=== PATIENT | female | born 1970 | race Caucasian/White ===

== ENCOUNTER 2016-06-03 20:00 | Emergency (ER) | payer MEDICAID, SELFPAY ==
[~2016-06-03 20:00] MED LIST: /NITR4TASL SL; /PANT40TA PO; ACET25TA5 PO; ADV250INH INH; ADVI200C PO; ALBU17IN INH; ALBU17IN2 INH; ALEV220C2 PO; AMBI12.52 PO; AMLO5TAB2 PO; ATOR40TA PO; ATORVASTATIN PO; BACITAB3 PO; BACL10TA2 PO; CARV3.12 PO; CARV6.25 PO; CEFD1CAP8 PO; CHLO125TA PO; CIPR500T89 PO; CITA20TA2 PO; CLOP75TA2 PO; CORE20CA PO; DIFL200T PO; DOCU10ELUD PO; DOXY10CA PO; DULC10SU2 PR; DURA100D2 TD; FENT10PA TD; FLAG375C PO; FLAG500T PO; FURO20TA2 PO; HUMA100I3 SC; IMDU30TA PO; INSU70DS SC; INSUDET SC; INSUH10VL SC; INSUHUMDS SC; INSULADS SC; LEVO750T PO; LEXA1TAB PO; LIDO5DIS36 TD; LISI-538 PO; LISI10TA4 PO; LYRI100C10 PO; LYRI300C PO; LYRI75CA PO; Linezolid PO; MECL-68 PO; MICA40TA PO; MORP100T40 PO; MORP30TASA PO; NITR4TASL SL; NORV5TAB PO; OXYC-208 PO; OXYC10TA12 PO; OXYC20TA21 PO; PEG1POW PO; PLAV75TA38 PO; PRED10TA PO; SENN-15 PO; SENN1TAB2 PO; STOO100C PO; SULF1TAB72 PO; SYMB80INH INH; TELM1TAB2 PO; TRAM50TA2 PO; TRAZ100T4 PO; TRAZ50TA4 PO; ZEST10TA4 PO; [UNRECOGNIZED DRUG - CODE] SC
[2016-06-03] MEDS ORDERED: DOXYCYCLINE HYCLATE 100 MG TAB As Ordered ONE (21:46)
[2016-06-03] MEDS ORDERED: NORCO 5/325MG TABLET (BULK) As Ordered ONE (21:47)
--- NOTE | 2016-06-03 21:58 | EDDOCDS ---
Physician Documentation [facility] Name: Kathryn Morin Age: 45 yrs Sex: Female : 1970 Arrival Date: 06/03/2016 Time: 20:00 Bed TR7 Private MD: Missael Barkley Disposition: 06/03/16 21:42 Discharged to Home/Self Care. Impression: Open wound of unspecified buttock - bilateral. - Condition is Stable. - Discharge Instructions: Wound Care, [id number]. - Prescriptions for Doxycycline Hyclate 100 mg Oral Tablet - take 1 tablet by ORAL route every 12 hours; 20 tablet. - Medication Reconciliation, Local Pharmacy Hours form. - Follow up: Emergency Department; When: As needed. Follow up: Ran Munoz MD; When: Call to arrange an appointment; Reason: Wound/Symptom Recheck, Recheck today's complaints, Worsening of conditions, Continuance of care. - Problem is chronic. - Symptoms are unchanged. Historical: - Allergies: Aspirin (Hives); - Home Meds: 1. atorvastatin 40 mg oral tab 1 tab nightly 2. Advair Diskus 250-50 mcg/dose Inhl dsdv 1 puff 2 times per day 3. pregabalin 300 mg Oral cap 1 cap 2 times per day 4. morphine 30 mg Oral cap 30 mg twice a day 5. baclofen 10 mg Oral tab 1 tab Q6h PRN 6. Excedrin Migraine 250-250-65 mg Oral tab 1 tablet as needed 7. lisinopril 20 mg oral tab 1 tab once daily 8. duloxetine 30 mg Oral cpDR 1 cap 2 times per day 9. oxycodone 10 mg Oral tab 1 tab every 6 hours 10. carvedilol 6.25 mg oral tab 1 tab 2 times per day 11. Plavix 75 mg Oral tab 1 tab once daily 12. furosemide 10 mg oral soln once daily 13. Levemir 100 unit/mL subcutaneous soln 65 units in the AM and 95 units in the PM 14. trazodone 100 mg Oral tab 1 tab nightly 15. Proventil Inhl as needed - PMHx: COPD; Diabetes - IDDM: uncontrolled; Hypertension; Multiple Sclerosis; - PSHx: CABG; back surgery; ; Appendectomy; - Social history: Smoking status: Patient states was never smoker of tobacco. No barriers to communication noted, The patient speaks fluent Gambian. - Family history: Not pertinent. - : The pt / caregiver states he / she is on anticoagulants: Plavix. Home medication list is obtained from the patient. - Exposure Risk Screening:: None identified. 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 5 in. (165.10 cm) (R); 20:25 BP 190 / 98 (man/); ms18 20:02 Body Mass Index 34.95 (95.25 kg, 165.10 cm) dd6 MDM: 21:41 Doxycycline 100 mg PO once ordered. cc10 21:41 HYDROcodone-acetaminophen 4 pack- 5 mg-325 mg 1 packets PO Per package directions; cc10 Dispense with patient. 1 po q4h prn for pain ordered. Administered Medications: 21:48 Drug: HYDROcodone-acetaminophen 4 pack- 1 packets [hydrocodone 5 mg-acetaminophen 325 pml mg tablet (1 tabs)] {Co-Signature: ibrahima (Sami Brown RN).} Route: PO; 21:54 Follow up: Response: Med's dispensed home pml 21:53 Drug: Doxycycline 100 mg [doxycycline hyclate 100 mg tablet (1 tabs)] Route: PO; pml Signatures: Amirah Moon RN RN pml Coniski, Colin, PA-C PA-C cc10 Inez Briones RN RN ms18 Sami alexandra MTDD
--- NOTE | 2016-06-03 21:58 | EDDOCDS ---
Nurse's Notes [facility] Name: Kathryn Morin Age: 45 yrs Sex: Female : 1970 Arrival Date: 06/03/2016 Time: 20:00 Bed TR7 Private MD: Missael Barkley Diagnosis: Open wound of unspecified buttock-bilateral Presentation: 06/03 20:17 Presenting complaint: Patient states: that she had "little pimples" on her buttocks ms18 that she now states have turned into blisters and are painful. Adult Sepsis Screening: The patient does not have new or worsening altered mentation. Patient's respiratory rate is less than 22. Systolic blood pressure is greater than 100. Patient has a qSOFA score of 0- Negative Sepsis Screen. Suicide/Homicide risk assessment- the patient denies having any suicidal and/or homicidal ideations and does not present with any other emotional, behavioral or mental health complaints. Status: Patient is not a health services information specialist or dependent. Transition of care: patient was not received from another setting of care. 20:17 Acuity: NALINI Level 3 ms18 20:17 Method Of Arrival: Walkin/Carried/Asstd ms18 Triage Assessment: 20:25 General: Appears in no apparent distress, comfortable, Behavior is appropriate for age, ms18 cooperative. Pain: Location: buttocks Pain currently is 8 out of 10 on a pain scale. HIV screening NA for this visit Offered previously. Neurological: Level of Consciousness is awake, alert, obeys commands. Respiratory: No deficits noted. Derm: Skin is pink, warm & dry. 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 atorvastatin 40 mg oral tab 1 tab nightly 2. Advair Diskus 250-50 mcg/dose Inhl dsdv 1 puff 2 times per day 3. pregabalin 300 mg Oral cap 1 cap 2 times per day 4. morphine 30 mg Oral cap 30 mg twice a day 5. baclofen 10 mg Oral tab 1 tab Q6h PRN 6. Excedrin Migraine 250-250-65 mg Oral tab 1 tablet as needed 7. lisinopril 20 mg oral tab 1 tab once daily 8. duloxetine 30 mg Oral cpDR 1 cap 2 times per day 9. oxycodone 10 mg Oral tab 1 tab every 6 hours 10. carvedilol 6.25 mg oral tab 1 tab 2 times per day 11. Plavix 75 mg Oral tab 1 tab once daily 12. furosemide 10 mg oral soln once daily 13. Levemir 100 unit/mL subcutaneous soln 65 units in the AM and 95 units in the PM 14. trazodone 100 mg Oral tab 1 tab nightly 15. Proventil Inhl as needed - PMHx: COPD; Diabetes - IDDM: uncontrolled; Hypertension; Multiple Sclerosis; - PSHx: CABG; back surgery; ; Appendectomy; - Social history: Smoking status: Patient states was never smoker of tobacco. No barriers to communication noted, The patient speaks fluent Guamanian. - Family history: Not pertinent. - : The pt / caregiver states he / she is on anticoagulants: Plavix. Home medication list is obtained from the patient. - Exposure Risk Screening:: None identified. Screenin:53 Screening information is obtained from the patient. Fall risk: No risks identified. pml Assistance ADL's: requires no assistance with activities of daily living. Abuse/DV Screen: The patient / caregiver reports he/she is: not in a situation that causes fear, pain or injury. Nutritional screening: No deficits noted. Advance Directives: Currently, there is no health care proxy. home support is adequate. Assessment: 21:53 General: Appears in no apparent distress, comfortable, Behavior is appropriate for age, pml cooperative. Pain: Location: buttocks. Neurological: Level of Consciousness is awake, alert, Oriented to person, place, time. Cardiovascular: Capillary refill < 3 seconds. Respiratory: Airway is patent Respiratory effort is even, unlabored. GI: Abdomen is non- distended. Derm: Skin is pink, warm & dry. open wounds to buttocks. Vital Signs: 20:02 BP 212 / 113; Pulse 74; Resp 18 S; Temp 98.0(O); Pulse Ox 99% on R/A; Weight 95.25 kg dd6 (R); Height 5 ft. 5 in. (165.10 cm) (R); 20:25 BP 190 / 98 (man/); ms18 20:02 Body Mass Index 34.95 (95.25 kg, 165.10 cm) dd6 Vitals: 20:02 Log In Time: June 03, 2016 at 20:00. dd6 ED Course: 20:02 Patient visited by Raul Vincent PCA. dd6 20:02 Missael Bakrley is Private Physician. dd6 20:02 Patient moved to Waiting dd6 20:03 Patient moved to Pre RCE dd6 20:18 Triage Initiated ms18 21:30 Patient moved to Triage 3 pml 21:32 Adal Ng PA-C is PHCP. cc10 21:32 Dewayne Magaña DO is Attending Physician. cc10 21:32 Patient visited by Adal Ng PA-C. cc10 21:32 Patient visited by Adal Ng PA-C. cc10 21:42 Ran Munoz MD is Referral Physician. cc10 21:53 Patient moved to TR7 ar3 21:53 The patient / caregiver is instructed regarding the plan of care and ED course. Patient pml has correct armband on for positive identification. Placed in gown. 21:57 No IV's were initiated during this patient's visit. No procedures done that require pml assistance. Administered Medications: 21:48 Drug: HYDROcodone-acetaminophen 4 pack- 1 packets [hydrocodone 5 mg-acetaminophen 325 pml mg tablet (1 tabs)] {Co-Signature: ibrahima (Sami Brown RN).} Route: PO; 21:54 Follow up: Response: Med's dispensed home pml 21:53 Drug: Doxycycline 100 mg [doxycycline hyclate 100 mg tablet (1 tabs)] Route: PO; pml Order Results: There are currently no results for this order. Outcome: 21:42 Discharge ordered by Provider. cc10 21:57 Discharge Assessment: Patient awake, alert and oriented x 3. No cognitive and/or pml functional deficits noted. Patient verbalized understanding of disposition instructions. patient administered narcotics - no. The following High Risk Discharge criteria are identified: None. Discharged to home ambulatory. The following High Risk Discharge criteria are identified:. Condition: good Condition: stable. Discharge instructions given to patient, Instructed on discharge instructions, follow up and referral plans. medication usage, wound care, Demonstrated understanding of instructions, medications, Pt was receptive of discharge instructions/ teaching. Prescriptions given X 1. No special radiology studies were completed. Property sent home with patient. 21:57 Patient left the ED. pml Signatures: Raul Vincent PCA UNIT TECHNICIAN dd6 Ananya Machado, UNIT TECHNICIAN UNIT TECHNICIAN ar3 Amirah Moon,RN RN pml Adal Ng, NAYLAC PAEliciaC cc10 Inez Briones,RN RN ms18 Sami Brown RN jmb MTDD
--- NOTE | 2016-06-05 22:59 | EDDOCDS ---
Nurse's Notes [facility] Name: Kathryn Morin Age: 45 yrs Sex: Female : 1970 Arrival Date: 06/03/2016 Time: 20:00 Bed TR7 Private MD: Missael Barkley Diagnosis: Open wound of unspecified buttock-bilateral Presentation: 06/03 20:17 Presenting complaint: Patient states: that she had "little pimples" on her buttocks ms18 that she now states have turned into blisters and are painful. Adult Sepsis Screening: The patient does not have new or worsening altered mentation. Patient's respiratory rate is less than 22. Systolic blood pressure is greater than 100. Patient has a qSOFA score of 0- Negative Sepsis Screen. Suicide/Homicide risk assessment- the patient denies having any suicidal and/or homicidal ideations and does not present with any other emotional, behavioral or mental health complaints. Status: Patient is not a emergency service worker or dependent. Transition of care: patient was not received from another setting of care. 20:17 Acuity: NALINI Level 3 ms18 20:17 Method Of Arrival: Walkin/Carried/Asstd ms18 Triage Assessment: 20:25 General: Appears in no apparent distress, comfortable, Behavior is appropriate for age, ms18 cooperative. Pain: Location: buttocks Pain currently is 8 out of 10 on a pain scale. HIV screening NA for this visit Offered previously. Neurological: Level of Consciousness is awake, alert, obeys commands. Respiratory: No deficits noted. Derm: Skin is pink, warm & dry. 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 atorvastatin 40 mg oral tab 1 tab nightly 2. Advair Diskus 250-50 mcg/dose Inhl dsdv 1 puff 2 times per day 3. pregabalin 300 mg Oral cap 1 cap 2 times per day 4. morphine 30 mg Oral cap 30 mg twice a day 5. baclofen 10 mg Oral tab 1 tab Q6h PRN 6. Excedrin Migraine 250-250-65 mg Oral tab 1 tablet as needed 7. lisinopril 20 mg oral tab 1 tab once daily 8. duloxetine 30 mg Oral cpDR 1 cap 2 times per day 9. oxycodone 10 mg Oral tab 1 tab every 6 hours 10. carvedilol 6.25 mg oral tab 1 tab 2 times per day 11. Plavix 75 mg Oral tab 1 tab once daily 12. furosemide 10 mg oral soln once daily 13. Levemir 100 unit/mL subcutaneous soln 65 units in the AM and 95 units in the PM 14. trazodone 100 mg Oral tab 1 tab nightly 15. Proventil Inhl as needed - PMHx: COPD; Diabetes - IDDM: uncontrolled; Hypertension; Multiple Sclerosis; - PSHx: CABG; back surgery; ; Appendectomy; - Social history: Smoking status: Patient states was never smoker of tobacco. No barriers to communication noted, The patient speaks fluent [place] Islander. - Family history: Not pertinent. - : The pt / caregiver states he / she is on anticoagulants: Plavix. Home medication list is obtained from the patient. - Exposure Risk Screening:: None identified. Screenin:53 Screening information is obtained from the patient. Fall risk: No risks identified. pml Assistance ADL's: requires no assistance with activities of daily living. Abuse/DV Screen: The patient / caregiver reports he/she is: not in a situation that causes fear, pain or injury. Nutritional screening: No deficits noted. Advance Directives: Currently, there is no health care proxy. home support is adequate. Assessment: 21:53 General: Appears in no apparent distress, comfortable, Behavior is appropriate for age, pml cooperative. Pain: Location: buttocks. Neurological: Level of Consciousness is awake, alert, Oriented to person, place, time. Cardiovascular: Capillary refill < 3 seconds. Respiratory: Airway is patent Respiratory effort is even, unlabored. GI: Abdomen is non- distended. Derm: Skin is pink, warm & dry. open wounds to buttocks. Vital Signs: 20:02 BP 212 / 113; Pulse 74; Resp 18 S; Temp 98.0(O); Pulse Ox 99% on R/A; Weight 95.25 kg dd6 (R); Height 5 ft. 5 in. (165.10 cm) (R); 20:25 BP 190 / 98 (man/); ms18 20:02 Body Mass Index 34.95 (95.25 kg, 165.10 cm) dd6 Vitals: 20:02 Log In Time: June 03, 2016 at 20:00. dd6 ED Course: 20:02 Patient visited by Raul Vincent PCA. dd6 20:02 Missael Barkley is Private Physician. dd6 20:02 Patient moved to Waiting dd6 20:03 Patient moved to Pre RCE dd6 20:18 Triage Initiated ms18 21:30 Patient moved to Triage 3 pml 21:32 Adal Ng PA-C is PHCP. cc10 21:32 Dewayne Magaña DO is Attending Physician. cc10 21:32 Patient visited by Adal Ng PA-C. cc10 21:32 Patient visited by Adal Ng PA-C. cc10 21:42 Ran Munoz MD is Referral Physician. cc10 21:53 Patient moved to TR7 ar3 21:53 The patient / caregiver is instructed regarding the plan of care and ED course. Patient pml has correct armband on for positive identification. Placed in gown. 21:57 No IV's were initiated during this patient's visit. No procedures done that require pml assistance. 06/04 11:03 T-Sheet-- Draft Copy was scanned into [employer] and attached to record. gb Administered Medications: 06/03 21:48 Drug: HYDROcodone-acetaminophen 4 pack- 1 packets [hydrocodone 5 mg-acetaminophen 325 pml mg tablet (1 tabs)] {Co-Signature: ibrahima (Sami Brown RN).} Route: PO; 21:54 Follow up: Response: Med's dispensed home pml 21:53 Drug: Doxycycline 100 mg [doxycycline hyclate 100 mg tablet (1 tabs)] Route: PO; pml Order Results: There are currently no results for this order. Outcome: 21:42 Discharge ordered by Provider. cc10 21:57 Discharge Assessment: Patient awake, alert and oriented x 3. No cognitive and/or pml functional deficits noted. Patient verbalized understanding of disposition instructions. patient administered narcotics - no. The following High Risk Discharge criteria are identified: None. Discharged to home ambulatory. The following High Risk Discharge criteria are identified:. Condition: good Condition: stable. Discharge instructions given to patient, Instructed on discharge instructions, follow up and referral plans. medication usage, wound care, Demonstrated understanding of instructions, medications, Pt was receptive of discharge instructions/ teaching. Prescriptions given X 1. No special radiology studies were completed. Property sent home with patient. 21:57 Patient left the ED. pml Signatures: Rosy Moyer, Reg Reg gb Carlton Raul, PROSTHETICS ASSISTANT PROSTHETICS ASSISTANT dd6 Ananya Machado, PROSTHETICS ASSISTANT PROSTHETICS ASSISTANT ar3 Amirah Moon,RN RN pml Adal Ng, PA-C PA-C cc10 Inez Briones RN RN ms18 Sami Brown RN jmb Chart Complete MTDD
--- NOTE | 2016-06-05 22:59 | EDDOCDS ---
Physician Documentation [facility] Name: Kathryn Morin Age: 45 yrs Sex: Female : 1970 Arrival Date: 06/03/2016 Time: 20:00 Bed TR7 Private MD: Missael Barkley Disposition: 06/03/16 21:42 Discharged to Home/Self Care. Impression: Open wound of unspecified buttock - bilateral. - Condition is Stable. - Discharge Instructions: Wound Care, [id number]. - Prescriptions for Doxycycline Hyclate 100 mg Oral Tablet - take 1 tablet by ORAL route every 12 hours; 20 tablet. - Medication Reconciliation, Local Pharmacy Hours form. - Follow up: Emergency Department; When: As needed. Follow up: Ran Munoz MD; When: Call to arrange an appointment; Reason: Wound/Symptom Recheck, Recheck today's complaints, Worsening of conditions, Continuance of care. - Problem is chronic. - Symptoms are unchanged. Historical: - Allergies: Aspirin (Hives); - Home Meds: 1. atorvastatin 40 mg oral tab 1 tab nightly 2. Advair Diskus 250-50 mcg/dose Inhl dsdv 1 puff 2 times per day 3. pregabalin 300 mg Oral cap 1 cap 2 times per day 4. morphine 30 mg Oral cap 30 mg twice a day 5. baclofen 10 mg Oral tab 1 tab Q6h PRN 6. Excedrin Migraine 250-250-65 mg Oral tab 1 tablet as needed 7. lisinopril 20 mg oral tab 1 tab once daily 8. duloxetine 30 mg Oral cpDR 1 cap 2 times per day 9. oxycodone 10 mg Oral tab 1 tab every 6 hours 10. carvedilol 6.25 mg oral tab 1 tab 2 times per day 11. Plavix 75 mg Oral tab 1 tab once daily 12. furosemide 10 mg oral soln once daily 13. Levemir 100 unit/mL subcutaneous soln 65 units in the AM and 95 units in the PM 14. trazodone 100 mg Oral tab 1 tab nightly 15. Proventil Inhl as needed - PMHx: COPD; Diabetes - IDDM: uncontrolled; Hypertension; Multiple Sclerosis; - PSHx: CABG; back surgery; ; Appendectomy; - Social history: Smoking status: Patient states was never smoker of tobacco. No barriers to communication noted, The patient speaks fluent Romanian. - Family history: Not pertinent. - : The pt / caregiver states he / she is on anticoagulants: Plavix. Home medication list is obtained from the patient. - Exposure Risk Screening:: None identified. 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 5 in. (165.10 cm) (R); 20:25 BP 190 / 98 (man/); ms18 20:02 Body Mass Index 34.95 (95.25 kg, 165.10 cm) dd6 MDM: 21:41 Doxycycline 100 mg PO once ordered. cc10 21:41 HYDROcodone-acetaminophen 4 pack- 5 mg-325 mg 1 packets PO Per package directions; cc10 Dispense with patient. 1 po q4h prn for pain ordered. 06/04 11:03 T-Sheet-- Draft Copy was scanned into [employer] and attached to record. gb Administered Medications: 06/03 21:48 Drug: HYDROcodone-acetaminophen 4 pack- 1 packets [hydrocodone 5 mg-acetaminophen 325 pml mg tablet (1 tabs)] {Co-Signature: ibrahima (Sami Brown RN).} Route: PO; 21:54 Follow up: Response: Med's dispensed home pml 21:53 Drug: Doxycycline 100 mg [doxycycline hyclate 100 mg tablet (1 tabs)] Route: PO; pml Signatures: Rosy Moyer, Reg Reg gb Amirah Moon RN RN pml Adal Ng, PAEliciaC PAEliciaC cc10 Inez Briones RN RN ms18 Sami alexandra The chart was reviewed and I authenticate all verbal orders and agree with the evaluation and treatment provided.Attachments: 06/04 11:03 T-Sheet-- Draft Copy gb Chart Complete MTDD
--- NOTE | 2016-06-05 22:59 | EDDOCDS ---
Physician Documentation [facility] Name: Kathryn Morin Age: 45 yrs Sex: Female : 1970 Arrival Date: 06/03/2016 Time: 20:00 Bed TR7 Private MD: Missael Barkley Disposition: 06/03/16 21:42 Discharged to Home/Self Care. Impression: Open wound of unspecified buttock - bilateral. - Condition is Stable. - Discharge Instructions: Wound Care, [id number]. - Prescriptions for Doxycycline Hyclate 100 mg Oral Tablet - take 1 tablet by ORAL route every 12 hours; 20 tablet. - Medication Reconciliation, Local Pharmacy Hours form. - Follow up: Emergency Department; When: As needed. Follow up: Ran Munoz MD; When: Call to arrange an appointment; Reason: Wound/Symptom Recheck, Recheck today's complaints, Worsening of conditions, Continuance of care. - Problem is chronic. - Symptoms are unchanged. Historical: - Allergies: Aspirin (Hives); - Home Meds: 1. atorvastatin 40 mg oral tab 1 tab nightly 2. Advair Diskus 250-50 mcg/dose Inhl dsdv 1 puff 2 times per day 3. pregabalin 300 mg Oral cap 1 cap 2 times per day 4. morphine 30 mg Oral cap 30 mg twice a day 5. baclofen 10 mg Oral tab 1 tab Q6h PRN 6. Excedrin Migraine 250-250-65 mg Oral tab 1 tablet as needed 7. lisinopril 20 mg oral tab 1 tab once daily 8. duloxetine 30 mg Oral cpDR 1 cap 2 times per day 9. oxycodone 10 mg Oral tab 1 tab every 6 hours 10. carvedilol 6.25 mg oral tab 1 tab 2 times per day 11. Plavix 75 mg Oral tab 1 tab once daily 12. furosemide 10 mg oral soln once daily 13. Levemir 100 unit/mL subcutaneous soln 65 units in the AM and 95 units in the PM 14. trazodone 100 mg Oral tab 1 tab nightly 15. Proventil Inhl as needed - PMHx: COPD; Diabetes - IDDM: uncontrolled; Hypertension; Multiple Sclerosis; - PSHx: CABG; back surgery; ; Appendectomy; - Social history: Smoking status: Patient states was never smoker of tobacco. No barriers to communication noted, The patient speaks fluent Cambodian. - Family history: Not pertinent. - : The pt / caregiver states he / she is on anticoagulants: Plavix. Home medication list is obtained from the patient. - Exposure Risk Screening:: None identified. 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 5 in. (165.10 cm) (R); 20:25 BP 190 / 98 (man/); ms18 20:02 Body Mass Index 34.95 (95.25 kg, 165.10 cm) dd6 MDM: 21:41 Doxycycline 100 mg PO once ordered. cc10 21:41 HYDROcodone-acetaminophen 4 pack- 5 mg-325 mg 1 packets PO Per package directions; cc10 Dispense with patient. 1 po q4h prn for pain ordered. 06/04 11:03 T-Sheet-- Draft Copy was scanned into [employer] and attached to record. gb Administered Medications: 06/03 21:48 Drug: HYDROcodone-acetaminophen 4 pack- 1 packets [hydrocodone 5 mg-acetaminophen 325 pml mg tablet (1 tabs)] {Co-Signature: ibrahima (Sami Brown RN).} Route: PO; 21:54 Follow up: Response: Med's dispensed home pml 21:53 Drug: Doxycycline 100 mg [doxycycline hyclate 100 mg tablet (1 tabs)] Route: PO; pml Signatures: Rosy Moyer, Reg Reg gb Amirah Moon RN RN pml Adal Ng, PAEliciaC PAEliciaC cc10 Inez Briones RN RN ms18 Sami alexandra The chart was reviewed and I authenticate all verbal orders and agree with the evaluation and treatment provided.Attachments: 06/04 11:03 T-Sheet-- Draft Copy gb Chart Complete MTDD
== END 2016-06-03 21:57 | disposition home or self-care (01) ==
LOC: M ED 20:00
DX: S31.809A Unspecified open wound of unspecified buttock, initial encounter (principal); X58.XXXA Exposure to other specified factors, initial encounter; Y92.89 Other specified places as the place of occurrence of the external cause; Y93.89 Activity, other specified; Y99.8 Other external cause status; E11.9 Type 2 diabetes mellitus without complications; I10 Essential (primary) hypertension; J44.9 Chronic obstructive pulmonary disease, unspecified; G35 Multiple sclerosis; Z95.1 Presence of aortocoronary bypass graft; Z90.89 Acquired absence of other organs; Z79.02 Long term (current) use of antithrombotics/antiplatelets; Z79.4 Long term (current) use of insulin; Z79.891 Long term (current) use of opiate analgesic; Z79.51 Long term (current) use of inhaled steroids; Z79.899 Other long term (current) drug therapy; Z88.6 Allergy status to analgesic agent

== ENCOUNTER → 2016-06-20 | Outpatient (CLI) | payer SELFPAY ==
--- NOTE | 2016-07-01 00:30 | ECWPNPC ---
PATIENT NAME: ANDI HORVATH : 1970 GENDER: FEMALE VISIT DATE: 06/20/2016 DISCHARGE DATE: 06/20/16 1516 VISIT LOCKED DATE TIME: PHYSICIAN: COLE CHEN RESOURCE: COLE CHEN REASON FOR APPOINTMENT 1. FOLLOW UP HISTORY OF PRESENT ILLNESS HISTORY OF PRESENT ILLNESS: PAIN THE PATIENT DESCRIBES THE PAIN... FALL RISK SCREENING: SCREENING :NO FALLS IN THE PAST YEAR NEW PATIENT CONSULT: 45 Y/O FEMALE REFERRED ONE YEAR AGO BY [facility], FOR OPIOD MEDICINE MANAGEMENT FOR CHRONIC LBP AND LOWER EXTREMITY RADICULOPATHY/NEUROPATHY.HISTORY OF MULTIPLE COMORBIDITIES TO INCLUDE CAD S/P CABG AND STENTING,IDDM AND NEWLY DIAGNOSED NEUROGENIC BLADDER.ONSET OF LOW BACK PAIN WAS AFTER 100# BOXES FELL ON HER WHILE UNLOADING TRUCK AT [facility] IN 2003.THIS WAS WORKMANS COMP UNTIL SHE SETTLED IN 2013.HAD LUMBAR FUSION IN 2005.HAD DCS PLACED IN 2007.REPORTS NO IMPROVEMENT WITH DCS AND THIS HAS NOT BEEN USED IN GREATER THAN 2 YEARS. TRIALED MULTIPLE MEDICATIONS OVER THE YEARS BOTH OPIOD AND NON OPIOD.OVER THE PAST YEAR SHE HAS BEEN WEANING DOWN THE OPIODS.PATIENT WOULD LIKE TO BE OFF OPIODS. UNFORTUNATLEYREPORTS SHE HAS BEEN WITH INCREASED PAIN AND DISABILITY SINCE REDUCTION.ALSO HER BLOOD PRESSURE HAS BEEN ELEVATED POSSIBLY DUE TO INCREASED PAIN AND THIS IS DETRIMENTAL TO HER FRAIL MEDICAL STATE.HAS TRIED MULTIPLE LOW BACK INJECTIONS OVER THE YEARS WITH LAST ONE 2008. CURRENTLY USING MS CONTIN 30MG BID,LYRICA 300MG BID,AND OXYCODONE 10MG Q6H PRN MDD4.COMPLAINING OF CONSTIPATION.CURRENTLY USING COLACE 100MG BID. WHEN DID YOUR PAIN FIRST START? . BRIEFLY DESCRIBE HOW YOUR PAIN STARTED? . HOW DOES YOUR PAIN CHANGE WITH TIME? . DOES YOUR PAIN AWAKEN YOU FROM SLEEP? . HOW MANY HOURS OF SLEEP DO YOU NORMALLY GET? . ANY DIAGNOSTIC TESTING? . FACILITY WHERE TESTS WERE DONE? ____. PAIN TREATMENT TREATMENT YES TREATMENT YES CANCER HAVE YOU EVER HAD ANY TYPE OF CANCER?NO HAVE YOU EVER HAD ANY TYPE OF CANCER?NO NO. CURRENT MEDICATIONS TAKING PROVENTIL HFA 6.7 AEROSOL SOLUTION 2 PUFFS NEEDED INHALATION EVERY 2HR PRN TAKING PLAVIX 75 MG TABLET 1 TABLET ORALLY ONCE A DAY TAKING NITROSTAT 0.4 MG TABLET SUBLINGUAL 1-3 TABLETS SUBLINGUAL PRN TAKING TRAZODONE HCL 100 MG TABLET 1 TABLET AT BEDTIME ORALLY ONCE A DAY TAKING LEVEMIR 100 UNIT/ML SOLUTION 95 UNITS SUBCUTANEOUS HS TAKING GLUCOMETER 1 ELECTRONIC DIRECTED _ TID (E11.65) TAKING BLOOD GLUCOSE TEST STRIP 200 STRIP DIRECTED IN VITRO TID (E11.65) TAKING BD INSULIN SYRINGE 31G X 5/16 MISCELLANEOUS DIRECTED SUBCUTANEOUSLY FOUR TIMES DAILY TAKING OVERLAY MATTRESS WITH PUMP DIRECTED. ICD10 L89.153, L 89.154 DAILY TAKING COMPRESSION STOCKINGS 15-20 MMHG _ DIRECTED FOR BLE EDEMA AND VARICOSE VEINS (DX. R60.0, I83.893) DIRECTED ON DURING THE DAY OFF AT NIGHT TAKING DEBROX 6.5 % SOLUTION DIRECTED OTIC BID TAKING ATORVASTATIN CALCIUM 40 MG TABLET 1 TABLET ORALLY ONCE A DAY TAKING SENNA 8.6 MG TABLET 2 TABLETS AT BEDTIME NEEDED ORALLY ONCE A DAY TAKING NOVOLOG 100 UNIT/ML SOLUTION PER SCLIDING SCALE SUBCUTANEOUS THREE TIMES DAILY BEFORE MEALS TAKING LEVEMIR 100 UNIT/ML SOLUTION 65 UNITS SUBCUTANEOUS AM TAKING LISINOPRIL 20 MG TABLET 1 TABLET ORALLY ONCE A DAY TAKING CARVEDILOL 6.25MG TABLET 1/2 ORAL BID TAKING AMLODIPINE BESYLATE 5 MG TABLET 1 TABLET ORALLY ONCE A DAY TAKING DULCOLAX 10 MG SUPPOSITORY 1 SUPPOSITORY NEEDED RECTAL ONCE DAILY NEEDED TAKING BACLOFEN 10 MG TABLET 1 TABLET WITH FOOD OR MILK ORALLY EVERY 6 HR QID TAKING OXYCODONE HCL 10 MG TABLET 1 ORALLY Q6H PRN MDD4 TAKING LYRICA 300 MG CAPSULE 1 CAPSULE ORALLY TWICE A DAY MDD2 TAKING CYMBALTA 30 MG CAPSULE DELAYED RELEASE PARTICLES 1 CAPSULE ORALLY TWICE A DAY TAKING MS CONTIN 30 MG TABLET EXTENDED RELEASE 1 TABLET ORALLY BID MDD2 NOT-TAKING MECLIZINE HCL 25 MG TABLET CHEWABLE 1 TABLET NEEDED ORALLY ONCE A DAY NOT-TAKING MORPHINE SULFATE ER 30 MG TABLET EXTENDED RELEASE 1 ORALLY ONE TAB AT HS MDD1 NOT-TAKING TELMISARTAN 80 MG TABLET 1 TABLET ORALLY ONCE A DAY NOT-TAKING HUMALOG 100 UNIT/ML SOLUTION SLIDING SCALE SUBCUTANEOUS AC NOT-TAKING TRIAMCINOLONE ACETONIDE 0.1 % LOTION 1 APPLICATION TO AFFECTED AREA EXTERNALLY (LIPS) TWICE A DAY NOT-TAKING TRIAMCINOLONE ACETONIDE 0.1 % LOTION 1 APPLICATION TO AFFECTED AREA EXTERNALLY (VAGINAL) TWICE A DAY NOT-TAKING LEVEMIR 100 UNIT/ML SOLUTION 45 UNITS SUBCUTANEOUS DAILY NOT-TAKING PREDNISONE 10 MG TABLET 1 TABLET ORALLY ONCE A DAY NOT-TAKING ZYVOX 600 MG TABLET 1 TABLET ORALLY EVERY 12 HRS MEDICATION LIST REVIEWED AND RECONCILED WITH THE PATIENT PAST MEDICAL HISTORY FX BACK CAD PNEUMONIA HTN DM TYPE 2 ASTHMA SLEEP APNEA ANGINA CHF [address] BOWEL PROBLEMS THYROID D/O (LOW TSH ON PRIOR LABS) ANXIETY STAGE III PRESSURE ULCER OF SACRAL REGION URINARY RETENTION NEUROGENIC BLADDER ALLERGIES ASPIRIN: HIVES: ALLERGY NUCLEAR MED: LOWER EXTREMITY SWELLING: CONTRAINDICATION SOCIAL HISTORY GENERAL: TOBACCO USE ARE YOU A:NONSMOKER LEARNING BARRIERS / SPECIAL NEEDS ORIENTED TO PLAN OF CARE: PATIENT, PAIN MANAGEMENT PATIENT, ORIENTED TO PLAN OF CARE: PATIENT, PAIN MANAGEMENT PATIENT. NEW PATIENT PAIN DIARY TODAY'S VISITNOTES FROM 0-10, WHAT LEVEL IS YOUR PAIN TODAY?0 PAIN CLINIC PFS, CLERGY, PUBLIC HEALTH REFERRALS PFS REFERRAL NEEDED?NO CLERGY REFERRAL NEEDED?NO PUBLIC HEALTH REFERRAL NEEDED?NO WAS THE PROVIDER NOTIFIED OF ANY PERTINENT INFO?NO PFS REFERRAL NEEDED?NO CLERGY REFERRAL NEEDED?NO PUBLIC HEALTH REFERRAL NEEDED?NO WAS THE PROVIDER NOTIFIED OF ANY PERTINENT INFO?NO REVIEW OF SYSTEMS CONSTITUTIONAL: ANY CHANGE IN YOUR MEDICAL CONDITION? NO . CHILLS NO . FEVER NO . INFECTION: DO YOU HAVE NEW INFECTIONS? NO . DO YOU HAVE HISTORY OF MRSA? NO . MUSCULOSKELETAL: ANY NEW PATTERNS OF PAIN OR NUMBNESS? NO . GASTROENTEROLOGY: ANY NEW CHANGE IN BOWEL CONTROL? NO . GENITOURINARY: ANY NEW CHANGE IN BLADDER CONTROL? NO . IS THERE A CHANCE YOU COULD BE ? NO . HEMATOLOGY/LYMPH: DO YOU TAKE ANY BLOOD THINNERS? (FOR EXAMPLE- COUMADIN, PLAVIX, AGGRENOX, PLATEL, PRADAXA, OR XARELTO) YES, PLAVIX . WHEN WAS YOUR LAST DOSE? DATE: TIME: . NEUROLOGY: HAVE YOU FALLEN IN THE PAST 6 MONTHS? NO . ANY NEW EXTREMITY NUMBNESS OR WEAKNESS? NO . CARDIOLOGY: DO YOU HAVE A PACEMAKER OR DEFIBRILLATOR? NO . RESPIRATORY: HAVE YOU BEEN SICK IN THE PAST WEEK? NO . FEVER NO . FLU LIKE SYMPTOMS? NO . COUGH NO . INTEGUMENTARY: DO YOU HAVE ANY RASHES OR OPEN SORES? NO . ALLERGIC/IMMUNO: ARE YOU ALLERGIC TO SHELLFISH OR IV DYE? NO . ANY NEW ALLERGIES? NO . PSYCHIATRIC: DO YOU HAVE THOUGHTS OF HURTING YOURSELF OR SOMEONE ELSE? NO . ARE YOU ABUSED, NEGLECTED, OR IN AN UNSAFE ENVIRONMENT? NO . ENDOCRINOLOGY: ARE YOU DIABETIC? YES . OTHER: DO YOU NEED ANY PRESCRIPTIONS? YES . IF YES, PLEASE LIST: LYRICA, OXYCODONE, MORPHINE ER, BACLOFEN, AND CYMBALTA . ANY NEW PROBLEMS WITH YOUR MEDICATIONS? NO . WHEN DID YOU LAST EAT? ____ . WHEN DID YOU LAST DRINK? ____ . WHAT DID YOU LAST DRINK? ____ . NAME OF PERSON DRIVING YOU HOME? ____ . DO YOU HAVE ANY OTHER QUESTIONS OR CONCERNS NO . REVIEWED BY: PROVIDER: COLE MOFFETT . VITAL SIGNS WT 211 LBS, HT 65 IN, BMI 35.11 INDEX, BP 192/95 MM HG, REPEAT BP 200/96 MANUAL, HR 79 /MIN, RR 16 /MIN, TEMP 98.8 F, OXYGEN SAT % 98, NA INITIALS TL 1416, REVIEWED BY: [id number] BLOOD PRESSURE RECHECKED MANUALLY IN LEFT ARM 166/94. I INSTRUCTED PATIENT TO MONITOR HER BLOOD PRESSURE AND REPORT IT TO HER PRIMARY MD PER DINH,PILAR. PATIENT STATES BLOOD PRESSURE HAS BEEN UP SOME THE LAST FEW TIMES IT HAS BEEN TAKEN. EXAMINATION GENERAL EXAMINATION: HEENT:HEAD:, NORMOCEPHALIC, EYES:, EYES NORMAL, NOSE:, NOSE CLEAR, THROAT: NORMAL. LUNGS:LUNG SOUNDS ARE CLEAR. HEART:HEART RATE REGULAR. ABDOMEN:SOFT AND NOT TENDER, NON-DISTENDED. MUSCULOSKELETAL:*. LUMBAR SACRAL SPINEMUSCLE STRENGTH TESTING 1/5 RIGHT 2/5 LEFT. PALPATION: + FOR PAIN OVER L/S SPINE. + FOR PAIN OVER L/S PARSPINALS. THORACIC SPINENEGATIVE FOR PAIN WITH PALPATION OF THORACIC SPINE. NEGATIVE FOR PAIN WITH PALPATION OF THORACIC PARASPINAL. CERVICALNEGATIVE FOR PAIN WITH PALPATION OF CERVICAL SPINE. NEGATIVE FOR PAIN WITH PALPATION OF CERVICAL PARASPINALS. NEGATIVE FOR PAIN WITH PALPATION OF TRAPEZIUS BILAT. SKIN:NORMAL, NO RASH. NEUROLOGIC EXAM:ALERT AND ORIENTED X 3, DTRS 1-2+ IN ALL 4 EXTREMITIES, DENIES UPPER EXTREMETIES SENSORY LOSS, DENIES LOWER EXTREMETIES SENSORY LOSS. ASSESSMENTS POST LAMINECTOMY SYNDROME - M96.1 (PRIMARY) LUMBAR RADICULOPATHY - M54.16 NEUROPATHY - G62.9 CHRONIC PRESCRIPTION OPIATE USE - Z79.891 TREATMENT POST LAMINECTOMY SYNDROME REFILL LYRICA CAPSULE, 300 MG, 1 CAPSULE, ORALLY, TWICE A DAY MDD2, 30 DAY(S), 60, REFILLS 5 REFILL OXYCODONE HCL TABLET, 10 MG, 1, ORALLY, Q6H PRN MDD4, 30 DAY(S), 120, REFILLS 0 REFILL CYMBALTA CAPSULE DELAYED RELEASE PARTICLES, 30 MG, 1 CAPSULE, ORALLY, TWICE A DAY, 30 DAY(S), 60, REFILLS 1 REFILL MS CONTIN TABLET EXTENDED RELEASE, 30 MG, 1 TABLET, ORALLY, BID MDD2, 30 DAY(S), 60, REFILLS 0 PROCEDURE CODES FA211 ESTABILISHED PATIENT [facility] FACILITY CHARGE FOLLOW UP 2 MONTHS ELECTRONICALLY SIGNED BY BETINA ALEXIS ON 06/25/2016 AT 01:05 PM EST DISCLAIMER : THIS IS A VISIT SUMMARY EXTRACTED FROM THE [employer] CHART. IT IS NOT A COPY OF THE [employer] PROGRESS NOTE. MAGDALENA
== END ==
LOC: M PAIN 14:00
PROVIDERS: ATTEND Nurse Practitioner Family
DX: Z09 Encounter for follow-up examination after completed treatment for conditions other than malignant neoplasm (principal); G89.29 Other chronic pain; M96.1 Postlaminectomy syndrome, not elsewhere classified; M54.16 Radiculopathy, lumbar region; G62.9 Polyneuropathy, unspecified; I25.10 Atherosclerotic heart disease of native coronary artery without angina pectoris; I10 Essential (primary) hypertension; E11.9 Type 2 diabetes mellitus without complications; I50.9 Heart failure, unspecified; I25.2 Old myocardial infarction; E03.9 Hypothyroidism, unspecified; J45.909 Unspecified asthma, uncomplicated; G47.30 Sleep apnea, unspecified; F41.9 Anxiety disorder, unspecified; N31.9 Neuromuscular dysfunction of bladder, unspecified; Z88.6 Allergy status to analgesic agent; Z88.8 Allergy status to other drugs, medicaments and biological substances; Z79.01 Long term (current) use of anticoagulants; Z79.4 Long term (current) use of insulin; Z79.891 Long term (current) use of opiate analgesic; Z79.899 Other long term (current) drug therapy; Z86.79 Personal history of other diseases of the circulatory system; Z87.81 Personal history of (healed) traumatic fracture

== ENCOUNTER → 2016-08-21 | Outpatient (CLI) | payer SELFPAY ==
--- NOTE | 2016-08-29 23:58 | ECWPNPC ---
PATIENT NAME: ANDI HORVATH : 1970 GENDER: FEMALE VISIT DATE: 08/21/2016 DISCHARGE DATE: 08/21/16 1627 VISIT LOCKED DATE TIME: PHYSICIAN: COLE CHEN RESOURCE: COLE CHEN REASON FOR APPOINTMENT 1. BACK HISTORY OF PRESENT ILLNESS HISTORY OF PRESENT ILLNESS: HERE FOR F/U AND MANAGEMENT OF CHRONIC LOW BACK PAIN AND BILATERAL LEG PAIN.RATING PAIN VAS 8/10.FINDS IT DIFFICULT TO TOLERATE ADL'S DURING DAY DUE TO PAIN.DISCUSSED MEDICINE AND TREATMENT OPTIONS.STATES PAIN IS AGGREVATED BY COLD WEATHER.PAIN RELIEVED SOMEWHAT WITH REST.CURRENTLY TAKING MS CONTIN 30MG AT HS AND LYRICA 300MG BID AND PERCOCET 10/325 UP TO FOUR TABLETS PER DAY NEEDED. PAIN THE PATIENT DESCRIBES THE PAIN... FALL RISK SCREENING: SCREENING :NO FALLS IN THE PAST YEAR CURRENT MEDICATIONS TAKING LISINOPRIL 20 MG TABLET 1 TABLET ORALLY ONCE A DAY TAKING AMLODIPINE BESYLATE 5 MG TABLET 1 TABLET ORALLY ONCE A DAY TAKING CARVEDILOL 6.25MG TABLET 1/2 ORAL BID TAKING GLIPIZIDE ER 10 MG TABLET EXTENDED RELEASE 24 HOUR 1 TABLET ORALLY BID PRIOR TO BREAKFAST AND DINNER TAKING LYRICA 300 MG CAPSULE 1 CAPSULE ORALLY TWICE A DAY MDD2 TAKING OXYCODONE HCL 10 MG TABLET 1 ORALLY FOUR TIMES A DAY MDD4 TAKING MORPHINE SULFATE ER 30 MG TABLET EXTENDED RELEASE 1 ORALLY ONE TAB AT HS MDD1 TAKING BACLOFEN 10 MG TABLET 1 TABLET WITH FOOD OR MILK ORALLY EVERY 6 HR QID UNKNOWN CYMBALTA 30 MG CAPSULE DELAYED RELEASE PARTICLES 1 CAPSULE ORALLY TWICE A DAY UNKNOWN PROVENTIL HFA 6.7 AEROSOL SOLUTION 2 PUFFS NEEDED INHALATION EVERY 2HR PRN UNKNOWN PLAVIX 75 MG TABLET 1 TABLET ORALLY ONCE A DAY UNKNOWN NITROSTAT 0.4 MG TABLET SUBLINGUAL 1-3 TABLETS SUBLINGUAL PRN UNKNOWN TRAZODONE HCL 100 MG TABLET 1 TABLET AT BEDTIME ORALLY ONCE A DAY UNKNOWN LEVEMIR 100 UNIT/ML SOLUTION 95 UNITS SUBCUTANEOUS HS UNKNOWN GLUCOMETER 1 ELECTRONIC DIRECTED _ TID (E11.65) UNKNOWN BLOOD GLUCOSE TEST STRIP 200 STRIP DIRECTED IN VITRO TID (E11.65) UNKNOWN BD INSULIN SYRINGE 31G X 5/16 MISCELLANEOUS DIRECTED SUBCUTANEOUSLY FOUR TIMES DAILY UNKNOWN OVERLAY MATTRESS WITH PUMP DIRECTED. ICD10 L89.153, L 89.154 DAILY UNKNOWN COMPRESSION STOCKINGS 15-20 MMHG _ DIRECTED FOR BLE EDEMA AND VARICOSE VEINS (DX. R60.0, I83.893) DIRECTED ON DURING THE DAY OFF AT NIGHT UNKNOWN DEBROX 6.5 % SOLUTION DIRECTED OTIC BID UNKNOWN ATORVASTATIN CALCIUM 40 MG TABLET 1 TABLET ORALLY ONCE A DAY UNKNOWN SENNA 8.6 MG TABLET 2 TABLETS AT BEDTIME NEEDED ORALLY ONCE A DAY UNKNOWN NOVOLOG 100 UNIT/ML SOLUTION PER SCLIDING SCALE SUBCUTANEOUS THREE TIMES DAILY BEFORE MEALS UNKNOWN LEVEMIR 100 UNIT/ML SOLUTION 65 UNITS SUBCUTANEOUS AM UNKNOWN DULCOLAX 10 MG SUPPOSITORY 1 SUPPOSITORY NEEDED RECTAL ONCE DAILY NEEDED UNKNOWN MS CONTIN 30 MG TABLET EXTENDED RELEASE 1 TABLET ORALLY BID MDD2 UNKNOWN MECLIZINE HCL 25 MG TABLET CHEWABLE 1 TABLET NEEDED ORALLY ONCE A DAY UNKNOWN TELMISARTAN 80 MG TABLET 1 TABLET ORALLY ONCE A DAY UNKNOWN HUMALOG 100 UNIT/ML SOLUTION SLIDING SCALE SUBCUTANEOUS AC UNKNOWN TRIAMCINOLONE ACETONIDE 0.1 % LOTION 1 APPLICATION TO AFFECTED AREA EXTERNALLY (LIPS) TWICE A DAY UNKNOWN TRIAMCINOLONE ACETONIDE 0.1 % LOTION 1 APPLICATION TO AFFECTED AREA EXTERNALLY (VAGINAL) TWICE A DAY UNKNOWN LEVEMIR 100 UNIT/ML SOLUTION 45 UNITS SUBCUTANEOUS DAILY UNKNOWN PREDNISONE 10 MG TABLET 1 TABLET ORALLY ONCE A DAY UNKNOWN ZYVOX 600 MG TABLET 1 TABLET ORALLY EVERY 12 HRS MEDICATION LIST REVIEWED AND RECONCILED WITH THE PATIENT PAST MEDICAL HISTORY FX BACK CAD PNEUMONIA HTN DM TYPE 2 ASTHMA SLEEP APNEA ANGINA CHF VA BOWEL PROBLEMS THYROID D/O (LOW TSH ON PRIOR LABS) ANXIETY STAGE III PRESSURE ULCER OF SACRAL REGION URINARY RETENTION NEUROGENIC BLADDER ALLERGIES ASPIRIN: HIVES: ALLERGY NUCLEAR MED DYE: LOWER EXTREMITY SWELLING: CONTRAINDICATION SURGICAL HISTORY C SECTION X3 CABG X 4 VESSELS 2009 CARDIAC CATH WITH STENTS 2014 APPENDECTOMY BACK SURGERY DORSAL COLUMN STIMULATOR- NOT WORKING NOW 2010 TONSILLECTOMY FAMILY HISTORY FATHER: ALIVE, DIAGNOSED WITH OTHER MOTHER: ALIVE, DIAGNOSED WITH DIABETES, HEART DISEASE NOT SURE OF FATHERS HEALTH. SOCIAL HISTORY GENERAL: TOBACCO USE ARE YOU A: NEVER SMOKER ALCOHOL SCREENING POINTS0 INTERPRETATIONNEGATIVE CAFFEINE CAFFEINE USE? NO LEARNING BARRIERS / SPECIAL NEEDS BARRIERS TO LEARNING?NO HEARING IMPAIRED?NO VISION IMPAIRED?NO COGNITIVELY IMPAIRED?NO READINESS TO LEARN?YES PAIN CLINIC PFS, CLERGY, PUBLIC HEALTH REFERRALS CLERGY REFERRAL NEEDED?NO WAS THE PROVIDER NOTIFIED OF ANY PERTINENT INFO?NO PFS REFERRAL NEEDED?NO PUBLIC HEALTH REFERRAL NEEDED?NO PATIENT: ____. HOSPITALIZATION/MAJOR DIAGNOSTIC PROCEDURE BRONCHITIS/PHAN/URINARY RETENTION 12/15/2015 PNEUMONIA 07/2015 UNINTENTIONAL FENTANYL OVERDOSE FROM MULTIPLE PATCH USAGE 2014 REACTION TO NUCLEAR MED DYE 05/2015 REVIEW OF SYSTEMS CONSTITUTIONAL: ANY CHANGE IN YOUR MEDICAL CONDITION? NO . CHILLS NO . FEVER NO . INFECTION: DO YOU HAVE NEW INFECTIONS? NO . DO YOU HAVE HISTORY OF MRSA? NO . MUSCULOSKELETAL: ANY NEW PATTERNS OF PAIN OR NUMBNESS? NO . GASTROENTEROLOGY: ANY NEW CHANGE IN BOWEL CONTROL? NO . GENITOURINARY: ANY NEW CHANGE IN BLADDER CONTROL? NO . IS THERE A CHANCE YOU COULD BE ? NO . HEMATOLOGY/LYMPH: DO YOU TAKE ANY BLOOD THINNERS? (FOR EXAMPLE- COUMADIN, PLAVIX, AGGRENOX, PLATEL, PRADAXA, OR XARELTO) NO . WHEN WAS YOUR LAST DOSE? DATE: TIME: . NEUROLOGY: HAVE YOU FALLEN IN THE PAST 6 MONTHS? NO . ANY NEW EXTREMITY NUMBNESS OR WEAKNESS? NO . CARDIOLOGY: DO YOU HAVE A PACEMAKER OR DEFIBRILLATOR? NO . RESPIRATORY: HAVE YOU BEEN SICK IN THE PAST WEEK? NO . FEVER NO . FLU LIKE SYMPTOMS? NO . COUGH NO . INTEGUMENTARY: DO YOU HAVE ANY RASHES OR OPEN SORES? NO . ALLERGIC/IMMUNO: ARE YOU ALLERGIC TO SHELLFISH OR IV DYE? NO . ANY NEW ALLERGIES? NO . PSYCHIATRIC: DO YOU HAVE THOUGHTS OF HURTING YOURSELF OR SOMEONE ELSE? NO . ARE YOU ABUSED, NEGLECTED, OR IN AN UNSAFE ENVIRONMENT? NO . ENDOCRINOLOGY: ARE YOU DIABETIC? YES, ON PO MEDS NOW AND BLOOD SUGARS IN 400S . OTHER: DO YOU NEED ANY PRESCRIPTIONS? YES . IF YES, PLEASE LIST: MORPHINE, CYMBALTA, LYRICA, OXYCODONE . ANY NEW PROBLEMS WITH YOUR MEDICATIONS? NO . WHEN DID YOU LAST EAT? ____ . WHEN DID YOU LAST DRINK? ____ . WHAT DID YOU LAST DRINK? ____ . NAME OF PERSON DRIVING YOU HOME? ____ . DO YOU HAVE ANY OTHER QUESTIONS OR CONCERNS NO . REVIEWED BY: PROVIDER: COLE MOFFETT . VITAL SIGNS WT 215 LBS, HT 65 IN, BMI 35.77 INDEX, BP 180/71 MM HG, HR 67 /MIN, RR 16 /MIN, TEMP 98.6 F, OXYGEN SAT % 93, NA INITIALS AW 1528. EXAMINATION GENERAL EXAMINATION: HEENT:HEAD:, NORMOCEPHALIC, EYES:, EYES NORMAL, NOSE:, NOSE CLEAR, THROAT: NORMAL. LUNGS:LUNG SOUNDS ARE CLEAR. HEART:HEART RATE REGULAR. ABDOMEN:SOFT AND NOT TENDER, NON-DISTENDED. MUSCULOSKELETAL:*. LUMBAR SACRAL SPINEMUSCLE STRENGTH TESTING 1/5 RIGHT 2/5 LEFT. PALPATION: + FOR PAIN OVER L/S SPINE. + FOR PAIN OVER L/S PARSPINALS. THORACIC SPINENEGATIVE FOR PAIN WITH PALPATION OF THORACIC SPINE. NEGATIVE FOR PAIN WITH PALPATION OF THORACIC PARASPINAL. CERVICALNEGATIVE FOR PAIN WITH PALPATION OF CERVICAL SPINE. NEGATIVE FOR PAIN WITH PALPATION OF CERVICAL PARASPINALS. NEGATIVE FOR PAIN WITH PALPATION OF TRAPEZIUS BILAT. SKIN:NORMAL, NO RASH. NEUROLOGIC EXAM:ALERT AND ORIENTED X 3, DTRS 1-2+ IN ALL 4 EXTREMITIES, DENIES UPPER EXTREMETIES SENSORY LOSS, DENIES LOWER EXTREMETIES SENSORY LOSS. ASSESSMENTS POST LAMINECTOMY SYNDROME - M96.1 (PRIMARY) LUMBAR RADICULOPATHY - M54.16 NEUROPATHY - G62.9 CHRONIC PRESCRIPTION OPIATE USE - Z79.891 TREATMENT POST LAMINECTOMY SYNDROME CONTINUE LYRICA CAPSULE, 300 MG, 1 CAPSULE, ORALLY, TWICE A DAY MDD2, 30 DAY(S), 60, REFILLS 2 REFILL OXYCODONE HCL TABLET, 10 MG, 1, ORALLY, FOUR TIMES A DAY MDD4, 30 DAY(S), 120, REFILLS 0 REFILL BACLOFEN TABLET, 10 MG, 1 TABLET WITH FOOD OR MILK, ORALLY, EVERY 6 HR QID, 30 DAY(S), 120, REFILLS 2 REFILL MS CONTIN TABLET EXTENDED RELEASE, 30 MG, 1 TABLET, ORALLY, BID MDD2, 30 DAY(S), 60, REFILLS 0 NOTES: ISTOP REGISTRY REVIEWED AND DEMNOSTRATES COMPLLIANCE. BRINGS IN MEDICATIONS WHICH IS APPROPRIATE FOR WHAT WAS DISPENSED. RECENT URINE TOXICOLOGY REVIEWED. NO UNAUTHORIZED MEDICATIONS. NO ILLICIT SUBSTANCES AND PRESCRIBED MEDICATIONS WERE PRESENT. , RISKS AND BENEFITS OF NARCOTIC/OPIOD MEDICATIONS WERE REVIEWED WITH PATIENT - THIS INCLUDES BUT IS NOT LIMITED TO RISK OF DEPENDANCE/DEVELOPMENT OF ADDICTION, MOOD DISTURBANCE AND DEPRESSION, OSTEOPOROSIS, HORMONAL AND LABIDAL CHANGES, RESPIRATORY DEPRESSION AND . PATIENT IS ADVISED NOT TO DRIVE WHILE ON THESE MEDICATIONS.URINE TOX. PROCEDURE CODES FA211 ESTABILISHED PATIENT [facility] CHARGE DISPOSITION & COMMUNICATION FOLLOW UP 4 WEEKS ELECTRONICALLY SIGNED BY BETINA ALEXIS ON 08/29/2016 AT 06:33 PM EDT DISCLAIMER : THIS IS A VISIT SUMMARY EXTRACTED FROM THE [employer] CHART. IT IS NOT A COPY OF THE [employer] PROGRESS NOTE. MAGDALENA
== END ==
LOC: M PAIN 14:40
PROVIDERS: ATTEND Nurse Practitioner Family
DX: M96.1 Postlaminectomy syndrome, not elsewhere classified (principal); M54.16 Radiculopathy, lumbar region; G62.9 Polyneuropathy, unspecified; G89.29 Other chronic pain; Z79.891 Long term (current) use of opiate analgesic; Z79.899 Other long term (current) drug therapy; Z79.84 Long term (current) use of oral hypoglycemic drugs; Z88.6 Allergy status to analgesic agent; Z91.041 Radiographic dye allergy status; E11.65 Type 2 diabetes mellitus with hyperglycemia; E11.43 Type 2 diabetes mellitus with diabetic autonomic (poly)neuropathy; I10 Essential (primary) hypertension; G82.21 Paraplegia, complete

== ENCOUNTER 2016-09-16 18:49 | Inpatient (IN) | payer SELFPAY ==
[~2016-09-16] VITALS: Ht 165.1 cm; Wt 92.6 kg
[2016-09-16] MEDS ORDERED: NS 500 ML IV ONE (19:00)
[2016-09-16 19:37] LABS: BASO # 0.1 K/mm3 (0.0-0.2); BASO % 0.3 % (0.0-1.0); EOS # 0.3 K/mm3 (0.0-0.50); EOS % 1.6 % (0.0-3.0); LARGE UNSTAINED CELL # 0.1 K/mm3 (0.0-0.4); LARGE UNSTAINED CELL % 0.7 % (0.0-4.0); LYMPH # 1.4 K/mm3 (1.5-4.5); LYMPH % 7.4 % (24.0-44.0); MEAN CORPUSCULAR HEMOGLOBIN 28.3 pg (27.0-33.0); MEAN CORPUSCULAR HGB CONC 33.7 g/dl (32.0-36.5); MEAN CORPUSCULAR VOLUME 84.1 fl (80.0-96.0); MONO # 0.5 K/mm3 (0.0-0.8); MONO % 2.7 % (0.0-5.0); NEUTROPHILS # 15.2 K/mm3 (1.8-7.7); NEUTROPHILS % 87.4 % (36.0-66.0); PLATELET COUNT, AUTOMATED 450 k/mm3 (150-450); RED CELL DISTRIBUTION WIDTH 14.5 % (11.5-14.5); WHITE BLOOD COUNT 17.4 K/mm3 (4.0-10.0)
--- NOTE | 2016-09-16 19:42 | ECGEPIP ---
Stationary ECG Study [facility] - ED Test Date: 2016-09-16 Pat Name: ANDI HORVATH Department: Room: - Gender: F District Fire Chief: GoodenB: 1970 Requested By: WALI Felix Order Number: [id number] Reading MD: Chente Dozier Measurements Intervals [place] Rate: 73 P: 42 VA: 144 QRS: 74 QRSD: 92 T: 49 QT: 414 QTc: 457 Interpretive Statements SINUS RHYTHM POSSIBLE LEFT ATRIAL ENLARGEMENT Electronically Signed On 09-16-2016 19:42:40 EDT by Chente Dozier
[2016-09-16 20:01] LABS: ABG BASE EXCESS -4.4 (-2.0-2.0); ABG HCO3 19.8 MEQ/L (22.0-26.0); ABG PARTIAL PRESSURE CO2 34.4 mmHg (35.0-45.0); ABG PARTIAL PRESSURE O2 77.7 mmHg (75.0-100.0); ABG STANDARD HCO3 20.8 MEQ/L (22.0-26.0); ABG TOTAL CO2 20.9 MEQ/L (22.0-29.0); ABG pH (ARTERIAL) 7.379 UNITS (7.350-7.450)
[2016-09-16 20:01] LABS: ANION GAP 11 MEQ/L (8-16); BLOOD UREA NITROGEN 33 MG/DL (7-18); CALCIUM LEVEL 9.5 MG/DL (8.5-10.1); CARBON DIOXIDE LEVEL 24 MEQ/L (21-32); CHLORIDE LEVEL 99 MEQ/L (98-107); CREATININE FOR GFR 2.03 MG/DL (0.55-1.02); GLOMERULAR FILTRATION RATE 27.8 (>58); POTASSIUM SERUM 4.5 MEQ/L (3.5-5.1); SODIUM LEVEL 134 MEQ/L (136-145)
[2016-09-16 20:05] LABS: YEAST LIKE CELL URINE AUTO LARGE
--- NOTE | 2016-09-16 20:10 | REPUSA ---
CT of the head Clinical history: Headache. Comparison: 05/31/2015. Technique: Multiple axial CT images were obtained through the head without administration of contrast . Findings: The ventricles and sulci are symmetric bilaterally. There is no evidence of acute hemorrhag e or infarct. There is no midline shift, mass effect, or extra-axial fluid collection. The osseous st ructures are unremarkable. The visualized paranasal sinuses and mastoid air cells are clear. Impression: Negative study.
[2016-09-16 20:11] LABS: METHADONE URINE NEGATIVE (NEGATIVE)
[2016-09-16 20:13] LABS: GLUCOSE, FASTING 425 MG/DL (70-105)
[2016-09-16] MEDS ORDERED: GLIP10TA58 PO (22:04)
[2016-09-16] MEDS ORDERED: motrin (22:04)
[2016-09-16] MEDS ORDERED: DULO30CA PO (22:04)
[2016-09-16] MEDS ORDERED: DIUR3TAB PO (22:04)
--- NOTE | 2016-09-16 23:10 | REPUSA ---
CT of the chest without contrast Clinical statement: Shortness of breath. Technique: Multiple axial CT images were obtained with 5 mm cuts through the chest without administra tion of contrast. Coronal and sagittal reconstructions were also obtained. Comparison: 07/15/2015. Findings: There is no thoracic lymphadenopathy. The visualized portions of the thyroid gland is unrem arkable. There are no pericardial or pleural effusions. There is patchy left upper lobe infiltrate. L imited imaging of the upper abdomen does not demonstrate any acute abnormalities. There are no suspic ious osseous lesions. Sternotomy wires are intact. A spinal stimulator wire is noted, with the tip at T6/T7. Impression: 1.. Left upper lobe infiltrate.
[2016-09-16] MEDS ORDERED: PIPERACILLIN/TAZOBACTAM SOD 3.375 GM in D5W MINI-BAG PLUS 50 ML IV ONE (23:45)
[2016-09-17] MEDS ORDERED: BACLOFEN 10 MG TAB PO PRN (00:45)
[2016-09-17] MEDS ORDERED: MECLIZINE 25 MG TABLET PO PRN (00:45)
[2016-09-17] MEDS ORDERED: ONDANSETRON 4MG/2ML VIAL (J2405) IV PRN (00:45)
[2016-09-17] MEDS ORDERED: oxyCODONE 5MG TAB PO PRN (00:45)
[2016-09-17] MEDS ORDERED: GLUCOSE 4 GM CHEW TABLET PO PRN (00:45)
[2016-09-17] MEDS ORDERED: DEXTROSE 50% 50 ML SYRINGE IV PRN (00:45)
[2016-09-17] MEDS ORDERED: GLUCAGON FOR INJ 1 MG VIAL (J1610) SC PRN (00:45)
[2016-09-17] MEDS ORDERED: PERCOCET 5MG/325MG TAB PO PRN (00:45)
[2016-09-17] MEDS ORDERED: BISACODYL 5 MG TAB PO PRN (00:45)
[2016-09-17] MEDS ORDERED: AMLO5TAB2 PO (00:56)
[2016-09-17] MEDS ORDERED: LISI-538 PO (00:56)
[2016-09-17] MEDS ORDERED: CARV3.12 PO (01:00)
--- NOTE | 2016-09-17 02:50 | REPUSA ---
CLINICAL HISTORY: Abdominal pain. TECHNIQUE: Multiple axial, sagittal and coronal CT images were obtained through the abdomen and pelvi s without administration of oral or IV contrast material. COMMENTS: The liver is of uniform attenuation without mass or defect. There is no intra or extrahepatic biliary ductal dilatation. The spleen is normal. The gallbladder is within normal limits. The pancreas is of normal contour and attenuation characteristics. There is no evidence of adrenal mass. Moderate large bowel fecal stasis. Fluid-filled mildly distended stomach. The kidneys are normal in size, shape and configuration. No renal or ureteral calculi are identified. There is no hydroureter or hydronephrosis. There is no evidence for appendicitis. There is no bowel wall thickening. No evidence for small or la rge bowel obstruction. There is no evidence of abdominal ascites or lymphadenopathy. There is no evidence of intrinsic or extrinsic bladder mass. There is no pelvic ascites or lymphadeno viral. Urinary catheter balloon is seen in the bladder. Images of the lung bases show no evidence of pleural or parenchymal mass. There are no pleural effusi ons. The bony structures are free of lytic or blastic lesions. Multilevel degenerative changes are seen in volving the thoracolumbar spine. Scattered calcifications are seen involving the aorta and major branches compatible with atherosclero sis. Lower lumbar decompression and fusion metallic hardware is unremarkable. Unremarkable spinal stimulator. IMPRESSION: Mild gastroparesis. Moderate constipation. Thank you for your kind referral of this patient.
[2016-09-17] MEDS: cefTRIAXone SOD 2 GM in D5W MINI-BAG PLUS 50 ML IV SCH (03:10)
[2016-09-17] MEDS: NS 1,000 ML IV SCH ×2 (03:42→14:50)
[2016-09-17] MEDS: AZITHROMYCIN INJ 500 MG, VIAL MATE ADAPTER 1 EACH in D5W 250 ML IV SCH (03:43)
[2016-09-17] MEDS: ACETAMINOPHEN TAB 650MG DOSE (2X325MG) PO PRN ×2 (05:56→17:21)
[2016-09-17] MEDS: HEPARIN SOD (PORCINE) 5000 UNITS/ML VIAL SC SCH ×3 (05:57→22:20)
[2016-09-17] MEDS: HumaLOG INSULIN (NovoLOG) PER UNIT SC SCH ×4 (07:30→22:21)
--- NOTE | 2016-09-17 08:21 | REP ---
Portable chest x-ray: Single view. History: Altered mental status. Findings: EKG monitoring electrodes overlie the chest. Dorsal column stimulator leads are seen over the mid thoracic spine. Median sternotomy wires are noted. The heart is mildly enlarged unchanged. There is some linear opacity in the right perihilar region which may be discoid atelectasis. No acute infiltrate is seen. Impression: Linear density right mid lung zone may reflect discoid atelectasis. Otherwise no active disease. Prior sternotomy. Dorsal column stimulator. Signed by Glen Barksdale MD 09/17/2016 08:28 A
[2016-09-17] MEDS: CARVedilol 3.125 MG TAB PO SCH ×2 (09:00→22:19)
[2016-09-17] MEDS ORDERED: DULoxetine 30 MG CAP (CYMBALTA) PO SCH (09:00)
[2016-09-17] MEDS ORDERED: PREGABALIN 100 MG CAP (LYRICA) PO SCH (09:00)
[2016-09-17] MEDS: MORPHINE 15 MG SA TAB PO SCH ×2 (09:00→22:22)
[2016-09-17] MEDS ORDERED: LISINOPRIL 20 MG TAB PO SCH (09:00)
[2016-09-17] MEDS ORDERED: MORPHINE 30 MG SA TAB PO SCH ×2 (09:00)
[2016-09-17] MEDS ORDERED: MORPHINE 30 MG SA TAB PO ONE (10:00)
--- NOTE | 2016-09-17 12:21 | HPE ---
DATE OF ADMISSION: 09/17/2016 PRIMARY CARE PHYSICIAN: Dr. Missael Barkley CHIEF COMPLAINT: Metabolic encephalopathy. CODE STATUS: Cannot be evaluated due to altered mental status. HISTORY OF PRESENT ILLNESS: Ms. Morin is a 46-year-old female with multiple past medical history who was sent to the emergency room (ER) by a family member due to drowsiness and unable to arouse. Unfortunately, during the interview, none of the family members were presented however based on the nursing reports the patient has been having drowsiness for the past two days which has increased to the point that the patient did not respond to vocal stimuli and was sent to the ER. No fever, chills or night sweats was reported. Also, there was no report of sick contact. In the ER the patient was found to have elevated blood pressure as well as altered mental status. ALLERGIES: ASPIRIN STATINS PAST MEDICAL HISTORY: 1. Acute bronchitis. 2. Acute urinary retention, possibility of neurogenic bladder. 3. Acute kidney injury due to the obstructive uropathy result. 4. Chronic indwelling Olivas. 5. Asthma with acute exacerbation. 6. Chronic constipation. 7. Coronary artery disease, status post coronary artery bypass graft and stents. 8. Obesity. 9. Narcotic dependent. 10. Chronic low back pain. 11. Depression. 12. Hypertension. 13. Diabetes. 14. History of lumbar vertebral surgery. 15. Peripheral neuropathy and loss of sensation in both lower extremities. 16. Gait in ability and difficulty walking. 17. Obstructive sleep apnea. 18. Spinal column stimulator in place. 19. Spinal canal stenosis. PAST SURGICAL HISTORY: 1. section three times. 2. Coronary artery bypass grafting times four vessels. 3. Cardiac catheterization with stents. 4. Appendectomy. 5. Back surgery. 6. Dorsal column stimulator. 7. Tonsillectomy. HOME MEDICATIONS: Amlodipine 5 mg by mouth daily at bedtime Atorvastatin 40 mg by mouth daily at bedtime Baclofen 10 mg by mouth every 6 hours Carvedilol 3.125 mg by mouth twice a day Cymbalta 30 mg by mouth twice a day Glipizide Xl 10 mg by mouth twice a day Lisinopril 20 mg by mouth daily Meclizine 25 mg by mouth every 6 hours when necessary dizziness Morphine sulfate 30 mg by mouth twice a day Oxycodone 10 mg by mouth 4 times a day Lyrica 300 mg by mouth twice a day SOCIAL HISTORY: Based on previous documentation, patient lives with her mother and has mild learning disability and cognitive impairment. The patient has gone to school until ninth grade. The patient did not complete General Education Development (GED). The patient has one son and one daughter who are healthy. The patient does not have a history of smoking or alcohol abuse or recreational drug use. FAMILY HISTORY: The patient's father is alive and healthy. The patient's mother is alive and has been diagnosed with diabetes, hypertension and heart disease. REVIEW OF SYSTEMS: Review of systems cannot be obtained due to the patient's altered mental status. PHYSICAL EXAMINATION: VITAL SIGNS: Temperature 98.8, pulse 76, respiratory rate 20, blood pressure 167/77, pulse oximetry 98 on room air. Total intake from yesterday 500, total output 999. GENERAL APPEARANCE: The patient was lying in bed and hard to arouse however she responds to painful stimulus and sometimes to vocal stimulus; HEENT: Normocephalic atraumatic, pupils are equal and reactive to light. Oral mucosa is moist. HEART: Regular rate and rhythm, normal S1, S2. ABDOMEN: Soft, obese, positive bowel sounds in all quadrants. LUNGS: The patient has mild crackles in the left upper chest. The patient also has scattered rhonchi at the base of the lung. No wheezing was appreciated. NEUROLOGIC: Cranial nerves cannot be obtained due to the patient's altered mental status. EXTREMITIES: The patient has pitting edema bilaterally; however, strength of the lower extremities cannot be assess due to the patient's altered mental status. LABORATORY DATA: White blood cells 17.4, red blood cells 5.34, hemoglobin 15.2, hematocrit 45.2, MCV 84.1, MCH 28.3, MCHC 33.7, RDW 14.5, platelet count 450, neutrophil percentage 87.4, lymphocyte percentage 7.4, monocyte percentage 2.7, eosinophil percentage 1.6, basophil percentage 0.3, leukocyte percentage 0.7. Sodium 134, potassium 4.5, chloride 99, carbon dioxide 24, anion gap 11, BUN 33, creatinine 2.03, glomerular fixation rate 27.8. Fasting glucose 425, lactic acid 1.9, calcium 9.5, total creatine kinase 2603, CK MB 49.1, CK MB (RDI) index 1.88 , troponin I less than 0.02, TSH 0.055. Arterial blood gas (ABG): Bicarbonate standard 20.8, ABG pH 7.379, ABG PCO2 34.4, ABG PO2 77.7, ABG PCO2 19.8, ABG total CO2 20.9, ABG Oxygen saturation 95.2, ABG base excess minus 4.4. Urine toxicology was positive for urine opiate screen. Urinalysis (UA): Yellow urine appearance hazy. Urine pH 5, urine specific gravity 1.006, urine protein negative, urine glucose 3 +, urine ketones trace, urine blood 2+, urine nitrite negative, urine bilirubin negative. Urine urobilinogen 0.2, urine leukocyte esterase 1+, urine white blood cells 8, urine red blood cells 6, urine hyaline casts 0, urine bacteria 1+, urine squamous epithelial 1, amorphous sediment small, urine yeast like cells large. Urine culture is pending. Sputum culture is pending. Blood culture is pending. IMAGING TECHNIQUES: Head CT without contrast was negative. Chest x-ray shows linear density on right mid lung zone which possibly reflects discoid atelectasis, otherwise negative. Chest CT without contrast shows left upper lobe infiltration. ASSESSMENT AND PLAN: 1. Metabolic encephalopathy. This is possibly secondary to infection versus opiate abuse. qSOFA score indicated NOT high risk for sepsis. Imaging technique indicated left upper infiltration, this is possibly secondary to pneumonia. I have started the patient on azithromycin and ceftriaxone. I made the patient nothing by mouth (NPO) due to altered mental status to prevent aspiration. Patient is on chronic opiate pain medications and her urine toxicology is positive for opiates. At this point I have his stop all her opiate medications except MS Contin which I have decreased the dosage from 60 to 20mg by mouth to prevent withdrawal symptoms. Blood culture and sputum culture are pending at this time. Urinalysis (UA) was indicating possibility of a urinary tract infection (UTI) which could contribute to her alter mental status. urine culture is pending. We will continue with the current antibiotics and oxygen. 2. Diabetes. At this point the patient is nothing by mouth at home and the patient is on glipizide 10 mg; however, I have stopped this medication and started the patient on a sliding scale with finger check every six hours. The patient is also on intravenous (IV) fluids. 3. History of asthma with acute exacerbation. At home the patient is not on any breathing treatments; however, we will continue the patient with oxygen for saturations more than 92%. 4. Obstructive sleep apnea. We do not have the patient's status regarding if the patient is compliant with CPAP. We will followup with this with the family members; however, at this time we will continue the patient on oxygen. 5. Hypertension. At home the patient is on amlodipine 5 mg by mouth nightly; as well as carvedilol 3.125 mg by mouth twice a day and lisinopril 20 mg by mouth daily. However, we will Lasix due to abnormal renal function. also we will hold Norvasc to decrease PO intake to prevent aspiration secondary to altered mental status 6. Dizziness. At home the patient is on meclizine 25 mg by mouth daily as needed for dizziness. However, at this time we will hold this medication to decreased PO intake secondary to altered mental status. 7. Chronic constipation. This is possibly secondary to opiate medications. Patient has not have endoscopy study. We will continue monitoring the patient. 8. Chronic back pain/spinal stenosis. The patient has a spinal column stimulator in place. The patient is following with pain management. The patient is on opiate medications; however, I will hold all opiate medications except MS Contin and decreased it from 60 mg twice a day to 20 mg twice to preventing from withdrawal. 9. Depression. At home the patient is on Cymbalta however we will hold this medication to decrease PO intake to prevent aspiration secondary to altered mental status. 10. Peripheral neuropathy with loss of sensation in lower extremities. The patient is on Lyrica 300 mg by mouth twice a day. The patient is also on Cymbalta; however we will hold these medications to decrease PO intake to prevent aspiration secondary to altered mental status. 11. Narcotic dependence. The patient has multiple narcotic medications; however, we have held most of the narcotic medications except the MS Contin which is decreased to 20 mg twice a day by mouth to prevent withdrawal. 12. Weight gain. This is a chronic issue. 13. Abnormal urinalysis (UA). The patient has a chronic indwelling Olivas. UA indicated the possibility of the urinary tract infection (UTI) which could contribute to her alter mental status; culture is pending. Patient is on IV antibiotic. 14. Acute urinary retention. This is possibly secondary to neurogenic bladder. The patient has a chronic Olivas. 15. Chronic artery disease. The patient is status post artery bypass graft and a stent. The patient was on Lipitor however we will hold this medication to decrease PO intake to prevent aspiration secondary to altered mental status. however, we will continue the patient on Coreg 3.125 mg by mouth twice a day to control heart rate. 16. Deep venous thrombosis (DVT) prophylaxis. The patient is on heparin 5,000 units every eight hours. My preceptor for this patient encounter was Dr. Lisset Del Castillo. The preceptor was physically present in the building during the encounter and was fully available as needed. All aspects of the patient interview, examination, medical decision making process, and medical care plan development were reviewed and approved by the preceptor. The preceptor is aware and concurs with the plan as stated in the body of this note and will attest to such by his co-signature. MAGDALENA
[2016-09-17 13:50] VITALS: BP 172/90
[2016-09-17 14:28] LABS: CREATININE FOR GFR 1.36 MG/DL (0.55-1.02); FREE T4 1.25 NG/DL (0.76-1.46); GLOMERULAR FILTRATION RATE 44.2 (>58)
[2016-09-17] MEDS: oxyCODONE 5MG TAB PO PRN (14:50)
[2016-09-17 15:57] VITALS: BP 169/88
[2016-09-17 16:01] LABS: BASO % 0.3 % (0.0-1.0); EOS % 0.2 % (0.0-3.0); LARGE UNSTAINED CELL # 0.2 K/mm3 (0.0-0.4); LARGE UNSTAINED CELL % 1.3 % (0.0-4.0); LYMPH # 1.9 K/mm3 (1.5-4.5); LYMPH % 13.6 % (24.0-44.0); MEAN CORPUSCULAR HEMOGLOBIN 28.9 pg (27.0-33.0); MEAN CORPUSCULAR VOLUME 84.8 fl (80.0-96.0); MONO # 0.6 K/mm3 (0.0-0.8); MONO % 4.5 % (0.0-5.0); NEUTROPHILS # 11.2 K/mm3 (1.8-7.7); PLATELET COUNT, AUTOMATED 428 k/mm3 (150-450); RED CELL DISTRIBUTION WIDTH 14.5 % (11.5-14.5)
[2016-09-17] MEDS: BACLOFEN 10 MG TAB PO SCH (17:21)
[2016-09-17 19:42] VITALS: BP 171/87
[2016-09-17] MEDS ORDERED: ATORVASTATIN 20 MG TAB PO SCH (21:00)
[2016-09-17] MEDS ORDERED: amLODIPine 5 MG TAB PO SCH (21:00)
[2016-09-17] MEDS: PREGABALIN 100 MG CAP (LYRICA) PO SCH (22:20)
[2016-09-18] VITALS (13 sets, daily range): BP systolic 172–200; BP diastolic 62–102
[2016-09-18] MEDS: ACETAMINOPHEN TAB 650MG DOSE (2X325MG) PO PRN (00:37)
[2016-09-18] MEDS: BACLOFEN 10 MG TAB PO SCH ×5 (00:37→23:43)
[2016-09-18] MEDS: oxyCODONE 5MG TAB PO PRN ×2 (00:38→13:19)
[2016-09-18] MEDS: cefTRIAXone SOD 2 GM in D5W MINI-BAG PLUS 50 ML IV SCH (02:52)
[2016-09-18] MEDS: AZITHROMYCIN INJ 500 MG, VIAL MATE ADAPTER 1 EACH in D5W 250 ML IV SCH (03:49)
[2016-09-18] MEDS: HEPARIN SOD (PORCINE) 5000 UNITS/ML VIAL SC SCH ×3 (05:12→22:11)
[2016-09-18 07:54] LABS: MEAN CORPUSCULAR HEMOGLOBIN 28.1 pg (27.0-33.0); MEAN CORPUSCULAR HGB CONC 34.2 g/dl (32.0-36.5); MEAN CORPUSCULAR VOLUME 82.2 fl (80.0-96.0); PLATELET COUNT, AUTOMATED 370 k/mm3 (150-450); RED CELL DISTRIBUTION WIDTH 14.4 % (11.5-14.5); WHITE BLOOD COUNT 12.6 K/mm3 (4.0-10.0)
[2016-09-18 07:57] LABS: ALT/SGPT 29 U/L (12-78); ANION GAP 6 MEQ/L (8-16); AST/SGOT 42 U/L (15-37); BLOOD UREA NITROGEN 16 MG/DL (7-18); CALCIUM LEVEL 8.6 MG/DL (8.5-10.1); CARBON DIOXIDE LEVEL 26 MEQ/L (21-32); CHLORIDE LEVEL 105 MEQ/L (98-107); CREATININE FOR GFR 0.91 MG/DL (0.55-1.02); GLOMERULAR FILTRATION RATE > 60.0 (>58); GLUCOSE, FASTING 228 MG/DL (70-105); POTASSIUM SERUM 3.4 MEQ/L (3.5-5.1); SODIUM LEVEL 137 MEQ/L (136-145)
[2016-09-18 07:58] LABS: ALBUMIN 3.1 GM/DL (3.2-5.2); ALBUMIN/GLOBULIN RATIO 0.67 (1.00-1.93); ALKALINE PHOSPHATASE 130 U/L (45-117); BILIRUBIN,TOTAL 0.3 MG/DL (0.2-1.0); MAGNESIUM LEVEL 1.8 MG/DL (1.8-2.4); TOTAL PROTEIN 7.7 GM/DL (6.4-8.2)
[2016-09-18 08:28] LABS: EOSINOPHILS 2 % (0-5)
[2016-09-18] MEDS: PREGABALIN 100 MG CAP (LYRICA) PO SCH ×2 (08:52→20:30)
[2016-09-18] MEDS: HumaLOG INSULIN (NovoLOG) PER UNIT SC SCH ×4 (08:53→20:41)
[2016-09-18] MEDS: MORPHINE 15 MG SA TAB PO SCH ×2 (08:53→20:30)
[2016-09-18] MEDS: CARVedilol 3.125 MG TAB PO SCH ×2 (08:53→20:31)
[2016-09-18] MEDS: NS 1,000 ML IV SCH (08:54)
[2016-09-18] MEDS: LISINOPRIL 20 MG TAB PO SCH (13:18)
--- NOTE | 2016-09-18 13:26 | IPNPDOC ---
Subjective Date Seen The patient was seen on 09/18/16. Subjective Chief Complaint/HPI The patient is a 46-year-old female admitted with a reason for visit of Pneumonia, Sepsis. Events since last encounter Feeling much better, energy level improving, tolerating diet, not coughing this morning, pain controlled Constitutional: Denies: Chills, Fever Pulmonary: Denies: Dyspnea Cardiovascular: Denies: Chest Pain Gastrointestinal: Denies: Nausea, Vomiting, Abdominal Pain Objective Physical Examination General Exam: Positive: Alert, Cooperative, No Acute Distress Eye Exam: Negative: Sclera icteric Neck Exam: Positive: Supple Chest Exam: Positive: Diminished, Negative: Rales, Rhonchi, Wheezing Heart Exam: Positive: Rate Normal, Regular Rhythm, Normal S1, Normal S2 Telemetry: Positive: No significant arrhythmia Abdomen Exam: Positive: Normal bowel sounds, Soft, Negative: Tenderness Psych Exam: Positive: Mood NL, Oriented x 3, Negative: Anxiety Assessment /Plan Problems (1) Pneumonia Problem Text: RITA pneumonia- with improvement Continue antibiotics- transfer to [facility]-surg- encourage OOB with assistance (2) Urinary retention Status: Acute Problem Text: Patient says that she does not have a darby catheter at home (3) Coronary artery disease Status: Chronic Problem Text: s/p cabg no angina or equivalent, no significant arrhythmia on telemetry (4) Narcotic dependence Status: Chronic (5) Obesity Status: Chronic (6) Altered mental status Status: Resolved Problem Text: Patient appears to have returned to baseline, opioid use in the setting of acute illness the most likely etiology- will continue to monitor (7) SIDDHARTHA (obstructive sleep apnea) Status: Chronic Plan/VTE VTE Prophylaxis Ordered?: Yes Plan/Urinary Catheter Reason for insertion/continuin: Critical Pt monitoring VS, I&O, 24H, [facility] Vital Signs/I&O Vital Signs Date Time Temp Pulse Resp B/P (MAP) Pulse Ox O2 Delivery O2 Flow Rate FiO2 09/18/16 08:53 18 09/18/16 08:53 71 176/71 09/18/16 08:00 98.2 95 Room Air I&O- Last 24 Hours up to 6 AM 09/18/16 06:00 Intake Total 2315 ml Output Total 2000 ml Balance 315 ml Laboratory Data 24H LABS Laboratory Tests 2 09/17/16 13:22: White Blood Count 14.0H, Red Blood Count 4.45, Hemoglobin 12.9#, Hematocrit 37.8 , Mean Corpuscular Volume 84.8, Mean Corpuscular Hemoglobin 28.9, Mean Corpuscular Hemoglobin Concent 34.0, Red Cell Distribution Width 14.5, Platelet Count 428, Neutrophils (%) (Auto) 80.0H, Lymphocytes (%) (Auto) 13.6L, Monocytes (%) (Auto) 4.5, Eosinophils (%) (Auto) 0.2, Basophils (%) (Auto) 0.3, Neutrophils # (Auto) 11.2H, Lymphocytes # (Auto) 1.9, Monocytes # (Auto) 0.6, Eosinophils # (Auto) 0.0, Basophils # (Auto) 0.0, Large Unclassified Cells % 1.3 , Large Unclassified Cells # 0.2 09/17/16 13:23: Anion Gap 9, Glomerular Filtration Rate 44.2L, Blood Urea Nitrogen 26H, Creatinine 1.36H, Sodium Level 141#, Potassium Level 4.0, Chloride Level 107, Carbon Dioxide Level 25, Calcium Level 9.0, Total Creatine Kinase 1403H, Free Thyroxine 1.25 09/17/16 17:03: Bedside Glucose (Misc Panel) 275H 09/18/16 07:17: Anion Gap 6L, Glomerular Filtration Rate > 60.0, Blood Urea Nitrogen 16, Creatinine 0.91, Sodium Level 137, Potassium Level 3.4L, Chloride Level 105, Carbon Dioxide Level 26, Calcium Level 8.6, Neutrophils 65, Lymphocytes (Manual ) 30, Monocytes (Manual) 3, Eosinophils (Manual) 2, Platelet Estimate NORMAL, Red Blood Cell Morphology NORMAL, Aspartate Amino Transf (AST/SGOT) 42H, Alanine Aminotransferase (ALT/SGPT) 29, Alkaline Phosphatase 130H, Total Bilirubin 0.3, Total Protein 7.7, Albumin 3.1L, Magnesium Level 1.8, Albumin/ Globulin Ratio 0.67L 09/18/16 12:35: Bedside Glucose (Misc Panel) 347H CBC/BMP Laboratory Tests 09/17/16 13:22 Red Blood Count 4.45, Mean Corpuscular Volume 84.8, Mean Corpuscular Hemoglobin 28.9, Mean Corpuscular Hemoglobin Concent 34.0, Red Cell Distribution Width 14.5 , Neutrophils (%) (Auto) 80.0 H, Lymphocytes (%) (Auto) 13.6 L, Monocytes (%) ( Auto) 4.5, Eosinophils (%) (Auto) 0.2, Basophils (%) (Auto) 0.3, Neutrophils # ( Auto) 11.2 H, Lymphocytes # (Auto) 1.9, Monocytes # (Auto) 0.6, Eosinophils # ( Auto) 0.0, Basophils # (Auto) 0.0 09/17/16 13:23 Calcium Level 9.0 09/18/16 07:17 Red Blood Count 4.35, Mean Corpuscular Volume 82.2, Mean Corpuscular Hemoglobin 28.1, Mean Corpuscular Hemoglobin Concent 34.2, Red Cell Distribution Width 14.4 , Calcium Level 8.6, Aspartate Amino Transf (AST/SGOT) 42 H, Alanine Aminotransferase (ALT/SGPT) 29, Alkaline Phosphatase 130 H, Total Bilirubin 0.3 , Total Protein 7.7, Albumin 3.1 L Microbiology Microbiology 09/17/16 Blood Culture - Preliminary, Resulted No growth after 24 hours . All specim... 09/17/16 Blood Culture - Preliminary, Resulted No growth after 24 hours . All specim... 09/17/16 Influenza Virus Type A Antigen - Final, Complete 09/17/16 Influenza Virus Type B Antigen - Final, Complete 09/16/16 Urine Culture - Final, Complete CRISTI WYATT MD September 18, 2016 13:26
[2016-09-18] MEDS ORDERED: POTASSIUM CHLORIDE 10 MEQ SR TABLET PO ONE (13:30)
[2016-09-18] MEDS ORDERED: **hydrALAZINE** 10 MG TAB PO ONE ×2 (18:45→20:30)
[2016-09-18] MEDS: amLODIPine 5 MG TAB PO SCH (20:31)
[2016-09-18] MEDS ORDERED: LEVEMIR (INSULIN DETEMIR) 1 UNITS/0.01ML SC SCH (21:00)
[2016-09-18] MEDS ORDERED: **hydrALAZINE HCL** 25 MG TAB PO ONE (22:30)
[2016-09-19] VITALS (11 sets, daily range): BP systolic 132–236; BP diastolic 66–122
[2016-09-19] MEDS: cefTRIAXone SOD 2 GM in D5W MINI-BAG PLUS 50 ML IV SCH (02:55)
[2016-09-19] MEDS ORDERED: NITROGLYCERIN 2% OINT 1 GM *U/D* PKT TOP ONE (03:00)
[2016-09-19] MEDS: AZITHROMYCIN INJ 500 MG, VIAL MATE ADAPTER 1 EACH in D5W 250 ML IV SCH (03:34)
[2016-09-19] MEDS: LISINOPRIL 20 MG TAB PO SCH (04:58)
[2016-09-19] MEDS: **hydrALAZINE** 10 MG TAB PO SCH ×3 (04:59→21:41)
[2016-09-19 06:08] LABS: BASO # 0.1 K/mm3 (0.0-0.2); BASO % 1.1 % (0.0-1.0); EOS # 0.4 K/mm3 (0.0-0.50); EOS % 3.4 % (0.0-3.0); LARGE UNSTAINED CELL # 0.2 K/mm3 (0.0-0.4); LARGE UNSTAINED CELL % 1.4 % (0.0-4.0); LYMPH # 3.8 K/mm3 (1.5-4.5); LYMPH % 29.6 % (24.0-44.0); MEAN CORPUSCULAR HEMOGLOBIN 28.1 pg (27.0-33.0); MEAN CORPUSCULAR HGB CONC 34.1 g/dl (32.0-36.5); MEAN CORPUSCULAR VOLUME 82.5 fl (80.0-96.0); MONO # 0.9 K/mm3 (0.0-0.8); MONO % 7.5 % (0.0-5.0); NEUTROPHILS # 7.1 K/mm3 (1.8-7.7); PLATELET COUNT, AUTOMATED 398 k/mm3 (150-450); RED CELL DISTRIBUTION WIDTH 14.1 % (11.5-14.5); WHITE BLOOD COUNT 12.4 K/mm3 (4.0-10.0)
[2016-09-19] MEDS: BACLOFEN 10 MG TAB PO SCH ×4 (06:11→23:54)
[2016-09-19] MEDS: HEPARIN SOD (PORCINE) 5000 UNITS/ML VIAL SC SCH ×3 (06:11→21:38)
[2016-09-19 06:31] LABS: ALBUMIN 3.1 GM/DL (3.2-5.2); ALBUMIN/GLOBULIN RATIO 0.61 (1.00-1.93); ALKALINE PHOSPHATASE 140 U/L (45-117); ALT/SGPT 28 U/L (12-78); ANION GAP 11 MEQ/L (8-16); AST/SGOT 29 U/L (15-37); BILIRUBIN,TOTAL 0.4 MG/DL (0.2-1.0); BLOOD UREA NITROGEN 16 MG/DL (7-18); CALCIUM LEVEL 9.5 MG/DL (8.5-10.1); CARBON DIOXIDE LEVEL 27 MEQ/L (21-32); CHLORIDE LEVEL 99 MEQ/L (98-107); GLOMERULAR FILTRATION RATE > 60.0 (>58); GLUCOSE, FASTING 313 MG/DL (70-105); MAGNESIUM LEVEL 1.6 MG/DL (1.8-2.4); POTASSIUM SERUM 3.5 MEQ/L (3.5-5.1); SODIUM LEVEL 137 MEQ/L (136-145); TOTAL PROTEIN 8.2 GM/DL (6.4-8.2)
[2016-09-19] MEDS ORDERED: cloNIDine 0.2 MG TAB PO ONE (07:45)
[2016-09-19] MEDS: PREGABALIN 100 MG CAP (LYRICA) PO SCH ×2 (07:48→21:40)
[2016-09-19] MEDS: CARVedilol 3.125 MG TAB PO SCH ×2 (07:49→21:39)
[2016-09-19] MEDS: MORPHINE 15 MG SA TAB PO SCH ×2 (07:50→21:42)
[2016-09-19] MEDS: HumaLOG INSULIN (NovoLOG) PER UNIT SC SCH ×4 (07:50→21:00)
[2016-09-19] MEDS ORDERED: oxyCODONE 5MG TAB PO PRN (08:45)
[2016-09-19] MEDS: LEVEMIR (INSULIN DETEMIR) 1 UNITS/0.01ML SC SCH ×2 (09:07→21:00)
[2016-09-19] MEDS ORDERED: MAG SULF 1GM/100ML (MAG RUN) 1 GM in APPROPRIATE DILUENT 1 EA IV ONE (19:45)
--- NOTE | 2016-09-19 19:46 | IPNPDOC ---
Subjective Date Seen The patient was seen on 09/19/16. Subjective Chief Complaint/HPI The patient is a 46-year-old female admitted with a reason for visit of Pneumonia, Sepsis. Events since last encounter no cp, not sob, nausea, sweating, did not sleep well, pain controlled Pulmonary: Denies: Dyspnea, Cough Cardiovascular: Denies: Chest Pain, Palpitations Gastrointestinal: Denies: Nausea, Vomiting, Abdominal Pain Objective Physical Examination General Exam: Positive: Alert, Cooperative, No Acute Distress Eye Exam: Negative: Sclera icteric Neck Exam: Positive: Supple Chest Exam: Positive: Diminished, Negative: Rales, Rhonchi, Wheezing Heart Exam: Positive: Rate Normal, Regular Rhythm, Normal S1, Normal S2, Negative: Tachycardic Telemetry: Positive: No significant arrhythmia Abdomen Exam: Positive: Normal bowel sounds, Soft, Negative: Tenderness Psych Exam: Positive: Mental status NL, Mood NL, Oriented x 3, Negative: Anxiety Assessment /Plan Problems (1) Pneumonia Problem Text: RITA pneumonia Continue [facility] with assistance Improving (2) Urinary retention Status: Acute Problem Text: Patient says that she does not have a darby catheter at home (3) Coronary artery disease Status: Chronic Problem Text: s/p cabg no angina or equivalent, no significant arrhythmia when on telemetry (4) Narcotic dependence Status: Chronic Problem Text: likely narcotic withdrawal causing elevated bp, nausea, diaphoresis without fever increased prn opioid and giving clonidine (5) Obesity Status: Chronic (6) Altered mental status Onset Date: 04/16/2014 Status: Resolved Problem Text: Patient appears to have returned to baseline, opioid use in the setting of acute illness the most likely etiology (7) SIDDHARTHA (obstructive sleep apnea) Status: Chronic Plan/VTE VTE Prophylaxis Ordered?: Yes Plan/Urinary Catheter Reason for insertion/continuin: Critical Pt monitoring VS, I&O, 24H, [facility] Vital Signs/I&O Vital Signs Date Time Temp Pulse Resp B/P (MAP) Pulse Ox O2 Delivery O2 Flow Rate FiO2 09/19/16 17:51 132/72 (92) 09/19/16 14:00 98.3 82 18 94 Room Air I&O- Last 24 Hours up to 6 AM 09/19/16 06:00 Intake Total 1810 ml Output Total 4000 ml Balance -2190 ml Laboratory Data 24H LABS Laboratory Tests 2 09/18/16 20:05: Bedside Glucose (Misc Panel) 321H 09/18/16 20:35: Bedside Glucose (Misc Panel) 284H 09/19/16 05:23: White Blood Count 12.4H, Red Blood Count 4.76, Hemoglobin 13.4, Hematocrit 39.2 , Mean Corpuscular Volume 82.5, Mean Corpuscular Hemoglobin 28.1, Mean Corpuscular Hemoglobin Concent 34.1, Red Cell Distribution Width 14.1, Platelet Count 398, Neutrophils (%) (Auto) 57.0, Lymphocytes (%) (Auto) 29.6, Monocytes ( %) (Auto) 7.5H, Eosinophils (%) (Auto) 3.4H, Basophils (%) (Auto) 1.1H, Neutrophils # (Auto) 7.1, Lymphocytes # (Auto) 3.8, Monocytes # (Auto) 0.9H, Eosinophils # (Auto) 0.4, Basophils # (Auto) 0.1, Large Unclassified Cells % 1.4 , Large Unclassified Cells # 0.2, Anion Gap 11, Glomerular Filtration Rate > 60.0, Blood Urea Nitrogen 16, Creatinine 1.00, Sodium Level 137, Potassium Level 3.5, Chloride Level 99, Carbon Dioxide Level 27, Calcium Level 9.5, Aspartate Amino Transf (AST/SGOT) 29, Alanine Aminotransferase (ALT/SGPT) 28, Alkaline Phosphatase 140H, Total Bilirubin 0.4, Total Protein 8.2, Albumin 3.1L , Magnesium Level 1.6L, Albumin/Globulin Ratio 0.61L 09/19/16 11:24: Bedside Glucose (Misc Panel) 306H 09/19/16 16:49: Bedside Glucose (Misc Panel) 315H CBC/BMP Laboratory Tests 09/19/16 05:23 Red Blood Count 4.76, Mean Corpuscular Volume 82.5, Mean Corpuscular Hemoglobin 28.1, Mean Corpuscular Hemoglobin Concent 34.1, Red Cell Distribution Width 14.1 , Neutrophils (%) (Auto) 57.0, Lymphocytes (%) (Auto) 29.6, Monocytes (%) (Auto ) 7.5 H, Eosinophils (%) (Auto) 3.4 H, Basophils (%) (Auto) 1.1 H, Neutrophils # (Auto) 7.1, Lymphocytes # (Auto) 3.8, Monocytes # (Auto) 0.9 H, Eosinophils # (Auto) 0.4, Basophils # (Auto) 0.1, Calcium Level 9.5, Aspartate Amino Transf ( AST/SGOT) 29, Alanine Aminotransferase (ALT/SGPT) 28, Alkaline Phosphatase 140 H , Total Bilirubin 0.4, Total Protein 8.2, Albumin 3.1 L Microbiology Microbiology 09/17/16 Blood Culture - Preliminary, Resulted No Growth after 48 hours. All Specime... 09/17/16 Blood Culture - Preliminary, Resulted No Growth after 48 hours. All Specime... 09/17/16 Influenza Virus Type A Antigen - Final, Complete 09/17/16 Influenza Virus Type B Antigen - Final, Complete 09/16/16 Urine Culture - Final, Complete CRISTI WYATT MD September 19, 2016 19:46
[2016-09-19] MEDS: amLODIPine 5 MG TAB PO SCH (21:40)
[2016-09-19] MEDS: cloNIDine 0.1 MG TAB PO SCH (21:40)
[2016-09-20] MEDS: cefTRIAXone SOD 2 GM in D5W MINI-BAG PLUS 50 ML IV SCH (03:05)
[2016-09-20 04:54] VITALS: BP 162/84
[2016-09-20] MEDS: BACLOFEN 10 MG TAB PO SCH ×2 (05:00→12:13)
[2016-09-20] MEDS: **hydrALAZINE** 10 MG TAB PO SCH (05:00)
[2016-09-20] MEDS: HEPARIN SOD (PORCINE) 5000 UNITS/ML VIAL SC SCH (05:00)
[2016-09-20] MEDS: cloNIDine 0.1 MG TAB PO SCH (05:01)
[2016-09-20 05:07] LABS: BASO # 0.1 K/mm3 (0.0-0.2); BASO % 0.9 % (0.0-1.0); EOS # 0.5 K/mm3 (0.0-0.50); EOS % 3.7 % (0.0-3.0); LARGE UNSTAINED CELL # 0.3 K/mm3 (0.0-0.4); LARGE UNSTAINED CELL % 2.4 % (0.0-4.0); LYMPH # 4.8 K/mm3 (1.5-4.5); MEAN CORPUSCULAR HEMOGLOBIN 28.3 pg (27.0-33.0); MEAN CORPUSCULAR HGB CONC 33.9 g/dl (32.0-36.5); MEAN CORPUSCULAR VOLUME 83.3 fl (80.0-96.0); MONO # 0.9 K/mm3 (0.0-0.8); MONO % 6.6 % (0.0-5.0); NEUTROPHILS # 7.9 K/mm3 (1.8-7.7); NEUTROPHILS % 55.5 % (36.0-66.0); PLATELET COUNT, AUTOMATED 338 k/mm3 (150-450); RED CELL DISTRIBUTION WIDTH 14.2 % (11.5-14.5); WHITE BLOOD COUNT 14.2 K/mm3 (4.0-10.0)
[2016-09-20 05:30] LABS: ALBUMIN/GLOBULIN RATIO 0.67 (1.00-1.93); BILIRUBIN,TOTAL 0.2 MG/DL (0.2-1.0); CALCIUM LEVEL 9.4 MG/DL (8.5-10.1); CREATININE FOR GFR 1.2 MG/DL (0.55-1.02); MAGNESIUM LEVEL 1.7 MG/DL (1.8-2.4); POTASSIUM SERUM 3.6 MEQ/L (3.5-5.1); TOTAL PROTEIN 7.5 GM/DL (6.4-8.2)
[2016-09-20 06:00] VITALS: BP 136/62
[2016-09-20] MEDS: LISINOPRIL 20 MG TAB PO SCH (08:03)
[2016-09-20 08:04] VITALS: BP 136/62
[2016-09-20] MEDS: CARVedilol 3.125 MG TAB PO SCH (08:04)
[2016-09-20] MEDS: PREGABALIN 100 MG CAP (LYRICA) PO SCH (08:04)
[2016-09-20] MEDS: MORPHINE 15 MG SA TAB PO SCH (08:05)
[2016-09-20] MEDS: HumaLOG INSULIN (NovoLOG) PER UNIT SC SCH ×2 (08:06→12:13)
[2016-09-20] MEDS: LEVEMIR (INSULIN DETEMIR) 1 UNITS/0.01ML SC SCH (08:06)
[2016-09-20] MEDS ORDERED: AZITHROMYCIN 250 MG TAB PO SCH (09:00)
[2016-09-20] MEDS ORDERED: AUGM875T27 PO (10:17)
[2016-09-20] MEDS ORDERED: FLUC100T PO (12:20)
--- NOTE | 2016-09-21 16:51 | DSES ---
DATE OF ADMISSION: 09/17/2016 DATE OF DISCHARGE: 09/20/2016 SPECIALISTS INVOLVED IN CARE: None. COMPLICATIONS DURING STAY: None. PROCEDURES PERFORMED DURING STAY: None. DISCHARGE DIAGNOSES: 1. Left upper lobe pneumonia. 2. Urinary retention. 3. Coronary artery disease. 4. Narcotic dependence. 5. Early opiate withdrawal. 6. Obesity. 7. Altered mental status. 8. Metabolic encephalopathy. 9. Obstructive sleep apnea. SUMMARY OF PRESENTATION: This is a 46-year-old female who presented with delirium. She was drowsy and difficult to arouse. She was found to have a left upper lobe pneumonia in the setting of chronic opioid use and acute renal failure. Opioids were withheld. She was given IV fluids, treated for pneumonia. She improved relatively markedly. Unfortunately, she went on to develop some mild symptoms of opiate withdrawal, including hypertension, nausea and diaphoresis. Blood pressure and withdrawal symptoms were controlled. Patient improved on the day of discharge. She is ambulating without difficulty, breathing easily on room air. Temperature 98.9, pulse 66, respiratory rate 16, blood pressure 136/62, 99% on room air. Awake, alert, pleasantly conversant. There are some coarse bronchial sounds on the left. No wheezing, rales or rhonchi. Heart is in regular rate and rhythm. Abdomen is soft, doughy and nontender. White cell count is 14.2. BUN 26, creatinine 1.2. DISCHARGE MEDICATIONS: - Amoxicillin 875 mg by mouth twice a day for a total of seven tablets - fluconazole 100 mg by mouth daily - Norvasc 5 mg by mouth at bedtime - atorvastatin 40 mg by mouth at bedtime - baclofen 10 mg every 6 hours - Coreg 3.125 mg twice a day - Cymbalta 30 mg by mouth twice a day - glipizide XL 10 mg by mouth twice a day - lisinopril 20 mg by mouth daily - meclizine 25 mg every 6 hours as needed - morphine sulfate ER 30 mg by mouth twice a day - oxycodone 10 mg by mouth four times a day - Lyrica 300 mg by mouth twice a day DISCHARGE INSTRUCTIONS: She is to follow up with Dr. Barkley 09/25/2016 at 08:00 a.m. Activity and diet as tolerated.
== END 2016-09-20 13:29 | disposition home or self-care (01) | DRG 139 ==
LOC: EDBD 18:49 → M ED 22:40 → M ED INP 09-17 01:41 → M PCU 09-17 13:35 → M MSPAV 09-18 11:53
PROVIDERS: ADMIT Internal Medicine Nephrology; ATTEND Internal Medicine
DX: J18.9 Pneumonia, unspecified organism (principal); G62.9 Polyneuropathy, unspecified; I10 Essential (primary) hypertension; E66.9 Obesity, unspecified; G47.33 Obstructive sleep apnea (adult) (pediatric); F11.23 Opioid dependence with withdrawal; R33.9 Retention of urine, unspecified; R41.82 Altered mental status, unspecified; F70 Mild intellectual disabilities; M54.5 Low back pain; F32.9 Major depressive disorder, single episode, unspecified; R26.2 Difficulty in walking, not elsewhere classified; E11.9 Type 2 diabetes mellitus without complications; R42 Dizziness and giddiness; I25.10 Atherosclerotic heart disease of native coronary artery without angina pectoris; Z79.899 Other long term (current) drug therapy; Z88.6 Allergy status to analgesic agent; Z88.8 Allergy status to other drugs, medicaments and biological substances; Z96.0 Presence of urogenital implants; Z95.5 Presence of coronary angioplasty implant and graft; Z83.3 Family history of diabetes mellitus; Z82.49 Family history of ischemic heart disease and other diseases of the circulatory system; Z99.89 Dependence on other enabling machines and devices; Z79.84 Long term (current) use of oral hypoglycemic drugs

== ENCOUNTER → 2016-10-01 | Outpatient (CLI) | payer MEDICAID, SELFPAY ==
[~2016-10-01] MED LIST changes: +ACET25TA12 PO; -ACET25TA5 PO; +ADVI200T26 PO; +AMLO10TA2 PO; -ATOR40TA PO; +ATOR40TA75 PO; +AUGM875T28 PO; +BACITAB PO; -BACITAB3 PO; +BACL10TA5 PO; +CIPR-249 PO; -CIPR500T89 PO; +CLEO300C2 PO; +DIUR3TAB PO; +DOXY100T2 PO; -DOXY10CA PO; +DULO30CA PO; +FLUC100T PO; +FURO40TA2 PO; +GLIP1TAB11 PO; +GLIP1TAB51 PO; -LIDO5DIS36 TD; +LIDO5DIS41 TD; -LYRI100C10 PO; +MIRA33504 PO; +MORP15TASA PO; +NOVOINJ3 SC; +NYST10PW TOP; -OXYC20TA21 PO; +OXYC20TA40 PO; +OXYCO5TA PO; +PLAV1TAB2 PO; -PLAV75TA38 PO; +PREG100CA PO; +ROBA750T4 PO; +SANT250O8 TOP; -SENN-15 PO; +SENN-3 PO; +TRAZ-136 PO; -TRAZ100T4 PO; +TRAZ50TA11 PO; -TRAZ50TA4 PO; +motrin
--- NOTE | 2016-10-23 00:25 | ECWPNPC ---
PATIENT NAME: ANDI HORVATH : 1970 GENDER: FEMALE VISIT DATE: 10/01/2016 DISCHARGE DATE: 10/01/16 1124 VISIT LOCKED DATE TIME: PHYSICIAN: COLE CHEN RESOURCE: COLE CHEN REASON FOR APPOINTMENT 1. BACK HISTORY OF PRESENT ILLNESS HISTORY OF PRESENT ILLNESS: HERE FOR F/U AND MANAGEMENT OF CHRONIC LOW BACK PAIN AND BILATERAL LEG PAIN.RATING PAIN VAS 7/10.FINDS IT DIFFICULT TO TOLERATE ADL'S DURING DAY DUE TO PAIN.DISCUSSED MEDICINE AND TREATMENT OPTIONS.STATES PAIN IS AGGREVATED BY COLD WEATHER.PAIN RELIEVED SOMEWHAT WITH REST.CURRENTLY TAKING MS CONTIN 30MG AT HS AND LYRICA 300MG BID AND PERCOCET 10/325 UP TO FOUR TABLETS PER DAY NEEDED.COMPLAINING OF SEVERE LEG CRAMPING DESPITE BACLOFEN 10MG QID. PAIN THE PATIENT DESCRIBES THE PAIN... THE PATIENT DESCRIBES THE PAIN... FALL RISK SCREENING: SCREENING :NO FALLS IN THE PAST YEAR CURRENT MEDICATIONS TAKING LISINOPRIL 20 MG TABLET 1 TABLET ORALLY ONCE A DAY TAKING AMLODIPINE BESYLATE 5 MG TABLET 1 TABLET ORALLY ONCE A DAY TAKING CARVEDILOL 6.25MG TABLET 1/2 ORAL BID TAKING GLIPIZIDE ER 10 MG TABLET EXTENDED RELEASE 24 HOUR 1 TABLET ORALLY BID PRIOR TO BREAKFAST AND DINNER TAKING LYRICA 300 MG CAPSULE 1 CAPSULE ORALLY TWICE A DAY MDD2 TAKING BACLOFEN 10 MG TABLET 1 TABLET WITH FOOD OR MILK ORALLY EVERY 6 HR QID TAKING MS CONTIN 30 MG TABLET EXTENDED RELEASE 1 TABLET ORALLY BID MDD2 TAKING OXYCODONE HCL 10 MG TABLET 1 ORALLY FOUR TIMES A DAY MDD4 TAKING MORPHINE SULFATE ER 30 MG TABLET EXTENDED RELEASE 1 ORALLY ONE TAB AT HS MDD1 UNKNOWN CYMBALTA 30 MG CAPSULE DELAYED RELEASE PARTICLES 1 CAPSULE ORALLY TWICE A DAY UNKNOWN PROVENTIL HFA 6.7 AEROSOL SOLUTION 2 PUFFS NEEDED INHALATION EVERY 2HR PRN UNKNOWN PLAVIX 75 MG TABLET 1 TABLET ORALLY ONCE A DAY UNKNOWN NITROSTAT 0.4 MG TABLET SUBLINGUAL 1-3 TABLETS SUBLINGUAL PRN UNKNOWN TRAZODONE HCL 100 MG TABLET 1 TABLET AT BEDTIME ORALLY ONCE A DAY UNKNOWN LEVEMIR 100 UNIT/ML SOLUTION 95 UNITS SUBCUTANEOUS HS UNKNOWN GLUCOMETER 1 ELECTRONIC DIRECTED _ TID (E11.65) UNKNOWN BLOOD GLUCOSE TEST STRIP 200 STRIP DIRECTED IN VITRO TID (E11.65) UNKNOWN BD INSULIN SYRINGE 31G X 5/16 MISCELLANEOUS DIRECTED SUBCUTANEOUSLY FOUR TIMES DAILY UNKNOWN OVERLAY MATTRESS WITH PUMP DIRECTED. ICD10 L89.153, L 89.154 DAILY UNKNOWN COMPRESSION STOCKINGS 15-20 MMHG _ DIRECTED FOR BLE EDEMA AND VARICOSE VEINS (DX. R60.0, I83.893) DIRECTED ON DURING THE DAY OFF AT NIGHT UNKNOWN DEBROX 6.5 % SOLUTION DIRECTED OTIC BID UNKNOWN ATORVASTATIN CALCIUM 40 MG TABLET 1 TABLET ORALLY ONCE A DAY UNKNOWN SENNA 8.6 MG TABLET 2 TABLETS AT BEDTIME NEEDED ORALLY ONCE A DAY UNKNOWN NOVOLOG 100 UNIT/ML SOLUTION PER SCLIDING SCALE SUBCUTANEOUS THREE TIMES DAILY BEFORE MEALS UNKNOWN LEVEMIR 100 UNIT/ML SOLUTION 65 UNITS SUBCUTANEOUS AM UNKNOWN DULCOLAX 10 MG SUPPOSITORY 1 SUPPOSITORY NEEDED RECTAL ONCE DAILY NEEDED UNKNOWN MECLIZINE HCL 25 MG TABLET CHEWABLE 1 TABLET NEEDED ORALLY ONCE A DAY UNKNOWN TELMISARTAN 80 MG TABLET 1 TABLET ORALLY ONCE A DAY UNKNOWN HUMALOG 100 UNIT/ML SOLUTION SLIDING SCALE SUBCUTANEOUS AC UNKNOWN TRIAMCINOLONE ACETONIDE 0.1 % LOTION 1 APPLICATION TO AFFECTED AREA EXTERNALLY (LIPS) TWICE A DAY UNKNOWN TRIAMCINOLONE ACETONIDE 0.1 % LOTION 1 APPLICATION TO AFFECTED AREA EXTERNALLY (VAGINAL) TWICE A DAY UNKNOWN LEVEMIR 100 UNIT/ML SOLUTION 45 UNITS SUBCUTANEOUS DAILY UNKNOWN PREDNISONE 10 MG TABLET 1 TABLET ORALLY ONCE A DAY UNKNOWN ZYVOX 600 MG TABLET 1 TABLET ORALLY EVERY 12 HRS MEDICATION LIST REVIEWED AND RECONCILED WITH THE PATIENT PAST MEDICAL HISTORY FX BACK CAD PNEUMONIA HTN DM TYPE 2 ASTHMA SLEEP APNEA ANGINA CHF NC BOWEL PROBLEMS THYROID D/O (LOW TSH ON PRIOR LABS) ANXIETY STAGE III PRESSURE ULCER OF SACRAL REGION URINARY RETENTION NEUROGENIC BLADDER ALLERGIES ASPIRIN: HIVES: ALLERGY NUCLEAR MED DYE: LOWER EXTREMITY SWELLING: CONTRAINDICATION SURGICAL HISTORY C SECTION X3 CABG X 4 VESSELS 2009 CARDIAC CATH WITH STENTS 2014 APPENDECTOMY BACK SURGERY DORSAL COLUMN STIMULATOR- NOT WORKING NOW 2010 TONSILLECTOMY HOSPITALIZATION/MAJOR DIAGNOSTIC PROCEDURE BRONCHITIS/PHAN/URINARY RETENTION 12/15/2015 PNEUMONIA 07/2015 UNINTENTIONAL FENTANYL OVERDOSE FROM MULTIPLE PATCH USAGE 2014 REACTION TO NUCLEAR MED DYE 05/2015 REVIEW OF SYSTEMS CONSTITUTIONAL: ANY CHANGE IN YOUR MEDICAL CONDITION? NO. DISCUSSED PAIN CONTROL, PT STATES SHE WOULD LIKE SOMETHING MORE DURING DAYTIME HOURS TO COMPLETE ADL'S. PT STATES SHE DOESN'T TAKE OXYCODONE QID PRESCRIBED, TAKES IT LESS OFTEN, MAYBE TAKE PRESCRIBED TO BETTER CONTROL PAIN.&NBSP;. CHILLS &NBSP;&NBSP; NO&NBSP;. FEVER &NBSP;&NBSP; NO&NBSP;. INFECTION: DO YOU HAVE NEW INFECTIONS? YES, PNEUMONIA EARLY MAY, HOSPITALIZED FOR THIS. PT STATES SHE IS ALL BETTER. . DO YOU HAVE HISTORY OF MRSA? NO . MUSCULOSKELETAL: ANY NEW PATTERNS OF PAIN OR NUMBNESS? YES, BACK AND LEG PAIN IS WORSE, DISCUSSED TAKING OXYCODONE PRESCRIBED. . GASTROENTEROLOGY: ANY NEW CHANGE IN BOWEL CONTROL? YES, PT REPORTS CONSTIPATION . GENITOURINARY: ANY NEW CHANGE IN BLADDER CONTROL? NO . IS THERE A CHANCE YOU COULD BE ? NO . HEMATOLOGY/LYMPH: DO YOU TAKE ANY BLOOD THINNERS? (FOR EXAMPLE- COUMADIN, PLAVIX, AGGRENOX, PLATEL, PRADAXA, OR XARELTO) NO . WHEN WAS YOUR LAST DOSE? DATE: TIME: . NEUROLOGY: HAVE YOU FALLEN IN THE PAST 6 MONTHS? NO . ANY NEW EXTREMITY NUMBNESS OR WEAKNESS? NO . CARDIOLOGY: DO YOU HAVE A PACEMAKER OR DEFIBRILLATOR? NO . RESPIRATORY: HAVE YOU BEEN SICK IN THE PAST WEEK? NO . FEVER NO . FLU LIKE SYMPTOMS? NO . COUGH NO . INTEGUMENTARY: DO YOU HAVE ANY RASHES OR OPEN SORES? NO . ALLERGIC/IMMUNO: ARE YOU ALLERGIC TO SHELLFISH OR IV DYE? YES, NUC MED DYE . ANY NEW ALLERGIES? NO . PSYCHIATRIC: DO YOU HAVE THOUGHTS OF HURTING YOURSELF OR SOMEONE ELSE? NO . ARE YOU ABUSED, NEGLECTED, OR IN AN UNSAFE ENVIRONMENT? NO . ENDOCRINOLOGY: ARE YOU DIABETIC? YES . OTHER: DO YOU NEED ANY PRESCRIPTIONS? NO . IF YES, PLEASE LIST: ____ . ANY NEW PROBLEMS WITH YOUR MEDICATIONS? NO . WHEN DID YOU LAST EAT? ____ . WHEN DID YOU LAST DRINK? ____ . WHAT DID YOU LAST DRINK? ____ . NAME OF PERSON DRIVING YOU HOME? ____ . DO YOU HAVE ANY OTHER QUESTIONS OR CONCERNS NO . REVIEWED BY: PROVIDER: COLE MOFFETT . VITAL SIGNS WT 208.0 LBS, HT 65 IN, BMI 34.61 INDEX, BP 136/62 MM HG, HR 74 /MIN, RR 18 /MIN, TEMP 9.2 F, OXYGEN SAT % 96%, SAFE IN ENV? (Y/N) Y, NA INITIALS TL 1023, REVIEWED BY: POLO. EXAMINATION GENERAL EXAMINATION: HEENT:HEAD:, NORMOCEPHALIC, EYES:, EYES NORMAL, NOSE:, NOSE CLEAR, THROAT: NORMAL. LUNGS:LUNG SOUNDS ARE CLEAR. HEART:HEART RATE REGULAR. ABDOMEN:SOFT AND NOT TENDER, NON-DISTENDED. MUSCULOSKELETAL:*. LUMBAR SACRAL SPINEMUSCLE STRENGTH TESTING 1/5 RIGHT 2/5 LEFT. PALPATION: + FOR PAIN OVER L/S SPINE. + FOR PAIN OVER L/S PARSPINALS. THORACIC SPINENEGATIVE FOR PAIN WITH PALPATION OF THORACIC SPINE. NEGATIVE FOR PAIN WITH PALPATION OF THORACIC PARASPINAL. CERVICALNEGATIVE FOR PAIN WITH PALPATION OF CERVICAL SPINE. NEGATIVE FOR PAIN WITH PALPATION OF CERVICAL PARASPINALS. NEGATIVE FOR PAIN WITH PALPATION OF TRAPEZIUS BILAT. SKIN:NORMAL, NO RASH. NEUROLOGIC EXAM:ALERT AND ORIENTED X 3, DTRS 1-2+ IN ALL 4 EXTREMITIES, DENIES UPPER EXTREMETIES SENSORY LOSS, DENIES LOWER EXTREMETIES SENSORY LOSS. ASSESSMENTS POST LAMINECTOMY SYNDROME - M96.1 (PRIMARY) LUMBAR RADICULOPATHY - M54.16 NEUROPATHY - G62.9 CHRONIC PRESCRIPTION OPIATE USE - Z79.891 TREATMENT POST LAMINECTOMY SYNDROME REFILL OXYCODONE HCL TABLET, 10 MG, 1, ORALLY, FOUR TIMES A DAY MDD4, 30 DAY(S), 120, REFILLS 0 STOP MORPHINE SULFATE ER TABLET EXTENDED RELEASE, 30 MG, 1, ORALLY, ONE TAB AT HS MDD1 STOP BACLOFEN TABLET, 10 MG, 1 TABLET WITH FOOD OR MILK, ORALLY, EVERY 6 HR QID CONTINUE LYRICA CAPSULE, 300 MG, 1 CAPSULE, ORALLY, TWICE A DAY MDD2 START MS CONTIN TABLET EXTENDED RELEASE, 15 MG, 1 TABLET, ORALLY, EVERY 12 HRS MDD2, 30 DAY(S), 60, REFILLS 0 START ROBAXIN-750 TABLET, 750 MG, 1 TABLET, ORALLY, Q8H TID, 30 DAY(S), 90, REFILLS 2 NOTES: ISTOP REGISTRY REVIEWED AND DEMNOSTRATES COMPLLIANCE. BRINGS IN MEDICATIONS WHICH IS APPROPRIATE FOR WHAT WAS DISPENSED. RECENT URINE TOXICOLOGY REVIEWED. NO UNAUTHORIZED MEDICATIONS. NO ILLICIT SUBSTANCES AND PRESCRIBED MEDICATIONS WERE PRESENT. , RISKS AND BENEFITS OF NARCOTIC/OPIOD MEDICATIONS WERE REVIEWED WITH PATIENT - THIS INCLUDES BUT IS NOT LIMITED TO RISK OF DEPENDANCE/DEVELOPMENT OF ADDICTION, MOOD DISTURBANCE AND DEPRESSION, OSTEOPOROSIS, HORMONAL AND LABIDAL CHANGES, RESPIRATORY DEPRESSION AND . PATIENT IS ADVISED NOT TO DRIVE WHILE ON THESE MEDICATIONS.URINE TOX TODAY. PROCEDURE CODES FA211 ESTABILISHED PATIENT [facility] CHARGE DISPOSITION & COMMUNICATION FOLLOW UP 2 MONTHS ELECTRONICALLY SIGNED BY BETINA ALEXIS ON 10/22/2016 AT 08:09 AM EDT DISCLAIMER : THIS IS A VISIT SUMMARY EXTRACTED FROM THE [employer] CHART. IT IS NOT A COPY OF THE [employer] PROGRESS NOTE. MTDD
== END ==
LOC: M PAIN 10:00
PROVIDERS: ATTEND Nurse Practitioner Family
DX: M96.1 Postlaminectomy syndrome, not elsewhere classified (principal); M54.16 Radiculopathy, lumbar region; G62.9 Polyneuropathy, unspecified; I10 Essential (primary) hypertension; E11.65 Type 2 diabetes mellitus with hyperglycemia; J45.909 Unspecified asthma, uncomplicated; G47.30 Sleep apnea, unspecified; I25.2 Old myocardial infarction; F41.9 Anxiety disorder, unspecified; Z88.6 Allergy status to analgesic agent; Z91.041 Radiographic dye allergy status; Z79.891 Long term (current) use of opiate analgesic; Z79.899 Other long term (current) drug therapy

== ENCOUNTER 2016-10-15 19:12 | Emergency (ER) | payer SELFPAY ==
[~2016-10-15] VITALS: Ht 165.1 cm; Wt 90.7 kg
[~2016-10-15 19:12] MED LIST changes: -ACET25TA12 PO; +ACET25TA5 PO; -ADVI200T26 PO; -AMLO10TA2 PO; +ATOR40TA PO; -ATOR40TA75 PO; +AUGM875T27 PO; -AUGM875T28 PO; -BACITAB PO; +BACITAB3 PO; -BACL10TA5 PO; -CIPR-249 PO; +CIPR500T89 PO; -CLEO300C2 PO; -DOXY100T2 PO; +DOXY10CA PO; -FURO40TA2 PO; +GLIP10TA58 PO; -GLIP1TAB11 PO; -GLIP1TAB51 PO; +LIDO5DIS36 TD; -LIDO5DIS41 TD; +LYRI100C10 PO; -MIRA33504 PO; -MORP15TASA PO; -NOVOINJ3 SC; -NYST10PW TOP; +OXYC20TA21 PO; -OXYC20TA40 PO; -OXYCO5TA PO; -PLAV1TAB2 PO; +PLAV75TA38 PO; -PREG100CA PO; -ROBA750T4 PO; -SANT250O8 TOP; +SENN-15 PO; -SENN-3 PO; -TRAZ-136 PO; +TRAZ100T4 PO; -TRAZ50TA11 PO; +TRAZ50TA4 PO
[2016-10-15 19:59] VITALS: BP 160/77
[2016-10-15] MEDS ORDERED: CLEO300C2 PO (20:14)
[2016-10-15] MEDS ORDERED: CLINDAMYCIN 150 MG CAP PO ONE (20:15)
== END 2016-10-15 20:33 | disposition home or self-care (01) ==
LOC: M ED 20:16
DX: E11.621 Type 2 diabetes mellitus with foot ulcer (principal); L97.519 Non-pressure chronic ulcer of other part of right foot with unspecified severity; I11.0 Hypertensive heart disease with heart failure; I50.9 Heart failure, unspecified; J45.909 Unspecified asthma, uncomplicated; G57.93 Unspecified mononeuropathy of bilateral lower limbs; E78.00 Pure hypercholesterolemia, unspecified; G47.30 Sleep apnea, unspecified; F41.9 Anxiety disorder, unspecified; F33.9 Major depressive disorder, recurrent, unspecified; G89.29 Other chronic pain; M54.9 Dorsalgia, unspecified; Z86.73 Personal history of transient ischemic attack (TIA), and cerebral infarction without residual deficits; Z86.14 Personal history of Methicillin resistant Staphylococcus aureus infection; Z95.1 Presence of aortocoronary bypass graft; Z95.5 Presence of coronary angioplasty implant and graft; Z79.899 Other long term (current) drug therapy; Z79.84 Long term (current) use of oral hypoglycemic drugs; Z88.8 Allergy status to other drugs, medicaments and biological substances

== ENCOUNTER 2016-11-09 20:29 | Inpatient (IN) | payer MEDICARE, MEDICAID ==
[~2016-11-09] VITALS: Ht 167.6 cm; Wt 107.7 kg
[~2016-11-09 20:29] MED LIST changes: +ACET25TA12 PO; -ACET25TA5 PO; -ATOR40TA PO; +ATOR40TA75 PO; -AUGM875T27 PO; +AUGM875T28 PO; +BACITAB PO; -BACITAB3 PO; +CIPR-249 PO; -CIPR500T89 PO; +CLEO300C2 PO; +DOXY100T2 PO; -DOXY10CA PO; -GLIP10TA58 PO; +GLIP1TAB11 PO; -LIDO5DIS36 TD; +LIDO5DIS41 TD; -LYRI100C10 PO; -OXYC20TA21 PO; +OXYC20TA40 PO; +PLAV1TAB2 PO; -PLAV75TA38 PO; +PREG100CA PO; -SENN-15 PO; +SENN-3 PO; +TRAZ-136 PO; -TRAZ100T4 PO; +TRAZ50TA11 PO; -TRAZ50TA4 PO
[2016-11-09] MEDS ORDERED: ROBA750T4 PO (20:58)
--- NOTE | 2016-11-09 23:50 | REPUSA ---
Clinical history: Pain, swelling. Findings: The right common femoral, superficial femoral, popliteal, and other deep venous structures compress normally and demonstrate normal color Doppler flow. Normal venous waveforms with augmentatio n are seen. Impression: No evidence of deep vein thrombosis in the right femoral popliteal venous system.
[2016-11-10] MEDS ORDERED: DEXTROSE 50% 50 ML SYRINGE IV STA (00:14)
[2016-11-10 00:38] LABS: BASO % 0.1 % (0.0-1.0); EOS # 0.1 K/mm3 (0.0-0.50); EOS % 0.5 % (0.0-3.0); LARGE UNSTAINED CELL # 0.2 K/mm3 (0.0-0.4); LYMPH # 1.5 K/mm3 (1.5-4.5); LYMPH % 6.8 % (24.0-44.0); MEAN CORPUSCULAR HEMOGLOBIN 27.3 pg (27.0-33.0); MEAN CORPUSCULAR HGB CONC 32.8 g/dl (32.0-36.5); MEAN CORPUSCULAR VOLUME 83.3 fl (80.0-96.0); MONO # 1.2 K/mm3 (0.0-0.8); MONO % 6.2 % (0.0-5.0); NEUTROPHILS # 16.8 K/mm3 (1.8-7.7); NEUTROPHILS % 85.3 % (36.0-66.0); PLATELET COUNT, AUTOMATED 429 k/mm3 (150-450); RED CELL DISTRIBUTION WIDTH 14.6 % (11.5-14.5); WHITE BLOOD COUNT 19.7 K/mm3 (4.0-10.0)
[2016-11-10 00:59] LABS: CALCIUM LEVEL 9.4 MG/DL (8.5-10.1); CREATININE FOR GFR 1.6 MG/DL (0.55-1.02); GLOMERULAR FILTRATION RATE 36.6 (>58); POTASSIUM SERUM 4.3 MEQ/L (3.5-5.1)
[2016-11-10] MEDS ORDERED: NS 500 ML IV ONE (01:15)
[2016-11-10] MEDS ORDERED: NS 1,000 ML IV ONE (01:30)
[2016-11-10 01:42] LABS: METHADONE URINE NEGATIVE (NEGATIVE)
--- NOTE | 2016-11-10 02:21 | HPEPDOC ---
General Date of Admission Primary Care Physician: SHIRA STEELE DO Chief Complaint The patient is a 46-year-old female admitted with a reason for visit of Leg Pain. Source: Family Exam Limitations: Mild cognitive slowing, Other (extreme fatigue) Severity: Severe Associated Symptoms: Fever History of Present Illness Ms Morin is a 46 y/o female with past medical history of CAD s/p bypass and stent placement 2-3 years ago, narcotic dependence for chronic LBP, DM2 on insulin, asthma, chronic kidney disease, depression, HTN, chronic constipation, perphrial neuropathy, SIDDHARTHA who presents today for weakness and pain in both legs along with a diabetic foot ulcer of the right foot. The pt is very fatigued and has baseline intellectual disability, and thus most of the history is provided by her sister and mother at bedside. Apparently for the past few weeks to one month, the pt has been experiencing increasing pain in her legs, burning and tingling, she has also developed a yellow and at times bloody draining ulcer along the inside of her right foot and another stage 2 on her left foot along the medial border of her heel. The family states she had a fever a day ago of 100.1 F and has been very nauseous, no episodes of vomiting however, no diarrhea or chills but apparently she has had some muscle aches, again mostly in her legs. Medical records from outpt. show that the pt does have a hx. of non -compliance, although the family states she is very good about taking her medications, including her insulin. She is on controlled pain medication morphine and oxy. for her chronic low back pain and does follow with pain clinic for this. She also has a generalized body rash that the family states began a month ago that's been bothering her, itchy and burning at times. No CP or SOB as per the patients family. Home Medications Scheduled Amlodipine Besylate (Amlodipine Besylate) 5 Mg Tab, 5 MG PO QHS, (Reported) Atorvastatin Calcium (Atorvastatin Calcium) 40 Mg Tab, 40 MG PO QHS, (Reported) Baclofen (Baclofen) 10 Mg Tab, 10 MG PO Q6H, (Reported) Carvedilol (Carvedilol) 3.125 Mg Tab, 3.125 MG PO BID, (Reported) Duloxetine Hcl (Cymbalta) 30 Mg Cap, 30 MG PO BID, (Reported) Fluconazole (Fluconazole) 100 Mg Tab, 100 MG PO DAILY Glipizide (Glipizide Xl) 10 Mg Tab, 10 MG PO BID, (Reported) Lisinopril (Lisinopril) 20 Mg Tab, 20 MG PO DAILY, (Reported) Morphine Sulfate (Morphine Sulfate ER) 30 Mg Tabcr, 30 MG PO BID, (Reported) Oxycodone HCl (Oxycodone HCl) 10 Mg Tab, 10 MG PO QID, (Reported) Pregabalin (Lyrica) 300 Mg Cap, 300 MG PO BID, (Reported) Scheduled PRN Meclizine HCl (Meclizine HCl) 25 Mg Tab, 25 MG PO Q6H PRN for DIZZINESS, ( Reported) Methocarbamol (Robaxin-750) 750 Mg Tab, 750 MG PO for PAIN OR FEVER, (Reported) Allergies Coded Allergies: Aspirin (Verified Allergy, Intermediate, HIVES, 08/18/12) Statins (Verified Adverse Reaction, Severe, RHABDO, 12/15/15) Rhabdomyolysis: HOWEVER, TAKES ATORVASTATIN AT HOME Past Medical History Medical History DM2 on insulin constipation CAD s/p CABG and stent placement 3 years ago Obesity narcotic dependence asthma Chronic kidney disease HTN DLP depression SIDDHARTHA Family History Significant Family History: No pertinent family hx Social History * Smoker: Denies Alcohol: Denies Drugs: denies lives at home w/ mother Review of Symptoms Constitutional: Reports: Chills, Fever, Malaise, Weakness, Fatigue, Denies: Night Sweats Eyes: Denies: Vision change, Conjunctivae inflammation ENT: Denies: Head Aches Skin: Reports: Rash (generalized, itchy and burning at times), Lesions (right and left LE ulcer, oozing pus and blood), Denies: Jaundice Pulmonary: Denies: Dyspnea, Cough Cardiovascular: Denies: Chest Pain, Palpitations, Orthopnea Gastrointestinal: Reports: Nausea, Denies: Vomiting, Abdominal Pain Genitourinary: Denies: Dysuria Musculoskeletal: Reports: Other Symptoms (b/l leg pain burning) Neurological: Reports: Weakness Psych: Reports: Other Psych (intellectual disability) Physical Examination General Exam: Positive: Mild Distress, Negative: Alert, Cooperative Eye Exam: Negative: Sclera icteric Neck Exam: Positive: Supple Chest Exam: Positive: Clear to auscultation, Negative: Rales, Rhonchi, Wheezing Heart Exam: Positive: Normal S1, Normal S2, Negative: Gallops, Murmurs Abdomen Exam: Positive: Normal bowel sounds, Soft, Negative: Tenderness, Hepatospenomegaly Extremity Exam: Positive: Edema (b/l +1 LE), Other (grade 1 ulcer left LE medial portion heel, grade 1 ulcer right medial LE along heel, yellow/green pus and blood with surrounding erythema) Skin Exam: Positive: Rash (generalized, flat, circumferential, excoriated), Breakdown Psych Exam: Positive: Other (pt is very fatigued and will open eyes to verbal stimuli but falls asleep again on questioning) Vital Signs Vital Signs Date Time Temp Pulse Resp B/P (MAP) Pulse Ox O2 Delivery O2 Flow Rate FiO2 11/10/16 00:44 58 94 11/09/16 23:50 16 Nasal Cannula 11/09/16 20:29 100.2 Laboratory Data Labs 24H Laboratory Tests 2 11/10/16 00:06: Bedside Glucose (Misc Panel) 46L 11/10/16 00:22: White Blood Count 19.7H, Red Blood Count 3.95L, Hemoglobin 10.8L, Hematocrit 32.9L, Mean Corpuscular Volume 83.3, Mean Corpuscular Hemoglobin 27.3, Mean Corpuscular Hemoglobin Concent 32.8, Red Cell Distribution Width 14.6H, Platelet Count 429, Neutrophils (%) (Auto) 85.3H, Lymphocytes (%) (Auto) 6.8L, Monocytes (%) (Auto) 6.2H, Eosinophils (%) (Auto) 0.5, Basophils (%) (Auto) 0.1 , Neutrophils # (Auto) 16.8H, Lymphocytes # (Auto) 1.5, Monocytes # (Auto) 1.2H , Eosinophils # (Auto) 0.1, Basophils # (Auto) 0.0, Large Unclassified Cells % 1.0, Large Unclassified Cells # 0.2, Anion Gap 7L, Glomerular Filtration Rate 36.6L, Blood Urea Nitrogen 29H, Creatinine 1.60H, Sodium Level 135L, Potassium Level 4.3, Chloride Level 105, Carbon Dioxide Level 23, Calcium Level 9.4, C- Reactive Protein, Quantitative 17.40H 11/10/16 01:11: Urine Appearance CLOUDYH, Urine Color KINDRA, Urine pH 5.0, Urine Specific [place] 1.014, Urine Protein NEGATIVE, Urine Glucose (UA) NEGATIVE, Urine Ketones NEGATIVE, Urine Urobilinogen 0.2, Urine Bilirubin NEGATIVE, Urine Leukocyte Esterase 2+H, Urine Blood NEGATIVE, Urine Nitrite NEGATIVE, Urine WBC (Auto) 45H, Urine RBC (Auto) 2, Urine Hyaline Casts (Auto) 9, Urine Bacteria ( Auto) 2+H, Urine Squamous Epithelial Cells 1, Urine Sperm (Auto) , Urine Amphetamines Screen NEGATIVE, Urine Benzodiazepines Screen NEGATIVE, Urine Opiates Screen POSITIVEH, Urine Methadone Screen NEGATIVE, Urine Barbiturates Screen NEGATIVE, Urine Phencyclidine Screen NEGATIVE, Urine Cocaine Metabolite Screen NEGATIVE, Urine Cannabinoids Screen NEGATIVE CBC/BMP Laboratory Tests 11/10/16 00:22 Red Blood Count 3.95 L, Mean Corpuscular Volume 83.3, Mean Corpuscular Hemoglobin 27.3, Mean Corpuscular Hemoglobin Concent 32.8, Red Cell Distribution Width 14.6 H, Neutrophils (%) (Auto) 85.3 H, Lymphocytes (%) (Auto ) 6.8 L, Monocytes (%) (Auto) 6.2 H, Eosinophils (%) (Auto) 0.5, Basophils (%) ( Auto) 0.1, Neutrophils # (Auto) 16.8 H, Lymphocytes # (Auto) 1.5, Monocytes # ( Auto) 1.2 H, Eosinophils # (Auto) 0.1, Basophils # (Auto) 0.0, Calcium Level 9.4 Microbiology Microbiology 11/10/16 Blood Culture, Received Pending 11/10/16 Urine Culture, Received Pending 11/10/16 Wound Culture, Received Pending Problems (1) Diabetic ulcer of right foot associated with type 2 diabetes mellitus Status: Acute Response to Treatment: Stable Problem Text: WBC 19.7 Temp in ED 100.2 F CRP elevated Will begin antibiotic Zosyn Consider podiatry cx, this will be left to discretion of dayteam HCP Wound culture pending X-ray of right foot does not show bone involvement, official read from radiologist pending Right LE U/S neg. DVT (2) Leukocytosis Status: Acute Response to Treatment: Stable Problem Text: suspect 2/2 diabetic ulcer temp 100.2 in ED blood cx pending urine cx pending Begin Zosyn antibiotic repeat CBC in AM (3) Edema, lower extremity Status: Chronic Response to Treatment: Stable Problem Text: +1 pitting LE Begin Lasix PO continue to monitor (4) DM2 (diabetes mellitus, type 2) Status: Chronic Response to Treatment: Stable Problem Text: sugars usually 2-300, on presentation to ED glucose was 40 begin SS coverage Creatine 1.6 in ED, up from 1.2 in September 2016- begin IV fluid hydration (5) HTN (hypertension) Status: Chronic Response to Treatment: Stable Problem Text: continue home medications (6) Chronic back pain Status: Chronic Response to Treatment: Stable Problem Text: continue home medications-morphine and oxy pt sees pain clinic for treatment of chronic low back issues (7) Depression Status: Chronic Response to Treatment: Stable Problem Text: continue home medications (8) DVT prophylaxis Status: Acute Response to Treatment: Stable Problem Text: SCD TEDS Plan / VTE VTE Prophylaxis Ordered?: Yes Plan / Urinary Catheter Reason for insertion/continuin: Acute obstruct/retention GME ATTESTATION GME ATTESTATION My preceptor for this patient encounter was physically present in the building during the encounter and was fully available. As needed, all aspects of the patient interview, examination, medical decision making process, and medical care plan development were reviewed and approved by the preceptor. Preceptor is aware and concurs with the plan as stated in the body of this note and will attest to such by his/her cosignature. BEREKET TORRES DO Nov 10, 2016 02:20
[2016-11-10] MEDS: NS 1,000 ML IV SCH ×3 (02:45→18:45)
[2016-11-10] MEDS ORDERED: DEXTROSE 50% 50 ML SYRINGE IV PRN (02:45)
[2016-11-10] MEDS ORDERED: GLUCOSE 4 GM CHEW TABLET PO PRN (02:45)
[2016-11-10] MEDS ORDERED: GLUCAGON FOR INJ 1 MG VIAL (J1610) SC PRN (02:45)
[2016-11-10] MEDS ORDERED: CARV6.25 PO (03:00)
[2016-11-10] MEDS: PIPERACILLIN/TAZOBACTAM SOD 3.375 GM in D5W MINI-BAG PLUS 50 ML IV SCH ×4 (03:00→21:05)
[2016-11-10] MEDS ORDERED: MORP15TASA PO (03:00)
[2016-11-10] MEDS ORDERED: INSUDET SC (03:03)
[2016-11-10 04:35] VITALS: BP 128/60
[2016-11-10 06:14] LABS: BASO % 0.2 % (0.0-1.0); EOS # 0.1 K/mm3 (0.0-0.50); EOS % 0.6 % (0.0-3.0); LARGE UNSTAINED CELL # 0.3 K/mm3 (0.0-0.4); LARGE UNSTAINED CELL % 1.7 % (0.0-4.0); LYMPH # 2.4 K/mm3 (1.5-4.5); LYMPH % 13.5 % (24.0-44.0); MEAN CORPUSCULAR HEMOGLOBIN 28.1 pg (27.0-33.0); MEAN CORPUSCULAR HGB CONC 33.5 g/dl (32.0-36.5); MEAN CORPUSCULAR VOLUME 83.8 fl (80.0-96.0); MONO # 1.2 K/mm3 (0.0-0.8); MONO % 7.7 % (0.0-5.0); NEUTROPHILS # 12.1 K/mm3 (1.8-7.7); NEUTROPHILS % 76.3 % (36.0-66.0); PLATELET COUNT, AUTOMATED 388 k/mm3 (150-450); RED CELL DISTRIBUTION WIDTH 14.7 % (11.5-14.5); WHITE BLOOD COUNT 15.8 K/mm3 (4.0-10.0)
[2016-11-10 06:25] LABS: CREATININE FOR GFR 1.35 MG/DL (0.55-1.02); GLOMERULAR FILTRATION RATE 44.6 (>58); POTASSIUM SERUM 3.8 MEQ/L (3.5-5.1)
[2016-11-10] MEDS: HumaLOG INSULIN (NovoLOG) PER UNIT SC SCH ×4 (07:30→21:00)
[2016-11-10] MEDS: FUROSEMIDE 40 MG TAB PO SCH (08:29)
[2016-11-10] MEDS ORDERED: CARVedilol 6.25 MG TAB PO SCH (09:00)
--- NOTE | 2016-11-10 09:02 | REP ---
Clinical: Ulcer. Technique: AP and lateral views of the right foot. Findings: Osseous structures demonstrate moderate calcaneal heal spur and mild degenerative changes at the tarsometatarsal joints , first metatarsophalangeal and diffuse interphalangeal joints. No acute fracture dislocation. No periosteal reaction. Overlying soft tissue swelling noted without subcutaneous emphysema. Impression: Soft tissue swelling and degenerative changes. Signed by Manfred Piper MD 11/10/2016 08:54 A
[2016-11-10] MEDS: DULoxetine 30 MG CAP (CYMBALTA) PO SCH ×2 (11:43→21:06)
[2016-11-10] MEDS: BACLOFEN 10 MG TAB PO SCH ×2 (11:43→17:48)
[2016-11-10] MEDS: PREGABALIN 100 MG CAP (LYRICA) PO SCH ×2 (11:45→21:06)
--- NOTE | 2016-11-10 12:43 | REP ---
Clinical: Right hip pain. Technique: Axial noncontrast images through the right hip with coronal and sagittal re-formations. Findings: The osseous structures demonstrate mild joint space narrowing along with subtle increase sclerosis to the acetabular roof with marginal spurring. There is no acute fracture or dislocation. There is no evidence for healed fracture. The visualized right sacroiliac joint appears normal. Surrounding musculoskeletal structures are unremarkable. Inflammatory stranding in the subcutaneous tissues overlying the right hip are identified and should be correlated with physical examination to exclude a cellulitis or sequelae of trauma. No discrete fluid collection identified. Impression: 1. Mild degenerative changes at the right hip as described above. No acute fracture dislocation. 2. Inflammatory stranding in the subcutaneous tissues lateral to the hip. Differential diagnosis includes but is not limited to cellulitis, infectious/inflammatory process, and sequelae of prior trauma. Signed by Manfred Piper MD 11/10/2016 12:35 P
[2016-11-10] MEDS: oxyCODONE 5MG TAB PO SCH ×3 (12:50→21:08)
[2016-11-10 14:00] VITALS: BP 158/89
[2016-11-10] MEDS: METHOCARBAMOL 750 MG TAB PO SCH ×2 (15:15→21:05)
[2016-11-10] MEDS ORDERED: MORPHINE 15 MG SA TAB PO SCH (21:00)
[2016-11-10] MEDS: CARVedilol 3.125 MG TAB PO SCH (21:06)
[2016-11-10 22:00] VITALS: BP 162/80
[2016-11-11] MEDS ORDERED: MORPHINE 15 MG SA TAB PO SCH ×2
[2016-11-11] MEDS: BACLOFEN 10 MG TAB PO SCH ×4 (00:12→17:00)
[2016-11-11] MEDS: MORPHINE 15 MG SA TAB PO SCH ×2 (00:13→11:01)
[2016-11-11] MEDS: NS 1,000 ML IV SCH ×2 (02:45→06:12)
[2016-11-11] MEDS: PIPERACILLIN/TAZOBACTAM SOD 3.375 GM in D5W MINI-BAG PLUS 50 ML IV SCH ×4 (03:22→20:50)
[2016-11-11 06:00] VITALS: BP 151/85
[2016-11-11] MEDS: METHOCARBAMOL 750 MG TAB PO SCH ×3 (06:10→20:47)
[2016-11-11 07:04] LABS: BASO # 0.1 K/mm3 (0.0-0.2); BASO % 0.4 % (0.0-1.0); EOS # 0.1 K/mm3 (0.0-0.50); EOS % 0.5 % (0.0-3.0); LARGE UNSTAINED CELL # 0.4 K/mm3 (0.0-0.4); LARGE UNSTAINED CELL % 2.1 % (0.0-4.0); LYMPH # 2.2 K/mm3 (1.5-4.5); LYMPH % 13.2 % (24.0-44.0); MEAN CORPUSCULAR HEMOGLOBIN 27.8 pg (27.0-33.0); MEAN CORPUSCULAR VOLUME 84.1 fl (80.0-96.0); MONO % 6.1 % (0.0-5.0); NEUTROPHILS # 12.8 K/mm3 (1.8-7.7); NEUTROPHILS % 77.7 % (36.0-66.0); PLATELET COUNT, AUTOMATED 396 k/mm3 (150-450); RED CELL DISTRIBUTION WIDTH 14.1 % (11.5-14.5); WHITE BLOOD COUNT 16.5 K/mm3 (4.0-10.0)
[2016-11-11 07:30] LABS: ANION GAP 7 MEQ/L (8-16); BLOOD UREA NITROGEN 14 MG/DL (7-18); CALCIUM LEVEL 8.8 MG/DL (8.5-10.1); CARBON DIOXIDE LEVEL 26 MEQ/L (21-32); CHLORIDE LEVEL 102 MEQ/L (98-107); CREATININE FOR GFR 0.92 MG/DL (0.55-1.02); GLOMERULAR FILTRATION RATE > 60.0 (>58); GLUCOSE, FASTING 356 MG/DL (70-105); POTASSIUM SERUM 4.6 MEQ/L (3.5-5.1); SODIUM LEVEL 135 MEQ/L (136-145)
--- NOTE | 2016-11-11 08:25 | IPNPDOC ---
Text Note Date of Service The patient was seen on 11/11/16. NOTE Subjective: States she has right lower back pain radiating to the groin. Difficulty with ambulation Objective: Vitals: (see below) General: No acute distress, laying comfortably in bed. HEENT: Moist mucous membranes. Neck: No JVD or lymphadenopathy Cardiac: RRR, No murmurs Pulm: Clear to auscultation b/l. No wheezing, rhonchi Abd: NT/ND + BS. Obese. Ext: 1+ pitting edema bilateral lower extremities. Distal pulses intact. Right foot ulcer with swelling however no erythema. Pain on palpation in the right groin, lower back. no erythema. Pain with movement and internal/external rotation of right hip. Labs (see below) Images: CT abdomen and pelvis 11/10/16 Impression: 1. Mild degenerative changes at the right hip as described above. No acute fracture dislocation. 2. Inflammatory stranding in the subcutaneous tissues lateral to the hip. Differential diagnosis includes but is not limited to cellulitis, infectious/inflammatory process, and sequelae of prior trauma. Bilateral lower extremity ultrasound 11/10/16 Impression: No evidence of deep vein thrombosis in the right femoral popliteal venous system. Right foot x-ray 11/10/16 Impression: Soft tissue swelling and degenerative changes. Assessment/Plan 1. Right lower extremity cellulitis- with associated leukocytosis and elevated CRP. Patient does have a right diabetic ulcer on the right foot. No significant erythema however there is some swelling. Distal pulses intact. On vancomycin and Zosyn. Blood cultures pending. Images (see above). 2. Hypoglycemia- likely secondary to insulin and sulfonylurea. Sulfonylurea has been discontinued. We'll restart Levemir at a lower dose of 20 units, and continue to monitor prior to escalating. Sliding scale Insulin. 3. Acute kidney injury - resolved with IVF. 3. Diabetic foot ulcer- has been seen by Dr. Munoz in the past. 4. Bilateral lower some edema- chronic. On Lasix. Lower extremity ultrasound negative for DVT. 5. Chronic lower back pain- continue home meds 6. Depression- continue home meds 7. Right hip pain - CT Hip (see above). H/o multiple back surgeries and metal plates. Unable to get MRI. Will consult ortho. DVT prophy: Enoxaparin We'll obtain physical therapy consult. Drew SANDHU I+O VS, Kennethbone, I+O Laboratory Tests 11/11/16 06:37 Red Blood Count 3.91 L, Mean Corpuscular Volume 84.1, Mean Corpuscular Hemoglobin 27.8, Mean Corpuscular Hemoglobin Concent 33.0, Red Cell Distribution Width 14.1, Neutrophils (%) (Auto) 77.7 H, Lymphocytes (%) (Auto) 13.2 L, Monocytes (%) (Auto) 6.1 H, Eosinophils (%) (Auto) 0.5, Basophils (%) ( Auto) 0.4, Neutrophils # (Auto) 12.8 H, Lymphocytes # (Auto) 2.2, Monocytes # ( Auto) 1.0 H, Eosinophils # (Auto) 0.1, Basophils # (Auto) 0.1, Calcium Level 8.8 Vital Signs Date Time Temp Pulse Resp B/P (MAP) Pulse Ox O2 Delivery O2 Flow Rate FiO2 11/11/16 06:00 98.0 63 18 151/85 (107) 98 Room Air I&O- Last 24 Hours up to 6 AM 11/11/16 06:00 Intake Total 2745 ml Output Total 6900 ml Balance -4155 ml DEREK FAY MD Nov 11, 2016 08:25
[2016-11-11] MEDS: PREGABALIN 100 MG CAP (LYRICA) PO SCH ×2 (08:57→20:47)
[2016-11-11] MEDS: DULoxetine 30 MG CAP (CYMBALTA) PO SCH ×2 (08:58→20:47)
[2016-11-11] MEDS: CARVedilol 3.125 MG TAB PO SCH ×2 (08:58→20:48)
[2016-11-11] MEDS: FUROSEMIDE 40 MG TAB PO SCH (08:58)
[2016-11-11] MEDS: oxyCODONE 5MG TAB PO SCH ×4 (08:59→20:50)
[2016-11-11] MEDS: HumaLOG INSULIN (NovoLOG) PER UNIT SC SCH ×4 (09:00→21:59)
[2016-11-11] MEDS: ENOXAPARIN 40 MG/0.4 ML SYRINGE (J1650) SC SCH (09:00)
[2016-11-11] MEDS: LEVEMIR (INSULIN DETEMIR) 1 UNITS/0.01ML SC SCH (09:00)
--- NOTE | 2016-11-11 10:09 | PHACANCOPD ---
PHARMACY VANCOMYCIN DOSING Pt Demographics Demographics Patient Age:46 , Weight:100.700 , Gender: female Adjusted Body Weight Date: 11/11/16, Adjusted Body Weight: Kg Events Past 24 Hours Events Past 24 Hours: YES: Fever, Elevation in WBC, NO: Dialysis, Diuretic Therapy, Change in CrCl, Pending Diagnostics, Pending Procedures, Other Vancomycin Vancomycin indication: CELLULITIS Vancomycin Target Ranges: 15-20 mcg/ml Vancomycin Load Y/N: Yes Load Dose Date Time Vancomycin Load Dose: 1500MG Date: 11/11/16 Time: 1000 Vancomycin Dose Date: 11/11/16. Current Vancomycin Dose: [1G IV Q12H] Intermittent Dosing?: No Labs Labs Vital Signs Label Value Date Time Patient Temperature 98.0 degrees F 11/11/16 0600 Temperature Source Core 11/11/16 0600 Patient Temperature 100.9 degrees F 11/10/16 2200 Temperature Source Tympanic 11/10/16 2200 Item Value Date Time White Blood Count 19.7 K/mm3 H 11/10/16 0022 White Blood Count 15.8 K/mm3 H 11/10/16 0524 White Blood Count 16.5 K/mm3 H 11/11/16 0637 Creatinine 1.60 MG/DL H 11/10/16 0022 Creatinine 1.35 MG/DL H 11/10/16 0524 Creatinine 0.92 MG/DL 11/11/16 0637 Micro Microbiology 11/10/16 Blood Culture - Preliminary, Resulted No growth after 24 hours . All specim... 11/10/16 Urine Culture, Received Pending 11/10/16 Wound Culture, Received Pending Creatinine Clearance Date:11/11/16. Creatinine Clearance: [74.73]. Assessment and Plan Maintaining Current Dose?: Yes Reason for dose change: No Dose Change Pharmacist Note Pharmacist Note Date: 11/11/16. Pharmacist note: Pt. is a 46 year old female who presented with increased leg pain (burning and tingling) and a diabetic foot ulcer draining yellow and sometimes blood discharge on the right foot. Pt. has a history of DM2 on insulin, CAD, CKD. Pt. was PHAN upon admission but this has been corrected with IV fluids. Pt has a past history of MRSA and has received Vanco at our facility in the past. Current labs have been drawn and are pending. I will start pt on Vanco 1500mg LD @1000 followed by 1G Q12H. Vanco trough scheduled before 4th dose given. We will continue to monitor patient and make dose adjustments as needed. [facility] Nov 11, 2016 10:08
[2016-11-11] MEDS: VANCOMYCIN HCL 1,000 MG, VIAL MATE ADAPTER 1 EACH in D5W 250 ML IV SCH ×2 (10:50→22:06)
[2016-11-11] MEDS ORDERED: VANCOMYCIN HCL 500 MG in D5W MINI-BAG PLUS 100 ML IV ONE (11:00)
[2016-11-11 14:00] VITALS: BP 190/84
[2016-11-11] MEDS ORDERED: MORPHINE 2 MG/ML 1ML SYRINGE IV ONE (14:30)
[2016-11-11 15:00] VITALS: BP 162/74
[2016-11-11 22:00] VITALS: BP 180/77
[2016-11-12] MEDS: BACLOFEN 10 MG TAB PO SCH ×4 (00:03→17:32)
[2016-11-12] MEDS: MORPHINE 15 MG SA TAB PO SCH ×2 (00:04→11:00)
[2016-11-12] MEDS: PIPERACILLIN/TAZOBACTAM SOD 3.375 GM in D5W MINI-BAG PLUS 50 ML IV SCH ×4 (03:24→21:17)
[2016-11-12] MEDS: METHOCARBAMOL 750 MG TAB PO SCH ×3 (05:28→21:14)
[2016-11-12 06:23] VITALS: BP 197/89
[2016-11-12 07:02] LABS: BASO # 0.1 K/mm3 (0.0-0.2); EOS # 0.2 K/mm3 (0.0-0.50); EOS % 1.3 % (0.0-3.0); LARGE UNSTAINED CELL # 0.2 K/mm3 (0.0-0.4); LARGE UNSTAINED CELL % 1.6 % (0.0-4.0); LYMPH # 1.6 K/mm3 (1.5-4.5); MEAN CORPUSCULAR HEMOGLOBIN 27.5 pg (27.0-33.0); MEAN CORPUSCULAR HGB CONC 32.9 g/dl (32.0-36.5); MEAN CORPUSCULAR VOLUME 83.5 fl (80.0-96.0); MONO # 0.9 K/mm3 (0.0-0.8); MONO % 6.8 % (0.0-5.0); NEUTROPHILS # 10.5 K/mm3 (1.8-7.7); NEUTROPHILS % 77.3 % (36.0-66.0); PLATELET COUNT, AUTOMATED 447 k/mm3 (150-450); RED CELL DISTRIBUTION WIDTH 13.8 % (11.5-14.5); WHITE BLOOD COUNT 13.6 K/mm3 (4.0-10.0)
--- NOTE | 2016-11-12 07:11 | REP ---
Clinical: Hip and groin pain. Technique: Frontal view of the pelvis with neutral and frog lateral views of the right and left hip. Findings: Moderate degenerative changes (right greater than left) including medial joint space narrowing, increased sclerosis to the acetabular roof and associated marginal spurring. Subtle subchondral cystic changes to the right femoral head are also suggested. There is no evidence for acute fracture or dislocation. Impression: Moderate arthritic degenerative changes (right greater than left). Signed by Manfred Piper MD 11/11/2016 03:47 P
[2016-11-12 07:12] LABS: ANION GAP 8 MEQ/L (8-16); BLOOD UREA NITROGEN 12 MG/DL (7-18); CALCIUM LEVEL 9.8 MG/DL (8.5-10.1); CARBON DIOXIDE LEVEL 28 MEQ/L (21-32); CHLORIDE LEVEL 99 MEQ/L (98-107); CREATININE FOR GFR 0.83 MG/DL (0.55-1.02); GLOMERULAR FILTRATION RATE > 60.0 (>58); GLUCOSE, FASTING 327 MG/DL (70-105); POTASSIUM SERUM 4.4 MEQ/L (3.5-5.1); SODIUM LEVEL 135 MEQ/L (136-145)
[2016-11-12] MEDS: CARVedilol 3.125 MG TAB PO SCH ×2 (08:08→21:16)
[2016-11-12] MEDS: DULoxetine 30 MG CAP (CYMBALTA) PO SCH ×2 (08:08→21:14)
[2016-11-12] MEDS: FUROSEMIDE 40 MG TAB PO SCH (08:08)
[2016-11-12] MEDS: PREGABALIN 100 MG CAP (LYRICA) PO SCH ×2 (08:08→21:14)
[2016-11-12] MEDS: HumaLOG INSULIN (NovoLOG) PER UNIT SC SCH ×4 (08:09→21:00)
[2016-11-12] MEDS: LEVEMIR (INSULIN DETEMIR) 1 UNITS/0.01ML SC SCH (08:09)
[2016-11-12] MEDS: oxyCODONE 5MG TAB PO SCH ×4 (08:09→21:16)
[2016-11-12] MEDS: ENOXAPARIN 40 MG/0.4 ML SYRINGE (J1650) SC SCH (08:10)
[2016-11-12] MEDS ORDERED: MORPHINE 2 MG/ML 1ML SYRINGE IV ONE (08:45)
[2016-11-12] MEDS: DOCUSATE SODIUM 100 MG CAP PO SCH ×2 (08:59→21:14)
[2016-11-12] MEDS ORDERED: amLODIPine 5 MG TAB PO SCH (09:00)
[2016-11-12] MEDS: VANCOMYCIN HCL 1,000 MG, VIAL MATE ADAPTER 1 EACH in D5W 250 ML IV SCH ×2 (10:58→22:37)
[2016-11-12 11:26] VITALS: BP 160/92
[2016-11-12 14:00] VITALS: BP 169/77
--- NOTE | 2016-11-12 14:55 | IPNPDOC ---
Text Note Date of Service The patient was seen on 11/12/16. NOTE Subjective: Patient is a 46 year old female with a PMHx of CAD s/p CABG and Stent , Narcotic dependence for chronic LBP, IDDM2, Asthma, CKD3, Depression, HTN, Chronic constipation, Peripheral neuropathy, intellectual disability and SIDDHARTHA who presented to the ER [facility] complaints of weakness and pain in both legs along with a right foot ulcer. Patient was noted to have a fever of 100.1F at home. Patient was seen and examined at the bedside. Currently she notes improvement in her legs. She is still complaining of R hip pain that is causing her some distress. Objective: Vitals (See below) General: Lying in bed, no acute distress, comfortable, AAOx3 HEENT: NC, AT CVS: RRR, +S1S2 Lungs: Fair air entry b/l, -w/r/r Abdomen: Soft, ND, NT, +BSx4 Extremities: +PPx4, Trace edema bilaterally, - Calf tenderness, Pain at right hip with internal / external rotation Skin: Right foot cellulitis / ulcer - shows signs of improvement Assessment and plan: 1. Right lower extremity cellulitis - - Presented with pain and ulcer on right leg, noted to have a fever at home - Physical reveals ulcer on right leg with swelling, no erythema noted - Leukocytosis shows some signs of improvement; CRP trending down - R foot XR 7/: soft tissue swelling and degenerative changes - Duplex US /2: negative for DVT - c/w Vancomycin and Zosyn for now (Day #2) 2. Right hip pain / groin pain - possibly 2/2 joint related infection, possibly 2/2 constipation - Notes that she did not have this pain intially upon presentation - Physical reveals pain upon internal and external rotation of leg - CRP and Leukocytosis continues to improve - CT hip: mild degenerative chages at R hip, no acute fracture, inflammatory stranding in subcutaneous tissues lateral to hip - cellulitis vs. trauma - Case discussed by my college, Dr. Platt and Dr. Evelyn Bains; will continue with current course; if symptoms don't resolve consider IR guided aspiration - c/w current antibiotics for #1 - c/w pain control as required 3. s/p Hypoglycemia - likely 2/2 medications and sulfonylurea - s/p Sulfonylurea - c/w Levemir at adjusted dose of 20 QAM - Currently glucose is elevated; if remains elevated will add Levemir QHS 4. s/p Acute kidney injury - likely 2/2 pre-renal etiolgoy 2/2 dehydration - s/p IV fluids 5. Diabetic foot ulcers - Follows with Dr. Munoz as an outpatient 6. Bilateral lower extremity edema - Duplex US 11/10: negative for DVT - c/w Lasix 7. Chronic lower back pain - c/w Baclofen, Oxycodone, Morphine Sulfate PO, 8. Depression - c/w Duloxetine 9. HTN - c/w Amlodipine, Carvedilol, 10. Peripheral neuropathy - c/w Pregabalin 11. DVT prophylaxis - c/w Lovenox Disposition: - Evaluate by physical therapy VS,Drew, I+O VS, Drew, I+O Laboratory Tests 11/12/16 06:42 Red Blood Count 4.02, Mean Corpuscular Volume 83.5, Mean Corpuscular Hemoglobin 27.5, Mean Corpuscular Hemoglobin Concent 32.9, Red Cell Distribution Width 13.8 , Neutrophils (%) (Auto) 77.3 H, Lymphocytes (%) (Auto) 12.0 L, Monocytes (%) ( Auto) 6.8 H, Eosinophils (%) (Auto) 1.3, Basophils (%) (Auto) 1.0, Neutrophils # (Auto) 10.5 H, Lymphocytes # (Auto) 1.6, Monocytes # (Auto) 0.9 H, Eosinophils # (Auto) 0.2, Basophils # (Auto) 0.1, Calcium Level 9.8 Vital Signs Date Time Temp Pulse Resp B/P (MAP) Pulse Ox O2 Delivery O2 Flow Rate FiO2 11/12/16 12:40 18 Room Air 11/12/16 12:10 66 160/92 11/12/16 06:23 98.2 99 I&O- Last 24 Hours up to 6 AM 11/12/16 05:59 Intake Total 2600 ml Output Total 6250 ml Balance -3650 ml LAVERNE MIRANDA MD Nov 12, 2016 14:55
[2016-11-12 22:00] VITALS: BP 153/71
--- NOTE | 2016-11-12 22:11 | CR ---
DATE OF CONSULTATION: 11/11/2016 REASON FOR CONSULTATION: Right groin pain. HISTORY OF PRESENT ILLNESS: She is a 46-year-old female who has had a longstanding history of chronic low back pain radiating into both of her legs for many years. She has had a three level fusion. She says it was about 14 years ago when she was down in [place] by Dr. Olson and she has been a patient of the pain service for many years since that time from opioid addiction from her chronic pain medications. She denies ever using IV drugs. She has had worsening trouble recently and was admitted on 11/10/2016, a couple of days ago, complaining of bilateral pains in her legs that are worse than before, in addition to her back pain, and over the last day or two says it is more in the right groin that she has been having a lot of discomfort and pain. Does not remember a fall or an injury. Other relevant history is chronic neuropathy in her feet from her diabetes, as well as some type of a chronic bladder neurogenic problem where she straight catheterizes herself several times a day. She tells me that when she woke up on Friday she could hardly walk, but since she has been here in the hospital she is getting more comfortable getting in and out of bed and getting onto the commode and I examined her today on the commode and on her stretcher and three separate times this afternoon during my evaluation, but she says overall her pain seems to be getting better. There is a note from her family that there was a fever at home and maximum temperature (Tmax) here in the hospital has been 100.9, that was yesterday, but she has been afebrile. Over the past month or so she has noticed an ulcer on the bottom of her right heel, a small one on the left side, and there has been some serous drainage and some swelling about her foot over the last month. Otherwise, her past medical history is significant for insulin dependent diabetes, coronary artery disease, hypertension, hypercholesterolemia, opioid addiction, chronic constipation, asthma, depression, sleep apnea, obesity. SOCIAL HISTORY: She does not smoke or drink alcohol. Denies every using IV drugs. 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 Initially lived down in the [place] area and has moved here recently to be with her family. She is recently . REVIEW OF SYSTEMS: Health survey admitted to the chart and it is in the medical record otherwise. ALLERGIES TO MEDICATIONS: ASPIRIN and STATINS, although she is on atorvastatin. HOME MEDICATIONS: Include: - amlodipine - atorvastatin - baclofen - carvedilol - Cymbalta - fluconazole - glipizide - lisinopril - morphine - oxycodone - Lyrica Surgical history is the lumbar spine fusion surgery. She also describes having a spinal cord stimulator for her back pain. When I examined her, she is a moderately obese female, sitting on the commode, and I helped her get off into the bed. As to pain, she points to her right groin predominantly and her right foot, also her low back. Her temperature this afternoon was 98.2 with a pulse of 69, blood pressure 190/84, respirations were at 20, oxygen saturations are in room air at 94%. HEENT exam was benign. Lumbar spine showed a large scar angled off to the left side over the sacroiliac joint. There is no erythema or abscess noted in that region. There was diffuse, mild, chronic soreness that she describes as always there. She has difficulty doing a straight leg raise on that right side and has soreness and a crampy sensation she describes and points right into her right groin area down her thigh toward the knee. When I try to flex and extend and internally and externally rotate there is pain, but it is not markedly synovitic or irritable, but there is pain in that right hip and groin area. There is no palpable tenderness over the greater trochanter. There is no swelling or masses or erythema or cellulitis about the right hip joint or over the trochanteric bursa area. Her right foot has a large eschar of the heel with some mild serous yellowish drainage and some swelling around the localized area without a significant amount of induration or cellulitis. She has a palpable dorsalis pedis pulse and moves her toes well but does have subjectively decreased sensation that she describes in both of her feet. Her laboratory studies showed that her white count is 16.5, down from 19.7 on admission, with a platelet of 396, hematocrit of 32.9. Her CRP on admission was 17.4 and it was down to 14.4 today. Electrolytes were unremarkable but she did have an elevated glucose at 356 on today's blood work from this morning. Urine toxicologies were positive for opiates. IMAGING STUDIES: She had an ultrasound of her leg that was unremarkable for deep venous thrombosis (DVT). Foot x-ray on the right side showed some soft tissue swelling, some mild degenerative changes. The x-rays of her hip showed some degenerative arthritis of the right hip, you can see the evidence of the lumbar spine fusion on the plain film x-ray. There are some surgical clips in the midline as well as off to the right side. Phlebolith or ossific densities seen just to the medial aspect of the right acetabulum and the pelvis. CT scan of the right hip did not show any effusion, it showed degenerative arthritis of her hip and there was a question of some subcutaneous stranding lateral to the hip, but it is nontender in that area, but there is no fracture seen. IMPRESSION: Trying to put this all together, it is difficult to sort this out, she is acting as if pain is coming from the hip joint. There is some arthritis on the hip joint, but no effusion on the CT scan and she is not markedly irritable. CT scan showed some soft tissue subcutaneous striations but there is no tenderness in that area where it is describing that on the CT scan. It is difficult to say whether or not this is referred pain from her chronic back pain or if this is primary hip arthritic pain or if there is a septic hip joint. She says she is feeling better since she has been admitted to the hospital and now she says she can get on and off the commode much easier than she could as of the day before yesterday and yesterday. So, I would recommend at this point we follow her presently and watch her symptoms. If she continues to show good improvement, I would just treat this expectantly. If, however, her laboratory studies do not improve and clinical pain does not improve significantly over the next 24-48 hours, we should aspirate that right hip with interventional radiology and see if there is any fluid or signs of a septic hip that may need to have surgical drainage. I discussed this with Dr. Platt and we are going to use that as our plan and possibly aspirate her right hip if her symptoms do not show good improvement.
[2016-11-12] MEDS: MIRALAX *UNIT DOSE* 17GM PACKET PO PRN (22:41)
[2016-11-13] MEDS: BACLOFEN 10 MG TAB PO SCH ×4 (00:04→17:06)
[2016-11-13] MEDS: MORPHINE 15 MG SA TAB PO SCH ×2 (00:05→13:48)
[2016-11-13] MEDS: PIPERACILLIN/TAZOBACTAM SOD 3.375 GM in D5W MINI-BAG PLUS 50 ML IV SCH ×4 (02:43→20:43)
[2016-11-13] MEDS: METHOCARBAMOL 750 MG TAB PO SCH ×3 (05:25→22:31)
[2016-11-13] MEDS: VANCOMYCIN HCL 1,000 MG, VIAL MATE ADAPTER 1 EACH in D5W 250 ML IV SCH ×3 (05:25→22:32)
[2016-11-13 06:00] VITALS: BP 185/89
[2016-11-13 07:08] LABS: BASO # 0.1 K/mm3 (0.0-0.2); BASO % 0.7 % (0.0-1.0); EOS # 0.4 K/mm3 (0.0-0.50); EOS % 2.7 % (0.0-3.0); LARGE UNSTAINED CELL # 0.3 K/mm3 (0.0-0.4); LARGE UNSTAINED CELL % 2.4 % (0.0-4.0); LYMPH # 1.7 K/mm3 (1.5-4.5); LYMPH % 13.7 % (24.0-44.0); MEAN CORPUSCULAR HEMOGLOBIN 27.4 pg (27.0-33.0); MEAN CORPUSCULAR HGB CONC 32.7 g/dl (32.0-36.5); MONO % 8.1 % (0.0-5.0); NEUTROPHILS # 9.2 K/mm3 (1.8-7.7); NEUTROPHILS % 72.3 % (36.0-66.0); PLATELET COUNT, AUTOMATED 464 k/mm3 (150-450); RED CELL DISTRIBUTION WIDTH 13.8 % (11.5-14.5); WHITE BLOOD COUNT 12.7 K/mm3 (4.0-10.0)
[2016-11-13 07:30] LABS: ANION GAP 7 MEQ/L (8-16); BLOOD UREA NITROGEN 13 MG/DL (7-18); CALCIUM LEVEL 9.6 MG/DL (8.5-10.1); CARBON DIOXIDE LEVEL 30 MEQ/L (21-32); CHLORIDE LEVEL 97 MEQ/L (98-107); CREATININE FOR GFR 0.87 MG/DL (0.55-1.02); GLOMERULAR FILTRATION RATE > 60.0 (>58); GLUCOSE, FASTING 388 MG/DL (70-105); POTASSIUM SERUM 3.8 MEQ/L (3.5-5.1); SODIUM LEVEL 134 MEQ/L (136-145)
[2016-11-13] MEDS: LEVEMIR (INSULIN DETEMIR) 1 UNITS/0.01ML SC SCH ×2 (08:46→20:45)
[2016-11-13] MEDS: HumaLOG INSULIN (NovoLOG) PER UNIT SC SCH ×4 (08:46→20:44)
[2016-11-13] MEDS: CARVedilol 3.125 MG TAB PO SCH ×2 (08:47→20:46)
[2016-11-13] MEDS: ENOXAPARIN 40 MG/0.4 ML SYRINGE (J1650) SC SCH (08:47)
[2016-11-13] MEDS: DOCUSATE SODIUM 100 MG CAP PO SCH ×2 (08:47→20:45)
[2016-11-13] MEDS: PREGABALIN 100 MG CAP (LYRICA) PO SCH ×2 (08:47→20:49)
[2016-11-13] MEDS: DULoxetine 30 MG CAP (CYMBALTA) PO SCH ×2 (08:47→20:45)
[2016-11-13] MEDS: FUROSEMIDE 40 MG TAB PO SCH (08:48)
[2016-11-13] MEDS: amLODIPine 10 MG TAB PO SCH (08:48)
[2016-11-13] MEDS: oxyCODONE 5MG TAB PO SCH ×4 (08:49→20:49)
--- NOTE | 2016-11-13 14:38 | IPNPDOC ---
Text Note Date of Service The patient was seen on 11/13/16. NOTE Subjective: Patient is a 46 year old female with a PMHx of CAD s/p CABG and Stent , Narcotic dependence for chronic LBP, IDDM2, Asthma, CKD3, Depression, HTN, Chronic constipation, Peripheral neuropathy, intellectual disability and SIDDHARTHA who [facility] complaints of weakness and pain in both legs along with a right foot ulcer. Patient was noted to have a fever of 100.1F at home. Patient was seen and examined at the bedside. Still complaining of right hip pain, but has shown some improvement. Objective: Vitals (See below) General: Lying in bed, no acute distress, comfortable, AAOx3 HEENT: NC, AT CVS: RRR, +S1S2 Lungs: Fair air entry b/l, -w/r/r Abdomen: Soft, ND, NT, +BSx4 Extremities: +PPx4, Trace edema bilaterally, - Calf tenderness, Pain at right hip with internal / external rotation Skin: Right foot cellulitis / ulcer - shows signs of improvement Assessment and plan: 1. Right lower extremity cellulitis - - Presented with pain and ulcer on right leg, noted to have a fever at home - Physical reveals ulcer on right leg with swelling, no erythema noted - Leukocytosis shows some signs of improvement; CRP trending down - R foot XR /: soft tissue swelling and degenerative changes - Duplex US /: negative for DVT - c/w Vancomycin and Zosyn for now (Day #3) 2. Right hip pain / groin pain - possibly 2/2 joint related infection, possibly 2/2 constipation - Notes that she did not have this pain initially upon presentation - Physical reveals pain upon internal and external rotation of leg - CRP and Leukocytosis continues to improve - CT hip: mild degenerative chages at R hip, no acute fracture, inflammatory stranding in subcutaneous tissues lateral to hip - cellulitis vs. trauma - Case discussed by my college, Dr. Platt and Dr. Evelyn Bains; will continue with current course; if symptoms don't resolve consider IR guided aspiration - Discussed with Dr. Bains again today; will continue with observation and antibiotics for now; reconsider aspiration tomorrow - c/w current antibiotics for #1 - c/w pain control as required 3. s/p Hypoglycemia - likely 2/2 medications and sulfonylurea - s/p Sulfonylurea - c/w Levemir at adjusted dose of 20 QAM and will add 10 QHS 4. s/p Acute kidney injury - likely 2/2 pre-renal etiology 2/2 dehydration - s/p IV fluids 5. Diabetic foot ulcers - Follows with Dr. Munoz as an outpatient 6. Bilateral lower extremity edema - Duplex US 11/10: negative for DVT - c/w Lasix 7. Chronic lower back pain - c/w Baclofen, Oxycodone, Morphine Sulfate PO, 8. Depression - c/w Duloxetine 9. HTN - c/w Amlodipine 10, Carvedilol 3.125, Furosemide 40 - Will add Hydralazine 10. Peripheral neuropathy - c/w Pregabalin 11. DVT prophylaxis - c/w Lovenox Disposition: - c/w PT; recommend home with therapy - not cleared yet VS,Fishbone, I+O VS, Fishbone, I+O Laboratory Tests 11/13/16 06:36 Red Blood Count 3.95 L, Mean Corpuscular Volume 84.0, Mean Corpuscular Hemoglobin 27.4, Mean Corpuscular Hemoglobin Concent 32.7, Red Cell Distribution Width 13.8, Neutrophils (%) (Auto) 72.3 H, Lymphocytes (%) (Auto) 13.7 L, Monocytes (%) (Auto) 8.1 H, Eosinophils (%) (Auto) 2.7, Basophils (%) ( Auto) 0.7, Neutrophils # (Auto) 9.2 H, Lymphocytes # (Auto) 1.7, Monocytes # ( Auto) 1.0 H, Eosinophils # (Auto) 0.4, Basophils # (Auto) 0.1, Calcium Level 9.6 Vital Signs Date Time Temp Pulse Resp B/P (MAP) Pulse Ox O2 Delivery O2 Flow Rate FiO2 11/13/16 13:49 18 11/13/16 08:47 62 185/89 11/13/16 06:00 97.5 99 Room Air I&O- Last 24 Hours up to 6 AM 11/13/16 06:00 Intake Total 2830 ml Output Total 6000 ml Balance -3170 ml LAVERNE MIRANDA MD Nov 13, 2016 14:37
[2016-11-13] MEDS ORDERED: **hydrALAZINE** 10 MG TAB PO SCH (16:00)
[2016-11-13] MEDS: **hydrALAZINE** 10 MG TAB PO SCH ×2 (17:06→20:46)
[2016-11-13 22:00] VITALS: BP 138/64
[2016-11-14] MEDS: MORPHINE 15 MG SA TAB PO SCH ×3 (00:04→22:59)
[2016-11-14] MEDS: BACLOFEN 10 MG TAB PO SCH ×5 (00:04→22:58)
[2016-11-14] MEDS: PIPERACILLIN/TAZOBACTAM SOD 3.375 GM in D5W MINI-BAG PLUS 50 ML IV SCH ×2 (02:52→10:23)
[2016-11-14] MEDS: MIRALAX *UNIT DOSE* 17GM PACKET PO PRN (03:45)
[2016-11-14] MEDS: VANCOMYCIN HCL 1,000 MG, VIAL MATE ADAPTER 1 EACH in D5W 250 ML IV SCH ×2 (05:36→18:17)
[2016-11-14] MEDS: METHOCARBAMOL 750 MG TAB PO SCH ×3 (05:36→20:56)
[2016-11-14 06:00] VITALS: BP 171/81
[2016-11-14 07:10] LABS: BASO # 0.1 K/mm3 (0.0-0.2); BASO % 0.7 % (0.0-1.0); EOS # 0.6 K/mm3 (0.0-0.50); EOS % 4.5 % (0.0-3.0); LARGE UNSTAINED CELL # 0.2 K/mm3 (0.0-0.4); LARGE UNSTAINED CELL % 1.7 % (0.0-4.0); LYMPH # 2.3 K/mm3 (1.5-4.5); LYMPH % 16.6 % (24.0-44.0); MEAN CORPUSCULAR HEMOGLOBIN 27.5 pg (27.0-33.0); MEAN CORPUSCULAR HGB CONC 33.5 g/dl (32.0-36.5); MONO % 7.5 % (0.0-5.0); NEUTROPHILS # 8.8 K/mm3 (1.8-7.7); NEUTROPHILS % 68.9 % (36.0-66.0); PLATELET COUNT, AUTOMATED 510 k/mm3 (150-450); RED CELL DISTRIBUTION WIDTH 13.8 % (11.5-14.5); WHITE BLOOD COUNT 12.7 K/mm3 (4.0-10.0)
[2016-11-14 07:29] LABS: ANION GAP 8 MEQ/L (8-16); BLOOD UREA NITROGEN 13 MG/DL (7-18); CALCIUM LEVEL 9.8 MG/DL (8.5-10.1); CARBON DIOXIDE LEVEL 30 MEQ/L (21-32); CHLORIDE LEVEL 98 MEQ/L (98-107); CREATININE FOR GFR 0.88 MG/DL (0.55-1.02); GLOMERULAR FILTRATION RATE > 60.0 (>58); GLUCOSE, FASTING 291 MG/DL (70-105); POTASSIUM SERUM 4.3 MEQ/L (3.5-5.1); SODIUM LEVEL 136 MEQ/L (136-145)
[2016-11-14] MEDS: HumaLOG INSULIN (NovoLOG) PER UNIT SC SCH ×4 (10:21→22:57)
[2016-11-14] MEDS: ENOXAPARIN 40 MG/0.4 ML SYRINGE (J1650) SC SCH (10:21)
[2016-11-14] MEDS: LEVEMIR (INSULIN DETEMIR) 1 UNITS/0.01ML SC SCH ×2 (10:21→22:58)
[2016-11-14] MEDS: PREGABALIN 100 MG CAP (LYRICA) PO SCH ×2 (10:22→20:52)
[2016-11-14] MEDS: amLODIPine 10 MG TAB PO SCH (10:22)
[2016-11-14] MEDS: DULoxetine 30 MG CAP (CYMBALTA) PO SCH ×2 (10:22→20:55)
[2016-11-14] MEDS: CARVedilol 3.125 MG TAB PO SCH ×2 (10:22→20:55)
[2016-11-14] MEDS: DOCUSATE SODIUM 100 MG CAP PO SCH ×2 (10:22→20:50)
[2016-11-14] MEDS: oxyCODONE 5MG TAB PO SCH ×4 (10:23→20:51)
[2016-11-14] MEDS: FUROSEMIDE 40 MG TAB PO SCH (10:23)
[2016-11-14] MEDS: **hydrALAZINE** 10 MG TAB PO SCH ×3 (10:23→20:50)
[2016-11-14 14:00] VITALS: BP 151/64
--- NOTE | 2016-11-14 14:41 | IPNPDOC ---
Text Note Date of Service The patient was seen on 11/14/16. NOTE Subjective: Patient is a 46 year old female with a PMHx of CAD s/p CABG and Stent , Narcotic dependence for chronic LBP, IDDM2, Asthma, CKD3, Depression, HTN, Chronic constipation, Peripheral neuropathy, intellectual disability and SIDDHARTHA who presented to the ER [facility] complaints of weakness and pain in both legs along with a right foot ulcer. Patient was noted to have a fever of 100.1F at home. Patient was seen and examined at the bedside. Has been noted to be walking with physical therapy, still notes some pain. Objective: Vitals (See below) General: Lying in bed, no acute distress, comfortable, AAOx3 HEENT: NC, AT CVS: RRR, +S1S2 Lungs: Fair air entry b/l, -w/r/r Abdomen: Soft, ND, NT, +BSx4 Extremities: +PPx4, Trace edema bilaterally, - Calf tenderness, Pain at hip with walking Skin: Right foot cellulitis / ulcer - shows signs of improvement Assessment and plan: 1. Right lower extremity cellulitis - - Presented with pain and ulcer on right leg, noted to have a fever at home - Physical reveals ulcer on right leg with swelling, no erythema noted - Leukocytosis stable; CRP continues to trend down - R foot XR 7/2: soft tissue swelling and degenerative changes - Duplex US 7/2: negative for DVT - c/w Vancomycin and Zosyn for now (Day #4) 2. Right hip pain / groin pain - possibly 2/2 joint related infection, possibly 2/2 constipation - Notes that she did not have this pain initially upon presentation - Physical reveals pain upon internal and external rotation of leg - CRP and Leukocytosis improved - CT hip: mild degenerative changes at R hip, no acute fracture, inflammatory stranding in subcutaneous tissues lateral to hip - cellulitis vs. trauma - Will go for CT guided aspiration of joint to evaluate fluid - c/w current antibiotics for #1 - c/w pain control as required 3. s/p Hypoglycemia - likely 2/2 medications and sulfonylurea - s/p Sulfonylurea - c/w Levemir at adjusted dose of 20 QAM and will add 10 QHS 4. s/p Acute kidney injury - likely 2/2 pre-renal etiology 2/2 dehydration - s/p IV fluids 5. Diabetic foot ulcers - Follows with Dr. Munoz as an outpatient 6. Bilateral lower extremity edema - Duplex US 11/10: negative for DVT - c/w Lasix 7. Chronic lower back pain - c/w Baclofen, Oxycodone, Morphine Sulfate PO, 8. Depression - c/w Duloxetine 9. HTN - c/w Amlodipine 10, Carvedilol 3.125, Furosemide 40, Hydralazine - Will increase dose of Hydralazine 10. Peripheral neuropathy - c/w Pregabalin 11. DVT prophylaxis - c/w Lovenox Disposition: - Will get ID consultation VS,Drew, I+O VS, Drew, I+O Laboratory Tests 11/14/16 06:56 Red Blood Count 3.85 L, Mean Corpuscular Volume 82.0, Mean Corpuscular Hemoglobin 27.5, Mean Corpuscular Hemoglobin Concent 33.5, Red Cell Distribution Width 13.8, Neutrophils (%) (Auto) 68.9 H, Lymphocytes (%) (Auto) 16.6 L, Monocytes (%) (Auto) 7.5 H, Eosinophils (%) (Auto) 4.5 H, Basophils (%) (Auto) 0.7, Neutrophils # (Auto) 8.8 H, Lymphocytes # (Auto) 2.3, Monocytes # ( Auto) 1.0 H, Eosinophils # (Auto) 0.6 H, Basophils # (Auto) 0.1, Calcium Level 9.8 Vital Signs Date Time Temp Pulse Resp B/P (MAP) Pulse Ox O2 Delivery O2 Flow Rate FiO2 11/14/16 14:05 18 11/14/16 10:22 65 171/81 11/14/16 06:00 98.2 97 Room Air I&O- Last 24 Hours up to 6 AM 11/14/16 06:00 Intake Total 1370 ml Output Total 4775 ml Balance -3405 ml LAVERNE MIRANDA MD Nov 14, 2016 14:41
--- NOTE | 2016-11-14 16:26 | REP ---
RIGHT HIP ASPIRATION: The procedure was performed by AKANKSHA Hutton under the direct supervision of Dr. Barksdale. The procedure along with its risks, benefits, and complications were discussed with the patient. Informed consent was given both verbally and written. A procedural time out was performed to ensure that correct patient, site and exam were being performed. The right hip was prepped and draped in the usual sterile fashion. 9 mL of 1% Lidocaine were used for local anesthesia. A 22- gauge 3.5 inch spinal needle was used to assess the joint space. 9 mL of cloudy yellow fluid was aspirated from the joint space. This was into two vials and sent to the lab for further analysis. The needle was removed and a bandage was applied to the site. The patient tolerated the procedure well and will return to the floor for further observation. Reviewed by AKANKSHA Willis 11/15/2016 09:29 AEdited and Signed by Glen Barksdale MD 11/15/2016 04:41 P
[2016-11-14 16:41] LABS: CRYSTALS, BODY FLUID NONE SEEN (NONE SEEN); SYNOVIAL FLUID COLOR YELLOW (YELLOW)
[2016-11-14 16:46] LABS: RBC ADVIA BF 0.01; RBC CALC. BF 10000 (< 10mm3 cells/uL); WBC ADVIA BF 35.3; WBC CALC. BF 35300 cells/uL (0-20)
[2016-11-14 17:01] LABS: BF DIFF IF INDICATED? YES (NO)
[2016-11-14 17:33] LABS: URIC ACID, BODY FLUID 3.1 MG/DL (NOT ESTABLISHED)
[2016-11-14 21:43] LABS: CC BF DIFF EXAM CYTOCENTRIFUGE
[2016-11-14 21:53] LABS: HCT SOURCE RIGHT HIP
[2016-11-14 22:00] VITALS: BP 148/62
[2016-11-15] VITALS (7 sets, daily range): BP systolic 158–191; BP diastolic 66–92
[2016-11-15] MEDS ORDERED: D5W/0.45% SODIUM CHLORIDE 1,000 ML IV SCH (00:05)
--- NOTE | 2016-11-15 00:30 | CR ---
DATE OF CONSULTATION: 11/14/2016 I was asked to consult by Dr. Kwame Veronica for evaluation of right groin pain and difficulty walking in a diabetic with diabetic foot ulcer and methicillin-resistant Staphylococcus aureus (MRSA). HISTORY OF PRESENT ILLNESS: Kathryn is a 46-year-old pleasant female with a history of chronic low back pain who had required six different surgeries on her back. The patient had three level fusion. She has been on chronic pain medications since then and for the past 2 years has been using a walker for what she describes as episodes of paralysis after she had a stress nuclear testing and some reaction to the tests were she could not move afterwards. She is usually independent at home, lives with her mother who mutually take care of each other. She had developed a diabetic foot ulcer on the right foot about a month ago that she did not take care of. She had no showed to her followup appointment at the primary care clinic. She sees the residency clinic. She was admitted on 11/10 after she woke up with difficulty walking, dragging her right foot. The patient states that she was fine the night before and the next day she could not walk on her right leg with severe pain in the groin area. She had a fever of 100.1. She was nauseous, but no vomiting, diarrhea or chills. The patient was admitted to the hospital. She was noted to have an ulcer on the right foot which was purulent measuring about 5 x 5 cm which was cultured. It was positive for Staphylococcus coagulase-negative and MRSA. She had a urine culture. That culture was positive for Klebsiella. Although the patient has episodes of urinary retention, straight catheterizes herself intermittently, she did not have significant urinary symptoms. She was treated with intravenous (IV) vancomycin 1 gram every 8 hours and Zosyn. She received a total of 5 days. The patient still complains of significant hip pain with difficulty walking, dragging her right leg. Imaging study, a CT of the extremity showed inflammatory stranding in the subcutaneous tissues lateral to the hip. Differential diagnosis includes cellulitis, infectious or prior trauma. MRI could not be obtained due to the fact that she has a spinal cord stimulator and x-ray of her hip showed moderate arthritic degenerative changes, right more than left. PAST MEDICAL HISTORY: Her past medical history is quite complicated. She has a history of coronary artery disease status post coronary artery bypass graft (CABG) 6 years ago, diabetes insulin depending, chronic constipation from opioids, obesity, narcotic dependence, asthma, chronic kidney disease, hypertension, dyslipidemia, depression, obstructive sleep apnea. FAMILY HISTORY: Nonrevealing. SOCIAL HISTORY: She does not smoke, drink or use drugs. She lives with her mother and they take care of each other. REVIEW OF SYSTEMS: She had some fevers, weakness, malaise and fatigue. She had severe right hip pain. She denies any chest pain, shortness of breath. She has generalized weakness upper and lower extremities, uses a walker for the past 2 years. LABORATORY DATA: Blood culture done on 11/10, one set was no growth after 72 hours. Urine culture had Klebsiella, more than 100,000. Ankle culture had heavy MRSA and Staphylococcus coagulase negative. Synovial fluid of the right hip done today after aspiration of 9 mL of cloudy fluid, many white cells were seen. No organisms seen. Culture is pending, but the patient has received 5 days of IV vancomycin and Zosyn. Analysis of fluid had 35,300 white cells, 10,000 red cells, 91% neutrophils, 9% monocytes. Glucose 311, uric acid 3.1. Crystals were not seen. PHYSICAL EXAMINATION: She is a pleasant female in moderate discomfort. I saw her trying to get out of the bathroom. She was in tears as she could not get out without significant pain in her hip. She is using a walker, dragging her right hip behind as she was having significant pain with flexion. Maximum temperature (T-max) on 11/10 was 100.9, has not been febrile since the . Heart: Normal S1, S2 with no murmurs, rubs or gallops appreciated. Lungs are clear. No wheezes, rales or rhonchi. Abdomen: Soft. Mildly tender in the right lower quadrant. No visceromegaly. Extremities: Right ankle has a 5 x 5 cm ulcer with serosanguineous exudate with purulent discharge. Mild surrounding erythema. Back has a very large scar of surgical fusion, has multiple other scars. There is a right hip scar at the buttock area which she describes as a sacral decubitus, as well as another one in the sacral area. Left buttock has a spinal cord stimulator box that has no tenderness overlying it. Neurological exam: The patient is not able to hip flex. She has significant pain with flexion. Left leg moves normally. She has decreased sensation and absent proprioception both feet in a stocking distribution. She is alert and oriented times three. Neck is supple. No jugular venous distention (JVD). No bruits. No neck stiffness. LABORATORY DATA: White count is 12.7, hemoglobin 10.6, hematocrit 31.6, platelets 510, 68% neutrophils, 16% lymphocytes, 7% monocytes. Sodium 136, potassium 4.3, chloride 98, bicarbonate 30, BUN 13, creatinine 0.8, glucose 291, CRP 9.9 down from 17.4. IMPRESSION: This is a 46-year-old female who was admitted with a diabetic foot ulcer with culture positive for methicillin-resistant Staphylococcus aureus (MRSA). The ulcer has been present for at least 1 month, but now the patient has developed acute severe pain in her right hip with difficulty walking. She is chronically dependent on her walker, but this pain is new and severe that brings her to tears. On aspiration of the fluid, the joint fluid was cloudy had 1000 white cells with predominant neutrophils, suggestive of infectious process. The patient has received 5 days of IV antibiotic and it will be no surprise if cultures remain negative. PLAN: Case has been discussed with Dr. Veronica and based on results of doing fluid analysis, the patient probably needs to be taken to the operating room (OR) for incision and drainage (I and D) of the right hip as most likely she has a septic arthritis, probably bacteremia from the diabetic foot ulcer from MRSA. Discontinue intravenous (IV) Zosyn. Probably the patient had asymptomatic bacteruria, but even if she had a urinary tract infection (UTI) with cystitis, she has received a 5-day course of Zosyn which is ample coverage. Continue IV vancomycin. Send intraoperative joint fluid analysis for culture. The patient will be going to the operating room probably tomorrow. Also, there is a concern that the diabetic foot ulcer on the right foot may be causing an osteomyelitis as it has been there for more than a month. A bone scan could be obtained, although it if the hip is infected and we will treat with 4 weeks of IV antibiotic, that should cover the heel as well. I would hold off on the bone scan at this moment and will decide on further management after hip issue is attended to.
[2016-11-15] MEDS: VANCOMYCIN HCL 1,000 MG, VIAL MATE ADAPTER 1 EACH in D5W 250 ML IV SCH ×3 (01:14→18:43)
[2016-11-15] MEDS: METHOCARBAMOL 750 MG TAB PO SCH ×3 (06:02→22:28)
[2016-11-15] MEDS: BACLOFEN 10 MG TAB PO SCH ×3 (06:03→18:41)
[2016-11-15 07:15] LABS: BASO # 0.1 K/mm3 (0.0-0.2); BASO % 0.4 % (0.0-1.0); EOS # 0.4 K/mm3 (0.0-0.50); EOS % 2.3 % (0.0-3.0); LARGE UNSTAINED CELL # 0.2 K/mm3 (0.0-0.4); LARGE UNSTAINED CELL % 1.5 % (0.0-4.0); LYMPH # 2.1 K/mm3 (1.5-4.5); MEAN CORPUSCULAR HEMOGLOBIN 27.1 pg (27.0-33.0); MEAN CORPUSCULAR HGB CONC 32.9 g/dl (32.0-36.5); MEAN CORPUSCULAR VOLUME 82.2 fl (80.0-96.0); MONO # 1.3 K/mm3 (0.0-0.8); MONO % 8.8 % (0.0-5.0); NEUTROPHILS # 11.5 K/mm3 (1.8-7.7); PLATELET COUNT, AUTOMATED 564 k/mm3 (150-450); RED CELL DISTRIBUTION WIDTH 13.8 % (11.5-14.5); WHITE BLOOD COUNT 15.3 K/mm3 (4.0-10.0)
[2016-11-15] MEDS: HumaLOG INSULIN (NovoLOG) PER UNIT SC SCH ×4 (07:30→22:28)
[2016-11-15] MEDS: LEVEMIR (INSULIN DETEMIR) 1 UNITS/0.01ML SC SCH ×2 (07:38→22:27)
[2016-11-15 07:41] LABS: ERYTHROCYTE SEDIMENTATION RATE 118 mm/hr (0-20)
[2016-11-15 07:51] LABS: CALCIUM LEVEL 9.7 MG/DL (8.5-10.1); CREATININE FOR GFR 1.1 MG/DL (0.55-1.02); GLOMERULAR FILTRATION RATE 56.4 (>58); POTASSIUM SERUM 5.1 MEQ/L (3.5-5.1)
[2016-11-15] MEDS ORDERED: LEVEMIR (INSULIN DETEMIR) 1 UNITS/0.01ML SC ONE (08:00)
[2016-11-15] MEDS: **hydrALAZINE** 10 MG TAB PO SCH ×2 (08:49→18:42)
[2016-11-15] MEDS: amLODIPine 10 MG TAB PO SCH (08:49)
[2016-11-15] MEDS: FUROSEMIDE 40 MG TAB PO SCH (08:50)
[2016-11-15] MEDS: DULoxetine 30 MG CAP (CYMBALTA) PO SCH ×2 (08:50→22:28)
[2016-11-15] MEDS: DOCUSATE SODIUM 100 MG CAP PO SCH ×2 (08:50→22:28)
[2016-11-15] MEDS: PREGABALIN 100 MG CAP (LYRICA) PO SCH ×2 (08:50→22:28)
[2016-11-15] MEDS: oxyCODONE 5MG TAB PO SCH ×2 (08:52→13:00)
[2016-11-15] MEDS: CARVedilol 3.125 MG TAB PO SCH ×2 (08:53→22:29)
[2016-11-15] MEDS ORDERED: LISINOPRIL 10 MG TAB PO SCH (09:00)
--- NOTE | 2016-11-15 10:28 | IPNPDOC ---
Text Note Date of Service The patient was seen on 11/15/16. NOTE Subjective: Patient is a 46 year old female with a PMHx of CAD s/p CABG and Stent , Narcotic dependence for chronic LBP, IDDM2, Asthma, CKD3, Depression, HTN, Chronic constipation, Peripheral neuropathy, intellectual disability and SIDDHARTHA who presented to the ER [facility] complaints of weakness and pain in both legs along with a right foot ulcer. Patient was noted to have a fever of 100.1F at home. Patient was seen and examined at the bedside. Reports that her pain has some improvement, but still persists. Anxious for procedure today. Objective: Vitals (See below) General: Lying in bed, no acute distress, comfortable, AAOx3 HEENT: NC, AT CVS: RRR, +S1S2 Lungs: Fair air entry b/l, -w/r/r Abdomen: Soft, ND, NT, +BSx4 Extremities: +PPx4, Trace edema bilaterally, - Calf tenderness, Pain at hip with walking Skin: Right foot cellulitis / ulcer - shows signs of improvement Assessment and plan: 1. Right lower extremity cellulitis - - Presented with pain and ulcer on right leg, noted to have a fever at home - Physical reveals ulcer on right leg with swelling, no erythema noted - Leukocytosis stable; CRP continues to trend down - R foot XR 11/10: soft tissue swelling and degenerative changes - Duplex US 11/10: negative for DVT - c/w Vancomycin and Zosyn for now (Day #5) 2. Right hip pain / groin pain - possibly 2/2 joint related infection - 2/2 septic hip - Notes that she did not have this pain initially upon presentation - Physical reveals pain upon internal and external rotation of leg - CRP and Leukocytosis improved - CT hip: mild degenerative changes at R hip, no acute fracture, inflammatory stranding in subcutaneous tissues lateral to hip - cellulitis vs. trauma - Right hip drainage: Elevated WBC while on antibiotics; - Will go for drainage and placement of drain today with Dr. Evelyn Bains; medically optimized at this point; low risk - c/w current antibiotics for #1 - c/w pain control as required 3. s/p Hypoglycemia - likely 2/2 medications and sulfonylurea - s/p Sulfonylurea - c/w Levemir at adjusted dose of 20 BID 4. s/p Acute kidney injury - likely 2/2 pre-renal etiology 2/2 dehydration - Will re-start IV fluid hydration 5. Diabetic foot ulcers - Follows with Dr. Munoz as an outpatient 6. s/p Bilateral lower extremity edema - Duplex US 11/10: negative for DVT - Will hold Lasix 7. Chronic lower back pain - c/w Baclofen, Oxycodone, Morphine Sulfate PO, 8. Depression - c/w Duloxetine 9. HTN - c/w Amlodipine 10, Carvedilol 3.125, Hydralazine 20 - s/p Furosemide - Will increase dose of Hydralazine to 30 10. Peripheral neuropathy - c/w Pregabalin 11. DVT prophylaxis - c/w Lovenox Disposition: - Will go to OR today VS,Drwe, I+O VS, Drew, I+O Laboratory Tests 11/15/16 06:42 Red Blood Count 4.09, Mean Corpuscular Volume 82.2, Mean Corpuscular Hemoglobin 27.1, Mean Corpuscular Hemoglobin Concent 32.9, Red Cell Distribution Width 13.8 , Neutrophils (%) (Auto) 75.0 H, Lymphocytes (%) (Auto) 12.0 L, Monocytes (%) ( Auto) 8.8 H, Eosinophils (%) (Auto) 2.3, Basophils (%) (Auto) 0.4, Neutrophils # (Auto) 11.5 H, Lymphocytes # (Auto) 2.1, Monocytes # (Auto) 1.3 H, Eosinophils # (Auto) 0.4, Basophils # (Auto) 0.1, Calcium Level 9.7 Vital Signs Date Time Temp Pulse Resp B/P (MAP) Pulse Ox O2 Delivery O2 Flow Rate FiO2 11/15/16 09:22 16 Room Air 11/15/16 08:53 64 175/77 11/15/16 06:00 98.0 92 I&O- Last 24 Hours up to 6 AM 11/15/16 06:00 Intake Total 1740 ml Output Total 2550 ml Balance -810 ml LAVERNE MIRANDA MD Nov 15, 2016 10:28
[2016-11-15] MEDS ORDERED: NS 1,000 ML IV SCH ×2 (10:30→17:45)
[2016-11-15] MEDS ORDERED: **hydrALAZINE** 10 MG TAB PO ONE (10:30)
[2016-11-15] MEDS: MORPHINE 15 MG SA TAB PO SCH (12:27)
[2016-11-15] MEDS ORDERED: TOBRAMYCIN SULF 1.2 GM VIAL As Ordered ONE (13:41)
[2016-11-15] MEDS ORDERED: VANCOMYCIN 1000 MG/20 ML VIAL (J3370) As Ordered ONE (13:41)
[2016-11-15] MEDS ORDERED: ceFAZolin 1GM INJ (J0690) As Ordered ONE (13:45)
[2016-11-15] MEDS ORDERED: BACITRACIN PWD 50,000 UNITS VIAL As Ordered ONE (14:12)
[2016-11-15] MEDS ORDERED: NEOSTIGMINE 1MG/ML 5 ML SYRINGE (J2710) As Ordered ONE (14:51)
[2016-11-15] MEDS ORDERED: MIDAZOLAM INJ 2 MG/2 ML VIAL (J2250) As Ordered ONE (14:51)
[2016-11-15] MEDS ORDERED: ONDANSETRON 4MG/2ML VIAL (J2405) As Ordered ONE (14:51)
[2016-11-15] MEDS ORDERED: fentaNYL 100 MCG/2 ML INJECTION (J3010) As Ordered ONE (14:51)
[2016-11-15] MEDS ORDERED: ROCURONIUM BROMIDE 50 MG/5 ML VIAL/SYRINGE As Ordered ONE (14:51)
[2016-11-15] MEDS ORDERED: GLYCOPYRROLATE INJ 0.2 MG/ML 2 ML VIAL As Ordered ONE (14:51)
[2016-11-15] MEDS ORDERED: PROPOFOL 200 MG/20 ML VIAL As Ordered ONE ×2 (14:51→15:33)
[2016-11-15] MEDS ORDERED: fentaNYL 250 MCG/5 ML INJECTION (J3010) As Ordered ONE (14:51)
[2016-11-15] MEDS ORDERED: LIDOCAINE 2% INJ 100 MG/5 ML SDV (FOR ANES.) As Ordered ONE (14:51)
[2016-11-15] MEDS ORDERED: dexameTHASONE 4 MG/ML 1ML VIAL (J1100) As Ordered ONE (14:51)
[2016-11-15] MEDS ORDERED: **hydrALAZINE** 10 MG TAB PO SCH (16:00)
[2016-11-15] MEDS ORDERED: MORPHINE 1MG/ML IN 0.9% NACL 100ML IV BAG As Ordered ONE (16:17)
[2016-11-15] MEDS ORDERED: EPIDURAL/PCA KEYS XX PRN (16:30)
[2016-11-15] MEDS ORDERED: MORPHINE 1MG/ML IN 0.9% NACL 100ML IV BAG IV PRN (16:30)
[2016-11-15] MEDS ORDERED: NALOXONE INJ 0.4 MG/1 ML VIAL (J2310) IV PRN (16:30)
[2016-11-15] MEDS ORDERED: PERCOCET 5MG/325MG TAB PO PRN (16:30)
[2016-11-15] MEDS ORDERED: fentaNYL 100 MCG/2 ML INJECTION (J3010) IV PRN (16:30)
[2016-11-15] MEDS ORDERED: LR 1,000 ML IV SCH (16:30)
[2016-11-15] MEDS ORDERED: diphenhydrAMINE INJ 50MG/ML VIAL (J1200) IV PRN (16:30)
[2016-11-15] MEDS ORDERED: HYDROmorphone HCL 1 MG/ML SYRINGE (J1170) IV PRN (16:30)
[2016-11-15] MEDS ORDERED: NALBUPHINE HCL 10 MG/ML AMP (J2300) IV PRN (16:30)
[2016-11-15] MEDS ORDERED: ONDANSETRON 4MG/2ML VIAL (J2405) IV PRN ×2 (16:30)
[2016-11-15] MEDS ORDERED: LISINOPRIL 20 MG TAB PO ONE (18:45)
[2016-11-15] MEDS: HEPARIN SOD (PORCINE) 5000 UNITS/ML VIAL SQ SCH (22:25)
[2016-11-16] MEDS: VANCOMYCIN HCL 1,000 MG, VIAL MATE ADAPTER 1 EACH in D5W 250 ML IV SCH (01:37)
[2016-11-16] MEDS: BACLOFEN 10 MG TAB PO SCH ×4 (01:37→17:27)
[2016-11-16 02:00] VITALS: BP 141/67
[2016-11-16 06:00] VITALS: BP 140/74
[2016-11-16] MEDS: METHOCARBAMOL 750 MG TAB PO SCH ×3 (06:18→22:41)
[2016-11-16] MEDS: HEPARIN SOD (PORCINE) 5000 UNITS/ML VIAL SQ SCH ×3 (06:19→22:28)
[2016-11-16] MEDS: HumaLOG INSULIN (NovoLOG) PER UNIT SC SCH ×4 (07:30→22:33)
[2016-11-16 08:34] LABS: BASO % 0.2 % (0.0-1.0); EOS # 0.1 K/mm3 (0.0-0.50); EOS % 0.6 % (0.0-3.0); LARGE UNSTAINED CELL # 0.2 K/mm3 (0.0-0.4); LARGE UNSTAINED CELL % 1.1 % (0.0-4.0); LYMPH # 2.5 K/mm3 (1.5-4.5); LYMPH % 12.2 % (24.0-44.0); MEAN CORPUSCULAR HEMOGLOBIN 27.7 pg (27.0-33.0); MEAN CORPUSCULAR HGB CONC 33.7 g/dl (32.0-36.5); MEAN CORPUSCULAR VOLUME 82.3 fl (80.0-96.0); MONO # 1.3 K/mm3 (0.0-0.8); MONO % 6.6 % (0.0-5.0); NEUTROPHILS % 79.2 % (36.0-66.0); PLATELET COUNT, AUTOMATED 622 k/mm3 (150-450); RED CELL DISTRIBUTION WIDTH 13.9 % (11.5-14.5)
[2016-11-16 08:54] LABS: ERYTHROCYTE SEDIMENTATION RATE 117 mm/hr (0-20)
[2016-11-16 08:58] LABS: CALCIUM LEVEL 9.4 MG/DL (8.5-10.1); CREATININE FOR GFR 1.45 MG/DL (0.55-1.02)
[2016-11-16] MEDS: LEVEMIR (INSULIN DETEMIR) 1 UNITS/0.01ML SC SCH ×2 (09:00→22:32)
--- NOTE | 2016-11-16 09:14 | REP ---
Clinical: Postoperative assessment. Technique: AP and cross-table lateral views of the right hip. Findings: The patient appears to be status post placement of antibiotic pellets in the right hip joint along with drain placement. The osseous structures appear intact and demonstrate moderate degenerative change without obvious acute fracture. Postsurgical changes to the overlying soft tissues noted. Impression: Status post antibiotic pellet and drain placement to the right hip. Signed by Manfred Piper MD 11/16/2016 09:06 A
[2016-11-16] MEDS: DOCUSATE SODIUM 100 MG CAP PO SCH ×2 (10:46→22:31)
[2016-11-16] MEDS: LISINOPRIL 20 MG TAB PO SCH ×2 (10:47→22:31)
[2016-11-16] MEDS: **hydrALAZINE** 10 MG TAB PO SCH ×3 (10:47→22:31)
[2016-11-16] MEDS: amLODIPine 10 MG TAB PO SCH (10:48)
[2016-11-16] MEDS: CARVedilol 3.125 MG TAB PO SCH ×2 (10:48→22:32)
[2016-11-16] MEDS: DULoxetine 30 MG CAP (CYMBALTA) PO SCH ×2 (10:48→22:29)
[2016-11-16] MEDS: PREGABALIN 100 MG CAP (LYRICA) PO SCH ×2 (10:49→22:42)
[2016-11-16] MEDS: oxyCODONE 5MG TAB PO SCH ×3 (10:50→17:00)
[2016-11-16] MEDS: MORPHINE 15 MG SA TAB PO SCH ×2 (10:51→21:00)
[2016-11-16] MEDS: NS 1,000 ML IV SCH ×2 (11:15→22:45)
--- NOTE | 2016-11-16 12:07 | IPNPDOC ---
Text Note Date of Service The patient was seen on 11/16/16. NOTE Subjective: Patient is a 46 year old female with a PMHx of CAD s/p CABG and Stent , Narcotic dependence for chronic LBP, IDDM2, Asthma, CKD3, Depression, HTN, Chronic constipation, Peripheral neuropathy, intellectual disability and SIDDHARTHA who presented to the ER [facility] complaints of weakness and pain in both legs along with a right foot ulcer. Patient was noted to have a fever of 100.1F at home. Patient was seen and examined at the bedside. She notes that after the procedure the sharp pain in her hip has resolved. She still has some pain, but it is better tolerated now. Objective: Vitals (See below) General: Lying in bed, no acute distress, comfortable, AAOx3 HEENT: NC, AT CVS: RRR, +S1S2 Lungs: Fair air entry b/l, -w/r/r Abdomen: Soft, ND, NT, +BSx4 Extremities: +PPx4, Trace edema bilaterally, - Calf tenderness, Right hip drain + Skin: Right foot ulcer Assessment and plan: 1. Right lower extremity cellulitis - - Presented with pain and ulcer on right leg, noted to have a fever at home - Physical reveals ulcer on right leg with swelling, no erythema noted - Leukocytosis stable; CRP continues to trend down - R foot XR 7/2: soft tissue swelling and degenerative changes - Duplex US 7/2: negative for DVT - c/w Vancomycin and Zosyn for now (Day #6) 2. Right hip pain / groin pain - likely 2/2 joint infection - 2/2 septic hip - Physical reveals pain upon internal and external rotation of leg - CRP and Leukocytosis improved - CT hip: mild degenerative changes at R hip, no acute fracture, inflammatory stranding in subcutaneous tissues lateral to hip - cellulitis vs. trauma - Right hip drainage: Elevated WBC while on antibiotics; - s/p OR for drainage and TRANG drain in place - c/w current antibiotics for #1 - c/w pain control as required; Will discontinue WELLNESS INSTRUCTOR pump and transition to oral pain meds 3. s/p Hypoglycemia - likely 2/2 medications and sulfonylurea - s/p Sulfonylurea - c/w Levemir at adjusted dose of 20 BID 4. Acute kidney injury - likely 2/2 pre-renal etiology 2/2 dehydration, and possibly renal etiology 2/2 elevated vancomycin level - c/w IV fluid hydration 5. Diabetic foot ulcers - Follows with Dr. Munoz as an outpatient 6. s/p Bilateral lower extremity edema - Duplex US 11/10: negative for DVT - Will hold Lasix 7. Chronic lower back pain - c/w Baclofen, Oxycodone, Morphine Sulfate PO, 8. Depression - c/w Duloxetine 9. HTN - c/w Amlodipine 10, Carvedilol 3.125, Hydralazine 40, Lisinopril 20 - s/p Furosemide 10. Peripheral neuropathy - c/w Pregabalin 11. DVT prophylaxis - c/w Lovenox Disposition: - Will c/w physical therapy VS,Fishbone, I+O VS, Fishbone, I+O Laboratory Tests 11/16/16 08:12 Red Blood Count 3.82 L, Mean Corpuscular Volume 82.3, Mean Corpuscular Hemoglobin 27.7, Mean Corpuscular Hemoglobin Concent 33.7, Red Cell Distribution Width 13.9, Neutrophils (%) (Auto) 79.2 H, Lymphocytes (%) (Auto) 12.2 L, Monocytes (%) (Auto) 6.6 H, Eosinophils (%) (Auto) 0.6, Basophils (%) ( Auto) 0.2, Neutrophils # (Auto) 15.0 H, Lymphocytes # (Auto) 2.5, Monocytes # ( Auto) 1.3 H, Eosinophils # (Auto) 0.1, Basophils # (Auto) 0.0, Calcium Level 9.4 Vital Signs Date Time Temp Pulse Resp B/P (MAP) Pulse Ox O2 Delivery O2 Flow Rate FiO2 11/16/16 10:51 20 Room Air 11/16/16 10:48 61 140/74 11/16/16 06:00 98.2 93 11/15/16 16:45 2 I&O- Last 24 Hours up to 6 AM 11/16/16 06:00 Intake Total 2275 ml Output Total 2455 ml Balance -180 ml LAVERNE MIRANDA MD Nov 16, 2016 12:07
--- NOTE | 2016-11-16 12:54 | RO ---
DATE OF PROCEDURE: 11/15/2016 PREPROCEDURE DIAGNOSIS: Presumed right hip septic arthritis. POSTPROCEDURE DIAGNOSIS: Presumed right hip septic arthritis. PROCEDURE: Right hip arthrotomy with irrigation, debridement, and placement of a 19 J-Vac drain and then placement of calcium phosphate antibiotic dissolvable beads, right hip. SURGEON: Dr. Zaria Veronica IT SOFTWARE DEVELOPER: ANESTHESIA: General endotracheal tube anesthesia. ESTIMATED BLOOD LOSS: 75 mL. COMPLICATIONS: None. FINDINGS: Upon doing the arthrotomy, there was a small amount of somewhat brown-colored, reddish joint fluid. No gross pus was noted. SPECIMENS: Were aerobic and anaerobic cultures, two of each, of right hip fluid. DESCRIPTION OF PROCEDURE: She is on antibiotics. She was taken to the operating room, identified in the preoperative holding area, and her right hip was marked. Then, she was taken to the operating room where general endotracheal tube anesthetic was established. She was placed on a beanbag in a lateral decubitus position, right hip uppermost, down leg well padded, especially the peroneal nerve, and an axillary roll was utilized. Her right hip area was then carefully prepped and draped in the usual sterile fashion, after appropriate time-out. I made a longitudinal incision starting at about the midportion of the trochanter extending proximally for a direct lateral approach to the hip joint to just the superior aspect of the that normal approach. Bovie cautery was used to coagulating the crossing vessels down to the tensor fascia which was then divided and aligned with the skin incision, exposing the underling gluteus medius muscle. That muscle was then split just above the greater trochanter identifying underlying this, the gluteus minimus, which was then also divided and lined down to the capsule and the capsule was incised longitudinally. Upon entering the capsule, is where the somewhat cloudy brownish-red fluid was noted, and medially upon entering the capsule, I placed two aerobic culture swabs and two anaerobic culture swabs and sent them to microbiology. I then placed dull Hohmann on either side of the femoral neck, such that I could get adequate exposure of the femoral neck. Great care was taken not to damage the superior labrum. Then, I flexed and extended and rotated the hip, and then by digital palpation made sure that I could get around the neck digitally to be sure that I had access to the entire hip capsule. Then, used pulsatile lavage irrigating solution and bulb irrigant solution with bacitracin antibiotic in it to instill into the joint and copiously irrigate the intracapsular joint space of the hip. Once that had been thoroughly irrigated, I placed a drain by using a 19 J-Vac to penetrate through the posterior aspect of the gluteus medius muscle and the gluteus minimus coming out into the hip capsule, and then made a small stab incision brought out the other end through the iliotibial band out through the lateral portion of the skin, and then made sure there was about 3-4 cm of the drain intra-articularly, and then secured it on the skin with a #2-0 silk. The antibiotic beads that were premixed on the back table during the surgery by my talent acquisition assistant, basically the small calcium phosphate beads, were mixed with 2 grams of vancomycin and 1.3 grams of tobramycin, and I placed several of those intracapsularly into the hip joint, in the inferior aspect. These are dissolvable and they will help deliver high-dose antibiotics into the hip joint directly. I then irrigated a bit again and closed the gluteus minimus and medius layer with two #1 PDS sutures loosely to, otherwise, keep the capsule opened to some degree. Then, irrigated between layers and closed the iliotibial band back anatomically with interrupted #1 PDS sutures, irrigating the subdermal tissues, closed that layer with interrupted #2-0 PDS sutures followed by skin closure of lorena. Adaptic, dry sterile bulky dressing was applied, then she was turned back supine and awakened from general endotracheal tube anesthesia after having tolerated the procedure well, and transferred to the recovery room in stable condition. There were no intraoperative complications.
[2016-11-16 14:00] VITALS: BP 144/75
[2016-11-16] MEDS ORDERED: NALOXONE INJ 0.4 MG/1 ML VIAL (J2310) As Ordered ONE (17:16)
[2016-11-16] MEDS ORDERED: NALOXONE INJ 0.4 MG/1 ML VIAL (J2310) IV STA (17:40)
[2016-11-16 17:44] VITALS: BP 119/57
[2016-11-16] MEDS ORDERED: NALOXONE INJ 0.4 MG/1 ML VIAL (J2310) IV PRN (17:45)
--- NOTE | 2016-11-16 18:49 | PHACANCOPD ---
PHARMACY VANCOMYCIN DOSING Pt Demographics Demographics Patient Age:46 , Weight:97.000 , Gender: female Adjusted Body Weight Date: 11/11/16, Adjusted Body Weight: Kg Vancomycin Vancomycin indication: CELLULITIS Vancomycin Target Ranges: 15-20 mcg/ml Vancomycin Load Y/N: Yes Load Dose Date Time Vancomycin Load Dose: 1500MG Date: 11/11/16 Time: 1000 Vancomycin Dose Date: 11/11/16. Current Vancomycin Dose: [1G IV Q12H] Intermittent Dosing?: No Labs Micro Microbiology 11/10/16 Blood Culture - Final, Complete NO GROWTH AFTER 5 DAYS 11/14/16 Gram Stain - Final, Complete 11/14/16 Body Fluid Culture - Final, Complete Staph.aureus Methicillin Resis 11/10/16 Urine Culture - Final, Complete Klebsiella Pneumoniae 11/15/16 Anaerobic Culture, Received Pending 11/15/16 Anaerobic Culture, Received Pending 11/15/16 Wound Culture, Received Pending 11/15/16 Wound Culture, Received Pending 11/10/16 Wound Culture - Final, Complete Staph.aureus Methicillin Resis Staphylococcus Sp Coag Neg Creatinine Clearance Date:11/11/16. Creatinine Clearance: [74.73]. Assessment and Plan Maintaining Current Dose?: No Reason for dose change: Trough too high Pharmacist Note Pharmacist Note 11/16/16: Trough level today resulted at 31.7mcg/ml. Vancomycin has been placed on hold at this time. We will allow a washout period before resuming therapy. Scr has increased from 1.1 to 1.45 today. A vancomycin level is scheduled @ 0500. We will continue to monitor and make further adjustments accordingly. Date: 11/11/16. Pharmacist note: Pt. is a 46 year old female who presented with increased leg pain (burning and tingling) and a diabetic foot ulcer draining yellow and sometimes blood discharge on the right foot. Pt. has a history of DM2 on insulin, CAD, CKD. Pt. was PHAN upon admission but this has been corrected with IV fluids. Pt has a past history of MRSA and has received Vanco at our facility in the past. Current labs have been drawn and are pending. I will start pt on Vanco 1500mg LD @1000 followed by 1G Q12H. Vanco trough scheduled before 4th dose given. We will continue to monitor patient and make dose adjustments as needed. [facility] Nov 16, 2016 18:49
[2016-11-16 22:00] VITALS: BP 136/65
--- NOTE | 2016-11-16 22:43 | IPNPDOC ---
Subjective Date Seen The patient was seen on 11/16/16. Subjective Chief Complaint/HPI The patient is a 46-year-old female admitted with a reason for visit of Cellulitis Of Right Foot. Objective Physical Examination General Exam: Positive: Mild Distress, Negative: Alert, Cooperative Eye Exam: Negative: Sclera icteric Neck Exam: Positive: Supple Chest Exam: Positive: Clear to auscultation, Negative: Rales, Rhonchi, Wheezing Heart Exam: Positive: Normal S1, Normal S2, Negative: Gallops, Murmurs Abdomen Exam: Positive: Normal bowel sounds, Soft, Negative: Tenderness, Hepatospenomegaly Extremity Exam: Positive: Edema (b/l +1 LE), Other (grade 1 ulcer left LE medial portion heel, grade 1 ulcer right medial LE along heel, yellow/green pus and blood with surrounding erythema) Skin Exam: Positive: Rash (generalized, flat, circumferential, excoriated), Breakdown Psych Exam: Positive: Other (pt is very fatigued and will open eyes to verbal stimuli but falls asleep again on questioning) Assessment /Plan Problems (1) Diabetic ulcer of right foot associated with type 2 diabetes mellitus Status: Acute Response to Treatment: Stable Problem Text: WBC 19.7 Temp in ED 100.2 F CRP elevated Will begin antibiotic Zosyn Consider podiatry cx, this will be left to discretion of [facility] HCP Wound culture pending X-ray of right foot does not show bone involvement, official read from radiologist pending Right LE U/S neg. DVT (2) Leukocytosis Status: Acute Response to Treatment: Stable Problem Text: suspect 2/2 diabetic ulcer temp 100.2 in ED blood cx pending urine cx pending Begin Zosyn antibiotic repeat CBC in AM (3) Edema, lower extremity Status: Chronic Response to Treatment: Stable Problem Text: +1 pitting LE Begin Lasix PO continue to monitor (4) DM2 (diabetes mellitus, type 2) Status: Chronic Response to Treatment: Stable Problem Text: sugars usually 2-300, on presentation to ED glucose was 40 begin SS coverage Creatine 1.6 in ED, up from 1.2 in September 2016- begin IV fluid hydration (5) HTN (hypertension) Status: Chronic Response to Treatment: Stable Problem Text: continue home medications (6) Chronic back pain Status: Chronic Response to Treatment: Stable Problem Text: continue home medications-morphine and oxy pt sees pain clinic for treatment of chronic low back issues (7) Depression Status: Chronic Response to Treatment: Stable Problem Text: continue home medications (8) DVT prophylaxis Status: Acute Response to Treatment: Stable Problem Text: SCD TEDS Plan/VTE VTE Prophylaxis Ordered?: Yes Plan/Urinary Catheter Reason for insertion/continuin: Acute obstruct/retention Plan Called to see pt at 2200 for fixed pupils and unresponsiveness, upon going to examine pt., she had received one dose of narcan and was AAOx3. She requested her opioid medications almost immediately for her low back pain and it was explained to such pt. that these medications could cause respiratory depression and as such she would not be receiving any further, was also explained that her pain would be controlled with non-sedating pain management. Will also put HOLD FOR SEDATION on her routinely scheduled opioid meds.Pt understood and had no questions. - CK VS, I&O, 24H, Fishbone Vital Signs/I&O Vital Signs Date Time Temp Pulse Resp B/P (MAP) Pulse Ox O2 Delivery O2 Flow Rate FiO2 11/16/16 17:44 98.0 62 20 119/57 (77) 94 11/16/16 17:00 Room Air 94.0 I&O- Last 24 Hours up to 6 AM 11/16/16 06:00 Intake Total 2275 ml Output Total 2455 ml Balance -180 ml Laboratory Data 24H LABS Laboratory Tests 2 11/16/16 08:12: White Blood Count 19.0H, Red Blood Count 3.82L, Hemoglobin 10.6L, Hematocrit 31.5L, Mean Corpuscular Volume 82.3, Mean Corpuscular Hemoglobin 27.7, Mean Corpuscular Hemoglobin Concent 33.7, Red Cell Distribution Width 13.9, Platelet Count 622H, Neutrophils (%) (Auto) 79.2H, Lymphocytes (%) (Auto) 12.2L, Monocytes (%) (Auto) 6.6H, Eosinophils (%) (Auto) 0.6, Basophils (%) (Auto) 0.2 , Neutrophils # (Auto) 15.0H, Lymphocytes # (Auto) 2.5, Monocytes # (Auto) 1.3H , Eosinophils # (Auto) 0.1, Basophils # (Auto) 0.0, Large Unclassified Cells % 1.1, Large Unclassified Cells # 0.2, Erythrocyte Sedimentation Rate 117H, Anion Gap 9, Glomerular Filtration Rate 41.0L, Blood Urea Nitrogen 23H, Creatinine 1.45H, Sodium Level 131L, Potassium Level 4.0#, Chloride Level 95L, Carbon Dioxide Level 27, Calcium Level 9.4, C-Reactive Protein, Quantitative 11.90H, Vancomycin Level Trough 31.7*H 11/16/16 08:25: Bedside Glucose (Misc Panel) 326H 11/16/16 11:46: Bedside Glucose (Misc Panel) 372H 11/16/16 17:01: Bedside Glucose (Misc Panel) 83 11/16/16 17:55: Bedside Glucose (Misc Panel) 138H 11/16/16 20:21: Bedside Glucose (Misc Panel) 278H CBC/BMP Laboratory Tests 11/16/16 08:12 Red Blood Count 3.82 L, Mean Corpuscular Volume 82.3, Mean Corpuscular Hemoglobin 27.7, Mean Corpuscular Hemoglobin Concent 33.7, Red Cell Distribution Width 13.9, Neutrophils (%) (Auto) 79.2 H, Lymphocytes (%) (Auto) 12.2 L, Monocytes (%) (Auto) 6.6 H, Eosinophils (%) (Auto) 0.6, Basophils (%) ( Auto) 0.2, Neutrophils # (Auto) 15.0 H, Lymphocytes # (Auto) 2.5, Monocytes # ( Auto) 1.3 H, Eosinophils # (Auto) 0.1, Basophils # (Auto) 0.0, Calcium Level 9.4 Microbiology Microbiology 11/10/16 Blood Culture - Final, Complete NO GROWTH AFTER 5 DAYS 11/14/16 Gram Stain - Final, Complete 11/14/16 Body Fluid Culture - Final, Complete Staph.aureus Methicillin Resis 11/10/16 Urine Culture - Final, Complete Klebsiella Pneumoniae 11/15/16 Anaerobic Culture, Received Pending 11/15/16 Anaerobic Culture, Received Pending 11/15/16 Wound Culture, Received Pending 11/15/16 Wound Culture, Received Pending 11/10/16 Wound Culture - Final, Complete Staph.aureus Methicillin Resis Staphylococcus Sp Coag Neg BEREKET TORRES DO Nov 16, 2016 22:43
[2016-11-17 06:00] VITALS: BP 129/65
[2016-11-17] MEDS: HEPARIN SOD (PORCINE) 5000 UNITS/ML VIAL SQ SCH ×3 (06:36→21:44)
[2016-11-17] MEDS: METHOCARBAMOL 750 MG TAB PO SCH (06:37)
[2016-11-17] MEDS: BACLOFEN 10 MG TAB PO SCH ×3 (06:37→21:46)
[2016-11-17 06:51] LABS: BASO # 0.1 K/mm3 (0.0-0.2); BASO % 0.4 % (0.0-1.0); EOS # 0.7 K/mm3 (0.0-0.50); EOS % 4.5 % (0.0-3.0); LARGE UNSTAINED CELL # 0.2 K/mm3 (0.0-0.4); LARGE UNSTAINED CELL % 1.3 % (0.0-4.0); LYMPH # 3.2 K/mm3 (1.5-4.5); LYMPH % 18.8 % (24.0-44.0); MEAN CORPUSCULAR HEMOGLOBIN 26.9 pg (27.0-33.0); MEAN CORPUSCULAR HGB CONC 32.7 g/dl (32.0-36.5); MEAN CORPUSCULAR VOLUME 82.2 fl (80.0-96.0); MONO # 1.2 K/mm3 (0.0-0.8); MONO % 7.3 % (0.0-5.0); NEUTROPHILS # 10.9 K/mm3 (1.8-7.7); NEUTROPHILS % 67.7 % (36.0-66.0); PLATELET COUNT, AUTOMATED 594 k/mm3 (150-450)
[2016-11-17 07:04] LABS: CALCIUM LEVEL 9.1 MG/DL (8.5-10.1); CREATININE FOR GFR 2.31 MG/DL (0.55-1.02); POTASSIUM SERUM 3.8 MEQ/L (3.5-5.1); VANCOMYCIN RANDOM 25.4 UG/ML
[2016-11-17 07:25] LABS: ERYTHROCYTE SEDIMENTATION RATE 128 mm/hr (0-20)
[2016-11-17] MEDS: DULoxetine 30 MG CAP (CYMBALTA) PO SCH ×2 (08:28→21:45)
[2016-11-17] MEDS: CARVedilol 3.125 MG TAB PO SCH ×2 (08:28→21:46)
[2016-11-17] MEDS: LISINOPRIL 20 MG TAB PO SCH (08:28)
[2016-11-17] MEDS: MORPHINE 15 MG SA TAB PO SCH ×2 (08:28→21:00)
[2016-11-17] MEDS: DOCUSATE SODIUM 100 MG CAP PO SCH ×2 (08:28→21:46)
[2016-11-17] MEDS: **hydrALAZINE** 10 MG TAB PO SCH ×3 (08:29→21:47)
[2016-11-17] MEDS: LEVEMIR (INSULIN DETEMIR) 1 UNITS/0.01ML SC SCH ×2 (08:29→21:49)
[2016-11-17] MEDS: PREGABALIN 100 MG CAP (LYRICA) PO SCH ×2 (08:29→21:46)
[2016-11-17] MEDS: HumaLOG INSULIN (NovoLOG) PER UNIT SC SCH ×4 (08:29→21:00)
[2016-11-17] MEDS: amLODIPine 10 MG TAB PO SCH (08:29)
[2016-11-17 09:15] LABS: OSMOLALITY URINE 303 MOSM/KG (500-800); YEAST LIKE CELL URINE AUTO LARGE
--- NOTE | 2016-11-17 09:30 | REP ---
Clinical: Flank pain rule out hydronephrosis. Technique: Real time sharma scale ultrasound examination using curved array transducer. Findings: The kidneys are normal in contour, size, echogenicity, and reniform shape without hydronephrosis, nephrolithiasis, cystic or mass lesion. A small amount of left perinephric fluid is identified of uncertain etiology. Right kidney measures 14.1 x 4.9 x 4.4 cm. Left kidney measures 13.0 x 5.2 x 5.3 cm. Olivas catheter in collapsed bladder. Impression: 1. No hydronephrosis. 2. Trace left perinephric fluid of uncertain etiology or significance. Signed by Manfred Piper MD 11/17/2016 09:22 A
[2016-11-17 14:00] VITALS: BP 136/63
--- NOTE | 2016-11-17 14:08 | PHACANCOPD ---
PHARMACY VANCOMYCIN DOSING Pt Demographics Demographics Patient Age:46 , Weight:97.100 , Gender: female Adjusted Body Weight Date: 11/11/16, Adjusted Body Weight: Kg Events Past 24 Hours Events Past 24 Hours: YES: Change in CrCl, Elevation in WBC, NO: Dialysis, Diuretic Therapy, Fever, Pending Diagnostics, Pending Procedures, Other Vancomycin Vancomycin indication: CELLULITIS Vancomycin Target Ranges: 15-20 mcg/ml Vancomycin Load Y/N: Yes Load Dose Date Time Vancomycin Load Dose: 1500MG Date: 11/11/16 Time: 1000 Vancomycin Dose Date: 11/17/16. Current Vancomycin Dose: [ON HOLD AT THIS TIME] Date: 11/11/16. Current Vancomycin Dose: [1G IV Q12H] Intermittent Dosing?: No Labs Labs Item Value Date Time White Blood Count 15.3 K/mm3 H 11/15/16 0642 White Blood Count 19.0 K/mm3 H 11/16/16 0812 White Blood Count 16.0 K/mm3 H 11/17/16 0622 Creatinine 1.10 MG/DL H 11/15/16 0642 Creatinine 1.45 MG/DL H 11/16/16 0812 Creatinine 2.31 MG/DL H # 11/17/16 0622 Vancomycin Level Trough 31.7 UG/ML *H 11/16/16 0812 Random Vancomycin Level 25.4 UG/ML 11/17/16 0622 Micro Microbiology 11/10/16 Blood Culture - Final, Complete NO GROWTH AFTER 5 DAYS 11/14/16 Gram Stain - Final, Complete 11/14/16 Body Fluid Culture - Final, Complete Staph.aureus Methicillin Resis 11/10/16 Urine Culture - Final, Complete Klebsiella Pneumoniae 11/15/16 Anaerobic Culture - Final, Complete 11/15/16 Anaerobic Culture - Final, Complete 11/15/16 Wound Culture - Final, Complete 11/15/16 Wound Culture - Final, Complete 11/10/16 Wound Culture - Final, Complete Staph.aureus Methicillin Resis Staphylococcus Sp Coag Neg Creatinine Clearance Date:11/11/16. Creatinine Clearance: [74.73]. Assessment and Plan Maintaining Current Dose?: No Reason for dose change: Trough too high Pharmacist Note Pharmacist Note 11/17: Patient's random was still high today, 25.4. Her Vancomycin remains on hold at this time while we wait for her levels to become therapeutic again. Her SCr continues to increase, from 1.45 to 2.31. It is unclear at this time the cause of the patients PHAN. Another random will be obtained in the AM. We will continue to monitor and make adjustments as necessary. 11/16/16: Trough level today resulted at 31.7mcg/ml. Vancomycin has been placed on hold at this time. We will allow a washout period before resuming therapy. Scr has increased from 1.1 to 1.45 today. A vancomycin level is scheduled @ 0500. We will continue to monitor and make further adjustments accordingly. Date: 11/11/16. Pharmacist note: Pt. is a 46 year old female who presented with increased leg pain (burning and tingling) and a diabetic foot ulcer draining yellow and sometimes blood discharge on the right foot. Pt. has a history of DM2 on insulin, CAD, CKD. Pt. was PHAN upon admission but this has been corrected with IV fluids. Pt has a past history of MRSA and has received Vanco at our facility in the past. Current labs have been drawn and are pending. I will start pt on Vanco 1500mg LD @1000 followed by 1G Q12H. Vanco trough scheduled before 4th dose given. We will continue to monitor patient and make dose adjustments as needed. SARA [facility] Nov 17, 2016 14:08
--- NOTE | 2016-11-17 14:25 | IPNPDOC ---
Text Note Date of Service The patient was seen on 11/17/16. NOTE Subjective: Patient is a 46 year old female with a PMHx of CAD s/p CABG and Stent , Narcotic dependence for chronic LBP, IDDM2, Asthma, CKD3, Depression, HTN, Chronic constipation, Peripheral neuropathy, intellectual disability and SIDDHARTHA who presented to the ER [facility] complaints of weakness and pain in both legs along with a right foot ulcer. Patient was noted to have a fever of 100.1F at home. Patient was seen and examined at the bedside. She notes that her hip pain is still there, but less than onset. She also has noted difficulty with urination and that she has to push in order to urinate. Objective: Vitals (See below) General: Lying in bed, no acute distress, comfortable, AAOx3 HEENT: NC, AT CVS: RRR, +S1S2 Lungs: Fair air entry b/l, -w/r/r Abdomen: Soft, ND, Tenderness at suprapubic area, +BSx4 Extremities: +PPx4, Trace edema bilaterally, - Calf tenderness, Right hip drain + Skin: Right foot ulcer Assessment and plan: 1. Right lower extremity cellulitis - - Presented with pain and ulcer on right leg, noted to have a fever at home - Physical reveals ulcer on right leg with swelling, no erythema noted - Leukocytosis improving; CRP continues to trend down - R foot XR /: soft tissue swelling and degenerative changes - Duplex US /2: negative for DVT - c/w Vancomycin (Day #7); s/p Zosyn 2. Right hip pain / groin pain - likely 2/2 joint infection - 2/2 septic hip - Physical reveals pain upon internal and external rotation of leg - CRP and Leukocytosis improved - CT hip: mild degenerative changes at R hip, no acute fracture, inflammatory stranding in subcutaneous tissues lateral to hip - cellulitis vs. trauma - Right hip drainage: Elevated WBC while on antibiotics; - s/p OR for drainage and TRANG drain in place - Culture from joint: + MRSA; Sensitive to Linezolid and Bactrim - c/w current antibiotics for #1 - c/w pain control medications to be tapered off 3. s/p Hypoglycemia - likely 2/2 medications and sulfonylurea - s/p Sulfonylurea - c/w Levemir at adjusted dose of 15/10 4. Acute kidney injury - likely 2/2 pre-renal etiology 2/2 dehydration, and possibly renal etiology 2/2 elevated vancomycin level, possibly post-renal 2/2 urinary retention - Olivas catheter inserted; expelled 700cc of urine; c/w 200 cc over 6 hours - FENa of 0.2%, U Osmolality of 303, UA with SG of 1.010 - Hold nephrotoxic medications (re: Hold Lisinopril) - Will repeat CMP at 2PM today - Will c/w IV fluid hydration with NS - Will consider Nephrology consult if not improving 5. s/p Acute Metabolic Encephalopathy - likely 2/2 narcotic overdose - Was found to have listlessness and difficulty to awake during 2 episodes on 11/16/16 - Was given Narcan and responded appropriately - Short acting narcotic medications have been discontinued 6. Diabetic foot ulcers - Follows with Dr. Munoz as an outpatient 7. s/p Bilateral lower extremity edema - Duplex US 11/10: negative for DVT - Will hold Lasix 8. Chronic lower back pain - c/w Baclofen, Oxycodone, Morphine Sulfate PO, 9. Depression - c/w Duloxetine 10. HTN - c/w Amlodipine 10, Carvedilol 3.125, Hydralazine 40 - Hold Lisinopril 20 (re: PHAN) - s/p Furosemide 11. Peripheral neuropathy - c/w Pregabalin 12. DVT prophylaxis - c/w Lovenox Disposition: - Will c/w physical therapy VS,Fishbone, I+O VS, Fishbone, I+O Laboratory Tests 11/17/16 06:22 Red Blood Count 3.82 L, Mean Corpuscular Volume 82.2, Mean Corpuscular Hemoglobin 26.9 L, Mean Corpuscular Hemoglobin Concent 32.7, Red Cell Distribution Width 14.0, Neutrophils (%) (Auto) 67.7 H, Lymphocytes (%) (Auto) 18.8 L, Monocytes (%) (Auto) 7.3 H, Eosinophils (%) (Auto) 4.5 H, Basophils (%) (Auto) 0.4, Neutrophils # (Auto) 10.9 H, Lymphocytes # (Auto) 3.2, Monocytes # ( Auto) 1.2 H, Eosinophils # (Auto) 0.7 H, Basophils # (Auto) 0.1, Calcium Level 9.1 Vital Signs Date Time Temp Pulse Resp B/P (MAP) Pulse Ox O2 Delivery O2 Flow Rate FiO2 11/17/16 11:27 96 Room Air 11/17/16 08:28 22 11/17/16 08:28 120/57 11/17/16 08:28 65 11/17/16 06:00 97.5 11/16/16 17:00 94.0 I&O- Last 24 Hours up to 6 AM 11/17/16 05:59 Intake Total 918 ml Output Total 270 ml Balance 648 ml LAVERNE MIRANDA MD Nov 17, 2016 14:25
[2016-11-17 14:48] LABS: ALBUMIN 2.3 GM/DL (3.2-5.2); ALBUMIN/GLOBULIN RATIO 0.48 (1.00-1.93); BILIRUBIN,TOTAL 0.4 MG/DL (0.2-1.0); CALCIUM LEVEL 8.9 MG/DL (8.5-10.1); CREATININE FOR GFR 2.41 MG/DL (0.55-1.02); GLOMERULAR FILTRATION RATE 22.8 (>58); POTASSIUM SERUM 3.6 MEQ/L (3.5-5.1); TOTAL PROTEIN 7.1 GM/DL (6.4-8.2)
[2016-11-17] MEDS: NS 1,000 ML IV SCH (15:13)
[2016-11-17] MEDS ORDERED: PERCOCET 5MG/325MG TAB PO PRN (16:30)
[2016-11-17] MEDS: PERCOCET 5MG/325MG TAB PO PRN (17:00)
[2016-11-17 22:00] VITALS: BP 115/58
[2016-11-18] MEDS: NS 1,000 ML IV SCH ×3 (01:18→21:58)
[2016-11-18] MEDS: PERCOCET 5MG/325MG TAB PO PRN ×3 (03:10→18:14)
[2016-11-18 06:00] VITALS: BP 124/64
[2016-11-18] MEDS: HEPARIN SOD (PORCINE) 5000 UNITS/ML VIAL SQ SCH ×3 (06:22→21:53)
[2016-11-18 06:34] LABS: BASO % 0.4 % (0.0-1.0); EOS # 0.6 K/mm3 (0.0-0.50); EOS % 5.5 % (0.0-3.0); LARGE UNSTAINED CELL # 0.2 K/mm3 (0.0-0.4); LARGE UNSTAINED CELL % 1.2 % (0.0-4.0); LYMPH # 1.8 K/mm3 (1.5-4.5); LYMPH % 14.1 % (24.0-44.0); MEAN CORPUSCULAR HEMOGLOBIN 26.9 pg (27.0-33.0); MEAN CORPUSCULAR HGB CONC 32.8 g/dl (32.0-36.5); MEAN CORPUSCULAR VOLUME 82.1 fl (80.0-96.0); MONO # 0.8 K/mm3 (0.0-0.8); MONO % 7.1 % (0.0-5.0); NEUTROPHILS # 8.4 K/mm3 (1.8-7.7); NEUTROPHILS % 71.8 % (36.0-66.0); PLATELET COUNT, AUTOMATED 499 k/mm3 (150-450); WHITE BLOOD COUNT 11.7 K/mm3 (4.0-10.0)
[2016-11-18 06:52] LABS: ALBUMIN 2.1 GM/DL (3.2-5.2); ALBUMIN/GLOBULIN RATIO 0.47 (1.00-1.93); BILIRUBIN,TOTAL 0.3 MG/DL (0.2-1.0); CALCIUM LEVEL 8.6 MG/DL (8.5-10.1); CREATININE FOR GFR 1.95 MG/DL (0.55-1.02); GLOMERULAR FILTRATION RATE 29.1 (>58); MAGNESIUM LEVEL 2.5 MG/DL (1.8-2.4); POTASSIUM SERUM 3.8 MEQ/L (3.5-5.1); TOTAL PROTEIN 6.6 GM/DL (6.4-8.2); VANCOMYCIN RANDOM 15.3 UG/ML
[2016-11-18 07:03] LABS: ERYTHROCYTE SEDIMENTATION RATE > 140 mm/hr (0-20)
[2016-11-18] MEDS: HumaLOG INSULIN (NovoLOG) PER UNIT SC SCH ×4 (08:18→21:53)
[2016-11-18] MEDS: LEVEMIR (INSULIN DETEMIR) 1 UNITS/0.01ML SC SCH ×2 (08:19→21:54)
[2016-11-18] MEDS: PREGABALIN 100 MG CAP (LYRICA) PO SCH ×2 (08:19→21:55)
[2016-11-18] MEDS: amLODIPine 10 MG TAB PO SCH (08:21)
[2016-11-18] MEDS: BACLOFEN 10 MG TAB PO SCH (08:21)
[2016-11-18] MEDS: DOCUSATE SODIUM 100 MG CAP PO SCH ×2 (08:21→21:56)
[2016-11-18] MEDS: MORPHINE 15 MG SA TAB PO SCH ×2 (08:21→21:57)
[2016-11-18] MEDS: DULoxetine 30 MG CAP (CYMBALTA) PO SCH ×2 (08:21→21:56)
[2016-11-18] MEDS: CARVedilol 3.125 MG TAB PO SCH ×2 (08:22→21:56)
[2016-11-18] MEDS: **hydrALAZINE** 10 MG TAB PO SCH ×3 (08:22→21:56)
[2016-11-18] MEDS: NYSTATIN 100,000 UNITS/GM TOPICAL PWD 15 GM TOP SCH ×2 (09:00→21:52)
--- NOTE | 2016-11-18 10:24 | IPNPDOC ---
Text Note Date of Service The patient was seen on 11/18/16. NOTE Subjective: Patient is a 46 year old female with a PMHx of CAD s/p CABG and Stent , Narcotic dependence for chronic LBP, IDDM2, Asthma, CKD3, Depression, HTN, Chronic constipation, Peripheral neuropathy, intellectual disability and SIDDHARTHA who presented to the ER [facility] complaints of weakness and pain in both legs along with a right foot ulcer. Patient was noted to have a fever of 100.1F at home. Patient was seen and examined at the bedside. She has noted that her abdominal pain around her suprapubic area has improved after the Olivas catheter was inserted. Her hip pain was worse yesterday after receiving physical therapy. Objective: Vitals (See below) General: Lying in bed, no acute distress, comfortable, AAOx3 HEENT: NC, AT CVS: RRR, +S1S2 Lungs: Fair air entry b/l, -w/r/r Abdomen: Soft, ND, Tenderness at suprapubic area, +BSx4 Extremities: +PPx4, Trace edema bilaterally, - Calf tenderness, Right hip drain + Skin: Right foot ulcer Assessment and plan: 1. Right lower extremity cellulitis - - Presented with pain and ulcer on right leg, noted to have a fever at home - Physical reveals ulcer on right leg with swelling, no erythema noted - Leukocytosis improving; CRP continues to trend down - R foot XR /: soft tissue swelling and degenerative changes - Duplex US /: negative for DVT - c/w Vancomycin (Day #8); s/p Zosyn 2. Right hip pain / groin pain - likely 2/2 joint infection - 2/2 septic hip - CRP and Leukocytosis continues to trend down - CT hip: mild degenerative changes at R hip, no acute fracture, inflammatory stranding in subcutaneous tissues lateral to hip - cellulitis vs. trauma - Right hip drainage: Elevated WBC while on antibiotics - s/p OR for drainage and TRANG drain in place - Culture from joint: + MRSA; Sensitive to Linezolid and Bactrim - c/w current antibiotics for #1 - c/w pain control medications with Percocet and MS Contin 3. s/p Hypoglycemia - likely 2/2 medications and sulfonylurea - s/p Sulfonylurea - c/w Levemir at adjusted dose of 15/10 4. Acute kidney injury - likely 2/2 pre-renal etiology 2/2 dehydration, and possibly renal etiology 2/2 elevated vancomycin level, possibly post-renal 2/2 urinary retention - Cr has begun to show signs of improvement - Olivas catheter inserted; expelled 700cc of urine upon insertion - FENa of 0.2%, U Osmolality of 303, UA with SG of 1.010 - Hold nephrotoxic medications (re: Hold Lisinopril), Vancomycin level appropriate - Repeat BMP at 2PM today - c/w IV fluid hydration with NS 5. s/p Acute Metabolic Encephalopathy - likely 2/2 narcotic overdose - Was found to have listlessness and difficulty to awake during 2 episodes on 11/16/16 - Was given Narcan and responded appropriately - Reintroduce lower dose narcotics for pain control 6. Diabetic foot ulcers - Follows with Dr. Munoz as an outpatient 7. s/p Bilateral lower extremity edema - Duplex US 11/10: negative for DVT - Will continue to hold Lasix 8. Chronic lower back pain - c/w Baclofen, Oxycodone, Morphine Sulfate PO, 9. Depression - c/w Duloxetine 10. HTN - c/w Amlodipine 10, Carvedilol 3.125, Hydralazine 40 - Hold Lisinopril 20 (re: PHAN) - s/p Furosemide 11. Peripheral neuropathy - c/w Pregabalin 12. DVT prophylaxis - c/w Lovenox Disposition: - c/w physical therapy - will get PM&R evaluation - c/w IV fluid hydration VS,Fishbone, I+O VS, Fishbone, I+O Laboratory Tests 11/17/16 14:18 Calcium Level 8.9, Aspartate Amino Transf (AST/SGOT) 13 L, Alanine Aminotransferase (ALT/SGPT) 20, Alkaline Phosphatase 187 H, Total Bilirubin 0.4 , Total Protein 7.1, Albumin 2.3 L 11/18/16 06:15 Calcium Level 8.6, Aspartate Amino Transf (AST/SGOT) 13 L, Alanine Aminotransferase (ALT/SGPT) 16, Alkaline Phosphatase 166 H, Total Bilirubin 0.3 , Total Protein 6.6, Albumin 2.1 L, Red Blood Count 3.43 L, Mean Corpuscular Volume 82.1, Mean Corpuscular Hemoglobin 26.9 L, Mean Corpuscular Hemoglobin Concent 32.8, Red Cell Distribution Width 14.0, Neutrophils (%) (Auto) 71.8 H, Lymphocytes (%) (Auto) 14.1 L, Monocytes (%) (Auto) 7.1 H, Eosinophils (%) (Auto ) 5.5 H, Basophils (%) (Auto) 0.4, Neutrophils # (Auto) 8.4 H, Lymphocytes # ( Auto) 1.8, Monocytes # (Auto) 0.8, Eosinophils # (Auto) 0.6 H, Basophils # (Auto ) 0.0 Vital Signs Date Time Temp Pulse Resp B/P (MAP) Pulse Ox O2 Delivery O2 Flow Rate FiO2 11/18/16 08:22 124/64 11/18/16 08:22 55 11/18/16 08:21 16 11/18/16 06:00 98.7 96 Room Air 11/18/16 03:40 97.0 11/17/16 21:00 94 I&O- Last 24 Hours up to 6 AM 11/18/16 05:59 Intake Total 480 ml Output Total 770 ml Balance -290 ml LAVERNE MIRANDA MD Nov 18, 2016 10:24
[2016-11-18] MEDS ORDERED: VANCOMYCIN HCL 1,000 MG, VIAL MATE ADAPTER 1 EACH in D5W 250 ML IV ONE (12:00)
[2016-11-18] MEDS ORDERED: VANCOMYCIN HCL 500 MG in D5W MINI-BAG PLUS 100 ML IV ONE (13:00)
[2016-11-18 14:00] VITALS: BP 129/60
[2016-11-18 15:02] LABS: CREATININE FOR GFR 1.78 MG/DL (0.55-1.02); GLOMERULAR FILTRATION RATE 32.4 (>58); POTASSIUM SERUM 3.9 MEQ/L (3.5-5.1)
[2016-11-18] MEDS ORDERED: VANCOMYCIN INTERMITTENT/PULSE DOSING BY CLINICAL PHARMACIST PER DOSING PROTOCOL XX SCH (15:15)
--- NOTE | 2016-11-18 15:37 | PHACANCOPD ---
PHARMACY VANCOMYCIN DOSING Pt Demographics Demographics Patient Age:46 , Weight:97.100 , Gender: female Adjusted Body Weight Date: 11/11/16, Adjusted Body Weight: Kg Events Past 24 Hours Events Past 24 Hours: YES: Change in CrCl, NO: Dialysis, Diuretic Therapy, Fever, Elevation in WBC, Pending Diagnostics , Pending Procedures, Other Vancomycin Vancomycin indication: CELLULITIS Vancomycin Target Ranges: 15-20 mcg/ml Vancomycin Load Y/N: Yes Load Dose Date Time Vancomycin Load Dose: 1500MG Date: 11/11/16 Time: 1000 Vancomycin Dose Date: 11/18/16. Current Vancomycin Dose: [1500MG @12 X 1 DOSE] Date: 11/17/16. Current Vancomycin Dose: [ON HOLD AT THIS TIME] Date: 11/11/16. Current Vancomycin Dose: [1G IV Q12H] Intermittent Dosing?: No Labs Labs Vital Signs Label Value Date Time Patient Temperature 98.9 degrees F 11/18/16 1400 Temperature Source Temporal 11/18/16 1400 Item Value Date Time White Blood Count 19.0 K/mm3 H 11/16/16 0812 White Blood Count 16.0 K/mm3 H 11/17/16 0622 White Blood Count 11.7 K/mm3 H 11/18/16 0615 Creatinine 2.31 MG/DL H # 11/17/16 0622 Creatinine 2.41 MG/DL H 11/17/16 1418 Creatinine 1.95 MG/DL H 11/18/16 0615 Creatinine 1.78 MG/DL H 11/18/16 1420 Micro Microbiology 11/10/16 Blood Culture - Final, Complete NO GROWTH AFTER 5 DAYS 11/14/16 Gram Stain - Final, Complete 11/14/16 Body Fluid Culture - Final, Complete Staph.aureus Methicillin Resis 11/10/16 Urine Culture - Final, Complete Klebsiella Pneumoniae 11/15/16 Anaerobic Culture - Final, Complete 11/15/16 Anaerobic Culture - Final, Complete 11/15/16 Wound Culture - Final, Complete 11/15/16 Wound Culture - Final, Complete 11/10/16 Wound Culture - Final, Complete Staph.aureus Methicillin Resis Staphylococcus Sp Coag Neg Creatinine Clearance Date:11/11/16. Creatinine Clearance: [74.73]. Assessment and Plan Maintaining Current Dose?: No Reason for dose change: Other Pharmacist Note Pharmacist Note 11/18: Patient's random came back this morning at 15.3 and her SCr has improved from 2.31 to 1.95 today as well. She was given a one time dose of 1500mg today at noon, and a repeat random has been ordered for tomorrow morning. Waiting to see if SCr continues to improve then we can move patient back to scheduled dosing. For now, she will remain on intermitting dosing. We will continue to monitor and make adjustments as necessary. 11/17: Patient's random was still high today, 25.4. Her Vancomycin remains on hold at this time while we wait for her levels to become therapeutic again. Her SCr continues to increase, from 1.45 to 2.31. It is unclear at this time the cause of the patients PHAN. Another random will be obtained in the AM. We will continue to monitor and make adjustments as necessary. 11/16/16: Trough level today resulted at 31.7mcg/ml. Vancomycin has been placed on hold at this time. We will allow a washout period before resuming therapy. Scr has increased from 1.1 to 1.45 today. A vancomycin level is scheduled @ 0500. We will continue to monitor and make further adjustments accordingly. Date: 11/11/16. Pharmacist note: Pt. is a 46 year old female who presented with increased leg pain (burning and tingling) and a diabetic foot ulcer draining yellow and sometimes blood discharge on the right foot. Pt. has a history of DM2 on insulin, CAD, CKD. Pt. was PHAN upon admission but this has been corrected with IV fluids. Pt has a past history of MRSA and has received Vanco at our facility in the past. Current labs have been drawn and are pending. I will start pt on Vanco 1500mg LD @1000 followed by 1G Q12H. Vanco trough scheduled before 4th dose given. We will continue to monitor patient and make dose adjustments as needed. SARA [facility]ILS [facility] Nov 18, 2016 15:37
[2016-11-18] MEDS: BACLOFEN 5MG PER 1/2 TABLET PO SCH (21:55)
[2016-11-18 22:00] VITALS: BP 135/63
[2016-11-18] MEDS: MIRALAX *UNIT DOSE* 17GM PACKET PO PRN (22:13)
[2016-11-19] MEDS: PERCOCET 5MG/325MG TAB PO PRN ×3 (00:21→14:18)
--- NOTE | 2016-11-19 05:27 | IPN ---
DATE OF VISIT: 11/18/2016 Kathryn is doing better. She still complains of significant hip pain although definitely has improved. The drain was removed today. She has had no fever or chills. No nausea, vomiting or diarrhea. She has a history of urinary retention and straight catheterizes herself at least twice or three times a day. She had problems with straight catheterizing while in the hospital and hip pain and therefore the catheter has been placed since yesterday. She has also complained of constipation. She has had no fever in over a week. VITAL SIGNS: Temperature is 98.9, pulse 64, respirations 20, blood pressure 129/60, O2 was 100% on room air. HEART: Normal S1, S2 with no murmurs, rubs or gallops. LUNGS: Lungs are clear. No wheezes, rales or rhonchi. ABDOMEN: Morbidly obese, soft, nontender. Multiple ecchymosis of heparin. EXTREMITIES: Right foot has an ulceration measuring 4 X 4 cm with some yellowish drainage and surrounding cellulitis. Right hip has erythema along the incision site. The drain was removed. She has limited hip flexion. Wound culture of the right ankle was positive for methicillin resistant Staphylococcus aureus (MRSA) and Staphylococci coagulase negative. Hip culture was positive for MRSA in the synovial fluid, two either cultures were negative. Anaerobic cultures were negative. IMPRESSION: 1. Septic arthritis of the right hip on intravenous (IV) vancomycin. She is doing much better status post debridement. The patient will need four weeks of IV antibiotics. A peripherally inserted center catheter (PICC) line will be ordered for tomorrow in anticipation of home IV antibiotics. 2. Diabetic foot ulcer with culture positive for methicillin resistant Staphylococcus aureus (MRSA). The patient needs to follow up with wound clinic or podiatry. 3. Acute kidney injury with creatinine increased to 2.41 from vancomycin toxicity with a vancomycin level of 31.7. Vancomycin dose has been decreased and continue total of IV antibiotics for 4 weeks from surgical date. PICC line placement tomorrow, consult advanced care for home IV antibiotics. Refer to the wound clinic or podiatry regarding the wound ulcer of the right foot.
[2016-11-19 06:00] VITALS: BP 128/61
[2016-11-19] MEDS: HEPARIN SOD (PORCINE) 5000 UNITS/ML VIAL SQ SCH ×3 (06:09→22:27)
[2016-11-19 06:56] LABS: BASO % 0.3 % (0.0-1.0); EOS # 0.5 K/mm3 (0.0-0.50); LARGE UNSTAINED CELL # 0.2 K/mm3 (0.0-0.4); LARGE UNSTAINED CELL % 1.6 % (0.0-4.0); LYMPH # 2.1 K/mm3 (1.5-4.5); LYMPH % 14.6 % (24.0-44.0); MEAN CORPUSCULAR HEMOGLOBIN 26.8 pg (27.0-33.0); MEAN CORPUSCULAR HGB CONC 32.1 g/dl (32.0-36.5); MEAN CORPUSCULAR VOLUME 83.5 fl (80.0-96.0); MONO # 0.9 K/mm3 (0.0-0.8); MONO % 6.7 % (0.0-5.0); NEUTROPHILS # 9.2 K/mm3 (1.8-7.7); NEUTROPHILS % 72.8 % (36.0-66.0); PLATELET COUNT, AUTOMATED 538 k/mm3 (150-450); WHITE BLOOD COUNT 12.7 K/mm3 (4.0-10.0)
[2016-11-19 07:12] LABS: ALBUMIN 2.3 GM/DL (3.2-5.2); ALBUMIN/GLOBULIN RATIO 0.49 (1.00-1.93); BILIRUBIN,TOTAL 0.3 MG/DL (0.2-1.0); CREATININE FOR GFR 1.47 MG/DL (0.55-1.02); GLOMERULAR FILTRATION RATE 40.4 (>58); MAGNESIUM LEVEL 2.4 MG/DL (1.8-2.4); POTASSIUM SERUM 4.2 MEQ/L (3.5-5.1); VANCOMYCIN RANDOM 19.9 UG/ML
[2016-11-19 07:40] LABS: ERYTHROCYTE SEDIMENTATION RATE 127 mm/hr (0-20)
--- NOTE | 2016-11-19 07:50 | IPNPDOC ---
Text Note Date of Service The patient was seen on 11/19/16. NOTE Subjective: States right hip pain has significantly improved. We will attempt to work with physical therapy. Objective: Vitals: (see below) General: No acute distress, laying comfortably in bed. HEENT: Moist mucous membranes. Neck: No JVD or lymphadenopathy Cardiac: RRR, No murmurs Pulm: Clear to auscultation b/l. No wheezing, rhonchi Abd: NT/ND + BS. Obese. Ext: 1+ pitting edema bilateral lower extremities. Distal pulses intact. Right foot ulcer with swelling however no erythema. Pain on palpation in the right groin. no erythema. No Pain with internal/external rotation of right hip. Labs (see below) Images: CT abdomen and pelvis 11/10/16 Impression: 1. Mild degenerative changes at the right hip as described above. No acute fracture dislocation. 2. Inflammatory stranding in the subcutaneous tissues lateral to the hip. Differential diagnosis includes but is not limited to cellulitis, infectious/inflammatory process, and sequelae of prior trauma. Bilateral lower extremity ultrasound 11/10/16 Impression: No evidence of deep vein thrombosis in the right femoral popliteal venous system. Right foot x-ray 11/10/16 Impression: Soft tissue swelling and degenerative changes. Assessment/Plan 1. Septic arthritis- with associated leukocytosis and elevated CRP. CRP improving. Status post Right hip with Dr. Underwood. debridement.Patient does have a right diabetic ulcer on the right foot. No significant erythema however there is some swelling. Distal pulses intact. On vancomycin. Zosyn discontinued. Blood cultures negative thus far. Images (see above). Wound culture with MRSA. Will need PICC line inserted for 4 weeks of antibiotics.. Will need outpatient podiatry/Wound Care evaluation. ID on board. 2. Insulin-dependent diabetes mellitus- sulfonylurea on hold. Had an episode of hypoglycemia on presentation likely secondary to sulfonylurea. Restarted on Levemir. Will increase Levemir doses blood sugars are still uncontrolled. Sliding scale Insulin. 3. Acute kidney injury - patient had been on diuretics, has septic arthritis, and had vancomycin toxicity with vancomycin level improved. On IV fluids with the renal function improving. We'll continue IV fluids and monitor. 3. Diabetic foot ulcer- has been seen by Dr. Munoz in the past. 4. Bilateral lower some edema- chronic. Lasix on hold given PHAN. Lower extremity ultrasound negative for DVT. 5. Chronic lower back pain- continue home meds 6. Depression- continue home meds 7. Hyponatremia- likely secondary to diuretics. Improving, continue IV fluids. DVT prophy: Enoxaparin Physical therapy on consult. VS,Fishbone, I+O VS, Fishbone, I+O Laboratory Tests 11/18/16 14:20 Calcium Level 9.0 11/19/16 06:34 Calcium Level 9.0, Red Blood Count 3.58 L, Mean Corpuscular Volume 83.5, Mean Corpuscular Hemoglobin 26.8 L, Mean Corpuscular Hemoglobin Concent 32.1, Red Cell Distribution Width 14.0, Neutrophils (%) (Auto) 72.8 H, Lymphocytes (%) ( Auto) 14.6 L, Monocytes (%) (Auto) 6.7 H, Eosinophils (%) (Auto) 4.0 H, Basophils (%) (Auto) 0.3, Neutrophils # (Auto) 9.2 H, Lymphocytes # (Auto) 2.1, Monocytes # (Auto) 0.9 H, Eosinophils # (Auto) 0.5, Basophils # (Auto) 0.0, Aspartate Amino Transf (AST/SGOT) 11 L, Alanine Aminotransferase (ALT/SGPT) 16, Alkaline Phosphatase 209 H, Total Bilirubin 0.3, Total Protein 7.0, Albumin 2.3 L Vital Signs Date Time Temp Pulse Resp B/P (MAP) Pulse Ox O2 Delivery O2 Flow Rate FiO2 11/19/16 06:46 18 Room Air 11/19/16 06:16 97 11/19/16 06:00 97.8 59 128/61 (83) 11/19/16 00:51 96 11/18/16 03:40 97.0 I&O- Last 24 Hours up to 6 AM 11/19/16 06:00 Intake Total 3050 ml Output Total 4700 ml Balance -1650 ml DEREK FAY MD Nov 19, 2016 07:50
[2016-11-19] MEDS: NS 1,000 ML IV SCH ×2 (08:21→16:43)
[2016-11-19] MEDS: HumaLOG INSULIN (NovoLOG) PER UNIT SC SCH ×4 (08:21→21:00)
[2016-11-19] MEDS: BACLOFEN 5MG PER 1/2 TABLET PO SCH ×2 (08:21→22:23)
[2016-11-19] MEDS: ICY HOT TOP PRN ×2 (08:21→22:29)
[2016-11-19] MEDS: PREGABALIN 100 MG CAP (LYRICA) PO SCH ×2 (08:22→22:23)
[2016-11-19] MEDS: amLODIPine 10 MG TAB PO SCH (08:22)
[2016-11-19] MEDS: DULoxetine 30 MG CAP (CYMBALTA) PO SCH ×2 (08:23→22:26)
[2016-11-19] MEDS: MIRALAX *UNIT DOSE* 17GM PACKET PO PRN (08:23)
[2016-11-19] MEDS: LEVEMIR (INSULIN DETEMIR) 1 UNITS/0.01ML SC SCH ×2 (08:23→22:27)
[2016-11-19] MEDS: CARVedilol 3.125 MG TAB PO SCH ×2 (08:24→22:24)
[2016-11-19] MEDS: MORPHINE 15 MG SA TAB PO SCH ×2 (08:25→22:25)
[2016-11-19] MEDS: **hydrALAZINE** 10 MG TAB PO SCH ×3 (08:25→22:25)
[2016-11-19] MEDS: DOCUSATE SODIUM 100 MG CAP PO SCH ×2 (08:30→22:25)
[2016-11-19] MEDS: NYSTATIN 100,000 UNITS/GM TOPICAL PWD 15 GM TOP SCH ×2 (08:30→22:28)
--- NOTE | 2016-11-19 11:10 | PHACANCOPD ---
PHARMACY VANCOMYCIN DOSING Pt Demographics Demographics Patient Age:46 , Weight:97.100 , Gender: female Adjusted Body Weight Date: 11/11/16, Adjusted Body Weight: Kg Events Past 24 Hours Events Past 24 Hours: YES: Change in CrCl (Patients renal function continues to improve) Vancomycin Vancomycin indication: CELLULITIS Vancomycin Target Ranges: 15-20 mcg/ml Vancomycin Load Y/N: Yes Load Dose Date Time Vancomycin Load Dose: 1500MG Date: 11/11/16 Time: 1000 Vancomycin Dose Date: 11/19/16. Current Vancomycin Dose: [1000mg iv q12h @ 1200] Date: 11/18/16. Current Vancomycin Dose: [1500MG @12 X 1 DOSE] Date: 11/17/16. Current Vancomycin Dose: [ON HOLD AT THIS TIME] Date: 11/11/16. Current Vancomycin Dose: [1G IV Q12H] Intermittent Dosing?: No Labs Labs Item Value Date Time White Blood Count 16.0 K/mm3 H 11/17/16 0622 White Blood Count 11.7 K/mm3 H 11/18/16 0615 White Blood Count 12.7 K/mm3 H 11/19/16 0634 Creatinine 1.95 MG/DL H 11/18/16 0615 Creatinine 1.78 MG/DL H 11/18/16 1420 Creatinine 1.47 MG/DL H 11/19/16 0634 Random Vancomycin Level 25.4 UG/ML 11/17/16 0622 Random Vancomycin Level 15.3 UG/ML 11/18/16 0615 Random Vancomycin Level 19.9 UG/ML 11/19/16 0634 Micro Microbiology 11/10/16 Blood Culture - Final, Complete NO GROWTH AFTER 5 DAYS 11/14/16 Gram Stain - Final, Complete 11/14/16 Body Fluid Culture - Final, Complete Staph.aureus Methicillin Resis 11/10/16 Urine Culture - Final, Complete Klebsiella Pneumoniae 11/15/16 Anaerobic Culture - Final, Complete 11/15/16 Anaerobic Culture - Final, Complete 11/15/16 Wound Culture - Final, Complete 11/15/16 Wound Culture - Final, Complete 11/10/16 Wound Culture - Final, Complete Staph.aureus Methicillin Resis Staphylococcus Sp Coag Neg Creatinine Clearance Date:11/11/16. Creatinine Clearance: [74.73]. Pending Labs vanco trough 11/20 @ 2300 Assessment and Plan Maintaining Current Dose?: No Reason for dose change: Change in serum Cr Pharmacist Note Pharmacist Note Date: 11/19/16. Pharmacist note: Patients renal function continues to improve. Vanco 1 gram [id number] was scheduled to start 11/19 @ 1200 with a trough to follow after 3 doses (11/20 @ 2300). Continue to monitor renal function and adjust dose as needed. 11/18: Patient's random came back this morning at 15.3 and her SCr has improved from 2.31 to 1.95 today as well. She was given a one time dose of 1500mg today at noon, and a repeat random has been ordered for tomorrow morning. Waiting to see if SCr continues to improve then we can move patient back to scheduled dosing. For now, she will remain on intermitting dosing. We will continue to monitor and make adjustments as necessary. 11/17: Patient's random was still high today, 25.4. Her Vancomycin remains on hold at this time while we wait for her levels to become therapeutic again. Her SCr continues to increase, from 1.45 to 2.31. It is unclear at this time the cause of the patients PHAN. Another random will be obtained in the AM. We will continue to monitor and make adjustments as necessary. 11/16/16: Trough level today resulted at 31.7mcg/ml. Vancomycin has been placed on hold at this time. We will allow a washout period before resuming therapy. Scr has increased from 1.1 to 1.45 today. A vancomycin level is scheduled @ 0500. We will continue to monitor and make further adjustments accordingly. Date: 11/11/16. Pharmacist note: Pt. is a 46 year old female who presented with increased leg pain (burning and tingling) and a diabetic foot ulcer draining yellow and sometimes blood discharge on the right foot. Pt. has a history of DM2 on insulin, CAD, CKD. Pt. was PHAN upon admission but this has been corrected with IV fluids. Pt has a past history of MRSA and has received Vanco at our facility in the past. Current labs have been drawn and are pending. I will start pt on Vanco 1500mg LD @1000 followed by 1G Q12H. Vanco trough scheduled before 4th dose given. We will continue to monitor patient and make dose adjustments as needed. [facility] Nov 19, 2016 11:10
[2016-11-19] MEDS: VANCOMYCIN HCL 1,000 MG, VIAL MATE ADAPTER 1 EACH in D5W 250 ML IV SCH ×2 (12:10→23:48)
[2016-11-19 14:00] VITALS: BP 158/70
[2016-11-19] MEDS: oxyCODONE 5MG TAB PO PRN ×2 (16:44→23:42)
--- NOTE | 2016-11-19 18:02 | REP ---
RIGHT PICC LINE PLACEMENT: The procedure was performed by AKANKSHA Hutton under the direct supervision of Dr Fernandez. The procedure along with its risks, benefits, and complications were discussed with the patient prior to the procedure. Informed consent was obtained both verbally and written. The patient was identified in the interventional room and placed in a supine position on the table. The right arm was prepped and draped in the usual sterile fashion. A procedural time out was performed to ensure the correct patient, site, and procedure were being performed. Under ultrasound guidance the right basilic vein was punctured. A thin guidewire was introduced. The needle was removed and a peel away sheath was placed. Under fluoroscopic observation and via the peel away sheath a 37 cm 4.5 Czech single lumen PICC line was placed with its tip at the superior vena cava. The catheter was flushed with heparinized saline and affixed to the patient's skin. The patient tolerated the procedure well. Reviewed by AKANKSHA Willis 12/05/2016 01:02 PEdited and Signed by Peewee Fernandez MD 12/05/2016 05:41 P
[2016-11-19 22:00] VITALS: BP 130/62
[2016-11-20 05:12] LABS: BASO % 0.3 % (0.0-1.0); EOS # 0.4 K/mm3 (0.0-0.50); EOS % 3.3 % (0.0-3.0); LARGE UNSTAINED CELL # 0.1 K/mm3 (0.0-0.4); LARGE UNSTAINED CELL % 1.1 % (0.0-4.0); LYMPH # 1.4 K/mm3 (1.5-4.5); MEAN CORPUSCULAR HEMOGLOBIN 27.2 pg (27.0-33.0); MEAN CORPUSCULAR HGB CONC 32.5 g/dl (32.0-36.5); MEAN CORPUSCULAR VOLUME 83.8 fl (80.0-96.0); MONO # 0.9 K/mm3 (0.0-0.8); MONO % 6.7 % (0.0-5.0); NEUTROPHILS # 10.1 K/mm3 (1.8-7.7); NEUTROPHILS % 78.6 % (36.0-66.0); PLATELET COUNT, AUTOMATED 480 k/mm3 (150-450); RED CELL DISTRIBUTION WIDTH 14.1 % (11.5-14.5); WHITE BLOOD COUNT 12.8 K/mm3 (4.0-10.0)
[2016-11-20 05:35] LABS: ALBUMIN 2.4 GM/DL (3.2-5.2); ALBUMIN/GLOBULIN RATIO 0.62 (1.00-1.93); BILIRUBIN,TOTAL 0.3 MG/DL (0.2-1.0); CALCIUM LEVEL 8.7 MG/DL (8.5-10.1); CREATININE FOR GFR 1.12 MG/DL (0.55-1.02); GLOMERULAR FILTRATION RATE 55.3 (>58); MAGNESIUM LEVEL 2.2 MG/DL (1.8-2.4); TOTAL PROTEIN 6.3 GM/DL (6.4-8.2)
[2016-11-20 06:00] VITALS: BP 147/65
[2016-11-20] MEDS: HEPARIN SOD (PORCINE) 5000 UNITS/ML VIAL SQ SCH ×3 (06:19→21:45)
[2016-11-20] MEDS: oxyCODONE 5MG TAB PO PRN ×3 (06:19→17:59)
[2016-11-20] MEDS: NS 1,000 ML IV SCH ×3 (06:20→21:50)
--- NOTE | 2016-11-20 07:40 | IPNPDOC ---
Text Note Date of Service The patient was seen on 11/20/16. NOTE Subjective: States pain is better controlled until ambulating with PT. Denies CP/SOB/palpitations. Objective: Vitals: (see below) General: No acute distress, laying comfortably in bed. HEENT: Moist mucous membranes. Neck: No JVD or lymphadenopathy Cardiac: RRR, No murmurs Pulm: Clear to auscultation b/l. No wheezing, rhonchi Abd: NT/ND + BS. Obese. Ext: 1+ pitting edema bilateral lower extremities. Distal pulses intact. Right foot ulcer with swelling however no erythema. Pain on palpation in the right groin. no erythema. No Pain with internal/external rotation of right hip. Labs (see below) Images: CT abdomen and pelvis 11/10/16 Impression: 1. Mild degenerative changes at the right hip as described above. No acute fracture dislocation. 2. Inflammatory stranding in the subcutaneous tissues lateral to the hip. Differential diagnosis includes but is not limited to cellulitis, infectious/inflammatory process, and sequelae of prior trauma. Bilateral lower extremity ultrasound 11/10/16 Impression: No evidence of deep vein thrombosis in the right femoral popliteal venous system. Right foot x-ray 11/10/16 Impression: Soft tissue swelling and degenerative changes. Assessment/Plan 1. Septic arthritis- with associated leukocytosis and elevated CRP. CRP improving. Status post Right hip with Dr. Underwood. debridement.Patient does have a right diabetic ulcer on the right foot. No significant erythema however there is some swelling. Distal pulses intact. On vancomycin. Zosyn discontinued. Blood cultures negative thus far. Images (see above). Wound culture with MRSA. PICC line inserted 11/19/16 for 4 weeks of antibiotics.. Will need outpatient podiatry/Wound Care evaluation. ID on board. Considering infusion clinic as pt doesn't have insurance at this time. 2. Insulin-dependent diabetes mellitus- sulfonylurea on hold. Had an episode of hypoglycemia on presentation likely secondary to sulfonylurea. Restarted on Levemir. Will increase Levemir doses blood sugars are still uncontrolled. Sliding scale Insulin. 3. Acute kidney injury - patient had been on diuretics, has septic arthritis, and had vancomycin toxicity with vancomycin level improved. On IV fluids with the renal function improving. We'll continue IV fluids and monitor. 3. Diabetic foot ulcer- has been seen by Dr. Munoz in the past. 4. Bilateral lower some edema- chronic. Lasix on hold given PHAN. Lower extremity ultrasound negative for DVT. 5. Chronic lower back pain- continue home meds. pain management consult. 6. Depression- continue home meds 7. Hyponatremia- likely secondary to diuretics. Improving,s/p IV fluids. DVT prophy: Enoxaparin Physical therapy on consult. VS,Fishbone, I+O VS, Fishbone, I+O Laboratory Tests 11/20/16 04:58 Red Blood Count 3.24 L, Mean Corpuscular Volume 83.8, Mean Corpuscular Hemoglobin 27.2, Mean Corpuscular Hemoglobin Concent 32.5, Red Cell Distribution Width 14.1, Neutrophils (%) (Auto) 78.6 H, Lymphocytes (%) (Auto) 10.0 L, Monocytes (%) (Auto) 6.7 H, Eosinophils (%) (Auto) 3.3 H, Basophils (%) (Auto) 0.3, Neutrophils # (Auto) 10.1 H, Lymphocytes # (Auto) 1.4 L, Monocytes # (Auto) 0.9 H, Eosinophils # (Auto) 0.4, Basophils # (Auto) 0.0, Calcium Level 8.7, Aspartate Amino Transf (AST/SGOT) 12 L, Alanine Aminotransferase (ALT/SGPT ) 18, Alkaline Phosphatase 228 H, Total Bilirubin 0.3, Total Protein 6.3 L, Albumin 2.4 L Vital Signs Date Time Temp Pulse Resp B/P (MAP) Pulse Ox O2 Delivery O2 Flow Rate FiO2 11/20/16 06:49 18 Room Air 11/20/16 06:19 96 11/20/16 06:00 99.0 62 147/65 (92) 11/19/16 00:51 96 11/18/16 03:40 97.0 I&O- Last 24 Hours up to 6 AM 11/20/16 06:00 Intake Total 3830 ml Output Total 5400 ml Balance -1570 ml DEREK FAY MD Nov 20, 2016 07:40
[2016-11-20] MEDS: HumaLOG INSULIN (NovoLOG) PER UNIT SC SCH ×4 (08:30→21:00)
[2016-11-20] MEDS: DULoxetine 30 MG CAP (CYMBALTA) PO SCH ×2 (08:31→21:46)
[2016-11-20] MEDS: DOCUSATE SODIUM 100 MG CAP PO SCH ×2 (08:31→21:48)
[2016-11-20] MEDS: PREGABALIN 100 MG CAP (LYRICA) PO SCH ×2 (08:31→21:48)
[2016-11-20] MEDS: LEVEMIR (INSULIN DETEMIR) 1 UNITS/0.01ML SC SCH ×2 (08:31→21:46)
[2016-11-20] MEDS: MORPHINE 15 MG SA TAB PO SCH ×2 (08:32→21:46)
[2016-11-20] MEDS: amLODIPine 10 MG TAB PO SCH (08:32)
[2016-11-20] MEDS: CARVedilol 3.125 MG TAB PO SCH ×2 (08:33→21:48)
[2016-11-20] MEDS: **hydrALAZINE** 10 MG TAB PO SCH ×3 (08:33→21:47)
[2016-11-20] MEDS: BACLOFEN 5MG PER 1/2 TABLET PO SCH ×2 (08:33→21:45)
[2016-11-20] MEDS: NYSTATIN 100,000 UNITS/GM TOPICAL PWD 15 GM TOP SCH ×2 (08:34→21:48)
[2016-11-20] MEDS: VANCOMYCIN HCL 1,000 MG, VIAL MATE ADAPTER 1 EACH in D5W 250 ML IV SCH (12:20)
--- NOTE | 2016-11-20 12:39 | IPN ---
DATE: 11/19/2016 Kathryn seems to be doing better. She went today for a PICC line insertion. She states that the pain in her right hip has improved. She is able to flex it at 20 degrees. She has had no fever or chills. No nausea, vomiting or diarrhea. She is concerned about her kidney function, which has improved. Temperature is 97.8, pulse 62, respirations 15, blood pressure 158/70, oxygen sat 98% on room air. HEART: Normal S1, S2 with no murmurs. LUNGS: Clear. No wheezes or rhonchi. ABDOMEN: Obese, soft, nontender. EXTREMITIES: Right hip swelling, hip flexion 20 days. Ulcer at the ankle unchanged. LABORATORY DATA: Sodium 132, potassium 4.2, chloride 103, bicarbonate 24, BUN 44, creatinine 1.47 down from 2.4, glucose 324, calcium 9, magnesium 2.4, AST 11, ALT 16, alkaline phosphatase 209, CRP 8.94 down from 17.4 and albumin 2.3. Vancomycin random level was 19.9. IMPRESSION 1. Septic arthritis of the right hip with culture positive for methicillin resistant Staphylococcus aureus (MRSA). The patient is going to be treated for a total of 4 weeks of IV vancomycin. 2. Insulin-dependent diabetes, poor control. 3. Acute kidney injury secondary to vancomycin toxicity has improved. 4. Diabetic foot ulcer with culture positive for MRSA. The patient is to followup with Dr. Munoz as an outpatient. PLAN: Continue IV vancomycin. The patient could be discharged home and needs to be on once a day antibiotic, she could be switched to daptomycin at a dose of 68 mg/kg. I would continue vancomycin 1 gram every 12 hours for now. Depending on discharge plan, we will switch antibiotics. The patient has asked to have her Olivas catheter removed because she straight catheterizes herself at home three times a day and would like to be doing that in the hospital and I have discussed that with the charge nurse, Onelia. The patient will need 20 more days of IV antibiotics.
[2016-11-20 14:00] VITALS: BP 157/74
--- NOTE | 2016-11-20 18:00 | CR ---
DATE OF CONSULTATION: 11/20/2016 CONSULTATION REPORT FOR: Dr. Jeffy Platt CHIEF COMPLAINT: 1. Right hip pain. 2. Right groin pain. HISTORY OF PRESENT ILLNESS: Kathryn Morin is a 46-year-old female, well known to our pain service as a compliant, chronic pain patient on chronic opioid therapy for postlaminectomy pain syndrome, diabetic peripheral neuropathy with history of multiple medical comorbidities. Maintains a fairly good quality of life on chronic opioid pain medicines over the past year but had an exacerbation of severe right leg pain and groin pain and inability to walk around 11/10/2016 and was brought to the hospital by her family. She was taken to the operating room (OR) on 11/16/2016 for drainage of a septic right hip. This was determined to be methicillin-resistant Staphylococcus aureus (MRSA). Today upon entering the room, the patient is crying in pain. She currently is receiving her chronic pain medications that she receives through the pain clinic but she is experiencing severe right hip and right groin pain that these medications are not touching. Rating her pain level as a 10/10. Finding it difficult to participate with physical therapy due to pain. PAST MEDICAL HISTORY: 1. Diabetes mellitus type 2, on insulin. 2. Constipation. 3. Coronary artery disease (CAD), status post coronary artery bypass graft (CABG) and stent placement three years ago. 4. Obesity. 5. Narcotic dependence. 6. Asthma. 7. Chronic kidney disease. 8. Hypertension. 9. Diabetic peripheral neuropathy. 10. Chronic back pain, status post lumbar surgery, status post dorsal column stimulator. 11. Depression. 12. Obstructive sleep apnea (SIDDHARTHA). SOCIAL HISTORY: Lives with her mother, whom she is responsible for care. Denies illicit drug use. Denies alcohol use. Denies nicotine use. REVIEW OF SYSTEMS: CONSTITUTIONAL: Denies fever or chills today. CARDIAC: Denies chest pains or shortness of breath. RESPIRATORY: Denies cough or wheeze. ABDOMEN: Reports difficulty with bowel movement and constipation since admission. GENITOURINARY: Self-catheterization/Olivas catheterization. NEUROLOGIC: Reports weakness. Denies chronic headache. PSYCHIATRIC: Reports anxiety. PHYSICAL EXAMINATION: GENERAL: Crying upon entry to room. VITAL SIGNS: Temperature 98.4, pulse 68, respiratory rate 18, blood pressure 157/74, oxygen saturation is 98%. CARDIOVASCULAR: S1, S2, normal rate and rhythm. RESPIRATORY: Lung sounds clear. Respirations nonlabored. INSPECTION: Lower extremities are warm. Reports normal sensation to light touch lower extremities. No gross swelling noted. Right hip is tender. There is an incision covered with a Steri-Strip. ASSESSMENT: 1. Acute right hip and leg pain, status post osteomyelitis right hip, positive methicillin-resistant Staphylococcus aureus (MRSA). 2. Chronic low back pain, status post lumbar surgery, status post dorsal column stimulator. PLAN: I spoke with Dr. Platt about my concerns of her uncontrolled pain despite her acuity level and pathology. I would recommend increasing MS Contin to 30 mg twice a day. May consider use of IV morphine 2 mg every four hours as needed for severe pain, level 8/10 to 10/10. Continue use of oxycodone 10 mg one every four hours as needed for pain levels moderate level 5/10 to 8/10. Thank you for allowing us to participate in the care of your patient. If you have any questions or concerns, please do not hesitate to contact me.
[2016-11-20 22:00] VITALS: BP 166/75
[2016-11-21] MEDS: VANCOMYCIN HCL 1,000 MG, VIAL MATE ADAPTER 1 EACH in D5W 250 ML IV SCH ×2 (00:15→13:05)
[2016-11-21] MEDS: oxyCODONE 5MG TAB PO PRN ×4 (00:16→18:59)
[2016-11-21 06:00] VITALS: BP 160/71
[2016-11-21] MEDS: HEPARIN SOD (PORCINE) 5000 UNITS/ML VIAL SQ SCH ×3 (06:26→21:38)
[2016-11-21 06:45] LABS: BASO % 0.3 % (0.0-1.0); EOS # 0.4 K/mm3 (0.0-0.50); EOS % 2.2 % (0.0-3.0); LARGE UNSTAINED CELL # 0.3 K/mm3 (0.0-0.4); LARGE UNSTAINED CELL % 1.5 % (0.0-4.0); LYMPH # 1.5 K/mm3 (1.5-4.5); LYMPH % 9.5 % (24.0-44.0); MEAN CORPUSCULAR HEMOGLOBIN 26.9 pg (27.0-33.0); MEAN CORPUSCULAR HGB CONC 32.8 g/dl (32.0-36.5); MEAN CORPUSCULAR VOLUME 82.1 fl (80.0-96.0); NEUTROPHILS % 80.4 % (36.0-66.0); PLATELET COUNT, AUTOMATED 517 k/mm3 (150-450); RED CELL DISTRIBUTION WIDTH 13.7 % (11.5-14.5); WHITE BLOOD COUNT 16.2 K/mm3 (4.0-10.0)
[2016-11-21 07:22] LABS: ALBUMIN 2.5 GM/DL (3.2-5.2); ALBUMIN/GLOBULIN RATIO 0.56 (1.00-1.93); ALKALINE PHOSPHATASE 242 U/L (45-117); ALT/SGPT 22 U/L (12-78); ANION GAP 8 MEQ/L (8-16); AST/SGOT 14 U/L (15-37); BILIRUBIN,TOTAL 0.5 MG/DL (0.2-1.0); BLOOD UREA NITROGEN 20 MG/DL (7-18); CALCIUM LEVEL 9.3 MG/DL (8.5-10.1); CARBON DIOXIDE LEVEL 23 MEQ/L (21-32); CHLORIDE LEVEL 102 MEQ/L (98-107); CREATININE FOR GFR 1.03 MG/DL (0.55-1.02); GLOMERULAR FILTRATION RATE > 60.0 (>58); GLUCOSE, FASTING 229 MG/DL (70-105); POTASSIUM SERUM 4.7 MEQ/L (3.5-5.1); SODIUM LEVEL 133 MEQ/L (136-145)
--- NOTE | 2016-11-21 07:33 | IPNPDOC ---
Text Note Date of Service The patient was seen on 11/21/16. NOTE Subjective: Denies CP/SOB/palpitations. Objective: Vitals: (see below) General: No acute distress, laying comfortably in bed. HEENT: Moist mucous membranes. Neck: No JVD or lymphadenopathy Cardiac: RRR, No murmurs Pulm: Clear to auscultation b/l. No wheezing, rhonchi Abd: NT/ND + BS. Obese. Ext: 1+ pitting edema bilateral lower extremities. Distal pulses intact. Right foot ulcer with swelling however no erythema. Pain on palpation in the right groin. no erythema. No Pain with internal/external rotation of right hip. Labs (see below) Images: CT abdomen and pelvis 11/10/16 Impression: 1. Mild degenerative changes at the right hip as described above. No acute fracture dislocation. 2. Inflammatory stranding in the subcutaneous tissues lateral to the hip. Differential diagnosis includes but is not limited to cellulitis, infectious/inflammatory process, and sequelae of prior trauma. Bilateral lower extremity ultrasound 11/10/16 Impression: No evidence of deep vein thrombosis in the right femoral popliteal venous system. Right foot x-ray 11/10/16 Impression: Soft tissue swelling and degenerative changes. Assessment/Plan 1. Septic arthritis- with associated leukocytosis and elevated CRP. CRP improving. Status post Right hip with Dr. Underwood. debridement.Patient does have a right diabetic ulcer on the right foot. No significant erythema however there is some swelling. Distal pulses intact. On vancomycin. Zosyn discontinued. Blood cultures negative thus far. Images (see above). Wound culture with MRSA. PICC line inserted 11/19/16 for 4 weeks of antibiotics.. Will need outpatient podiatry/Wound Care evaluation. ID on board. To be changed to Dapto on d/c. 2. Insulin-dependent diabetes mellitus- sulfonylurea on hold. Had an episode of hypoglycemia on presentation likely secondary to sulfonylurea. Levemir increased. Sliding scale Insulin. 3. Acute kidney injury - patient had been on diuretics, has septic arthritis, and had vancomycin toxicity with vancomycin level improved. s/p IVF. We'll continue IV fluids and monitor. 3. Diabetic foot ulcer- has been seen by Dr. Munoz in the past. 4. Bilateral lower some edema- chronic. Lasix on hold given PHAN. Lower extremity ultrasound negative for DVT. 5. Chronic lower back pain- continue home meds. pain management consulted, morphine increased as recommended. 6. Depression- continue home meds 7. Hyponatremia- likely secondary to diuretics. Improving,s/p IV fluids. DVT prophy: Enoxaparin Physical therapy on consult. VS,Fishbone, I+O VS, Fishbone, I+O Laboratory Tests 11/21/16 06:30 Red Blood Count 3.38 L, Mean Corpuscular Volume 82.1, Mean Corpuscular Hemoglobin 26.9 L, Mean Corpuscular Hemoglobin Concent 32.8, Red Cell Distribution Width 13.7, Neutrophils (%) (Auto) 80.4 H, Lymphocytes (%) (Auto) 9.5 L, Monocytes (%) (Auto) 6.0 H, Eosinophils (%) (Auto) 2.2, Basophils (%) ( Auto) 0.3, Neutrophils # (Auto) 13.0 H, Lymphocytes # (Auto) 1.5, Monocytes # ( Auto) 1.0 H, Eosinophils # (Auto) 0.4, Basophils # (Auto) 0.0, Calcium Level 9.3 , Aspartate Amino Transf (AST/SGOT) 14 L, Alanine Aminotransferase (ALT/SGPT) 22 , Alkaline Phosphatase 242 H, Total Bilirubin 0.5 #, Total Protein 7.0, Albumin 2.5 L Vital Signs Date Time Temp Pulse Resp B/P (MAP) Pulse Ox O2 Delivery O2 Flow Rate FiO2 11/21/16 07:00 18 11/21/16 06:00 98.4 70 160/71 (100) 90 Room Air 11/19/16 00:51 96 11/18/16 03:40 97.0 I&O- Last 24 Hours up to 6 AM 11/21/16 06:00 Intake Total 2650 ml Output Total 1050 ml Balance 1600 ml DEREK FAY MD Nov 21, 2016 07:33
[2016-11-21] MEDS ORDERED: LEVEMIR (INSULIN DETEMIR) 1 UNITS/0.01ML SC SCH (09:00)
[2016-11-21] MEDS: HumaLOG INSULIN (NovoLOG) PER UNIT SC SCH ×4 (09:47→21:39)
[2016-11-21] MEDS: NYSTATIN 100,000 UNITS/GM TOPICAL PWD 15 GM TOP SCH ×2 (09:47→21:42)
[2016-11-21] MEDS: PREGABALIN 100 MG CAP (LYRICA) PO SCH ×2 (09:49→21:41)
[2016-11-21] MEDS: DOCUSATE SODIUM 100 MG CAP PO SCH ×2 (09:50→21:41)
[2016-11-21] MEDS: BACLOFEN 5MG PER 1/2 TABLET PO SCH ×2 (09:50→21:41)
[2016-11-21] MEDS: MORPHINE 30 MG SA TAB PO SCH ×2 (09:50→21:40)
[2016-11-21] MEDS: **hydrALAZINE** 10 MG TAB PO SCH ×3 (09:50→21:41)
[2016-11-21] MEDS: DULoxetine 30 MG CAP (CYMBALTA) PO SCH ×2 (09:51→21:41)
[2016-11-21] MEDS: NS 1,000 ML IV SCH ×2 (09:51→21:38)
[2016-11-21] MEDS: amLODIPine 10 MG TAB PO SCH (09:51)
[2016-11-21] MEDS: CARVedilol 3.125 MG TAB PO SCH ×2 (09:51→21:40)
--- NOTE | 2016-11-21 13:06 | PHACANCOPD ---
PHARMACY VANCOMYCIN DOSING Pt Demographics Demographics Patient Age:46 , Weight:97.100 , Gender: female Adjusted Body Weight Date: 11/11/16, Adjusted Body Weight: Kg Events Past 24 Hours Events Past 24 Hours: NO: Dialysis, Diuretic Therapy, Change in CrCl, Fever, Elevation in WBC, Pending Diagnostics, Pending Procedures, Other Vancomycin Vancomycin indication: CELLULITIS Vancomycin Target Ranges: 15-20 mcg/ml Vancomycin Load Y/N: Yes Load Dose Date Time Vancomycin Load Dose: 1500MG Date: 11/11/16 Time: 1000 Vancomycin Dose Date: 11/19/16. Current Vancomycin Dose: [1000mg iv q12h @ 1200] Date: 11/18/16. Current Vancomycin Dose: [1500MG @12 X 1 DOSE] Date: 11/17/16. Current Vancomycin Dose: [ON HOLD AT THIS TIME] Date: 11/11/16. Current Vancomycin Dose: [1G IV Q12H] Intermittent Dosing?: No Labs Labs Item Value Date Time Creatinine 1.47 MG/DL H 11/19/16 0634 Creatinine 1.12 MG/DL H 11/20/16 0458 Creatinine 1.03 MG/DL H 11/21/16 0630 White Blood Count 12.7 K/mm3 H 11/19/16 0634 White Blood Count 12.8 K/mm3 H 11/20/16 0458 White Blood Count 16.2 K/mm3 H 11/21/16 0630 Random Vancomycin Level 19.9 UG/ML 11/19/16 0634 Random Vancomycin Level 15.3 UG/ML 11/18/16 0615 Vancomycin Level Trough 19.2 UG/ML 11/21/16 1120 Micro Microbiology 11/14/16 Gram Stain - Final, Complete 11/14/16 Body Fluid Culture - Final, Complete Staph.aureus Methicillin Resis 11/15/16 Anaerobic Culture - Final, Complete 11/15/16 Anaerobic Culture - Final, Complete 11/15/16 Wound Culture - Preliminary, Resulted 11/15/16 Wound Culture - Final, Complete Creatinine Clearance Date:11/11/16. Creatinine Clearance: [74.73]. Assessment and Plan Maintaining Current Dose?: Yes Reason for dose change: No Dose Change Pharmacist Note Pharmacist Note Date: 11/21/16. Pharmacist note: Trough returned @ 19.2 after 4 scheduled doses. Renal function continues to improve. Continue to monitor renal function and adjust dose as needed. Date: 11/19/16. Pharmacist note: Patients renal function continues to improve. Vanco 1 gram [id number] was scheduled to start 11/19 @ 1200 with a trough to follow after 3 doses (11/20 @ 2300). Continue to monitor renal function and adjust dose as needed. 11/18: Patient's random came back this morning at 15.3 and her SCr has improved from 2.31 to 1.95 today as well. She was given a one time dose of 1500mg today at noon, and a repeat random has been ordered for tomorrow morning. Waiting to see if SCr continues to improve then we can move patient back to scheduled dosing. For now, she will remain on intermitting dosing. We will continue to monitor and make adjustments as necessary. 11/17: Patient's random was still high today, 25.4. Her Vancomycin remains on hold at this time while we wait for her levels to become therapeutic again. Her SCr continues to increase, from 1.45 to 2.31. It is unclear at this time the cause of the patients PHAN. Another random will be obtained in the AM. We will continue to monitor and make adjustments as necessary. 11/16/16: Trough level today resulted at 31.7mcg/ml. Vancomycin has been placed on hold at this time. We will allow a washout period before resuming therapy. Scr has increased from 1.1 to 1.45 today. A vancomycin level is scheduled @ 0500. We will continue to monitor and make further adjustments accordingly. Date: 11/11/16. Pharmacist note: Pt. is a 46 year old female who presented with increased leg pain (burning and tingling) and a diabetic foot ulcer draining yellow and sometimes blood discharge on the right foot. Pt. has a history of DM2 on insulin, CAD, CKD. Pt. was PHAN upon admission but this has been corrected with IV fluids. Pt has a past history of MRSA and has received Vanco at our facility in the past. Current labs have been drawn and are pending. I will start pt on Vanco 1500mg LD @1000 followed by 1G Q12H. Vanco trough scheduled before 4th dose given. We will continue to monitor patient and make dose adjustments as needed. [facility] Nov 21, 2016 13:06
[2016-11-21 14:00] VITALS: BP 132/61
[2016-11-21] MEDS: MORPHINE 2 MG/ML 1ML SYRINGE IV PRN (14:15)
[2016-11-21] MEDS: SODIUM CHLORIDE 0.9% INJ 10 ML SYR IV SCH (18:00)
[2016-11-21] MEDS: MIRALAX *UNIT DOSE* 17GM PACKET PO PRN (19:09)
--- NOTE | 2016-11-21 19:16 | REP ---
Right lower extremity Duplex Doppler venous ultrasound: Real time compression and duplex Doppler interrogation of the right lower extremity deep venous system is performed. The right common femoral, superficial femoral and popliteal veins are fully compressible with transducer pressure and demonstrate normal spontaneous and phasic flow, without evidence of deep venous thrombosis. Impression: No evidence of deep venous thrombosis of the right lower extremity femoral popliteal venous system. Signed by Peewee Fernandez MD 11/21/2016 07:07 P
[2016-11-21] MEDS: LEVEMIR (INSULIN DETEMIR) 1 UNITS/0.01ML SC SCH (21:39)
[2016-11-21 22:00] VITALS: BP 172/64
--- NOTE | 2016-11-21 23:23 | IPN ---
DATE: 11/21/2012 Ms. Morin seems to doing better. She complains of lower extremity edema, but her hip pain has improved. She is up in the chair. She is doing well with physical therapy. White count of 16.2, which has increased from 12.8, hemoglobin 9.1, hematocrit 27.8, platelets 517, 80% neutrophils, 9% lymphocytes. Sodium 133, potassium 4.7, chloride 102, bicarbonate 23, BUN 20, creatinine 1, glucose 229, calcium 9.3, AST 14, ALT 22, alkaline phosphatase 242, C-reactive protein (CRP) 9.64, which also has increased from 8.7 On physical exam, temperature is 98.6, pulse 64, respirations 18, blood pressure 132/61, oxygen saturation 90% on room air, which has decreased compared to yesterday was 96% and 98%. HEART: Normal S1-S2. No murmurs. LUNGS: Clear. No wheezes or rhonchi. ABDOMEN: Soft. EXTREMITIES: +2 pitting edema of the right leg, right calf tenderness. Medial ulcer on the right foot measuring 4 x 4 cm with decreased yellowish discharge, granulation tissue. Right hip tenderness. Range of motion improving. IMPRESSION: 1. Methicillin-resistant Staphylococcus aureus (MRSA) septic arthritis of the right hip on IV vancomycin 1 gram every 12 hours. Creatinine back to baseline. Vancomycin trough was 19.2. 2. Methicillin-resistant Staphylococcus aureus (MRSA) infection of the right foot. Diabetic foot ulcer on IV vancomycin. 3. Edema of the right leg with increasing pain, rule out deep vein thrombosis (DVT) . Will obtain ultrasound. The patient is currently on heparin 5000 units subcutaneous every 8 hours. PLAN: Continue IV vancomycin. The patient will need a total of four weeks and the therapy would be December 11. Ultrasound tonight.
[2016-11-22] MEDS: VANCOMYCIN HCL 1,000 MG, VIAL MATE ADAPTER 1 EACH in D5W 250 ML IV SCH ×2 (00:23→13:12)
[2016-11-22] MEDS: oxyCODONE 5MG TAB PO PRN ×3 (02:40→19:06)
[2016-11-22] MEDS: SODIUM CHLORIDE 0.9% INJ 10 ML SYR IV SCH ×2 (05:48→20:10)
[2016-11-22] MEDS: HEPARIN SOD (PORCINE) 5000 UNITS/ML VIAL SQ SCH ×3 (05:49→20:11)
[2016-11-22] MEDS: NS 1,000 ML IV SCH (05:49)
[2016-11-22 06:00] VITALS: BP 145/70
[2016-11-22 06:22] LABS: BASO # 0.1 K/mm3 (0.0-0.2); BASO % 0.4 % (0.0-1.0); EOS # 0.6 K/mm3 (0.0-0.50); EOS % 3.8 % (0.0-3.0); LARGE UNSTAINED CELL # 0.2 K/mm3 (0.0-0.4); LARGE UNSTAINED CELL % 1.2 % (0.0-4.0); LYMPH # 1.5 K/mm3 (1.5-4.5); LYMPH % 9.4 % (24.0-44.0); MEAN CORPUSCULAR HEMOGLOBIN 26.8 pg (27.0-33.0); MEAN CORPUSCULAR HGB CONC 32.5 g/dl (32.0-36.5); MEAN CORPUSCULAR VOLUME 82.3 fl (80.0-96.0); MONO # 1.2 K/mm3 (0.0-0.8); MONO % 8.1 % (0.0-5.0); NEUTROPHILS # 11.2 K/mm3 (1.8-7.7); PLATELET COUNT, AUTOMATED 470 k/mm3 (150-450); WHITE BLOOD COUNT 14.6 K/mm3 (4.0-10.0)
[2016-11-22 06:43] LABS: ALBUMIN 2.4 GM/DL (3.2-5.2); ALBUMIN/GLOBULIN RATIO 0.57 (1.00-1.93); ALKALINE PHOSPHATASE 306 U/L (45-117); ALT/SGPT 24 U/L (12-78); ANION GAP 6 MEQ/L (8-16); AST/SGOT 17 U/L (15-37); BILIRUBIN,TOTAL 0.5 MG/DL (0.2-1.0); BLOOD UREA NITROGEN 19 MG/DL (7-18); CALCIUM LEVEL 9.3 MG/DL (8.5-10.1); CARBON DIOXIDE LEVEL 24 MEQ/L (21-32); CHLORIDE LEVEL 103 MEQ/L (98-107); CREATININE FOR GFR 1.04 MG/DL (0.55-1.02); GLOMERULAR FILTRATION RATE > 60.0 (>58); GLUCOSE, FASTING 230 MG/DL (70-105); MAGNESIUM LEVEL 1.9 MG/DL (1.8-2.4); POTASSIUM SERUM 4.6 MEQ/L (3.5-5.1); SODIUM LEVEL 133 MEQ/L (136-145); TOTAL PROTEIN 6.6 GM/DL (6.4-8.2)
[2016-11-22] MEDS: HumaLOG INSULIN (NovoLOG) PER UNIT SC SCH ×4 (08:01→21:00)
[2016-11-22] MEDS: LEVEMIR (INSULIN DETEMIR) 1 UNITS/0.01ML SC SCH ×2 (08:02→20:11)
[2016-11-22] MEDS: BACLOFEN 5MG PER 1/2 TABLET PO SCH ×2 (08:02→20:11)
[2016-11-22] MEDS: NYSTATIN 100,000 UNITS/GM TOPICAL PWD 15 GM TOP SCH ×2 (08:02→20:16)
[2016-11-22] MEDS: MORPHINE 30 MG SA TAB PO SCH ×2 (08:03→20:13)
[2016-11-22] MEDS: DULoxetine 30 MG CAP (CYMBALTA) PO SCH ×2 (08:03→20:12)
[2016-11-22] MEDS: PREGABALIN 100 MG CAP (LYRICA) PO SCH ×2 (08:03→20:11)
[2016-11-22] MEDS: DOCUSATE SODIUM 100 MG CAP PO SCH ×2 (08:04→20:12)
[2016-11-22] MEDS: amLODIPine 10 MG TAB PO SCH (08:04)
[2016-11-22] MEDS: **hydrALAZINE** 10 MG TAB PO SCH ×3 (08:04→20:12)
[2016-11-22] MEDS: CARVedilol 3.125 MG TAB PO SCH ×2 (08:04→20:12)
[2016-11-22] MEDS: MIRALAX *UNIT DOSE* 17GM PACKET PO PRN (08:05)
[2016-11-22 08:18] LABS: PERCENT SATURATION 7.7 % (13.2-37.4); TOTAL IRON BINDING CAPACITY 207 UG/DL (250-450)
[2016-11-22 08:44] LABS: RETICULOCYTE ABSOLUTE ADVIA212 83 x10(9)/L (17-77)
[2016-11-22 10:06] LABS: FOLATE 20.8 NG/ML (>5.4); VITAMIN B12 LEVEL 246 PG/ML (247-911)
[2016-11-22] MEDS ORDERED: BISACODYL 10 MG SUPP PR ONE (11:00)
[2016-11-22] MEDS ORDERED: FUROSEMIDE 40 MG/4 ML VIAL (J1940) IV ONE (11:00)
--- NOTE | 2016-11-22 11:29 | IPNPDOC ---
Text Note Date of Service The patient was seen on 11/22/16. NOTE Subjective: Denies CP/SOB/palpitations. Objective: Vitals: (see below) General: No acute distress, laying comfortably in bed. HEENT: Moist mucous membranes. Neck: No JVD or lymphadenopathy Cardiac: RRR, No murmurs Pulm: Clear to auscultation b/l. No wheezing, rhonchi Abd: NT/ND + BS. Obese. Ext: 1+ pitting edema bilateral lower extremities. Distal pulses intact. Right foot ulcer with swelling however no erythema, minimal drainage. Pain on palpation in the right groin. no erythema. No Pain with internal/external rotation of right hip. Labs (see below) Images: CT abdomen and pelvis 11/10/16 Impression: 1. Mild degenerative changes at the right hip as described above. No acute fracture dislocation. 2. Inflammatory stranding in the subcutaneous tissues lateral to the hip. Differential diagnosis includes but is not limited to cellulitis, infectious/inflammatory process, and sequelae of prior trauma. Bilateral lower extremity ultrasound 11/10/16 Impression: No evidence of deep vein thrombosis in the right femoral popliteal venous system. Right foot x-ray 11/10/16 Impression: Soft tissue swelling and degenerative changes. Assessment/Plan 1. Septic arthritis- with associated leukocytosis and elevated CRP. CRP improving. Status post Right hip with Dr. Underwood. debridement.Patient does have a right diabetic ulcer on the right foot. No significant erythema however there is some swelling. Distal pulses intact. On vancomycin. Zosyn discontinued. Blood cultures negative thus far. Images (see above). Wound culture with MRSA. PICC line inserted 11/19/16 for 4 weeks of antibiotics.. Will need outpatient podiatry/Wound Care evaluation. ID on board. To be changed to Dapto on d/c. 2. Insulin-dependent diabetes mellitus- sulfonylurea on hold. Had an episode of hypoglycemia on presentation likely secondary to sulfonylurea. Levemir increased. Sliding scale Insulin. 3. Acute kidney injury - improved. patient had been on diuretics, has septic arthritis, and had vancomycin toxicity with vancomycin level improved. s/p IVF. 3. Diabetic foot ulcer- has been seen by Dr. Munoz in the past. 4. Bilateral lower some edema- chronic. Lasix resumed now. D/c IVF. Lower extremity ultrasound negative for DVT. 5. Chronic lower back pain- continue home meds. pain management consulted, morphine increased as recommended. 6. Depression- continue home meds 7. Hyponatremia- likely secondary to diuretics. Improving,s/p IV fluids. 8. Constipation - bowel regimen optimized. DVT prophy: Enoxaparin Physical therapy on consult. VS,Fishbone, I+O VS, Fishbone, I+O Laboratory Tests 11/22/16 05:57 Red Blood Count 3.07 L, Mean Corpuscular Volume 82.3, Mean Corpuscular Hemoglobin 26.8 L, Mean Corpuscular Hemoglobin Concent 32.5, Red Cell Distribution Width 14.0, Neutrophils (%) (Auto) 77.0 H, Lymphocytes (%) (Auto) 9.4 L, Monocytes (%) (Auto) 8.1 H, Eosinophils (%) (Auto) 3.8 H, Basophils (%) ( Auto) 0.4, Neutrophils # (Auto) 11.2 H, Lymphocytes # (Auto) 1.5, Monocytes # ( Auto) 1.2 H, Eosinophils # (Auto) 0.6 H, Basophils # (Auto) 0.1, Calcium Level 9.3, Aspartate Amino Transf (AST/SGOT) 17, Alanine Aminotransferase (ALT/SGPT) 24, Alkaline Phosphatase 306 H, Total Bilirubin 0.5, Total Protein 6.6, Albumin 2.4 L Vital Signs Date Time Temp Pulse Resp B/P (MAP) Pulse Ox O2 Delivery O2 Flow Rate FiO2 11/22/16 10:30 18 11/22/16 08:04 66 138/68 11/22/16 06:00 98.6 91 Room Air 11/19/16 00:51 96 11/18/16 03:40 97.0 I&O- Last 24 Hours up to 6 AM 11/22/16 06:00 Intake Total 4210 ml Output Total 900 ml Balance 3310 ml DEREK FAY MD Nov 22, 2016 11:29
[2016-11-22 14:00] VITALS: BP 143/66
[2016-11-22] MEDS: MOM 30ML SUSPENSION UDC PO SCH ×2 (15:04→20:10)
[2016-11-22] MEDS: SODIUM CHLORIDE 0.9% INJ 10 ML SYR IV PRN (15:20)
[2016-11-22] MEDS: MORPHINE 2 MG/ML 1ML SYRINGE IV PRN (15:50)
[2016-11-22] MEDS: SANTYL OINT 30GM TOP SCH (16:37)
[2016-11-23] VITALS: BP 134/63
[2016-11-23] MEDS: VANCOMYCIN HCL 1,000 MG, VIAL MATE ADAPTER 1 EACH in D5W 250 ML IV SCH ×3 (00:29→23:17)
--- NOTE | 2016-11-23 01:08 | IPN ---
DATE OF SERVICE: 11/22/2016 Kathryn still complains of hip pain with flexion and has limited range of motion, but she is slowly improving. She denies any chest pain, nausea, vomiting, diarrhea or other complaints. Vital signs: Temperature 98.6, pulse 66, respirations 20, blood pressure 145/70, oxygen saturation 91% on room air. Heart: Normal S1, S2 with no murmurs. Lungs: Decreased breath sounds at the bases, but clear. Abdomen: Soft, nontender. Extremities: +1 pitting edema. Right hip lorena intact. There is no surrounding erythema or purulent discharge. Hip flexion actively is only 10 degrees, passively up to 60 degrees without pain. The medial ulceration measures 3 x 4 cm with yellowish fibrinous slough. LABORATORY DATA: White count 14.6, hemoglobin 8.2, hematocrit 25.2, platelets 470, 77% neutrophils, 9% lymphocytes. Sodium 133, potassium 4.6, chloride 103, bicarbonate 24, BUN 19, creatinine 1, glucose 230, iron 16, TIBC 27, iron saturation 0.7%, CRP 9.8. IMPRESSION: 1. Right hip septic arthritis on intravenous (IV) vancomycin, improving. The patient will be treated for total of 30 days. End of therapy would be 12/11. 2. Methicillin-resistant Staphylococcus aureus (MRSA) diabetic foot ulcer on IV vancomycin. Will add Santyl for dressing changes for debridement of the wound. 3. Right lower extremity swelling. Vascular ultrasound done on 11/21 due to pain and worsening swelling was negative for deep venous thrombosis (DVT). PLAN: Continue IV vancomycin. Vancomycin trough was 19.2. Current dose is 1 gram every 12 hours. Hopefully, the patient will have insurance prior to discharge to do home IV antibiotics. Otherwise, will switch her to daptomycin once a day to be done at the hospital. Her dose of daptomycin would be 750 mg IV daily.
[2016-11-23] MEDS: HEPARIN SOD (PORCINE) 5000 UNITS/ML VIAL SQ SCH ×3 (04:57→21:18)
[2016-11-23] MEDS: SODIUM CHLORIDE 0.9% INJ 10 ML SYR IV SCH ×2 (04:58→18:00)
[2016-11-23] MEDS: MOM 30ML SUSPENSION UDC PO SCH ×3 (04:58→21:18)
[2016-11-23] MEDS: oxyCODONE 5MG TAB PO PRN ×3 (04:58→23:18)
[2016-11-23 05:48] LABS: BASO # 0.1 K/mm3 (0.0-0.2); BASO % 0.7 % (0.0-1.0); EOS # 0.9 K/mm3 (0.0-0.50); EOS % 5.9 % (0.0-3.0); LARGE UNSTAINED CELL # 0.2 K/mm3 (0.0-0.4); LARGE UNSTAINED CELL % 1.3 % (0.0-4.0); LYMPH # 2.6 K/mm3 (1.5-4.5); LYMPH % 16.2 % (24.0-44.0); MEAN CORPUSCULAR HEMOGLOBIN 26.7 pg (27.0-33.0); MEAN CORPUSCULAR HGB CONC 32.3 g/dl (32.0-36.5); MEAN CORPUSCULAR VOLUME 82.6 fl (80.0-96.0); MONO # 1.4 K/mm3 (0.0-0.8); MONO % 9.6 % (0.0-5.0); NEUTROPHILS # 9.8 K/mm3 (1.8-7.7); NEUTROPHILS % 66.4 % (36.0-66.0); PLATELET COUNT, AUTOMATED 529 k/mm3 (150-450); RED CELL DISTRIBUTION WIDTH 14.2 % (11.5-14.5); WHITE BLOOD COUNT 14.8 K/mm3 (4.0-10.0)
[2016-11-23 06:00] VITALS: BP 145/72
[2016-11-23 06:12] LABS: ALBUMIN 2.5 GM/DL (3.2-5.2); ALBUMIN/GLOBULIN RATIO 0.57 (1.00-1.93); BILIRUBIN,TOTAL 0.4 MG/DL (0.2-1.0); CALCIUM LEVEL 10.1 MG/DL (8.5-10.1); CREATININE FOR GFR 1.09 MG/DL (0.55-1.02); MAGNESIUM LEVEL 2.1 MG/DL (1.8-2.4); POTASSIUM SERUM 4.6 MEQ/L (3.5-5.1); TOTAL PROTEIN 6.9 GM/DL (6.4-8.2)
[2016-11-23] MEDS: HumaLOG INSULIN (NovoLOG) PER UNIT SC SCH ×4 (07:30→21:00)
[2016-11-23 09:00] VITALS: BP 131/60
[2016-11-23 10:15] LABS: ERYTHROCYTE SEDIMENTATION RATE 109 mm/hr (0-20)
[2016-11-23] MEDS: LEVEMIR (INSULIN DETEMIR) 1 UNITS/0.01ML SC SCH ×2 (11:10→21:21)
[2016-11-23] MEDS: CARVedilol 3.125 MG TAB PO SCH ×2 (11:12→21:20)
[2016-11-23] MEDS: BACLOFEN 5MG PER 1/2 TABLET PO SCH ×2 (11:12→21:20)
[2016-11-23] MEDS: PREGABALIN 100 MG CAP (LYRICA) PO SCH ×2 (11:13→21:20)
[2016-11-23] MEDS: **hydrALAZINE** 10 MG TAB PO SCH ×3 (11:14→21:21)
[2016-11-23] MEDS: amLODIPine 10 MG TAB PO SCH (11:14)
[2016-11-23] MEDS: DOCUSATE SODIUM 100 MG CAP PO SCH ×2 (11:14→21:20)
[2016-11-23] MEDS: DULoxetine 30 MG CAP (CYMBALTA) PO SCH ×2 (11:14→21:20)
[2016-11-23] MEDS: NYSTATIN 100,000 UNITS/GM TOPICAL PWD 15 GM TOP SCH ×2 (11:16→21:00)
[2016-11-23] MEDS: MORPHINE 30 MG SA TAB PO SCH ×2 (11:39→21:19)
[2016-11-23 11:54] VITALS: BP 131/60
[2016-11-23] MEDS ORDERED: FUROSEMIDE 40 MG/4 ML VIAL (J1940) IV ONE (13:30)
--- NOTE | 2016-11-23 13:39 | IPNPDOC ---
Text Note Date of Service The patient was seen on 11/23/16. NOTE Subjective: Feels well. Pain well controlled. Ambulating with PT. Denies CP/SOB /palpitations. Objective: Vitals: (see below) General: No acute distress, laying comfortably in bed. HEENT: Moist mucous membranes. Neck: No JVD or lymphadenopathy Cardiac: RRR, No murmurs Pulm: Clear to auscultation b/l. No wheezing, rhonchi Abd: NT/ND + BS. Obese. Ext: 1+ pitting edema bilateral lower extremities. Distal pulses intact. Right foot ulcer with swelling however no erythema, minimal drainage. Pain on palpation in the right groin. no erythema. No Pain with internal/external rotation of right hip. Labs (see below) Images: CT abdomen and pelvis 11/10/16 Impression: 1. Mild degenerative changes at the right hip as described above. No acute fracture dislocation. 2. Inflammatory stranding in the subcutaneous tissues lateral to the hip. Differential diagnosis includes but is not limited to cellulitis, infectious/inflammatory process, and sequelae of prior trauma. Bilateral lower extremity ultrasound 11/10/16 Impression: No evidence of deep vein thrombosis in the right femoral popliteal venous system. Right foot x-ray 11/10/16 Impression: Soft tissue swelling and degenerative changes. Assessment/Plan 1. Septic arthritis- with associated leukocytosis and elevated CRP. CRP improving. Status post Right hip with Dr. Underwood. debridement.Patient does have a right diabetic ulcer on the right foot. No significant erythema however there is some swelling. Distal pulses intact. On vancomycin. Zosyn discontinued. Blood cultures negative thus far. Images (see above). Wound culture with MRSA. PICC line inserted 11/19/16 for 4 weeks of antibiotics.. Will need outpatient podiatry/Wound Care evaluation. ID on board. To be changed to Dapto on d/c. 2. Insulin-dependent diabetes mellitus- sulfonylurea on hold. Had an episode of hypoglycemia on presentation likely secondary to sulfonylurea. Levemir increased. Sliding scale Insulin. 3. Acute kidney injury - improved. patient had been on diuretics, has septic arthritis, and had vancomycin toxicity with vancomycin level improved. s/p IVF. 3. Diabetic foot ulcer- has been seen by Dr. Munoz in the past. 4. Bilateral lower some edema- chronic. Lasix resumed now. D/c IVF. Lower extremity ultrasound negative for DVT. 5. Chronic lower back pain- continue home meds. pain management consulted, morphine increased as recommended. 6. Depression- continue home meds 7. Hyponatremia- likely secondary to diuretics. Improving,s/p IV fluids. 8. Constipation - bowel regimen optimized. DVT prophy: Enoxaparin Physical therapy working with patient. Still not cleared. VS,Fishbone, I+O VS, Fishbone, I+O Laboratory Tests 11/23/16 05:40 Red Blood Count 3.25 L, Mean Corpuscular Volume 82.6, Mean Corpuscular Hemoglobin 26.7 L, Mean Corpuscular Hemoglobin Concent 32.3, Red Cell Distribution Width 14.2, Neutrophils (%) (Auto) 66.4 H, Lymphocytes (%) (Auto) 16.2 L, Monocytes (%) (Auto) 9.6 H, Eosinophils (%) (Auto) 5.9 H, Basophils (%) (Auto) 0.7, Neutrophils # (Auto) 9.8 H, Lymphocytes # (Auto) 2.6, Monocytes # ( Auto) 1.4 H, Eosinophils # (Auto) 0.9 H, Basophils # (Auto) 0.1, Calcium Level 10.1, Aspartate Amino Transf (AST/SGOT) 25, Alanine Aminotransferase (ALT/SGPT) 31, Alkaline Phosphatase 320 H, Total Bilirubin 0.4, Total Protein 6.9, Albumin 2.5 L Vital Signs Date Time Temp Pulse Resp B/P (MAP) Pulse Ox O2 Delivery O2 Flow Rate FiO2 11/23/16 12:03 Room Air 11/23/16 11:54 97.5 57 131/60 11/23/16 11:39 20 11/23/16 09:00 92 11/19/16 00:51 96 11/18/16 03:40 97.0 I&O- Last 24 Hours up to 6 AM 11/23/16 06:00 Intake Total 3150 ml Output Total 400 ml Balance 2750 ml DEREK FAY MD Nov 23, 2016 13:39
[2016-11-23 14:00] VITALS: BP 150/75
[2016-11-23] MEDS ORDERED: FLEET ENEMA PR ONE (14:00)
[2016-11-23] MEDS: SANTYL OINT 30GM TOP SCH (14:13)
[2016-11-23 22:00] VITALS: BP 134/62
[2016-11-24] MEDS: MOM 30ML SUSPENSION UDC PO SCH ×3 (04:59→21:25)
[2016-11-24] MEDS: oxyCODONE 5MG TAB PO PRN ×2 (05:00→11:02)
[2016-11-24] MEDS: HEPARIN SOD (PORCINE) 5000 UNITS/ML VIAL SQ SCH ×3 (05:02→21:20)
[2016-11-24] MEDS: SODIUM CHLORIDE 0.9% INJ 10 ML SYR IV SCH ×2 (05:02→18:00)
[2016-11-24 05:36] LABS: BASO # 0.1 K/mm3 (0.0-0.2); BASO % 0.6 % (0.0-1.0); EOS # 0.7 K/mm3 (0.0-0.50); EOS % 5.4 % (0.0-3.0); LARGE UNSTAINED CELL # 0.3 K/mm3 (0.0-0.4); LARGE UNSTAINED CELL % 2.6 % (0.0-4.0); LYMPH # 1.9 K/mm3 (1.5-4.5); LYMPH % 15.5 % (24.0-44.0); MEAN CORPUSCULAR HEMOGLOBIN 26.8 pg (27.0-33.0); MEAN CORPUSCULAR HGB CONC 32.5 g/dl (32.0-36.5); MEAN CORPUSCULAR VOLUME 82.3 fl (80.0-96.0); MONO # 1.1 K/mm3 (0.0-0.8); NEUTROPHILS # 8.2 K/mm3 (1.8-7.7); NEUTROPHILS % 66.8 % (36.0-66.0); PLATELET COUNT, AUTOMATED 567 k/mm3 (150-450); WHITE BLOOD COUNT 12.3 K/mm3 (4.0-10.0)
[2016-11-24 05:49] LABS: ALBUMIN 2.5 GM/DL (3.2-5.2); ALBUMIN/GLOBULIN RATIO 0.57 (1.00-1.93); BILIRUBIN,TOTAL 0.4 MG/DL (0.2-1.0); CALCIUM LEVEL 9.8 MG/DL (8.5-10.1); CREATININE FOR GFR 1.15 MG/DL (0.55-1.02); GLOMERULAR FILTRATION RATE 53.6 (>58); MAGNESIUM LEVEL 2.3 MG/DL (1.8-2.4); POTASSIUM SERUM 4.3 MEQ/L (3.5-5.1); TOTAL PROTEIN 6.9 GM/DL (6.4-8.2)
[2016-11-24 06:00] VITALS: BP 133/61
[2016-11-24] MEDS: HumaLOG INSULIN (NovoLOG) PER UNIT SC SCH ×4 (07:30→21:00)
--- NOTE | 2016-11-24 07:59 | IPNPDOC ---
Text Note Date of Service The patient was seen on 11/24/16. NOTE Subjective: Feels well. Denies CP/SOB/palpitations. No acute changes overnight. Objective: Vitals: (see below) General: No acute distress, laying comfortably in bed. HEENT: Moist mucous membranes. Neck: No JVD or lymphadenopathy Cardiac: RRR, No murmurs Pulm: Clear to auscultation b/l. No wheezing, rhonchi Abd: NT/ND + BS. Obese. Ext: 1+ pitting edema bilateral lower extremities. Distal pulses intact. Right foot ulcer with swelling however no erythema, minimal drainage. Pain on palpation in the right groin. no erythema. No Pain with internal/external rotation of right hip. Labs (see below) Images: CT abdomen and pelvis 11/10/16 Impression: 1. Mild degenerative changes at the right hip as described above. No acute fracture dislocation. 2. Inflammatory stranding in the subcutaneous tissues lateral to the hip. Differential diagnosis includes but is not limited to cellulitis, infectious/inflammatory process, and sequelae of prior trauma. Bilateral lower extremity ultrasound 11/10/16 Impression: No evidence of deep vein thrombosis in the right femoral popliteal venous system. Right foot x-ray 11/10/16 Impression: Soft tissue swelling and degenerative changes. Assessment/Plan 1. Septic arthritis- with associated leukocytosis and elevated CRP. CRP improving. Status post Right hip with Dr. Underwood. debridement.Patient does have a right diabetic ulcer on the right foot. No significant erythema however there is some swelling. Distal pulses intact. On vancomycin. Zosyn discontinued. Blood cultures negative thus far. Images (see above). Wound culture with MRSA. PICC line inserted 11/19/16 for 4 weeks of antibiotics.. Will need outpatient podiatry/Wound Care evaluation. ID on board. To be changed to Dapto on d/c. 2. Insulin-dependent diabetes mellitus- sulfonylurea on hold. Had an episode of hypoglycemia on presentation likely secondary to sulfonylurea. Levemir decreased. Sliding scale Insulin. 3. Acute kidney injury - improved. patient had been on diuretics, has septic arthritis, and had vancomycin toxicity with vancomycin level improved. s/p IVF. 3. Diabetic foot ulcer- has been seen by Dr. Munoz in the past. 4. Bilateral lower some edema- chronic. Lasix resumed now. D/c IVF. Lower extremity ultrasound negative for DVT. 5. Chronic lower back pain- continue home meds. pain management consulted, morphine increased as recommended. 6. Depression- continue home meds 7. Hyponatremia- likely secondary to diuretics. Improving,s/p IV fluids. 8. Constipation - bowel regimen optimized. DVT prophy: Enoxaparin Physical therapy working with patient. Still not cleared. VS,Fishbone, I+O VS, Fishbone, I+O Laboratory Tests 11/24/16 05:00 Red Blood Count 3.18 L, Mean Corpuscular Volume 82.3, Mean Corpuscular Hemoglobin 26.8 L, Mean Corpuscular Hemoglobin Concent 32.5, Red Cell Distribution Width 14.0, Neutrophils (%) (Auto) 66.8 H, Lymphocytes (%) (Auto) 15.5 L, Monocytes (%) (Auto) 9.0 H, Eosinophils (%) (Auto) 5.4 H, Basophils (%) (Auto) 0.6, Neutrophils # (Auto) 8.2 H, Lymphocytes # (Auto) 1.9, Monocytes # ( Auto) 1.1 H, Eosinophils # (Auto) 0.7 H, Basophils # (Auto) 0.1, Calcium Level 9.8, Aspartate Amino Transf (AST/SGOT) 23, Alanine Aminotransferase (ALT/SGPT) 28, Alkaline Phosphatase 276 H, Total Bilirubin 0.4, Total Protein 6.9, Albumin 2.5 L Vital Signs Date Time Temp Pulse Resp B/P (MAP) Pulse Ox O2 Delivery O2 Flow Rate FiO2 11/24/16 06:00 97.7 61 18 133/61 (85) 97 Room Air 11/19/16 00:51 96 11/18/16 03:40 97.0 I&O- Last 24 Hours up to 6 AM 11/24/16 06:00 Intake Total 2520 ml Output Total 0 ml Balance 2520 ml DEREK FAY MD Nov 24, 2016 07:59
[2016-11-24] MEDS: BACLOFEN 5MG PER 1/2 TABLET PO SCH ×2 (10:56→21:20)
[2016-11-24] MEDS: PREGABALIN 100 MG CAP (LYRICA) PO SCH ×2 (10:56→21:20)
[2016-11-24] MEDS: DOCUSATE SODIUM 100 MG CAP PO SCH ×2 (10:56→21:20)
[2016-11-24] MEDS: amLODIPine 10 MG TAB PO SCH (10:57)
[2016-11-24] MEDS: LEVEMIR (INSULIN DETEMIR) 1 UNITS/0.01ML SC SCH ×2 (10:57→21:00)
[2016-11-24] MEDS: **hydrALAZINE** 10 MG TAB PO SCH ×3 (10:58→21:19)
[2016-11-24] MEDS: DULoxetine 30 MG CAP (CYMBALTA) PO SCH ×2 (10:58→21:20)
[2016-11-24] MEDS: CARVedilol 3.125 MG TAB PO SCH ×2 (11:00→21:20)
[2016-11-24] MEDS: MORPHINE 30 MG SA TAB PO SCH ×2 (11:00→21:21)
[2016-11-24] MEDS: NYSTATIN 100,000 UNITS/GM TOPICAL PWD 15 GM TOP SCH ×2 (11:02→21:00)
[2016-11-24] MEDS: SANTYL OINT 30GM TOP SCH (11:03)
[2016-11-24] MEDS: SODIUM CHLORIDE 0.9% INJ 10 ML SYR IV PRN (14:30)
[2016-11-24] MEDS: MORPHINE 2 MG/ML 1ML SYRINGE IV PRN (15:03)
--- NOTE | 2016-11-24 15:51 | PHACANCOPD ---
PHARMACY VANCOMYCIN DOSING Pt Demographics Demographics Patient Age:46 , Weight:107.700 , Gender: female Adjusted Body Weight Date: 11/11/16, Adjusted Body Weight: [78] Kg Events Past 24 Hours Events Past 24 Hours: NO: Dialysis, Diuretic Therapy, Change in CrCl, Fever, Elevation in WBC, Pending Diagnostics, Pending Procedures, Other Vancomycin Vancomycin indication: CELLULITIS Vancomycin Target Ranges: 15-20 mcg/ml Vancomycin Load Y/N: Yes Load Dose Date Time Vancomycin Load Dose: 1500MG Date: 11/11/16 Time: 1000 Vancomycin Dose Date: 11/24/16. Current Vancomycin Dose: [1g IV q24h @21] Date: 11/19/16. Current Vancomycin Dose: [1000mg iv q12h @ 1200] Date: 11/18/16. Current Vancomycin Dose: [1500MG @12 X 1 DOSE] Date: 11/17/16. Current Vancomycin Dose: [ON HOLD AT THIS TIME] Date: 11/11/16. Current Vancomycin Dose: [1G IV Q12H] Intermittent Dosing?: No Labs Labs Item Value Date Time White Blood Count 14.6 K/mm3 H 11/22/16 0557 White Blood Count 14.8 K/mm3 H 11/23/16 0540 White Blood Count 12.3 K/mm3 H 11/24/16 0500 Creatinine 1.09 MG/DL H 11/23/16 0540 Creatinine 1.04 MG/DL H 11/22/16 0557 Creatinine 1.15 MG/DL H 11/24/16 0500 C-Reactive Protein, Quantitative 10.30 MG/DL H 11/23/16 0540 Vancomycin Level Trough 23.2 UG/ML H 11/24/16 1435 Micro Microbiology 11/14/16 Gram Stain - Final, Complete 11/14/16 Body Fluid Culture - Final, Complete Staph.aureus Methicillin Resis 11/15/16 Anaerobic Culture - Final, Complete 11/15/16 Anaerobic Culture - Final, Complete 11/15/16 Wound Culture - Final, Complete 11/15/16 Wound Culture - Final, Complete Creatinine Clearance Date:11/24/16. Creatinine Clearance: [73 ml/min using adjusted BW]. Date:11/11/16. Creatinine Clearance: [74.73]. Assessment and Plan Maintaining Current Dose?: No Reason for dose change: Trough too high Pharmacist Note Pharmacist Note Date: 11/24/16. Pharmacist note: vanco trough was drawn ~15 hours after the last dose and came back at 23.2 mcg/ml. SCr has been fluctuating, I have changed her dosing to 1g IV q24h to start tonight @21:00. She is currently on day 13 of vancomycin therapy. Leg wound culture and hip synovial fluid + for MRSA - plan for 30 days of vancomycin per Dr. Burciaga (end date 12/11/16). Tentative plans to change pt to daptomycin depending on insurance. We will continue to monitor renal function and follow up with a trough in a couple days. Roverto Briones Pharm.D. Nov 24, 2016 15:51
[2016-11-24] MEDS: VANCOMYCIN HCL 1,000 MG, VIAL MATE ADAPTER 1 EACH in D5W 250 ML IV SCH (21:24)
[2016-11-24 22:00] VITALS: BP 133/62
[2016-11-25] MEDS: oxyCODONE 5MG TAB PO PRN ×3 (00:16→16:18)
[2016-11-25] MEDS: MOM 30ML SUSPENSION UDC PO SCH ×3 (05:04→21:27)
[2016-11-25] MEDS: HEPARIN SOD (PORCINE) 5000 UNITS/ML VIAL SQ SCH ×3 (05:05→21:27)
[2016-11-25] MEDS: SODIUM CHLORIDE 0.9% INJ 10 ML SYR IV SCH ×2 (05:05→17:19)
[2016-11-25 05:35] LABS: BASO # 0.1 K/mm3 (0.0-0.2); BASO % 0.8 % (0.0-1.0); EOS # 0.7 K/mm3 (0.0-0.50); EOS % 5.9 % (0.0-3.0); LARGE UNSTAINED CELL # 0.3 K/mm3 (0.0-0.4); LARGE UNSTAINED CELL % 2.7 % (0.0-4.0); LYMPH % 18.2 % (24.0-44.0); MEAN CORPUSCULAR HEMOGLOBIN 26.6 pg (27.0-33.0); MEAN CORPUSCULAR HGB CONC 32.2 g/dl (32.0-36.5); MEAN CORPUSCULAR VOLUME 82.5 fl (80.0-96.0); MONO % 8.6 % (0.0-5.0); NEUTROPHILS # 7.1 K/mm3 (1.8-7.7); NEUTROPHILS % 63.8 % (36.0-66.0); PLATELET COUNT, AUTOMATED 574 k/mm3 (150-450); WHITE BLOOD COUNT 11.2 K/mm3 (4.0-10.0)
[2016-11-25 05:55] LABS: MAGNESIUM LEVEL 2.8 MG/DL (1.8-2.4)
[2016-11-25 06:00] VITALS: BP 130/60
[2016-11-25] MEDS: **hydrALAZINE** 10 MG TAB PO SCH ×3 (08:15→21:18)
[2016-11-25] MEDS: FUROSEMIDE 40 MG/4 ML VIAL (J1940) IV SCH (08:15)
[2016-11-25] MEDS: PREGABALIN 100 MG CAP (LYRICA) PO SCH ×2 (08:16→21:18)
[2016-11-25] MEDS: DULoxetine 30 MG CAP (CYMBALTA) PO SCH ×2 (08:16→21:18)
[2016-11-25] MEDS: amLODIPine 10 MG TAB PO SCH (08:16)
[2016-11-25] MEDS: CYANOCOBALAMIN 500 MCG TAB PO SCH (08:16)
[2016-11-25] MEDS: BACLOFEN 5MG PER 1/2 TABLET PO SCH ×2 (08:16→21:18)
[2016-11-25] MEDS: CARVedilol 3.125 MG TAB PO SCH ×2 (08:17→21:18)
[2016-11-25] MEDS: MORPHINE 30 MG SA TAB PO SCH ×2 (08:17→21:26)
[2016-11-25] MEDS: HumaLOG INSULIN (NovoLOG) PER UNIT SC SCH ×4 (08:18→21:00)
[2016-11-25] MEDS: DOCUSATE SODIUM 100 MG CAP PO SCH ×2 (08:18→21:18)
[2016-11-25] MEDS: SANTYL OINT 30GM TOP SCH (08:19)
[2016-11-25] MEDS: LEVEMIR (INSULIN DETEMIR) 1 UNITS/0.01ML SC SCH ×2 (08:19→21:00)
[2016-11-25] MEDS: NYSTATIN 100,000 UNITS/GM TOPICAL PWD 15 GM TOP SCH ×2 (08:20→21:00)
--- NOTE | 2016-11-25 08:31 | IPNPDOC ---
Text Note Date of Service The patient was seen on 11/25/16. NOTE Subjective: Feels much improved. Denies CP/SOB/palpitations. Ambulating more with PT. Objective: Vitals: (see below) General: No acute distress, laying comfortably in bed. HEENT: Moist mucous membranes. Neck: No JVD or lymphadenopathy Cardiac: RRR, No murmurs Pulm: Clear to auscultation b/l. No wheezing, rhonchi Abd: NT/ND + BS. Obese. Ext: 1+ pitting edema bilateral lower extremities. Distal pulses intact. Right foot ulcer with swelling however no erythema, minimal drainage. Labs (see below) Images: CT abdomen and pelvis 11/10/16 Impression: 1. Mild degenerative changes at the right hip as described above. No acute fracture dislocation. 2. Inflammatory stranding in the subcutaneous tissues lateral to the hip. Differential diagnosis includes but is not limited to cellulitis, infectious/inflammatory process, and sequelae of prior trauma. Bilateral lower extremity ultrasound 11/10/16 Impression: No evidence of deep vein thrombosis in the right femoral popliteal venous system. Right foot x-ray 11/10/16 Impression: Soft tissue swelling and degenerative changes. Assessment/Plan 1. Septic arthritis- with associated leukocytosis and elevated CRP. CRP improving. Status post Right hip with Dr. Underwood. debridement.Patient does have a right diabetic ulcer on the right foot. No significant erythema however there is some swelling. Distal pulses intact. On vancomycin. Zosyn discontinued. Blood cultures negative thus far. Images (see above). Wound culture with MRSA. PICC line inserted 11/19/16 for 4 weeks of antibiotics.. Will need outpatient podiatry/Wound Care evaluation. ID on board. To be changed to Dapto on d/c. 2. Insulin-dependent diabetes mellitus- sulfonylurea on hold. Had an episode of hypoglycemia on presentation likely secondary to sulfonylurea. Levemir decreased. Sliding scale Insulin. BS better controlled. 3. Acute kidney injury - improved. patient had been on diuretics, has septic arthritis, and had vancomycin toxicity with vancomycin level improved. s/p IVF. 3. Diabetic foot ulcer- has been seen by Dr. Munoz in the past. 4. Bilateral lower some edema- chronic. Lasix resumed now. D/c IVF. Lower extremity ultrasound negative for DVT. 5. Chronic lower back pain- continue home meds. pain management consulted, morphine increased as recommended. 6. Depression- continue home meds 7. Hyponatremia- likely secondary to diuretics. Improving,s/p IV fluids. 8. Constipation - bowel regimen optimized. DVT prophy: Enoxaparin Physical therapy working with patient. Awaiting Abx arrangement for d/c. VS,Fishbone, I+O VS, Fishbone, I+O Laboratory Tests 11/25/16 05:22 Red Blood Count 3.29 L, Mean Corpuscular Volume 82.5, Mean Corpuscular Hemoglobin 26.6 L, Mean Corpuscular Hemoglobin Concent 32.2, Red Cell Distribution Width 14.0, Neutrophils (%) (Auto) 63.8, Lymphocytes (%) (Auto) 18.2 L, Monocytes (%) (Auto) 8.6 H, Eosinophils (%) (Auto) 5.9 H, Basophils (%) (Auto) 0.8, Neutrophils # (Auto) 7.1, Lymphocytes # (Auto) 2.0, Monocytes # ( Auto) 1.0 H, Eosinophils # (Auto) 0.7 H, Basophils # (Auto) 0.1 Vital Signs Date Time Temp Pulse Resp B/P (MAP) Pulse Ox O2 Delivery O2 Flow Rate FiO2 11/25/16 08:17 14 Room Air 11/25/16 08:16 61 130/60 11/25/16 06:00 97.8 98 11/19/16 00:51 96 I&O- Last 24 Hours up to 6 AM 11/25/16 06:00 Intake Total 3480 ml Output Total 2400 ml Balance 1080 ml DEREK FAY MD Nov 25, 2016 08:31
[2016-11-25 09:59] LABS: CALCIUM LEVEL 9.9 MG/DL (8.5-10.1); CREATININE FOR GFR 1.31 MG/DL (0.55-1.02); GLOMERULAR FILTRATION RATE 46.1 (>58); POTASSIUM SERUM 4.9 MEQ/L (3.5-5.1)
--- NOTE | 2016-11-25 16:40 | IPN ---
DATE: 11/25/2016 Mrs. Morin is anxious to go home tomorrow. She will be going to the infusion unit for IV antibiotics. She denies any nausea, vomiting, diarrhea, abdominal pain, fever or chills. She still has significant pain from her rib radiating into her right groin. She has some pain in her right foot when she steps on it from the ulcer. LABORATORY DATA: White count 11.2, hemoglobin 8.8, hematocrit 27.2, platelets 574. Sodium 134, potassium 4.9, chloride 98, bicarbonate 27, BUN 27, creatinine 1.3, glucose 190, calcium 9.9, magnesium 2.8, CRP 7.7 down from 17.4. Hip culture with MRSA. Ankle culture with MRSA. IMPRESSION: Septic arthritis of the right hip with pain radiating to the right groin, doing better with IV vancomycin. Vancomycin trough was elevated at 23 and therefore dose was decreased to 1 gram daily. She will be switched to daptomycin 750 mg daily starting tomorrow as it is more convenient to be done through the infusion unit. End of therapy would be 12/11/2016. MRSA diabetic foot ulcer also being treated with IV daptomycin. Lower extremity swelling. The patient used to be on Lasix but has not been while in the hospital. May consider resuming some Lasix. PLAN Use Santyl on both diabetic foot ulcers. Discharge her home tomorrow. Daptomycin 750 mg daily for another 2 weeks, end of therapy would be 12/11/2016. I will see the patient next Friday in the infusion unit. Blood work to be done weekly includes CBC, basic CPK, CRP and sed rate. MTDD
[2016-11-25] MEDS: VANCOMYCIN HCL 1,000 MG, VIAL MATE ADAPTER 1 EACH in D5W 250 ML IV SCH (21:00)
[2016-11-25 22:00] VITALS: BP 129/69
[2016-11-26] MEDS: oxyCODONE 5MG TAB PO PRN ×2 (04:20→13:17)
[2016-11-26] MEDS: SODIUM CHLORIDE 0.9% INJ 10 ML SYR IV SCH (05:29)
[2016-11-26] MEDS: HEPARIN SOD (PORCINE) 5000 UNITS/ML VIAL SQ SCH (05:31)
[2016-11-26] MEDS: MOM 30ML SUSPENSION UDC PO SCH (05:31)
[2016-11-26 05:49] LABS: BASO % 0.4 % (0.0-1.0); EOS # 0.5 K/mm3 (0.0-0.50); EOS % 5.2 % (0.0-3.0); LARGE UNSTAINED CELL # 0.2 K/mm3 (0.0-0.4); LARGE UNSTAINED CELL % 1.7 % (0.0-4.0); LYMPH # 1.5 K/mm3 (1.5-4.5); LYMPH % 12.9 % (24.0-44.0); MEAN CORPUSCULAR HEMOGLOBIN 26.8 pg (27.0-33.0); MEAN CORPUSCULAR HGB CONC 32.5 g/dl (32.0-36.5); MEAN CORPUSCULAR VOLUME 82.4 fl (80.0-96.0); MONO % 9.8 % (0.0-5.0); NEUTROPHILS # 7.3 K/mm3 (1.8-7.7); PLATELET COUNT, AUTOMATED 484 k/mm3 (150-450); RED CELL DISTRIBUTION WIDTH 14.1 % (11.5-14.5); WHITE BLOOD COUNT 10.4 K/mm3 (4.0-10.0)
[2016-11-26 06:00] VITALS: BP 129/69
[2016-11-26 06:11] LABS: CALCIUM LEVEL 9.3 MG/DL (8.5-10.1); CREATININE FOR GFR 1.36 MG/DL (0.55-1.02); GLOMERULAR FILTRATION RATE 44.2 (>58); POTASSIUM SERUM 4.7 MEQ/L (3.5-5.1)
[2016-11-26] MEDS ORDERED: BACL10TA5 PO (08:01)
[2016-11-26] MEDS ORDERED: NYST10PW TOP (08:01)
[2016-11-26] MEDS ORDERED: AMLO10TA2 PO (08:01)
[2016-11-26] MEDS ORDERED: PEG1POW PO (08:01)
[2016-11-26] MEDS ORDERED: SANT250O8 TOP (08:01)
[2016-11-26] MEDS ORDERED: INSUDET SC (08:08)
[2016-11-26] MEDS: FUROSEMIDE 40 MG/4 ML VIAL (J1940) IV SCH (08:23)
[2016-11-26] MEDS: DOCUSATE SODIUM 100 MG CAP PO SCH (08:25)
[2016-11-26] MEDS: BACLOFEN 5MG PER 1/2 TABLET PO SCH (08:25)
[2016-11-26] MEDS: DULoxetine 30 MG CAP (CYMBALTA) PO SCH (08:26)
[2016-11-26] MEDS: amLODIPine 10 MG TAB PO SCH (08:26)
[2016-11-26] MEDS: MORPHINE 30 MG SA TAB PO SCH (08:26)
[2016-11-26] MEDS: CARVedilol 3.125 MG TAB PO SCH (08:26)
[2016-11-26 08:27] VITALS: BP 129/69
[2016-11-26] MEDS: **hydrALAZINE** 10 MG TAB PO SCH (08:27)
[2016-11-26] MEDS: PREGABALIN 100 MG CAP (LYRICA) PO SCH (08:27)
[2016-11-26] MEDS: CYANOCOBALAMIN 500 MCG TAB PO SCH (08:28)
[2016-11-26] MEDS: LEVEMIR (INSULIN DETEMIR) 1 UNITS/0.01ML SC SCH (08:28)
[2016-11-26] MEDS: HumaLOG INSULIN (NovoLOG) PER UNIT SC SCH ×2 (08:29→13:14)
[2016-11-26] MEDS: NYSTATIN 100,000 UNITS/GM TOPICAL PWD 15 GM TOP SCH (08:30)
[2016-11-26] MEDS: SODIUM CHLORIDE 0.9% INJ 10 ML SYR IV PRN ×2 (08:32→13:00)
[2016-11-26] MEDS ORDERED: DAPTOmycin 750 MG in NS 50 ML IV SCH (12:00)
[2016-11-26] MEDS: SANTYL OINT 30GM TOP SCH (12:10)
--- NOTE | 2016-11-26 22:33 | DSES ---
DATE OF ADMISSION: 11/10/2016 DATE OF DISCHARGE: 11/26/2016 SPECIALISTS INVOLVED DURING HER STAY: Dr. Burciaga, Dr. Kwame Veronica. PROCEDURES PERFORMED: Right hip arthrotomy with irrigation, debridement, and placement of a 19 J-Vac drain and a calcium phosphate antibiotic dissolvable bead in the right hip, which occurred on November 15. DISCHARGE DIAGNOSES: 1. Septic arthritis of the right hip. 2. Diabetic ulcer of the right foot. 3. Insulin-dependent diabetes with episodes of hypoglycemia. 4. Acute kidney injury. 5. Diabetic foot ulcer. 6. Bilateral lower extremity edema. 7. Chronic lower back pain. 8. Depression. 9. Hyponatremia. SUMMARY OF HOSPITALIZATION: This is a 46-year-old female who presented with leg pain. Patient has had pain in her legs, burning and tingling, draining ulcer on her right foot, and as well on her left foot. She had a fever and rash. This was associated with leukocytosis. Blood cultures were negative. Patient had hip pain, which was made worse with physical therapy. She was though to have a possible septic hip. Had drainage, which was positive for methicillin-resistant Staphylococcus aureus (MRSA). Was treated with antibiotics. Seen by Dr. Burciaga. Underwent irrigation and debridement of the area with placement of dissolvable antibiotic bead. Peripherally inserted central catheter (PICC) line was placed. She was seen by pain management. Pain medicines were increased. She progressed and was though to be ready for discharge. On the day of discharge she is doing well. Pain is reasonably well controlled. She denies pain, chest pain, shortness of breath. Tolerating a diet. Looking forward to getting home. Temperature is 97.7, pulse 87, respirations 15, blood pressure 129/69, 99% on room air. Awake, appropriately interactive, pleasant conversant. Breathing is symmetrical and rested. Heart is in a regular rate and rhythm. White cell count 10.4, hemoglobin 8. BUN 27, creatinine 1.36, sodium is 132. DISCHARGE INSTRUCTIONS: Followup with the infusion center daily, next Friday with Dr. Burciaga. Activity as tolerated. Two-wheeled walker. Consistent-carbohydrate diet. Followup with Dr. Munoz for foot ulcers in [address] Barkley within one week. MEDICATIONS: Include" - Norvasc 10 mg by mouth daily - baclofen 5 mg by mouth twice daily - collagenase topically daily - Levemir 25 units subcutaneously twice daily - nystatin topically twice daily - polyethylene glycol in the form of MiraLax once daily as needed for constipation - Coreg 6.25 mg half a tablet by mouth twice daily - duloxetine 30 mg by mouth twice daily - lisinopril 20 mg by mouth daily - morphine sulfate 15 mg by mouth every 12 hours - oxycodone 10 mg by mouth four times a day - Lyrica 300 mg by mouth twice daily Discontinue previous dose of Norvasc, previous dose of baclofen, previous dose of glipizide, previous dose of Levemir, and Robaxin.
== END 2016-11-26 13:50 | disposition home health service (06) | DRG 548 ==
LOC: M ED 20:29 → M ED INP 11-10 02:32 → M MS5PR 11-10 04:30
PROVIDERS: ADMIT Hospitalist; ATTEND Internal Medicine
PROC: 0S993ZZ Drainage of Right Hip Joint, Percutaneous Approach (ICD-10-PCS; 2016-11-14)
PROC: 0SB90ZX Excision of Right Hip Joint, Open Approach, Diagnostic (ICD-10-PCS; principal; 2016-11-15 12:30)
PROC: 02HV33Z Insertion of Infusion Device into Superior Vena Cava, Percutaneous Approach (ICD-10-PCS; 2016-11-19)
DX: M00.051 Staphylococcal arthritis, right hip (principal); G93.41 Metabolic encephalopathy; N17.9 Acute kidney failure, unspecified; E87.1 Hypo-osmolality and hyponatremia; F11.20 Opioid dependence, uncomplicated; L03.115 Cellulitis of right lower limb; M00.851 Arthritis due to other bacteria, right hip; E11.621 Type 2 diabetes mellitus with foot ulcer; M54.5 Low back pain; E11.649 Type 2 diabetes mellitus with hypoglycemia without coma; F32.9 Major depressive disorder, single episode, unspecified; B95.62 Methicillin resistant Staphylococcus aureus infection as the cause of diseases classified elsewhere; Z79.899 Other long term (current) drug therapy; I25.10 Atherosclerotic heart disease of native coronary artery without angina pectoris; J45.909 Unspecified asthma, uncomplicated; I12.9 Hypertensive chronic kidney disease with stage 1 through stage 4 chronic kidney disease, or unspecified chronic kidney disease; N18.3 Chronic kidney disease, stage 3 (moderate); K59.00 Constipation, unspecified; Z88.8 Allergy status to other drugs, medicaments and biological substances; E66.9 Obesity, unspecified; G47.33 Obstructive sleep apnea (adult) (pediatric); I73.9 Peripheral vascular disease, unspecified; D72.829 Elevated white blood cell count, unspecified

== ENCOUNTER 2016-11-27 09:29 | Outpatient (CLI) | payer MEDICAID, MEDICARE, SELFPAY ==
[~2016-11-27] VITALS: Ht 167.6 cm; Wt 107.0 kg
[~2016-11-27 09:29] MED LIST changes: -ADVI200T26 PO; -FURO40TA2 PO; -GLIP1TAB51 PO; -MIRA33504 PO; -NOVOINJ3 SC; -OXYCO5TA PO; +SODIUM CHLORIDE 0.9% INJ 10 ML SYR IV SCH
[2016-11-27] MEDS ORDERED: SODIUM CHLORIDE 0.9% INJ 10 ML SYR IV PRN (09:45)
[2016-11-27] MEDS ORDERED: VANCOMYCIN HCL 1,000 MG, VIAL MATE ADAPTER 1 EACH in D5W 250 ML IV ONE (10:00)
[2016-11-27] MEDS ORDERED: DAPTOmycin 750 MG in NS 50 ML IV ONE (10:00)
[2017-02-05] MEDS ORDERED: MORP15TASA PO ×2 (10:33→10:38)
[2017-02-05] MEDS ORDERED: OXYCO5TA PO ×2 (10:33→10:38)
== END 2016-11-27 12:30 | disposition home or self-care (01) ==
LOC: M INFU 09:29
PROVIDERS: ATTEND Internal Medicine Infectious Disease
DX: M00.859 Arthritis due to other bacteria, unspecified hip (principal); B95.62 Methicillin resistant Staphylococcus aureus infection as the cause of diseases classified elsewhere; E11.621 Type 2 diabetes mellitus with foot ulcer; L97.529 Non-pressure chronic ulcer of other part of left foot with unspecified severity; L97.519 Non-pressure chronic ulcer of other part of right foot with unspecified severity; Z88.8 Allergy status to other drugs, medicaments and biological substances; Z79.899 Other long term (current) drug therapy; Z79.4 Long term (current) use of insulin; Z79.891 Long term (current) use of opiate analgesic; E11.622 Type 2 diabetes mellitus with other skin ulcer
CPT/HCPCS: 96365; J0878; J3370

== ENCOUNTER → 2016-11-27 | Outpatient (CLI) | payer MEDICAID, SELFPAY ==
[~2016-11-27] MED LIST changes: +ADVI200T26 PO; +AMLO10TA2 PO; +BACL10TA5 PO; +FURO40TA2 PO; +GLIP1TAB51 PO; +MIRA33504 PO; +MORP15TASA PO; +NOVOINJ3 SC; +NYST10PW TOP; +OXYCO5TA PO; +ROBA750T4 PO; +SANT250O8 TOP
== END ==
LOC: M LAB 09:04
PROVIDERS: ATTEND Internal Medicine
DX: E11.9 Type 2 diabetes mellitus without complications (principal)

== ENCOUNTER 2016-11-28 09:17 | Outpatient (CLI) | payer MEDICAID, SELFPAY ==
[~2016-11-28] VITALS: Ht 154.9 cm; Wt 107.7 kg
[~2016-11-28 09:17] MED LIST changes: -SODIUM CHLORIDE 0.9% INJ 10 ML SYR IV SCH
[2016-11-28] MEDS ORDERED: SODIUM CHLORIDE 0.9% INJ 10 ML SYR IV PRN (09:30)
[2016-11-28] MEDS ORDERED: VANCOMYCIN HCL 1,000 MG, VIAL MATE ADAPTER 1 EACH in D5W 250 ML IV ONE (09:30)
[2016-11-28] MEDS ORDERED: SODIUM CHLORIDE 0.9% INJ 10 ML SYR IV SCH (18:00)
[2017-02-05] MEDS ORDERED: OXYCO5TA PO ×2 (10:33→10:38)
[2017-02-05] MEDS ORDERED: MORP15TASA PO ×2 (10:33→10:38)
== END 2016-11-28 12:05 | disposition home or self-care (01) ==
LOC: M INFU 09:17
PROVIDERS: ATTEND Internal Medicine Infectious Disease
DX: M00.859 Arthritis due to other bacteria, unspecified hip (principal); A49.02 Methicillin resistant Staphylococcus aureus infection, unspecified site; E11.621 Type 2 diabetes mellitus with foot ulcer; L97.529 Non-pressure chronic ulcer of other part of left foot with unspecified severity; L97.519 Non-pressure chronic ulcer of other part of right foot with unspecified severity; Z79.899 Other long term (current) drug therapy; Z79.4 Long term (current) use of insulin; Z79.891 Long term (current) use of opiate analgesic; Z88.8 Allergy status to other drugs, medicaments and biological substances
CPT/HCPCS: 96365; J3370

== ENCOUNTER 2016-11-29 11:39 | Outpatient (CLI) | payer MEDICAID, SELFPAY ==
[~2016-11-29] VITALS: Ht 154.9 cm; Wt 107.7 kg
[2016-11-29] MEDS ORDERED: VANCOMYCIN HCL 1,000 MG, VIAL MATE ADAPTER 1 EACH in D5W 250 ML IV ONE (11:45)
[2016-11-29] MEDS ORDERED: SODIUM CHLORIDE 0.9% INJ 10 ML SYR IV PRN (11:45)
[2016-11-29 12:59] LABS: MEAN CORPUSCULAR HEMOGLOBIN 26.6 pg (27.0-33.0); MEAN CORPUSCULAR HGB CONC 32.1 g/dl (32.0-36.5); MEAN CORPUSCULAR VOLUME 82.7 fl (80.0-96.0); RED CELL DISTRIBUTION WIDTH 14.1 % (11.5-14.5); WHITE BLOOD COUNT 12.1 K/mm3 (4.0-10.0)
[2016-11-29 13:27] LABS: CALCIUM LEVEL 9.2 MG/DL (8.5-10.1); CREATININE FOR GFR 1.41 MG/DL (0.55-1.02); GLOMERULAR FILTRATION RATE 42.4 (>58); POTASSIUM SERUM 4.9 MEQ/L (3.5-5.1)
[2016-11-29] MEDS ORDERED: HumuLIN R (REGULAR) INSULIN (NovoLIN R) **100U/ML** PER UNIT SC ONE (14:30)
[2016-11-29] MEDS ORDERED: SODIUM CHLORIDE 0.9% INJ 10 ML SYR IV SCH (18:00)
[2017-02-05] MEDS ORDERED: MORP15TASA PO ×2 (10:33→10:38)
[2017-02-05] MEDS ORDERED: OXYCO5TA PO ×2 (10:33→10:38)
== END 2016-11-29 14:30 | disposition home or self-care (01) ==
LOC: M INFU 11:39
PROVIDERS: ATTEND Internal Medicine Infectious Disease
DX: M00.859 Arthritis due to other bacteria, unspecified hip (principal); A49.02 Methicillin resistant Staphylococcus aureus infection, unspecified site; E11.621 Type 2 diabetes mellitus with foot ulcer; L97.529 Non-pressure chronic ulcer of other part of left foot with unspecified severity; L97.519 Non-pressure chronic ulcer of other part of right foot with unspecified severity; Z79.899 Other long term (current) drug therapy; Z79.4 Long term (current) use of insulin; Z79.891 Long term (current) use of opiate analgesic; Z88.8 Allergy status to other drugs, medicaments and biological substances
CPT/HCPCS: 36415; 80048; 80202; 85027; 86140; 96365; J3370

== ENCOUNTER 2016-11-30 12:24 | Outpatient (CLI) | payer MEDICAID ==
[~2016-11-30] VITALS: Ht 154.9 cm; Wt 107.7 kg
[2016-11-30] MEDS ORDERED: VANCOMYCIN HCL 1,000 MG, VIAL MATE ADAPTER 1 EACH in D5W 250 ML IV ONE (12:45)
[2016-11-30 13:00] VITALS: BP 165/70
[2017-02-05] MEDS ORDERED: MORP15TASA PO ×2 (10:33→10:38)
[2017-02-05] MEDS ORDERED: OXYCO5TA PO ×2 (10:33→10:38)
== END 2016-11-30 15:04 | disposition home or self-care (01) ==
LOC: M OPCLI5PR 12:24 → M MS5PR 12:28 → M OPCLI5PR 15:04
PROVIDERS: ATTEND Internal Medicine Infectious Disease
DX: M00.859 Arthritis due to other bacteria, unspecified hip (principal); B95.62 Methicillin resistant Staphylococcus aureus infection as the cause of diseases classified elsewhere; E11.621 Type 2 diabetes mellitus with foot ulcer; L97.529 Non-pressure chronic ulcer of other part of left foot with unspecified severity; L97.519 Non-pressure chronic ulcer of other part of right foot with unspecified severity
CPT/HCPCS: 96374; J3370

== ENCOUNTER 2016-12-01 12:12 | Outpatient (CLI) | payer MEDICAID ==
[2016-12-01] MEDS ORDERED: VANCOMYCIN HCL 1,000 MG, VIAL MATE ADAPTER 1 EACH in D5W 250 ML IV ONE (13:00)
[2016-12-01 13:15] VITALS: BP 127/59
[2016-12-01] MEDS ORDERED: VANCOMYCIN HCL 500 MG in D5W MINI-BAG PLUS 100 ML IV ONE (14:00)
[2017-02-05] MEDS ORDERED: MORP15TASA PO ×2 (10:33→10:38)
[2017-02-05] MEDS ORDERED: OXYCO5TA PO ×2 (10:33→10:38)
== END 2016-12-01 15:30 | disposition home or self-care (01) ==
LOC: M INFU 12:12 → M MS5PR 12:13 → M INFU 15:30
PROVIDERS: ATTEND Internal Medicine Infectious Disease
DX: M00.859 Arthritis due to other bacteria, unspecified hip (principal); B95.62 Methicillin resistant Staphylococcus aureus infection as the cause of diseases classified elsewhere; E11.621 Type 2 diabetes mellitus with foot ulcer; L97.519 Non-pressure chronic ulcer of other part of right foot with unspecified severity; L97.529 Non-pressure chronic ulcer of other part of left foot with unspecified severity
CPT/HCPCS: 96374; J3370

== ENCOUNTER 2016-12-02 12:54 | Outpatient (CLI) | payer MEDICAID, SELFPAY ==
[~2016-12-02] VITALS: Ht 154.9 cm; Wt 107.7 kg
[~2016-12-02 12:54] MED LIST changes: -ADVI200T26 PO; -FURO40TA2 PO; -GLIP1TAB51 PO; -MIRA33504 PO; -NOVOINJ3 SC; -OXYCO5TA PO; +SODIUM CHLORIDE 0.9% INJ 10 ML SYR IV PRN; +VANCOMYCIN HCL 1,000 MG, VIAL MATE ADAPTER 1 EACH in D5W 250 ML IV ONE
[2016-12-02] MEDS ORDERED: HumuLIN R (REGULAR) INSULIN (NovoLIN R) **100U/ML** PER UNIT SQ ONE (13:15)
[2016-12-02] MEDS ORDERED: VANCOMYCIN HCL 1,500 MG in D5W 500 ML IV ONE (14:00)
[2016-12-02 14:38] LABS: CALCIUM LEVEL 8.6 MG/DL (8.5-10.1); CREATININE FOR GFR 1.44 MG/DL (0.55-1.02); GLOMERULAR FILTRATION RATE 41.4 (>58); POTASSIUM SERUM 4.6 MEQ/L (3.5-5.1)
--- NOTE | 2016-12-02 14:59 | REP ---
PA and lateral chest: Comparison is I 12/15/2015. There are no infiltrates or effusions. There are no masses or nodules. The lung jaime are clear and unchanged. There is cardiomegaly, unchanged. There is a right upper extremity PICC line with the tip in the superior vena cava as an interval change. A spinal stimulator is again identified, unchanged. Sternotomy wires are again identified. Impression: There are no acute cardiopulmonary findings. There is chronic cardiomegaly and sternotomy wires. A spinal stimulator is again identified. There is a right upper extremity PICC line, not present previously. Signed by Peewee Rodríguez MD 12/02/2016 02:50 P
[2016-12-02] MEDS ORDERED: SODIUM CHLORIDE 0.9% INJ 10 ML SYR IV SCH (18:00)
[2017-02-05] MEDS ORDERED: OXYCO5TA PO ×2 (10:33→10:38)
[2017-02-05] MEDS ORDERED: MORP15TASA PO ×2 (10:33→10:38)
== END 2016-12-02 16:30 | disposition home or self-care (01) ==
LOC: M INFU 12:54
PROVIDERS: ATTEND Internal Medicine Infectious Disease
DX: M00.859 Arthritis due to other bacteria, unspecified hip (principal); B95.62 Methicillin resistant Staphylococcus aureus infection as the cause of diseases classified elsewhere; E11.621 Type 2 diabetes mellitus with foot ulcer; L97.419 Non-pressure chronic ulcer of right heel and midfoot with unspecified severity; Z79.899 Other long term (current) drug therapy; Z79.4 Long term (current) use of insulin; Z88.8 Allergy status to other drugs, medicaments and biological substances; Z95.828 Presence of other vascular implants and grafts
CPT/HCPCS: 71020; 80048; 80202; 96365; 96366; J3370

== ENCOUNTER → 2016-12-02 | Outpatient (CLI) | payer MEDICAID ==
[~2016-12-02] MED LIST changes: +ADVI200T26 PO; +FURO40TA2 PO; +GLIP1TAB51 PO; +MIRA33504 PO; +NOVOINJ3 SC; +OXYCO5TA PO
--- NOTE | 2016-12-03 15:35 | REP ---
Procedure: PICC line insertion with Ricardo-Chuy The procedure was performed under the direct supervision of Dr. Fernandez. The risks and benefits of the procedure were explained to the patient and informed consent was obtained. The right basilic vein was localized using ultrasound guidance. The skin was prepped and draped in a sterile fashion. 2% lidocaine was used as a local anesthetic. Using ultrasound guidance the basilic vein was cannulated and a 0.018 guidewire was inserted and advanced to the SVC using fluoroscopic guidance. The needle was removed and a 4.5 [place] Lucian dilator and peel-away sheath was inserted over the guide wire. A 4.5 [place] Lucian single lumen catheter was cut to length of 38 cm. The dilator was removed and the catheter was inserted over the guide wire with the tip ending in the SVC. The peel-away sheath was removed and the catheter was flushed with heparinized saline as per Hospital protocol. The catheter was affixed to the skin and a sterile dressing was applied. The the patient tolerated the procedure well and there were no immediate complications. 0.3 minutes of fluoro time was utilized for this procedure. Reviewed by AKANKSHA Paredes 12/02/2016 03:38 PSigned by Peewee Fernandez MD 12/03/2016 03:24 P
== END | disposition home or self-care (01) ==
LOC: M RADPRO 11:19
PROVIDERS: ATTEND Family Medicine
DX: A49.02 Methicillin resistant Staphylococcus aureus infection, unspecified site (principal); Z88.8 Allergy status to other drugs, medicaments and biological substances; Z79.899 Other long term (current) drug therapy; Z79.4 Long term (current) use of insulin; Z79.891 Long term (current) use of opiate analgesic

== ENCOUNTER 2016-12-04 13:25 | Outpatient (CLI) | payer MEDICAID, SELFPAY ==
[~2016-12-04] VITALS: Ht 154.9 cm; Wt 107.7 kg
[~2016-12-04 13:25] MED LIST changes: -VANCOMYCIN HCL 1,000 MG, VIAL MATE ADAPTER 1 EACH in D5W 250 ML IV ONE; +VANCOMYCIN HCL 1,500 MG in D5W 500 ML IV ONE
[2016-12-04] MEDS ORDERED: SODIUM CHLORIDE 0.9% INJ 10 ML SYR IV SCH (18:00)
[2017-02-05] MEDS ORDERED: MORP15TASA PO ×2 (10:33→10:38)
[2017-02-05] MEDS ORDERED: OXYCO5TA PO ×2 (10:33→10:38)
== END 2016-12-04 15:55 | disposition home or self-care (01) ==
LOC: M INFU 13:25
PROVIDERS: ATTEND Internal Medicine Infectious Disease
DX: M00.859 Arthritis due to other bacteria, unspecified hip (principal); B95.62 Methicillin resistant Staphylococcus aureus infection as the cause of diseases classified elsewhere; E11.621 Type 2 diabetes mellitus with foot ulcer; L97.419 Non-pressure chronic ulcer of right heel and midfoot with unspecified severity; Z79.899 Other long term (current) drug therapy; Z79.4 Long term (current) use of insulin; Z79.891 Long term (current) use of opiate analgesic; Z88.8 Allergy status to other drugs, medicaments and biological substances; Z95.828 Presence of other vascular implants and grafts
CPT/HCPCS: 96365; 96366; J3370

== ENCOUNTER 2016-12-05 11:32 | Outpatient (CLI) | payer MEDICAID, SELFPAY ==
[~2016-12-05] VITALS: Ht 167.6 cm; Wt 107.7 kg
[~2016-12-05 11:32] MED LIST changes: -SODIUM CHLORIDE 0.9% INJ 10 ML SYR IV PRN; -VANCOMYCIN HCL 1,500 MG in D5W 500 ML IV ONE
[2016-12-05] MEDS ORDERED: SODIUM CHLORIDE 0.9% INJ 10 ML SYR IV PRN (11:45)
[2016-12-05] MEDS ORDERED: VANCOMYCIN HCL 1,500 MG in D5W 500 ML IV ONE (11:45)
[2016-12-05] MEDS ORDERED: HumuLIN R (REGULAR) INSULIN (NovoLIN R) **100U/ML** PER UNIT SC ONE ×2 (11:45)
[2016-12-05] MEDS ORDERED: SODIUM CHLORIDE 0.9% INJ 10 ML SYR IV SCH (18:00)
[2017-02-05] MEDS ORDERED: MORP15TASA PO ×2 (10:33→10:38)
[2017-02-05] MEDS ORDERED: OXYCO5TA PO ×2 (10:33→10:38)
== END 2016-12-05 14:30 | disposition home or self-care (01) ==
LOC: M INFU 11:32
PROVIDERS: ATTEND Internal Medicine Infectious Disease
DX: M00.859 Arthritis due to other bacteria, unspecified hip (principal); B95.62 Methicillin resistant Staphylococcus aureus infection as the cause of diseases classified elsewhere; E11.621 Type 2 diabetes mellitus with foot ulcer; L97.419 Non-pressure chronic ulcer of right heel and midfoot with unspecified severity; Z79.899 Other long term (current) drug therapy; Z79.4 Long term (current) use of insulin; Z79.891 Long term (current) use of opiate analgesic; Z88.8 Allergy status to other drugs, medicaments and biological substances
CPT/HCPCS: 96365; 96366; J3370

== ENCOUNTER 2016-12-06 14:01 | Outpatient (CLI) | payer MEDICAID, SELFPAY ==
[2016-12-06] MEDS ORDERED: VANCOMYCIN HCL 1,000 MG, VIAL MATE ADAPTER 1 EACH in D5W 250 ML IV ONE (14:15)
[2016-12-06] MEDS ORDERED: SODIUM CHLORIDE 0.9% INJ 10 ML SYR IV PRN (14:15)
[2016-12-06 14:54] LABS: MEAN CORPUSCULAR HEMOGLOBIN 26.3 pg (27.0-33.0); MEAN CORPUSCULAR HGB CONC 32.6 g/dl (32.0-36.5); MEAN CORPUSCULAR VOLUME 80.6 fl (80.0-96.0); RED CELL DISTRIBUTION WIDTH 14.7 % (11.5-14.5); WHITE BLOOD COUNT 11.9 K/mm3 (4.0-10.0)
[2016-12-06] MEDS: VANCOMYCIN HCL 750 MG, VIAL MATE ADAPTER 1 EACH in D5W 250 ML IV SCH ×2 (15:04→15:53)
[2016-12-06] MEDS ORDERED: VANCOMYCIN HCL 500 MG in D5W MINI-BAG PLUS 100 ML IV ONE (15:15)
[2016-12-06 15:25] LABS: CALCIUM LEVEL 8.5 MG/DL (8.5-10.1); CREATININE FOR GFR 1.34 MG/DL (0.55-1.02); GLOMERULAR FILTRATION RATE 44.9 (>58); POTASSIUM SERUM 4.7 MEQ/L (3.5-5.1)
[2016-12-06] MEDS ORDERED: SODIUM CHLORIDE 0.9% INJ 10 ML SYR IV SCH (18:00)
[2017-02-05] MEDS ORDERED: MORP15TASA PO ×2 (10:33→10:38)
[2017-02-05] MEDS ORDERED: OXYCO5TA PO ×2 (10:33→10:38)
== END 2016-12-06 17:15 | disposition home or self-care (01) ==
LOC: M INFU 14:01
PROVIDERS: ATTEND Internal Medicine Infectious Disease
DX: M00.859 Arthritis due to other bacteria, unspecified hip (principal); B95.62 Methicillin resistant Staphylococcus aureus infection as the cause of diseases classified elsewhere; E11.621 Type 2 diabetes mellitus with foot ulcer; L97.419 Non-pressure chronic ulcer of right heel and midfoot with unspecified severity; Z79.899 Other long term (current) drug therapy; Z79.4 Long term (current) use of insulin; Z79.891 Long term (current) use of opiate analgesic; Z88.8 Allergy status to other drugs, medicaments and biological substances; Z95.828 Presence of other vascular implants and grafts
CPT/HCPCS: 36415; 80048; 80202; 85027; 86140; 96365; 96366; J3370

== ENCOUNTER 2016-12-07 12:42 | Outpatient (CLI) | payer MEDICAID ==
[~2016-12-07] VITALS: Ht 165.1 cm; Wt 94.5 kg
[2016-12-07] MEDS ORDERED: VANCOMYCIN HCL 1,000 MG, VIAL MATE ADAPTER 1 EACH in D5W 250 ML IV ONE (13:00)
[2016-12-07 13:13] VITALS: BP 143/83
[2016-12-07] MEDS ORDERED: SODIUM CHLORIDE 0.9% INJ 10 ML SYR IV PRN (13:45)
[2016-12-07] MEDS ORDERED: VANCOMYCIN HCL 500 MG in D5W MINI-BAG PLUS 100 ML IV ONE (14:00)
[2016-12-07 15:28] VITALS: BP 147/70
[2017-02-05] MEDS ORDERED: OXYCO5TA PO ×2 (10:33→10:38)
[2017-02-05] MEDS ORDERED: MORP15TASA PO ×2 (10:33→10:38)
== END 2016-12-07 15:35 | disposition home or self-care (01) ==
LOC: M OPCLI4PR 12:42 → M INFU 12:42 → M MS5PR 12:46 → M INFU 15:35
PROVIDERS: ATTEND Internal Medicine Infectious Disease
DX: M00.859 Arthritis due to other bacteria, unspecified hip (principal); B95.62 Methicillin resistant Staphylococcus aureus infection as the cause of diseases classified elsewhere; E11.621 Type 2 diabetes mellitus with foot ulcer; L97.419 Non-pressure chronic ulcer of right heel and midfoot with unspecified severity; Z79.899 Other long term (current) drug therapy; Z79.4 Long term (current) use of insulin; Z79.891 Long term (current) use of opiate analgesic; Z88.8 Allergy status to other drugs, medicaments and biological substances; Z95.828 Presence of other vascular implants and grafts
CPT/HCPCS: 96365; 96366; J3370

== ENCOUNTER 2016-12-08 12:07 | Outpatient (CLI) | payer MEDICAID ==
[~2016-12-08 12:07] MED LIST changes: +SODIUM CHLORIDE 0.9% INJ 10 ML SYR IV SCH
[2016-12-08 12:25] VITALS: BP 174/77
[2016-12-08] MEDS ORDERED: VANCOMYCIN HCL 1,000 MG, VIAL MATE ADAPTER 1 EACH in D5W 250 ML IV ONE (13:00)
[2016-12-08] MEDS ORDERED: VANCOMYCIN HCL 500 MG in D5W MINI-BAG PLUS 100 ML IV ONE (14:00)
[2017-02-05] MEDS ORDERED: MORP15TASA PO ×2 (10:33→10:38)
[2017-02-05] MEDS ORDERED: OXYCO5TA PO ×2 (10:33→10:38)
== END 2016-12-08 16:10 | disposition home or self-care (01) ==
LOC: M INFU 12:07 → M MS5PR 12:11 → M INFU 16:10
PROVIDERS: ATTEND Internal Medicine Infectious Disease
DX: M00.859 Arthritis due to other bacteria, unspecified hip (principal); B95.62 Methicillin resistant Staphylococcus aureus infection as the cause of diseases classified elsewhere; E11.621 Type 2 diabetes mellitus with foot ulcer; L97.419 Non-pressure chronic ulcer of right heel and midfoot with unspecified severity; Z79.899 Other long term (current) drug therapy; Z79.4 Long term (current) use of insulin; Z79.891 Long term (current) use of opiate analgesic; Z88.8 Allergy status to other drugs, medicaments and biological substances; Z95.828 Presence of other vascular implants and grafts
CPT/HCPCS: 96365; 96366; J3370

== ENCOUNTER 2016-12-10 13:25 | Outpatient (CLI) | payer MEDICARE, MEDICAID ==
[~2016-12-10] VITALS: Ht 154.9 cm; Wt 107.7 kg
[~2016-12-10 13:25] MED LIST changes: +SODIUM CHLORIDE 0.9% INJ 10 ML SYR IV PRN; -SODIUM CHLORIDE 0.9% INJ 10 ML SYR IV SCH; +VANCOMYCIN HCL 1,500 MG in D5W 500 ML IV ONE
[2016-12-10] MEDS ORDERED: SODIUM CHLORIDE 0.9% INJ 10 ML SYR IV SCH (18:00)
[2017-02-05] MEDS ORDERED: MORP15TASA PO ×2 (10:33→10:38)
[2017-02-05] MEDS ORDERED: OXYCO5TA PO ×2 (10:33→10:38)
== END 2016-12-10 16:15 | disposition home or self-care (01) ==
LOC: M INFU 13:25
PROVIDERS: ATTEND Internal Medicine Infectious Disease
DX: M00.859 Arthritis due to other bacteria, unspecified hip (principal); B95.62 Methicillin resistant Staphylococcus aureus infection as the cause of diseases classified elsewhere; E11.621 Type 2 diabetes mellitus with foot ulcer; L97.419 Non-pressure chronic ulcer of right heel and midfoot with unspecified severity; Z79.899 Other long term (current) drug therapy; Z79.4 Long term (current) use of insulin; Z79.891 Long term (current) use of opiate analgesic; Z88.8 Allergy status to other drugs, medicaments and biological substances; Z95.828 Presence of other vascular implants and grafts
CPT/HCPCS: 96365; 96366; J3370

== ENCOUNTER 2016-12-11 13:51 | Outpatient (CLI) | payer MEDICARE, MEDICAID ==
[~2016-12-11 13:51] MED LIST changes: -SODIUM CHLORIDE 0.9% INJ 10 ML SYR IV PRN; +VANCOMYCIN HCL 1,000 MG, VIAL MATE ADAPTER 1 EACH in D5W 250 ML IV ONE; -VANCOMYCIN HCL 1,500 MG in D5W 500 ML IV ONE
[2016-12-11] MEDS ORDERED: SODIUM CHLORIDE 0.9% INJ 10 ML SYR IV PRN (14:00)
[2016-12-11] MEDS ORDERED: VANCOMYCIN HCL 1,500 MG in D5W 500 ML IV ONE (14:00)
[2016-12-11] MEDS ORDERED: VANCOMYCIN HCL 500 MG in D5W MINI-BAG PLUS 100 ML IV ONE (14:30)
[2016-12-11] MEDS ORDERED: SODIUM CHLORIDE 0.9% INJ 10 ML SYR IV SCH (18:00)
[2017-02-05] MEDS ORDERED: OXYCO5TA PO ×2 (10:33→10:38)
[2017-02-05] MEDS ORDERED: MORP15TASA PO ×2 (10:33→10:38)
== END 2016-12-11 16:35 | disposition home or self-care (01) ==
LOC: M INFU 13:51
PROVIDERS: ATTEND Internal Medicine Infectious Disease
DX: M00.859 Arthritis due to other bacteria, unspecified hip (principal); B95.62 Methicillin resistant Staphylococcus aureus infection as the cause of diseases classified elsewhere; E11.621 Type 2 diabetes mellitus with foot ulcer; L97.419 Non-pressure chronic ulcer of right heel and midfoot with unspecified severity; Z79.899 Other long term (current) drug therapy; Z79.4 Long term (current) use of insulin; Z79.891 Long term (current) use of opiate analgesic; Z88.8 Allergy status to other drugs, medicaments and biological substances; Z95.828 Presence of other vascular implants and grafts
CPT/HCPCS: 96365; 96366; J3370

== ENCOUNTER 2016-12-12 12:48 | Outpatient (CLI) | payer MEDICARE, MEDICAID ==
[~2016-12-12] VITALS: Ht 231.1 cm; Wt 107.7 kg
[~2016-12-12 12:48] MED LIST changes: -VANCOMYCIN HCL 1,000 MG, VIAL MATE ADAPTER 1 EACH in D5W 250 ML IV ONE
[2016-12-12] MEDS ORDERED: SODIUM CHLORIDE 0.9% INJ 10 ML SYR IV PRN (13:00)
[2016-12-12] MEDS ORDERED: VANCOMYCIN HCL 1,500 MG in D5W 500 ML IV ONE (13:00)
[2016-12-12] MEDS ORDERED: SODIUM CHLORIDE 0.9% INJ 10 ML SYR IV SCH (18:00)
[2017-02-05] MEDS ORDERED: MORP15TASA PO ×2 (10:33→10:38)
[2017-02-05] MEDS ORDERED: OXYCO5TA PO ×2 (10:33→10:38)
== END 2016-12-12 15:10 | disposition home or self-care (01) ==
LOC: M INFU 12:48
PROVIDERS: ATTEND Internal Medicine Infectious Disease
DX: M00.859 Arthritis due to other bacteria, unspecified hip (principal); B95.62 Methicillin resistant Staphylococcus aureus infection as the cause of diseases classified elsewhere; E11.621 Type 2 diabetes mellitus with foot ulcer; L97.419 Non-pressure chronic ulcer of right heel and midfoot with unspecified severity; Z79.899 Other long term (current) drug therapy; Z79.4 Long term (current) use of insulin; Z79.891 Long term (current) use of opiate analgesic; Z88.8 Allergy status to other drugs, medicaments and biological substances; Z95.828 Presence of other vascular implants and grafts
CPT/HCPCS: 11042; 11043; 96365; 96366; J3370

== ENCOUNTER 2016-12-14 13:36 | Outpatient (CLI) | payer MEDICARE, MEDICAID ==
[~2016-12-14] VITALS: Ht 154.9 cm; Wt 107.7 kg
[2016-12-14 13:55] VITALS: BP 121/62
[2016-12-14 14:35] LABS: MEAN CORPUSCULAR HEMOGLOBIN 25.5 pg (27.0-33.0); MEAN CORPUSCULAR HGB CONC 31.6 g/dl (32.0-36.5); MEAN CORPUSCULAR VOLUME 80.7 fl (80.0-96.0); RED CELL DISTRIBUTION WIDTH 14.8 % (11.5-14.5); WHITE BLOOD COUNT 13.6 K/mm3 (4.0-10.0)
[2016-12-14] MEDS ORDERED: VANCOMYCIN HCL 1,500 MG in D5W 500 ML IV ONE (15:00)
[2016-12-14 15:27] LABS: CALCIUM LEVEL 8.8 MG/DL (8.5-10.1); CREATININE FOR GFR 1.44 MG/DL (0.55-1.02); GLOMERULAR FILTRATION RATE 41.4 (>58); POTASSIUM SERUM 4.4 MEQ/L (3.5-5.1)
[2016-12-14] MEDS ORDERED: SODIUM CHLORIDE 0.9% INJ 10 ML SYR IV PRN (17:00)
[2016-12-14 17:20] VITALS: BP 121/79
[2016-12-14] MEDS ORDERED: SODIUM CHLORIDE 0.9% INJ 10 ML SYR IV SCH (18:00)
[2017-02-05] MEDS ORDERED: MORP15TASA PO ×2 (10:33→10:38)
[2017-02-05] MEDS ORDERED: OXYCO5TA PO ×2 (10:33→10:38)
== END 2016-12-14 17:25 | disposition home or self-care (01) ==
LOC: M OPCLI4PR 13:36 → M MS4PR 13:42 → M OPCLI4PR 17:25
PROVIDERS: ATTEND Nurse Practitioner Family
DX: M00.859 Arthritis due to other bacteria, unspecified hip (principal); B95.62 Methicillin resistant Staphylococcus aureus infection as the cause of diseases classified elsewhere; E11.621 Type 2 diabetes mellitus with foot ulcer; L97.419 Non-pressure chronic ulcer of right heel and midfoot with unspecified severity; Z79.899 Other long term (current) drug therapy; Z79.4 Long term (current) use of insulin; Z79.891 Long term (current) use of opiate analgesic; Z88.8 Allergy status to other drugs, medicaments and biological substances; Z95.828 Presence of other vascular implants and grafts
CPT/HCPCS: 80048; 80202; 85027; 86140; 96365; 96366; J3370

== ENCOUNTER 2016-12-16 13:37 | Outpatient (CLI) | payer MEDICARE, MEDICAID ==
[~2016-12-16] VITALS: Ht 154.9 cm; Wt 107.7 kg
[2016-12-16] MEDS ORDERED: VANCOMYCIN HCL 2,000 MG in D5W 500 ML IV ONE (14:00)
[2016-12-16] MEDS ORDERED: SODIUM CHLORIDE 0.9% INJ 10 ML SYR IV PRN (14:00)
[2016-12-16] MEDS ORDERED: SODIUM CHLORIDE 0.9% INJ 10 ML SYR IV SCH (18:00)
[2017-02-05] MEDS ORDERED: OXYCO5TA PO ×2 (10:33→10:38)
[2017-02-05] MEDS ORDERED: MORP15TASA PO ×2 (10:33→10:38)
== END 2016-12-16 16:45 | disposition home or self-care (01) ==
LOC: M INFU 13:37
PROVIDERS: ATTEND Internal Medicine Infectious Disease
DX: M00.859 Arthritis due to other bacteria, unspecified hip (principal); B95.62 Methicillin resistant Staphylococcus aureus infection as the cause of diseases classified elsewhere; E11.621 Type 2 diabetes mellitus with foot ulcer; L97.419 Non-pressure chronic ulcer of right heel and midfoot with unspecified severity; Z79.899 Other long term (current) drug therapy; Z79.4 Long term (current) use of insulin; Z79.891 Long term (current) use of opiate analgesic; Z88.8 Allergy status to other drugs, medicaments and biological substances; Z95.828 Presence of other vascular implants and grafts
CPT/HCPCS: 96365; 96366; J3370

== ENCOUNTER 2016-12-17 13:50 | Outpatient (CLI) | payer MEDICARE, MEDICAID ==
[2016-12-17] MEDS ORDERED: VANCOMYCIN HCL 2,000 MG in D5W 500 ML IV ONE (14:00)
[2016-12-17] MEDS ORDERED: SODIUM CHLORIDE 0.9% INJ 10 ML SYR IV PRN (14:45)
[2016-12-17] MEDS ORDERED: SODIUM CHLORIDE 0.9% INJ 10 ML SYR IV SCH (18:00)
[2017-02-05] MEDS ORDERED: OXYCO5TA PO ×2 (10:33→10:38)
[2017-02-05] MEDS ORDERED: MORP15TASA PO ×2 (10:33→10:38)
== END 2016-12-17 16:30 | disposition home or self-care (01) ==
LOC: M INFU 13:50
PROVIDERS: ATTEND Internal Medicine Infectious Disease
DX: M00.859 Arthritis due to other bacteria, unspecified hip (principal); B95.62 Methicillin resistant Staphylococcus aureus infection as the cause of diseases classified elsewhere; E11.621 Type 2 diabetes mellitus with foot ulcer; L97.419 Non-pressure chronic ulcer of right heel and midfoot with unspecified severity; Z79.899 Other long term (current) drug therapy; Z79.4 Long term (current) use of insulin; Z79.891 Long term (current) use of opiate analgesic; Z88.8 Allergy status to other drugs, medicaments and biological substances; Z95.828 Presence of other vascular implants and grafts
CPT/HCPCS: 96365; 96366; J3370

== ENCOUNTER 2016-12-18 12:57 | Outpatient (CLI) | payer MEDICARE, MEDICAID ==
[~2016-12-18] VITALS: Ht 167.6 cm; Wt 107.7 kg
[2016-12-18] MEDS ORDERED: VANCOMYCIN HCL 2,000 MG in D5W 500 ML IV ONE (13:30)
[2016-12-18] MEDS ORDERED: SODIUM CHLORIDE 0.9% INJ 10 ML SYR IV PRN (14:00)
[2016-12-18] MEDS ORDERED: SODIUM CHLORIDE 0.9% INJ 10 ML SYR IV SCH (18:00)
[2017-02-05] MEDS ORDERED: MORP15TASA PO ×2 (10:33→10:38)
[2017-02-05] MEDS ORDERED: OXYCO5TA PO ×2 (10:33→10:38)
== END 2016-12-18 16:00 | disposition home or self-care (01) ==
LOC: M INFU 12:57
PROVIDERS: ATTEND Internal Medicine Infectious Disease
DX: M00.859 Arthritis due to other bacteria, unspecified hip (principal); B95.62 Methicillin resistant Staphylococcus aureus infection as the cause of diseases classified elsewhere; E11.621 Type 2 diabetes mellitus with foot ulcer; L97.419 Non-pressure chronic ulcer of right heel and midfoot with unspecified severity; Z79.899 Other long term (current) drug therapy; Z79.4 Long term (current) use of insulin; Z79.891 Long term (current) use of opiate analgesic; Z88.8 Allergy status to other drugs, medicaments and biological substances; Z95.828 Presence of other vascular implants and grafts
CPT/HCPCS: 36415; 80202; 96365; 96366; J3370

== ENCOUNTER 2016-12-19 15:08 | Outpatient (CLI) | payer MEDICARE, MEDICAID ==
[~2016-12-19] VITALS: Ht 154.9 cm; Wt 100.0 kg
[~2016-12-19 15:08] MED LIST changes: +SODIUM CHLORIDE 0.9% INJ 10 ML SYR IV PRN
[2016-12-19 15:35] VITALS: BP 172/72
[2016-12-19] MEDS: VANCOMYCIN HCL 750 MG, VIAL MATE ADAPTER 1 EACH in D5W 250 ML IV SCH ×2 (15:52→16:59)
[2016-12-19 18:00] VITALS: BP 154/74
[2016-12-19] MEDS ORDERED: SODIUM CHLORIDE 0.9% INJ 10 ML SYR IV SCH (18:00)
[2017-02-05] MEDS ORDERED: OXYCO5TA PO ×2 (10:33→10:38)
[2017-02-05] MEDS ORDERED: MORP15TASA PO ×2 (10:33→10:38)
== END 2016-12-19 18:30 | disposition home or self-care (01) ==
LOC: M INFU 15:08 → M MS5PR 15:10 → M INFU 18:30
PROVIDERS: ATTEND Internal Medicine Infectious Disease
DX: M00.859 Arthritis due to other bacteria, unspecified hip (principal); B95.62 Methicillin resistant Staphylococcus aureus infection as the cause of diseases classified elsewhere; E11.621 Type 2 diabetes mellitus with foot ulcer; L97.419 Non-pressure chronic ulcer of right heel and midfoot with unspecified severity; Z79.899 Other long term (current) drug therapy; Z79.4 Long term (current) use of insulin; Z79.891 Long term (current) use of opiate analgesic; Z88.8 Allergy status to other drugs, medicaments and biological substances
CPT/HCPCS: 11042; 96374; J3370

== ENCOUNTER 2016-12-20 12:47 | Outpatient (CLI) | payer MEDICARE, MEDICAID ==
[~2016-12-20 12:47] MED LIST changes: -SODIUM CHLORIDE 0.9% INJ 10 ML SYR IV PRN
[2016-12-20 13:26] LABS: MEAN CORPUSCULAR HEMOGLOBIN 25.2 pg (27.0-33.0); MEAN CORPUSCULAR HGB CONC 31.7 g/dl (32.0-36.5); MEAN CORPUSCULAR VOLUME 79.4 fl (80.0-96.0); RED CELL DISTRIBUTION WIDTH 15.3 % (11.5-14.5); WHITE BLOOD COUNT 8.9 K/mm3 (4.0-10.0)
[2016-12-20] MEDS ORDERED: VANCOMYCIN HCL 1,500 MG in D5W 500 ML IV ONE (13:30)
[2016-12-20 14:11] LABS: CREATININE FOR GFR 1.2 MG/DL (0.55-1.02); POTASSIUM SERUM 4.3 MEQ/L (3.5-5.1)
[2016-12-20 14:12] LABS: CALCIUM LEVEL 8.9 MG/DL (8.5-10.1)
[2016-12-20] MEDS ORDERED: SODIUM CHLORIDE 0.9% INJ 10 ML SYR IV PRN (16:15)
[2016-12-20] MEDS ORDERED: SODIUM CHLORIDE 0.9% INJ 10 ML SYR IV SCH (18:00)
[2017-02-05] MEDS ORDERED: OXYCO5TA PO ×2 (10:33→10:38)
[2017-02-05] MEDS ORDERED: MORP15TASA PO ×2 (10:33→10:38)
== END 2016-12-20 16:00 | disposition home or self-care (01) ==
LOC: M INFU 12:47
PROVIDERS: ATTEND Internal Medicine Infectious Disease
DX: M00.859 Arthritis due to other bacteria, unspecified hip (principal); B95.62 Methicillin resistant Staphylococcus aureus infection as the cause of diseases classified elsewhere; E11.621 Type 2 diabetes mellitus with foot ulcer; L97.419 Non-pressure chronic ulcer of right heel and midfoot with unspecified severity; Z79.899 Other long term (current) drug therapy; Z79.4 Long term (current) use of insulin; Z79.891 Long term (current) use of opiate analgesic; Z88.8 Allergy status to other drugs, medicaments and biological substances; Z95.828 Presence of other vascular implants and grafts
CPT/HCPCS: 80048; 80202; 85027; 86140; 96365; 96366; J3370

== ENCOUNTER 2016-12-21 14:22 | Outpatient (CLI) | payer MEDICARE, MEDICAID ==
[2016-12-21] MEDS ORDERED: VANCOMYCIN HCL 1,000 MG, VIAL MATE ADAPTER 1 EACH in D5W 250 ML IV ONE (14:45)
[2016-12-21] MEDS ORDERED: VANCOMYCIN HCL 500 MG in D5W MINI-BAG PLUS 100 ML IV ONE (15:45)
[2017-02-05] MEDS ORDERED: OXYCO5TA PO ×2 (10:33→10:38)
[2017-02-05] MEDS ORDERED: MORP15TASA PO ×2 (10:33→10:38)
== END 2016-12-21 18:21 | disposition home or self-care (01) ==
LOC: M INFU 14:22 → M MS5PR 14:26 → M INFU 18:21
PROVIDERS: ATTEND Nurse Practitioner Family
DX: M00.859 Arthritis due to other bacteria, unspecified hip (principal); B95.62 Methicillin resistant Staphylococcus aureus infection as the cause of diseases classified elsewhere; E11.621 Type 2 diabetes mellitus with foot ulcer; L97.419 Non-pressure chronic ulcer of right heel and midfoot with unspecified severity; Z79.899 Other long term (current) drug therapy; Z79.4 Long term (current) use of insulin; Z79.2 Long term (current) use of antibiotics; Z79.891 Long term (current) use of opiate analgesic; Z88.8 Allergy status to other drugs, medicaments and biological substances; Z95.828 Presence of other vascular implants and grafts
CPT/HCPCS: 96374; J3370

== ENCOUNTER 2016-12-22 14:04 | Outpatient (CLI) | payer MEDICARE, MEDICAID ==
[2016-12-22] MEDS ORDERED: VANCOMYCIN HCL 500 MG in D5W MINI-BAG PLUS 100 ML IV ONE (15:30)
[2016-12-22] MEDS ORDERED: VANCOMYCIN HCL 1,000 MG, VIAL MATE ADAPTER 1 EACH in D5W 250 ML IV ONE (16:30)
[2016-12-22] MEDS ORDERED: SODIUM CHLORIDE 0.9% INJ 10 ML SYR IV SCH (19:00)
[2017-02-05] MEDS ORDERED: OXYCO5TA PO ×2 (10:33→10:38)
[2017-02-05] MEDS ORDERED: MORP15TASA PO ×2 (10:33→10:38)
== END 2016-12-22 19:30 | disposition home or self-care (01) ==
LOC: M INFU 14:04 → M MS5PR 14:06 → M INFU 19:30
PROVIDERS: ATTEND Nurse Practitioner Family
DX: M00.859 Arthritis due to other bacteria, unspecified hip (principal); B95.62 Methicillin resistant Staphylococcus aureus infection as the cause of diseases classified elsewhere; E11.621 Type 2 diabetes mellitus with foot ulcer; L97.419 Non-pressure chronic ulcer of right heel and midfoot with unspecified severity; Z79.899 Other long term (current) drug therapy; Z79.4 Long term (current) use of insulin; Z79.891 Long term (current) use of opiate analgesic; Z88.8 Allergy status to other drugs, medicaments and biological substances; Z95.828 Presence of other vascular implants and grafts
CPT/HCPCS: 96374; J3370

== ENCOUNTER 2016-12-23 12:45 | Outpatient (CLI) | payer MEDICARE, MEDICAID ==
[~2016-12-23] VITALS: Ht 154.9 cm; Wt 107.7 kg
[2016-12-23] MEDS ORDERED: SODIUM CHLORIDE 0.9% INJ 10 ML SYR IV PRN (13:30)
[2016-12-23] MEDS ORDERED: VANCOMYCIN HCL 500 MG in D5W MINI-BAG PLUS 100 ML IV ONE (13:45)
[2016-12-23] MEDS ORDERED: VANCOMYCIN HCL 1,000 MG, VIAL MATE ADAPTER 1 EACH in D5W 250 ML IV ONE (13:45)
[2016-12-23] MEDS ORDERED: FUROSEMIDE 20 MG TAB PO ONE (16:45)
[2016-12-23] MEDS ORDERED: SODIUM CHLORIDE 0.9% INJ 10 ML SYR IV SCH (18:00)
--- NOTE | 2016-12-23 21:17 | IPN ---
DATE: 12/23/2016 This is an outpatient visit at the infusion unit. Kathryn has finished six week course of IV vancomycin for septic arthritis of the right hip, culture positive for methicillin resistant Staphylococcus aureus (MRSA). She is doing much better. Hip pain has markedly improved. She denies any nausea, vomiting, diarrhea, fever or chills. She has concerns regarding her ulcer of the right ankle. She was seen by Dr. Munoz, who wanted her to be offloading but she could not do that as the patient has been coming to the infusion unit for the past 6 weeks. Peripherally inserted central catheter (PICC) line has not been a problem. LABORATORY DATA: C-reactive protein was 7.98 two weeks ago and on 12/20 was 1.22. Basic profile: Glucose 153, BUN 20, creatinine 1.2, GFR 51, sodium 143, potassium 4.3, chloride 109, bicarbonate 27, calcium 8.9. Vancomycin trough was 18.9 on 12/20 and her dose was decreased to 1.5 grams daily, which she has been doing well with. The patient was seen today. Vital signs are stable. HEART: Normal S1, S2. No murmurs, rubs or gallops. LUNGS: Clear. No wheezes, rales or rhonchi. ABDOMEN: Soft, obese, nontender. EXTREMITIES: Right heel has a diabetic foot ulcer , mild tenderness, some brownish discoloration on the dressing. +1 ankle edema bilaterally all the way to the knees. Hip with normal range of motion. No pain. No tenderness. Left ankle ulcer has healed. IMPRESSION: 1. MRSA septic arthritis of the right hip. Has finished a 6-week course of IV vancomycin and CRP is down to 1.2. The PICC line will be discontinued. Vancomycin will be stopped. 2. Diabetic foot ulcer of the right foot. Since she has not been able to off load, has increased in size. The patient follows up with the wound clinic. 3. Pedal edema. The patient will resume Lasix 20 mg daily. 4. History of coronary artery disease. The patient has run out of Plavix and does not have a primary care provider and asked me to give her a refill as she has a history of multiple stents placed, 75 mg daily was sent to [facility]. PLAN patient will need followup appointment to see me in my office in 4 weeks. Discontinue IV vancomycin. Wound culture was done from the diabetic foot ulcer of the right heel and she will be called with results of the culture. She also need to follow up with primary care TENA NICHOLS
[2017-02-05] MEDS ORDERED: OXYCO5TA PO ×2 (10:33→10:38)
[2017-02-05] MEDS ORDERED: MORP15TASA PO ×2 (10:33→10:38)
== END 2016-12-23 16:50 | disposition home or self-care (01) ==
LOC: M INFU 12:45
PROVIDERS: ATTEND Internal Medicine Infectious Disease
DX: M00.859 Arthritis due to other bacteria, unspecified hip (principal); B95.62 Methicillin resistant Staphylococcus aureus infection as the cause of diseases classified elsewhere; R60.0 Localized edema; E11.621 Type 2 diabetes mellitus with foot ulcer; L97.419 Non-pressure chronic ulcer of right heel and midfoot with unspecified severity; I25.10 Atherosclerotic heart disease of native coronary artery without angina pectoris; Z79.899 Other long term (current) drug therapy; Z79.2 Long term (current) use of antibiotics; Z79.4 Long term (current) use of insulin; Z79.891 Long term (current) use of opiate analgesic; Z88.8 Allergy status to other drugs, medicaments and biological substances; Z95.828 Presence of other vascular implants and grafts; Z95.5 Presence of coronary angioplasty implant and graft
CPT/HCPCS: 36415; 87070; 87077; 87186; 87205; 96365; 96366; J3370

== ENCOUNTER → 2017-01-08 | Outpatient (REF) | payer MEDICARE, MEDICAID ==
[~2017-01-08] MED LIST changes: +ADVI200T26 PO; +FURO40TA2 PO; +GLIP1TAB51 PO; +LASI40TA PO; +MIRA33504 PO; +NOVOINJ3 SC; +OXYCO5TA PO
== END ==
LOC: M LAB REF 11:43
PROVIDERS: ATTEND Surgery
DX: E11.9 Type 2 diabetes mellitus without complications (principal)

== ENCOUNTER → 2017-01-15 | Outpatient (REF) | payer MEDICARE, MEDICAID ==
[~2017-01-15] MED LIST changes: -LASI40TA PO
[2017-01-15 15:58] LABS: CALCIUM LEVEL 8.4 MG/DL (8.5-10.1); CREATININE FOR GFR 1.23 MG/DL (0.55-1.02); GLOMERULAR FILTRATION RATE 49.6 (>58); POTASSIUM SERUM 4.1 MEQ/L (3.5-5.1)
[2017-01-15 17:49] LABS: BASO # 0.1 K/mm3 (0.0-0.2); BASO % 0.9 % (0.0-1.0); EOS # 0.4 K/mm3 (0.0-0.50); LARGE UNSTAINED CELL # 0.2 K/mm3 (0.0-0.4); LARGE UNSTAINED CELL % 2.9 % (0.0-4.0); LYMPH # 1.7 K/mm3 (1.5-4.5); LYMPH % 23.4 % (24.0-44.0); MEAN CORPUSCULAR HEMOGLOBIN 24.7 pg (27.0-33.0); MEAN CORPUSCULAR HGB CONC 31.8 g/dl (32.0-36.5); MEAN CORPUSCULAR VOLUME 77.8 fl (80.0-96.0); MONO # 0.8 K/mm3 (0.0-0.8); MONO % 10.7 % (0.0-5.0); NEUTROPHILS # 4.1 K/mm3 (1.8-7.7); PLATELET COUNT, AUTOMATED 180 k/mm3 (150-450); RED CELL DISTRIBUTION WIDTH 15.7 % (11.5-14.5); WHITE BLOOD COUNT 7.3 K/mm3 (4.0-10.0)
[2017-01-15 18:53] LABS: ERYTHROCYTE SEDIMENTATION RATE 43 mm/hr (0-20)
== END ==
LOC: M SHH 14:30
PROVIDERS: ATTEND Internal Medicine Infectious Disease
DX: I50.9 Heart failure, unspecified (principal); B95.61 Methicillin susceptible Staphylococcus aureus infection as the cause of diseases classified elsewhere

== ENCOUNTER 2017-01-27 14:34 | Inpatient (IN) | payer MEDICARE, MEDICAID ==
[~2017-01-27] VITALS: Ht 165.1 cm; Wt 95.9 kg
[~2017-01-27 14:34] MED LIST changes: -ADVI200T26 PO; -FURO40TA2 PO; -GLIP1TAB51 PO; -LASI40TA PO; -MIRA33504 PO; -NOVOINJ3 SC; -OXYCO5TA PO
[2017-01-27] MEDS ORDERED: GLIP1TAB51 PO (14:57)
[2017-01-27] MEDS ORDERED: FURO40TA2 PO (14:57)
[2017-01-27] MEDS ORDERED: NITR4TASL SL (14:57)
[2017-01-27] MEDS ORDERED: ADVI200T26 PO (14:57)
[2017-01-27] MEDS ORDERED: ROBA750T4 PO (14:57)
[2017-01-27] MEDS ORDERED: PLAV1TAB2 PO (14:57)
[2017-01-27] MEDS ORDERED: INSUH10VL SC (14:57)
[2017-01-27] MEDS ORDERED: INSUDET SC ×2 (14:57)
[2017-01-27] MEDS ORDERED: ATOR40TA75 PO (14:57)
[2017-01-27] MEDS ORDERED: ALBU17IN2 INH (14:57)
[2017-01-27] MEDS ORDERED: NS 1,000 ML IV SCH ×2 (16:49→21:15)
[2017-01-27 18:07] LABS: BASO % 0.2 % (0.0-1.0); EOS % 0.3 % (0.0-3.0); LARGE UNSTAINED CELL # 0.2 K/mm3 (0.0-0.4); LARGE UNSTAINED CELL % 1.4 % (0.0-4.0); LYMPH # 1.7 K/mm3 (1.5-4.5); LYMPH % 11.2 % (24.0-44.0); MEAN CORPUSCULAR HEMOGLOBIN 24.4 pg (27.0-33.0); MEAN CORPUSCULAR HGB CONC 32.6 g/dl (32.0-36.5); MEAN CORPUSCULAR VOLUME 74.8 fl (80.0-96.0); MONO # 0.7 K/mm3 (0.0-0.8); MONO % 4.9 % (0.0-5.0); NEUTROPHILS # 12.3 K/mm3 (1.8-7.7); NEUTROPHILS % 81.9 % (36.0-66.0); PLATELET COUNT, AUTOMATED 426 k/mm3 (150-450); RED CELL DISTRIBUTION WIDTH 16.3 % (11.5-14.5)
--- NOTE | 2017-01-27 18:11 | REP ---
CT brain without contrast: History: Altered mental status. Comparison study: September 16, 2016. Findings: Digital lateral bellows charger assembler radiograph demonstrates that the patient is edentulous. Bony calvarium is intact. Bone window settings show no bony destructive lesion or skull fracture. Visualized paranasal sinuses are clear. No intraorbital abnormality is seen. On soft-tissue window settings, there is mild diffuse cerebral atrophy again noted, unchanged. There is no evidence of intracranial hemorrhage. No infarct, mass, extra-axial fluid collection or midline shift is seen. Fernandez/white differentiation pattern is normal. Impression: Diffuse mild cerebral atrophy again noted, unchanged. No acute intracranial abnormality. Signed by Glen Barksdale MD 01/27/2017 06:56 P
[2017-01-27 18:24] LABS: CONTROL LINE HCG INT CTR LINE PRESENT
[2017-01-27 18:29] LABS: METHADONE URINE NEGATIVE (NEGATIVE)
[2017-01-27 18:31] LABS: MAGNESIUM LEVEL 2.4 MG/DL (1.8-2.4); PHOSPHORUS LEVEL 2.9 MG/DL (2.5-4.9)
[2017-01-27 18:35] LABS: ALBUMIN 3.5 GM/DL (3.2-5.2); ALKALINE PHOSPHATASE 135 U/L (45-117); ALT/SGPT 16 U/L (12-78); ANION GAP 9 MEQ/L (8-16); AST/SGOT 31 U/L (15-37); BILIRUBIN,DIRECT 0.2 MG/DL (0.0-0.2); BILIRUBIN,TOTAL 0.5 MG/DL (0.2-1.0); BLOOD UREA NITROGEN 30 MG/DL (7-18); CALCIUM LEVEL 9.1 MG/DL (8.5-10.1); CARBON DIOXIDE LEVEL 28 MEQ/L (21-32); CHLORIDE LEVEL 105 MEQ/L (98-107); CREATININE FOR GFR 1.47 MG/DL (0.55-1.02); GLOMERULAR FILTRATION RATE 40.4 (>58); GLUCOSE, FASTING 217 MG/DL (70-105); POTASSIUM SERUM 4.4 MEQ/L (3.5-5.1); SODIUM LEVEL 142 MEQ/L (136-145); TOTAL PROTEIN 7.9 GM/DL (6.4-8.2)
--- NOTE | 2017-01-27 20:02 | REP ---
Chest x-ray: Three views. History: Altered mental status. Comparison chest x-ray: December 02, 2016. Findings: EKG monitoring electrodes overlie the chest. A dorsal column stimulator is seen overlying the thoracic spine. Median sternotomy wires are seen. The heart is mildly enlarged, unchanged. Pulmonary vasculature is not increased. Lung jaime are clear. Pleural angles are sharp. Impression: Mild cardiomegaly. Prior sternotomy and thoracic dorsal column stimulator noted. No acute disease. Signed by Glen Barksdale MD 01/27/2017 08:07 P
--- NOTE | 2017-01-27 20:07 | ECGEPIP ---
Stationary ECG Study [facility] - ED Test Date: 2017-01-27 Pat Name: ANDI HORVATH Department: Room: - Gender: F [employer]ist: fredo : 1970 Requested By: DERIK Enciso Order Number: [id number] Reading MD: Chente Dozier Measurements Intervals [place] Rate: 68 P: 33 WI: 170 QRS: 76 QRSD: 95 T: 31 QT: 413 QTc: 440 Interpretive Statements SINUS RHYTHM NONSPECIFIC T-WAVE ABNORMALITY Electronically Signed On 01-27-2017 20:07:18 EDT by Chente Dozier
[2017-01-27] MEDS ORDERED: cefTRIAXone SOD 1 GM in D5W MINI-BAG PLUS 50 ML IV ONE (20:15)
[2017-01-27] MEDS ORDERED: SANT250O8 TOP (21:01)
[2017-01-27] MEDS ORDERED: MIRA33504 PO (21:01)
[2017-01-27] MEDS ORDERED: AMLO10TA2 PO (21:01)
[2017-01-27] MEDS ORDERED: BACL10TA2 PO (21:01)
[2017-01-27] MEDS ORDERED: DEXTROSE 50% 50 ML SYRINGE IV PRN (21:15)
[2017-01-27] MEDS ORDERED: METHOCARBAMOL 750 MG TAB PO PRN (21:15)
[2017-01-27] MEDS ORDERED: GLUCAGON FOR INJ 1 MG VIAL (J1610) SC PRN (21:15)
[2017-01-27] MEDS ORDERED: ONDANSETRON 4MG/2ML VIAL (J2405) IV PRN (21:15)
[2017-01-27] MEDS ORDERED: NITROGLYCERIN 0.4 MG SUBL TABLET SL PRN (21:15)
[2017-01-27] MEDS ORDERED: ALBUTEROL 90 MCG/ACT 8GM HFA INHALER INH PRN (21:15)
[2017-01-27] MEDS ORDERED: GLUCOSE 4 GM CHEW TABLET PO PRN (21:15)
[2017-01-27 22:54] LABS: FREE T4 1.07 NG/DL (0.76-1.46)
--- NOTE | 2017-01-27 22:56 | HPEPDOC ---
Medical History and Physical History and Physical Primary care provider: Dr. Rosita Gutierrez Date of Admission: 01/27/2017 Attending: Dr. Ramona Diaz CHIEF COMPLAINT: Altered mental status HISTORY OF PRESENT ILLNESS: The patient was accompanied in the room by her mother and another family member , I believe it is her brother. They provide some of the history as well. Apparently she was in her usual state of health until earlier this morning when she was difficult to arouse, her mother stated that she was very lethargic and difficult to talk to. They did have an appointment at the pain clinic today, therefore they went to be seen and evaluated by her doctor there who upon seeing the patient immediately recommended that she go to the emergency department. Therefore presented to the emergency department. By the time the hospitalists were called to perform at admission, her mental status had already improved, and the patient reports that she is feeling quite well at this time. She believes that her altered mental status was due to a low blood sugar which was found to be in the low 200s, she states that she usually runs in the 400s and 500s, and when he gets into the low 200s she definitely can feel it. Otherwise, she denies any recent illnesses, no fevers, chills, night sweats, or recent weight changes. She was given 1 dose of Rocephin in the emergency department due to a questionable urinalysis, her urine was sent for culture as well. Regrettably blood cultures were not obtained until after antibiotics were administered. She does not have fever recorded in the emergency department either. Because of her altered mental status she has not taken any of her medications yet today , the last time she took medications was Friday evening 01/26/2017. ALLERGIES: Aspirin, statins PAST MEDICAL HISTORY: Urinary retention, likely neurogenic bladder. She has to self catheterize herself twice a day. Asthma Chronic constipation Coronary artery disease status post coronary artery bypass graft and stents Obesity Chronic low back pain with narcotic dependency Depression Hypertension Diabetes mellitus type 2, with use of chronic insulin History of lumbar vertebral surgery Peripheral neuropathy and loss of sensation in both lower extremities Chronic bilateral diabetic foot ulcers for which she is being followed by Dr. Munoz History of sacral pressure injuries, currently healed Gait instability and difficulty walking, requiring a walker at home Obstructive sleep apnea Spinal column stimulator Spinal canal stenosis PAST SURGICAL HISTORY: 1. section 3 2. Coronary artery bypass grafting 4 vessels 3. Cardiac catheterization with stents 4. Appendectomy 5. Lumbar surgery 6. Dorsal column stimulator 7. Tonsillectomy SOCIAL HISTORY: She is disabled, she lives at home with her mother. Apparently she does have a mild learning disability and cognitive impairment. She denies smoking, alcohol use, or recreational drug use. FAMILY HISTORY: Her mother has diabetes, hypertension, and heart disease. REVIEW OF SYSTEMS: Constitutional: Patient denies fevers, chills, night sweats, recent weight gain/ loss. HEENT: Patient denies blurred or double vision, transient visual disturbances, postnasal drip, epistaxis, sore throat, difficulty chewing or swallowing food. Cardiovascular: Patient denies chest discomfort/pain, palpitations, exertional dyspnea, orthopnea, edema of the extremities, claudication. Respiratory: Patient denies dyspnea, wheezing, cough, hemoptysis, sputum production. Gastrointestinal: Patient denies nausea, vomiting, diarrhea, constipation, abdominal pain, melena, hematochezia, hematemesis, jaundice. Genitourinary: Patient denies any frequency, urgency, burning with urination, bladder pressure or discomfort in the suprapubic area. She states that she has to self cath herself twice a day. PHYSICAL EXAMINATION: Vitals: Temperature 99.2, pulse 68, respiratory rate 16, blood pressure 189/81, pulse oximetry 95% on room air General: Awake, alert, oriented 3. She does not appear to be in any acute distress at this time. She is sitting upright in the bed. She is able to ambulate to the restroom using her walker. HEENT: Head normocephalic atraumatic, conjunctiva are pink, sclera are nonicteric, buccal mucosa is pink and moist with no lesions in the oropharynx. Hearing is grossly intact to conversation. Respiratory: Clear to auscultation bilaterally with no wheezes, rales, or rhonchi. Cardiovascular: Regular rate and rhythm, with no rubs, gallops, or murmur. A large midline sternotomy scar noted Abdomen: Soft, nontender, nondistended, no hepatosplenomegaly appreciated. Bowel sounds present. Extremities: 2+ pulses in the radial and dorsalis pedis bilaterally. No evidence of clubbing or cyanosis. Left foot has a healed ulcer just inferior to the medial malleolus, she does have a small abrasion superior to the medial malleolus as well. Right foot has a large ulcer on the medial side of the calcaneus approximately 2.5 cm, apparently this was just debrided a few days ago and has been having some seepage into the bandage since that time, and does have some serosanguineous drainage into the bandage at this time as well. ELECTROCARDIOGRAM: Sinus rhythm with nonspecific T-wave abnormality noted, no change from previous IMAGING: CT of the brain without contrast, impression: Diffuse mild cerebral atrophy again noted, unchanged. No acute intracranial abnormality. Chest x-ray PA and lateral shows mild cardiomegaly however no acute disease. ASSESSMENT/PLAN: 1. Altered mental status: Apparently this has resolved, however we feel that it would be in her best interest to stay overnight for further monitoring, as there is no clear etiology for this. She does have a leukocytosis with a questionable urinalysis, therefore she was treated with Rocephin in the emergency department. 2. Acute Kidney Injury: She does not have any symptoms of a urinary tract infection at this time, however she does have a leukocytosis and a small amount of bacteria and positive nitrates in her urinalysis, therefore she was given 1 dose of Rocephin in the emergency department. She also does self cath herself twice a day due to a neurogenic bladder, and because of her altered mental status she has not done this all day, therefore this may also be the cause of her worsening renal function. Bladder scan and catheterization was ordered in the emergency department. We will catheter twice a day as usual, but we will also bladder scan her an additional time in the middle of the day just to verify that she is not feeling up too soon, and we will be able to know if she needs to increase the frequency with which she performs self-catheterization. We will recheck a BMP in the morning to verify if renal function has improved with the aforementioned treatments. 3. Diabetes mellitus type 2. Apparently she is extremely poorly controlled, stating that her usual sugars are in the 400s to 500s. We will continue with her home dose of Levemir and will hold her home oral meds, and put her on sliding scale insulin before meals and at bedtime. Per the patient she becomes symptomatic of hypoglycemia even in the 200s, therefore we may need to use a hypoglycemic protocol based on symptomatology rather than just her glucose reading alone. 4. Congestive heart failure, unknown whether this is systolic or diastolic. Per medical records and her history apparently she does have congestive heart failure, given the fact that she has had a CABG surgery with a large midline anterior sternotomy, I suspect that this is true. She does not have any record of an echo in [facility], nor is there any record of this in [facility] either , and there are no records from her chart calculator there either. We will order an echocardiogram at this time. 5. Hypertension: She did have a few high readings while in the emergency department, however it was determined that the cuff was sliding down over her elbow, and it was repositioned she had a better blood pressure. She is also not had any of her medications for the past 24 hours. We will restart her home medication of carvedilol and Norvasc and continue to monitor throughout her stay. Will hold Lasix and lisinopril at this time as they are nephrotoxic. 6. Low TSH: Apparently she has had a low TSH since 2012, a free T4 has been ordered. 7. Leukocytosis: With the absence of any infectious symptomatology such as fevers, chills, or night sweats, and her ulcer does not have any as surrounding or purulent discharge, her isolated leukocytosis may be more of a stress reaction. She did receive a dose of antibiotics for a suspected urinary tract infection as indicated above. An ESR and CRP have been ordered and are still pending at the time of this dictation. 8. Anemia of chronic disease: She has multiple comorbidities and extensive medical history. Iron studies were performed in November 2016 indicating anemia, low iron, a low TIBC, low transferrin percent saturation, and a normal ferritin. 9. Elevated creatinine kinase: It appears that she has had rhabdomyolysis in the past, although her history of present illness for this visit would not suggest this, fluids are being administered at this time both for her worsening renal function and her elevated CK, we will recheck her level in the morning. 10. Elevated alkaline phosphatase. This is chronic in nature and has been elevated for approximately the past 1 year. She is actually improved today since November, and is only slightly above the upper limits of normal. 11. Chronic low back pain: Continue with home regimen of analgesics 12. Depression: Continue with home dose of duloxetine 13. Bilateral lower extremity diabetic foot ulcers. Continue with wound care and dressing changes per her usual home regimen. She may follow up with Dr. Munoz on an outpatient basis My preceptor for this patient encounter was physically present in the building during the encounter and was fully available. As needed, all aspects of the patient interview, examination, medical decision making process, and medical care plan development were reviewed and approved by the preceptor. Preceptor is aware and concurs with the plan as stated in the body of this note and will attest to such by his/her cosignature. Vital Signs Vital Signs Date Time Temp Pulse Resp B/P (MAP) Pulse Ox O2 Delivery O2 Flow Rate FiO2 01/27/17 19:04 68 95 01/27/17 18:58 189/81 (117) 01/27/17 14:34 99.2 16 Room Air Laboratory Data Labs 24H Laboratory Tests 2 01/27/17 17:48: White Blood Count 15.0H, Red Blood Count 4.44, Hemoglobin 10.8L, Hematocrit 33.2L, Mean Corpuscular Volume 74.8L, Mean Corpuscular Hemoglobin 24.4L, Mean Corpuscular Hemoglobin Concent 32.6, Red Cell Distribution Width 16.3H, Platelet Count 426, Neutrophils (%) (Auto) 81.9H, Lymphocytes (%) (Auto) 11.2L, Monocytes (%) (Auto) 4.9, Eosinophils (%) (Auto) 0.3, Basophils (%) (Auto) 0.2, Neutrophils # (Auto) 12.3H, Lymphocytes # (Auto) 1.7, Monocytes # (Auto) 0.7, Eosinophils # (Auto) 0.0, Basophils # (Auto) 0.0, Large Unclassified Cells % 1.4 , Large Unclassified Cells # 0.2, Urine Appearance CLEAR, Urine Color KINDRA, Urine pH 6.0, Urine Specific Thorp 1.006, Urine Protein NEGATIVE, Urine Glucose (UA) NEGATIVE, Urine Ketones NEGATIVE, Urine Urobilinogen 0.2, Urine Bilirubin NEGATIVE, Urine Leukocyte Esterase NEGATIVE, Urine Blood 1+H, Urine Nitrite POSITIVE, Urine WBC (Auto) 1, Urine RBC (Auto) 2, Urine Hyaline Casts ( Auto) 0, Urine Bacteria (Auto) 1+H, Urine Squamous Epithelial Cells 1, Urine Sperm (Auto) , Anion Gap 9, Glomerular Filtration Rate 40.4L, Calcium Level 9.1 , Phosphorus Level 2.9, Magnesium Level 2.4, Aspartate Amino Transf (AST/SGOT) 31, Alanine Aminotransferase (ALT/SGPT) 16, Alkaline Phosphatase 135H, Total Bilirubin 0.5, Direct Bilirubin 0.2, Total Creatine Kinase 907H, Creatine Kinase MB 16.8H, Creatine Kinase MB Relative Index 1.85, Troponin I 0.02, Total Protein 7.9, Albumin 3.5, Albumin/Globulin Ratio 0.80L, Thyroid Stimulating Hormone (TSH) 0.259L, Human Chorionic Gonadotropin, Qual NEGATIVE, Urine Amphetamines Screen NEGATIVE, Urine Benzodiazepines Screen NEGATIVE, Urine Opiates Screen POSITIVEH, Urine Methadone Screen NEGATIVE, Urine Barbiturates Screen NEGATIVE, Urine Phencyclidine Screen NEGATIVE, Urine Cocaine Metabolite Screen NEGATIVE, Urine Cannabinoids Screen NEGATIVE CBC/BMP Laboratory Tests 01/27/17 17:48 Red Blood Count 4.44, Mean Corpuscular Volume 74.8 L, Mean Corpuscular Hemoglobin 24.4 L, Mean Corpuscular Hemoglobin Concent 32.6, Red Cell Distribution Width 16.3 H, Neutrophils (%) (Auto) 81.9 H, Lymphocytes (%) (Auto ) 11.2 L, Monocytes (%) (Auto) 4.9, Eosinophils (%) (Auto) 0.3, Basophils (%) ( Auto) 0.2, Neutrophils # (Auto) 12.3 H, Lymphocytes # (Auto) 1.7, Monocytes # ( Auto) 0.7, Eosinophils # (Auto) 0.0, Basophils # (Auto) 0.0 Microbiology Microbiology 01/27/17 Urine Culture, Received Pending Home Medications Scheduled Amlodipine Besylate (Amlodipine Besylate) 10 Mg Tab, 10 MG PO DAILY Baclofen (Baclofen) 10 Mg Tab, 5 MG PO BID Carvedilol (Carvedilol) 6.25 Mg Tab, 3.125 MG PO BID Clopidogrel Bisulfate (Plavix) 75 Mg Tab, 75 MG PO DAILY Collagenase (Santyl) 250 Unit/Gm Oin, 1 DOSE TOP DAILY USES ON FEET Duloxetine Hcl (Cymbalta) 30 Mg Cap, 30 MG PO BID Furosemide (Furosemide) 40 Mg Tab, 40 MG PO DAILY Glipizide (Glipizide ER) 10 Mg Tab, 10 MG PO BID Insulin Aspart (Novolog) 100 U/Ml Inj, 1 DOSE SC AC PER SLIDING SCALE Insulin Detemir (Levemir) 1 Units/0.01 Ml Susp, 65 UNITS SC DAILY Insulin Detemir (Levemir) 1 Units/0.01 Ml Susp, 95 UNITS SC QHS Lisinopril (Lisinopril) 20 Mg Tab, 20 MG PO DAILY Morphine Sulfate (Morphine Sulfate ER) 15 Mg Tabcr, 30 MG PO Q12H Oxycodone HCl (Oxycodone HCl) 10 Mg Tab, 10 MG PO QID Pregabalin (Lyrica) 300 Mg Cap, 300 MG PO BID Scheduled PRN (Advil Pm 200-38 mg) 1 Tab Tab, 2 TAB PO QHS PRN for SLEEP Albuterol Sulfate (Proventil Hfa) 167 Puff/6.7 Gm Aers, 2 PUFFS INH Q4H PRN for SHORTNESS OF BREATH Methocarbamol (Robaxin-750) 750 Mg Tab, 750 MG PO Q8H PRN for PAIN Nitroglycerin (Nitrostat) 0.4 Mg Subl, 0.4 MG SL NITRO PRN for CHEST PAIN Polyethylene Glycol (Miralax) 1 Pow Pow, 17 GM PO DAILY PRN for CONSTIPATION Allergies Coded Allergies: Aspirin (Verified Allergy, Intermediate, HIVES, 08/18/12) Uncoded Nonscreenable Allergen (Unverified Allergy, Unknown, NUCLEAR MED DYE, 01/27/17) Statins (Verified Adverse Reaction, Severe, RHABDO, 12/15/15) Rhabdomyolysis: HOWEVER, TAKES ATORVASTATIN AT HOME REBECA PRICE DO Jan 27, 2017 22:56
[2017-01-27] MEDS ORDERED: CARVedilol 3.125 MG TAB PO ONE (23:00)
[2017-01-27 23:01] VITALS: BP 180/88
[2017-01-27 23:25] LABS: ERYTHROCYTE SEDIMENTATION RATE 57 mm/hr (0-20)
[2017-01-28 06:00] VITALS: BP 168/90
[2017-01-28] MEDS ORDERED: oxyCODONE 5MG TAB PO ONE (06:00)
[2017-01-28 06:47] LABS: MEAN CORPUSCULAR HEMOGLOBIN 24.7 pg (27.0-33.0); MEAN CORPUSCULAR HGB CONC 32.9 g/dl (32.0-36.5); MEAN CORPUSCULAR VOLUME 75.1 fl (80.0-96.0); RED CELL DISTRIBUTION WIDTH 16.3 % (11.5-14.5); WHITE BLOOD COUNT 10.5 K/mm3 (4.0-10.0)
[2017-01-28 07:06] LABS: CALCIUM LEVEL 9.5 MG/DL (8.5-10.1); CREATININE FOR GFR 1.13 MG/DL (0.55-1.02); GLOMERULAR FILTRATION RATE 54.7 (>58)
[2017-01-28 08:11] VITALS: BP 170/88
[2017-01-28] MEDS: CARVedilol 3.125 MG TAB PO SCH ×2 (08:16→21:53)
[2017-01-28] MEDS: DULoxetine 30 MG CAP (CYMBALTA) PO SCH ×2 (08:16→21:53)
[2017-01-28] MEDS: CLOPIDOGREL 75 MG TAB PO SCH (08:17)
[2017-01-28] MEDS: HumaLOG INSULIN (NovoLOG) PER UNIT SC SCH ×4 (08:18→20:54)
[2017-01-28] MEDS: amLODIPine 10 MG TAB PO SCH (08:18)
[2017-01-28] MEDS: LEVEMIR (INSULIN DETEMIR) 1 UNITS/0.01ML SC SCH ×2 (08:18→21:54)
[2017-01-28] MEDS: ENOXAPARIN 40 MG/0.4 ML SYRINGE (J1650) SC SCH (08:19)
[2017-01-28] MEDS: PREGABALIN 100 MG CAP (LYRICA) PO SCH ×2 (08:19→21:52)
[2017-01-28 09:00] VITALS: BP 119/73
[2017-01-28] MEDS ORDERED: MORPHINE 30 MG SA TAB PO SCH (09:00)
[2017-01-28] MEDS ORDERED: FUROSEMIDE 40 MG TAB PO SCH (09:00)
[2017-01-28] MEDS ORDERED: LISINOPRIL 20 MG TAB PO SCH (09:00)
[2017-01-28] MEDS ORDERED: BACLOFEN 5MG PER 1/2 TABLET PO SCH (09:00)
[2017-01-28] MEDS: SANTYL OINT 30GM TOP SCH (09:00)
[2017-01-28] MEDS ORDERED: oxyCODONE 5MG TAB PO SCH (09:00)
[2017-01-28] MEDS ORDERED: glipiZIDE XL 5 MG TABCR PO SCH (09:00)
[2017-01-28] MEDS ORDERED: HALOPERIDOL 2 MG TAB PO PRN (10:45)
--- NOTE | 2017-01-28 10:58 | IPN ---
DATE: 01/28/2017 Ms. Morin is relatively resistant to exam this morning. She is responding to internal cues. Says that I am not the doctor, she knows Dr. Santizo, and I am not him. She has no complaints of pain, chest pain, or shortness of breath, but is an exceedingly poor historian. Temperature 97.9, pulse 104, respiratory rate 18, blood pressure 119/73 and 97% on 3 liters. No ins and outs are recorded at this point. Body mass index 35.2. She is anxious appearing. Responding to people talking to her in the room that are not present. She resists physical exam. White cell count 10.5, hemoglobin 10.9 and platelets of 448. BUN 20, creatinine 1.13. CK is 686. ASSESSMENT: 46-year-old with metabolic encephalopathy which is most likely multifactorial. PLAN: 1. Metabolic encephalopathy. Possibility of underlying infection occurs to me. She has a foot ulcer which she will not allow me to examine. She has a history of septic joints and was thought to have a urinary tract infection (UTI) in the emergency department, which seems much less likely at this point. 2. The patient has pending acute kidney injury which is resolving. There is evidence of rhabdomyolysis. Would benefit from IV fluid if she would maintain it. 3. The patient has type 2 diabetes on insulin. 4. The patient has congestive heart failure and is status post coronary artery bypass graft (CABG). Repeat echocardiogram is ordered. 5. The patient has hypertension. 6. The patient has anemia of chronic disease. 7. The patient has chronic pain. I have discontinued her baclofen and antispasmodic. Should likely reduce her pain medications based on her confusion. MTDD
[2017-01-28] MEDS: risperiDONE 1 MG TAB PO SCH ×2 (12:35→21:53)
[2017-01-28] MEDS: CEFTAROLINE FOSAMIL 600 MG in D5W MINI-BAG PLUS 50 ML IV SCH ×2 (12:36→21:54)
[2017-01-28 20:00] VITALS: BP 190/100
[2017-01-28] MEDS: MORPHINE 15 MG SA TAB PO SCH (21:53)
[2017-01-28 23:00] VITALS: BP 200/96
[2017-01-29 06:00] VITALS: BP 172/92
[2017-01-29 06:57] LABS: MEAN CORPUSCULAR HEMOGLOBIN 24.5 pg (27.0-33.0); MEAN CORPUSCULAR HGB CONC 32.9 g/dl (32.0-36.5); MEAN CORPUSCULAR VOLUME 74.6 fl (80.0-96.0); WHITE BLOOD COUNT 10.6 K/mm3 (4.0-10.0)
[2017-01-29 07:06] LABS: CALCIUM LEVEL 9.9 MG/DL (8.5-10.1); CREATININE FOR GFR 1.05 MG/DL (0.55-1.02); GLOMERULAR FILTRATION RATE 59.5 (>58)
[2017-01-29 07:13] LABS: POTASSIUM SERUM 3.1 MEQ/L (3.5-5.1)
[2017-01-29] MEDS: HumaLOG INSULIN (NovoLOG) PER UNIT SC SCH ×4 (07:30→21:39)
[2017-01-29] MEDS ORDERED: INFLUENZA QUADRIVALENT PF VACCINE 0.5ML SYRINGE (90686) IM ONE (09:00)
[2017-01-29 09:07] VITALS: BP 204/99
[2017-01-29 09:39] VITALS: BP 198/98
[2017-01-29] MEDS: LEVEMIR (INSULIN DETEMIR) 1 UNITS/0.01ML SC SCH ×2 (09:41→21:40)
[2017-01-29] MEDS: PREGABALIN 100 MG CAP (LYRICA) PO SCH ×2 (10:08→21:39)
[2017-01-29] MEDS: MORPHINE 15 MG SA TAB PO SCH ×2 (10:09→21:38)
[2017-01-29] MEDS: CLOPIDOGREL 75 MG TAB PO SCH (10:11)
[2017-01-29] MEDS: DULoxetine 30 MG CAP (CYMBALTA) PO SCH ×2 (10:11→21:37)
[2017-01-29] MEDS: amLODIPine 10 MG TAB PO SCH (10:11)
[2017-01-29] MEDS: CARVedilol 3.125 MG TAB PO SCH ×2 (10:12→21:38)
[2017-01-29] MEDS: CEFTAROLINE FOSAMIL 600 MG in D5W MINI-BAG PLUS 50 ML IV SCH ×2 (10:14→21:37)
[2017-01-29] MEDS: ENOXAPARIN 40 MG/0.4 ML SYRINGE (J1650) SC SCH (10:14)
[2017-01-29] MEDS: risperiDONE 1 MG TAB PO SCH ×2 (10:15→21:37)
[2017-01-29] MEDS: SANTYL OINT 30GM TOP SCH (10:15)
[2017-01-29] MEDS ORDERED: POTASSIUM CHLORIDE 10 MEQ SR TABLET PO ONE (10:30)
[2017-01-29 13:51] VITALS: BP 172/82
[2017-01-29] MEDS ORDERED: **hydrALAZINE** 10 MG TAB PO PRN (14:45)
[2017-01-29] MEDS ORDERED: LISINOPRIL 10 MG TAB PO ONE (15:00)
--- NOTE | 2017-01-29 15:23 | IPN ---
DATE: 01/29/2017 Ms. Morin is more awake and interactive today. She remembers me from previous encounters, knows that I am her doctor, and is not resistant to exam or questioning. Temperature is 97.7, pulse 68, respiratory rate 19, blood pressure 204/99, which repeats to 198/98, somewhat improved this afternoon at 172/82. She is awake, appropriately interactive, pleasantly conversant, following commands. Mucous membranes moist. Neck supple. Breathing is symmetrical, rested. Inspiratory to expiratory (I-to-E) ratio is 1:3. No costovertebral angle (CVA) tenderness. No sacral edema. There is a large midline surgical scar. There is a palpable firmness in her left lower back, which is likely her implanted stimulator. Potassium is 3.1, sodium is 140, BUN 14, creatinine 1.05. White cell count is 10.6, hemoglobin 12.4, and platelets of 508. Electroencephalogram (EEG) is pending. Wound at the heel of the right foot, medial aspect, shows brown liquid discharge which may represent the alginate. ASSESSMENT: This is a 46-year-old with metabolic encephalopathy, thought to be multifactorial. PLAN: 1. Metabolic encephalopathy. This is improving. This may be related to treatment of underlying infection, minimizing medication possibly complicating. Will repeat a head CT and look for evidence of cerebrovascular accident (CVA), which seems incredibly unlikely, or any other change in her head CT. 2. Patient has hypertension. Will add as needed hydralazine by mouth as well as scheduled angiotensin-converting enzyme (MARYANNE) inhibitor. Will need to followup her renal function tomorrow. 3. Patient has type 2 diabetes, on insulin. 4. Patient has congestive heart failure, status post coronary artery bypass graft (CABG). Echocardiogram was ordered. The order is still active, but the exam itself is yet to be taken. 5. Patient has anemia of chronic disease. 6. Patient has chronic pain. Pain seems controlled in the current setting. 7. I did discuss this cased at length with her daughter at bedside yesterday.
[2017-01-29 15:58] VITALS: BP 178/88
--- NOTE | 2017-01-29 18:56 | ECGEPIP ---
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
[2017-01-29 22:00] VITALS: BP 162/86
[2017-01-30 06:00] VITALS: BP 140/68
[2017-01-30 07:08] LABS: MEAN CORPUSCULAR HEMOGLOBIN 25.1 pg (27.0-33.0); MEAN CORPUSCULAR HGB CONC 33.3 g/dl (32.0-36.5); MEAN CORPUSCULAR VOLUME 75.3 fl (80.0-96.0); RED CELL DISTRIBUTION WIDTH 16.1 % (11.5-14.5); WHITE BLOOD COUNT 12.6 K/mm3 (4.0-10.0)
[2017-01-30 07:25] LABS: CALCIUM LEVEL 10.7 MG/DL (8.5-10.1); CREATININE FOR GFR 1.19 MG/DL (0.55-1.02); GLOMERULAR FILTRATION RATE 51.5 (>58); POTASSIUM SERUM 3.2 MEQ/L (3.5-5.1)
--- NOTE | 2017-01-30 07:28 | EEG ---
DATE OF PROCEDURE: 01/29/2017 REFERRING PHYSICIAN: Dr. Juan Santizo DIAGNOSIS: Altered mental status. EEG NUMBER [id number] HISTORY: The patient is a 46-year-old woman who was admitted at [facility] due to feeling lethargic and difficulty talking. This EEG was done to rule out epileptic potential and assess degree of encephalopathy. She is currently taking ceftaroline, amlodipine, Plavix, Lyrica, Coreg, Cymbalta, morphine, Risperdal, lisinopril. TECHNICAL DESCRIPTION: This digital EEG was recorded by 21 scalp, ear and two EKG electrodes and was reviewed in bipolar and referential montages following reformatting in 10-20 international electrode placement system. INTERPRETATION: The patient was noted to be in awake and drowsy states during this EEG. Resting awake background rhythm consisted of well-formed posterior dominant rhythm with anterior/posterior gradient comprising of 9 Hertz alpha activity measuring 15 - 50 microvolts in amplitude which was symmetric and reactive to eye opening. Attenuation of posterior dominant rhythm was seen during transition into drowsiness. No sleep was achieved. Hyperventilation could not be performed. Photic stimulation remained unremarkable. EKG revealed normal sinus rhythm. No focal, lateralizing or epileptiform abnormalities were seen. CONCLUSION: This EEG in awake and drowsy state is within normal limits. No clinical or electrographic seizures were recorded. MTDD
[2017-01-30] MEDS: HumaLOG INSULIN (NovoLOG) PER UNIT SC SCH ×4 (07:30→20:30)
[2017-01-30] MEDS: ENOXAPARIN 40 MG/0.4 ML SYRINGE (J1650) SC SCH (08:58)
[2017-01-30] MEDS: PREGABALIN 100 MG CAP (LYRICA) PO SCH ×2 (08:58→20:22)
[2017-01-30] MEDS: CLOPIDOGREL 75 MG TAB PO SCH (08:59)
[2017-01-30] MEDS: risperiDONE 1 MG TAB PO SCH ×2 (08:59→20:20)
[2017-01-30] MEDS: MORPHINE 15 MG SA TAB PO SCH ×2 (08:59→20:23)
[2017-01-30] MEDS: LEVEMIR (INSULIN DETEMIR) 1 UNITS/0.01ML SC SCH ×2 (09:00→20:30)
[2017-01-30] MEDS: CARVedilol 3.125 MG TAB PO SCH ×2 (09:00→20:28)
[2017-01-30] MEDS: DULoxetine 30 MG CAP (CYMBALTA) PO SCH ×2 (09:00→20:22)
[2017-01-30] MEDS: amLODIPine 10 MG TAB PO SCH (09:00)
[2017-01-30] MEDS ORDERED: POTASSIUM CHLORIDE 10 MEQ SR TABLET PO ONE (09:00)
[2017-01-30] MEDS: LISINOPRIL 10 MG TAB PO SCH ×2 (09:01→20:28)
[2017-01-30] MEDS: SANTYL OINT 30GM TOP SCH (09:02)
[2017-01-30 09:40] LABS: MAGNESIUM LEVEL 2.4 MG/DL (1.8-2.4)
[2017-01-30] MEDS: CEFTAROLINE FOSAMIL 600 MG in D5W MINI-BAG PLUS 50 ML IV SCH ×2 (10:47→22:05)
--- NOTE | 2017-01-30 10:54 | IPNPDOC ---
Text Note Date of Service The patient was seen on 01/30/17. NOTE Subjective: Patient seen and examined at bedside. Reported patient still have auditory/ visual hallucinations. Objective: General: NAD, lying comfortably in bed HEENT: NC/AT, EOMI Lungs: CTA B/L Heart: +S1S2, RRR Ext: no edema Psych: AAOx3 Assessment/Plan: This is a 46-year-old with metabolic encephalopathy, thought to be multifactorial. 1. Metabolic encephalopathy. - improving - still hallucinations - psych c/s pending; EEG negative for seizures - may be related to treatment of underlying infection, minimizing medication possibly complicating 2. Patient has hypertension. Continue with ACEI, carvedilol and norvasc. Hydralazine PRN. 3. Patient has type 2 diabetes, on insulin. BS borderline low this morning. Held long acting insulin, may need adjustments in insulin regimen. 4. Patient has congestive heart failure, status post coronary artery bypass graft (CABG). Echocardiogram still pending. 5. Patient has anemia of chronic disease; stable 6. Patient has chronic pain. Pain seems controlled in the current setting. VS,Fishbone, I+O VS, Fishbone, I+O Laboratory Tests 01/30/17 06:52 Red Blood Count 5.03, Mean Corpuscular Volume 75.3 L, Mean Corpuscular Hemoglobin 25.1 L, Mean Corpuscular Hemoglobin Concent 33.3, Red Cell Distribution Width 16.1 H, Calcium Level 10.7 H Vital Signs Date Time Temp Pulse Resp B/P (MAP) Pulse Ox O2 Delivery O2 Flow Rate FiO2 01/30/17 09:01 140/68 01/30/17 09:00 69 01/30/17 08:59 18 01/30/17 06:00 96.7 95 Room Air 01/29/17 21:38 3.0 I&O- Last 24 Hours up to 6 AM 01/31/17 06:00 Intake Total 480 ml Output Total 550 ml Balance -70 ml VARUN AL MD Jan 30, 2017 10:54
[2017-01-30] MEDS: oxyCODONE 5MG TAB PO PRN (13:02)
[2017-01-30 14:00] VITALS: BP 163/79
[2017-01-30] MEDS: MIRALAX *UNIT DOSE* 17GM PACKET PO PRN (20:21)
[2017-01-30 22:00] VITALS: BP 176/86
[2017-01-31] MEDS: oxyCODONE 5MG TAB PO PRN ×2 (01:02→14:53)
[2017-01-31] MEDS ORDERED: ACETAMINOPHEN TAB 650MG DOSE (2X325MG) PO ONE (03:15)
[2017-01-31 06:00] VITALS: BP 133/62
[2017-01-31 07:04] LABS: MEAN CORPUSCULAR HGB CONC 33.3 g/dl (32.0-36.5); RED CELL DISTRIBUTION WIDTH 16.1 % (11.5-14.5); WHITE BLOOD COUNT 9.6 K/mm3 (4.0-10.0)
[2017-01-31 07:27] LABS: CALCIUM LEVEL 8.8 MG/DL (8.5-10.1); CREATININE FOR GFR 1.26 MG/DL (0.55-1.02); GLOMERULAR FILTRATION RATE 48.2 (>58)
--- NOTE | 2017-01-31 08:19 | IPNPDOC ---
Text Note Date of Service The patient was seen on 01/31/17. NOTE Subjective: Patient seen and examined at bedside. No medical complaints. Objective: General: NAD, lying comfortably in bed, in good spirits, lucid HEENT: NC/AT, EOMI Lungs: CTA B/L Heart: +S1S2, RRR Ext: no edema Psych: AAOx3 Assessment/Plan: This is a 46-year-old with metabolic encephalopathy, thought to be multifactorial. 1. Metabolic encephalopathy. - appears to have resolved - to discuss further with psych - hallucinations? - EEG negative for seizures - may be related to treatment of underlying infection, minimizing medication possibly complicating 2. HTN - Continue with ACEI, carvedilol and norvasc. - <30% increase in creatinine - Hydralazine PRN. 3. DM2 - BS on the low side - will adjust insulin regimen 4. CAD s/p CABG complicated with CHF - echo pending - d/w patient who is agreeable - as per home regimen - continue plavix , no ASA secondary to documented allergy 5. AOCD - stable 6. chronic pain - controlled in the current setting s/p thoracic dorsal column stimulator 7. Psych - continue risperdal, cymbalta 7. DVT prophylaxis - lovenox VS,Fishbone, I+O VS, Fishbone, I+O Laboratory Tests 01/31/17 06:27 Red Blood Count 4.41, Mean Corpuscular Volume 75.0 L, Mean Corpuscular Hemoglobin 25.0 L, Mean Corpuscular Hemoglobin Concent 33.3, Red Cell Distribution Width 16.1 H, Calcium Level 8.8 # Vital Signs Date Time Temp Pulse Resp B/P (MAP) Pulse Ox O2 Delivery O2 Flow Rate FiO2 01/31/17 06:00 97.8 64 18 133/62 (85) 97 Room Air 01/29/17 21:38 3.0 VARUN AL MD Jan 31, 2017 08:19
[2017-01-31] MEDS: SANTYL OINT 30GM TOP SCH (09:00)
[2017-01-31] MEDS: amLODIPine 10 MG TAB PO SCH (09:36)
[2017-01-31] MEDS: risperiDONE 1 MG TAB PO SCH ×2 (09:36→21:11)
[2017-01-31] MEDS: MORPHINE 15 MG SA TAB PO SCH ×2 (09:37→21:12)
[2017-01-31] MEDS: CLOPIDOGREL 75 MG TAB PO SCH (09:37)
[2017-01-31] MEDS: DULoxetine 30 MG CAP (CYMBALTA) PO SCH ×2 (09:37→21:11)
[2017-01-31] MEDS: CARVedilol 3.125 MG TAB PO SCH ×2 (09:37→21:12)
[2017-01-31] MEDS: LISINOPRIL 10 MG TAB PO SCH ×2 (09:38→21:11)
[2017-01-31] MEDS: PREGABALIN 100 MG CAP (LYRICA) PO SCH ×2 (09:39→21:11)
[2017-01-31] MEDS: ENOXAPARIN 40 MG/0.4 ML SYRINGE (J1650) SC SCH (09:39)
[2017-01-31] MEDS: LEVEMIR (INSULIN DETEMIR) 1 UNITS/0.01ML SC SCH ×2 (09:40→21:00)
[2017-01-31] MEDS: HumaLOG INSULIN (NovoLOG) PER UNIT SC SCH ×4 (09:40→21:00)
[2017-01-31] MEDS: CEFTAROLINE FOSAMIL 600 MG in D5W MINI-BAG PLUS 50 ML IV SCH ×2 (11:38→22:50)
[2017-01-31 14:00] VITALS: BP 166/79
[2017-01-31 22:00] VITALS: BP 147/76
[2017-02-01 05:56] LABS: MEAN CORPUSCULAR HEMOGLOBIN 24.9 pg (27.0-33.0); MEAN CORPUSCULAR HGB CONC 33.1 g/dl (32.0-36.5); MEAN CORPUSCULAR VOLUME 75.2 fl (80.0-96.0); WHITE BLOOD COUNT 8.2 K/mm3 (4.0-10.0)
[2017-02-01 06:00] VITALS: BP 145/78
[2017-02-01 06:18] LABS: CALCIUM LEVEL 9.4 MG/DL (8.5-10.1); CREATININE FOR GFR 1.4 MG/DL (0.55-1.02); GLOMERULAR FILTRATION RATE 42.7 (>58); POTASSIUM SERUM 3.6 MEQ/L (3.5-5.1)
--- NOTE | 2017-02-01 07:51 | IPNPDOC ---
Text Note Date of Service The patient was seen on 02/01/17. NOTE Subjective: Patient seen and examined at bedside. She complains of polyuria and dysuria today. Objective: General: NAD, lying comfortably in bed, in good spirits, lucid HEENT: NC/AT, EOMI Lungs: CTA B/L Heart: +S1S2, RRR Ext: no edema Psych: AAOx3 Assessment/Plan: This is a 46-year-old with metabolic encephalopathy, thought to be multifactorial. 1. Metabolic encephalopathy. - appears to have resolved - continue to follow clinically - EEG negative for seizures 2. HTN - creatinine continues to rise - will decrease ACEI to daily dosing, continue carvedilol and norvasc - Hydralazine PRN - last dose administered was 01/29/17 3. DM2 - BS on the low side - will adjust insulin regimen 4. CAD s/p CABG complicated with CHF - echo was cancelled - patient refused - as per home regimen - continue plavix , no ASA secondary to documented allergy 5. AOCD - stable 6. chronic pain - controlled in the current setting s/p thoracic dorsal column stimulator 7. Psych - continue risperdal, cymbalta 7. DVT prophylaxis - lovenox VS,Fishbone, I+O VS, Fishbone, I+O Laboratory Tests 02/01/17 05:23 Red Blood Count 4.18, Mean Corpuscular Volume 75.2 L, Mean Corpuscular Hemoglobin 24.9 L, Mean Corpuscular Hemoglobin Concent 33.1, Red Cell Distribution Width 16.0 H, Calcium Level 9.4 Vital Signs Date Time Temp Pulse Resp B/P (MAP) Pulse Ox O2 Delivery O2 Flow Rate FiO2 02/01/17 06:00 97.1 60 20 145/78 (100) 96 01/31/17 21:12 Room Air 01/29/17 21:38 3.0 VARUN AL MD Feb 01, 2017 07:51
[2017-02-01] MEDS: PREGABALIN 100 MG CAP (LYRICA) PO SCH ×2 (08:41→20:04)
[2017-02-01] MEDS: CARVedilol 3.125 MG TAB PO SCH ×2 (08:41→20:10)
[2017-02-01] MEDS: risperiDONE 1 MG TAB PO SCH ×2 (08:41→20:04)
[2017-02-01] MEDS: CLOPIDOGREL 75 MG TAB PO SCH (08:41)
[2017-02-01] MEDS: amLODIPine 10 MG TAB PO SCH (08:41)
[2017-02-01] MEDS: MORPHINE 15 MG SA TAB PO SCH ×2 (08:42→20:05)
[2017-02-01] MEDS: DULoxetine 30 MG CAP (CYMBALTA) PO SCH ×2 (08:42→20:04)
[2017-02-01] MEDS: LEVEMIR (INSULIN DETEMIR) 1 UNITS/0.01ML SC SCH ×2 (08:43→20:11)
[2017-02-01] MEDS: HumaLOG INSULIN (NovoLOG) PER UNIT SC SCH ×4 (08:43→20:11)
[2017-02-01] MEDS: LISINOPRIL 10 MG TAB PO SCH (08:44)
[2017-02-01] MEDS: ENOXAPARIN 40 MG/0.4 ML SYRINGE (J1650) SC SCH (08:44)
[2017-02-01] MEDS: SANTYL OINT 30GM TOP SCH (08:45)
[2017-02-01] MEDS: oxyCODONE 5MG TAB PO PRN (13:57)
[2017-02-01 14:00] VITALS: BP 139/65
[2017-02-01 22:00] VITALS: BP 163/77
[2017-02-02 06:00] VITALS: BP 112/55
[2017-02-02 06:33] LABS: MEAN CORPUSCULAR HEMOGLOBIN 24.7 pg (27.0-33.0); MEAN CORPUSCULAR HGB CONC 32.7 g/dl (32.0-36.5); MEAN CORPUSCULAR VOLUME 75.7 fl (80.0-96.0); RED CELL DISTRIBUTION WIDTH 16.1 % (11.5-14.5); WHITE BLOOD COUNT 10.8 K/mm3 (4.0-10.0)
[2017-02-02 06:35] LABS: CALCIUM LEVEL 9.9 MG/DL (8.5-10.1); CREATININE FOR GFR 1.42 MG/DL (0.55-1.02); POTASSIUM SERUM 3.5 MEQ/L (3.5-5.1)
[2017-02-02] MEDS: HumaLOG INSULIN (NovoLOG) PER UNIT SC SCH ×4 (07:30→21:56)
--- NOTE | 2017-02-02 08:43 | IPNPDOC ---
Text Note Date of Service The patient was seen on 02/02/17. NOTE Subjective: Patient seen and examined at bedside. She states her polyuria has improved, but still complains of dysuria today. Objective: General: NAD, lying comfortably in bed HEENT: NC/AT, EOMI Lungs: CTA B/L Heart: +S1S2, RRR Ext: no edema Psych: AAOx3 Assessment/Plan: This is a 46-year-old with metabolic encephalopathy, thought to be multifactorial. 1. Metabolic encephalopathy. - appears to have resolved - continue to follow clinically - EEG negative for seizures 2. HTN - creatinine appears to have plateaued - ACEI reduced from BID to daily dosing - continue to follow creatinine - continue carvedilol, norvasc - Hydralazine PRN - last dose administered was 01/29/17 3. DM2 - BS on the low side - decreased PM levemir, hold am levemir today 4. CAD s/p CABG complicated with CHF - echo was cancelled - patient refused - as per home regimen - continue plavix , no ASA secondary to documented allergy 5. AOCD - stable 6. chronic pain - controlled in the current setting s/p thoracic dorsal column stimulator 7. Psych - continue risperdal, cymbalta 7. DVT prophylaxis - lovenox VS,Fishbone, I+O VS, Fishbone, I+O Laboratory Tests 02/02/17 05:22 Red Blood Count 4.55, Mean Corpuscular Volume 75.7 L, Mean Corpuscular Hemoglobin 24.7 L, Mean Corpuscular Hemoglobin Concent 32.7, Red Cell Distribution Width 16.1 H, Calcium Level 9.9 Vital Signs Date Time Temp Pulse Resp B/P (MAP) Pulse Ox O2 Delivery O2 Flow Rate FiO2 02/02/17 06:00 97.4 60 18 112/55 (74) 94 02/01/17 21:00 Room Air 01/29/17 21:38 3.0 VARUN AL MD Feb 02, 2017 08:43
[2017-02-02] MEDS: LEVEMIR (INSULIN DETEMIR) 1 UNITS/0.01ML SC SCH (09:00)
[2017-02-02] MEDS: SANTYL OINT 30GM TOP SCH (09:00)
[2017-02-02 09:22] VITALS: BP 124/60
[2017-02-02] MEDS: amLODIPine 10 MG TAB PO SCH (09:24)
[2017-02-02] MEDS: MORPHINE 15 MG SA TAB PO SCH ×2 (09:24→21:55)
[2017-02-02] MEDS: LISINOPRIL 10 MG TAB PO SCH (09:25)
[2017-02-02] MEDS: CARVedilol 3.125 MG TAB PO SCH ×2 (09:25→21:55)
[2017-02-02] MEDS: CLOPIDOGREL 75 MG TAB PO SCH (09:25)
[2017-02-02] MEDS: PREGABALIN 100 MG CAP (LYRICA) PO SCH ×2 (09:25→21:54)
[2017-02-02] MEDS: ENOXAPARIN 40 MG/0.4 ML SYRINGE (J1650) SC SCH (09:26)
[2017-02-02] MEDS: risperiDONE 1 MG TAB PO SCH ×2 (09:26→22:09)
[2017-02-02] MEDS: DULoxetine 30 MG CAP (CYMBALTA) PO SCH ×2 (09:26→21:54)
[2017-02-02 14:00] VITALS: BP 132/63
[2017-02-02] MEDS: oxyCODONE 5MG TAB PO PRN (14:24)
[2017-02-02] MEDS ORDERED: LEVEMIR (INSULIN DETEMIR) 1 UNITS/0.01ML SC SCH (21:00)
[2017-02-02 22:00] VITALS: BP 141/66
[2017-02-03 06:00] VITALS: BP 112/59
[2017-02-03 06:12] LABS: MEAN CORPUSCULAR HGB CONC 33.1 g/dl (32.0-36.5); MEAN CORPUSCULAR VOLUME 75.6 fl (80.0-96.0); WHITE BLOOD COUNT 7.9 K/mm3 (4.0-10.0)
[2017-02-03 06:20] LABS: CALCIUM LEVEL 9.1 MG/DL (8.5-10.1); CREATININE FOR GFR 1.76 MG/DL (0.55-1.02); GLOMERULAR FILTRATION RATE 32.8 (>58); POTASSIUM SERUM 4.2 MEQ/L (3.5-5.1)
[2017-02-03] MEDS: HumaLOG INSULIN (NovoLOG) PER UNIT SC SCH ×4 (07:07→20:42)
[2017-02-03] MEDS: DULoxetine 30 MG CAP (CYMBALTA) PO SCH ×2 (09:00→20:39)
[2017-02-03] MEDS: SANTYL OINT 30GM TOP SCH (09:00)
[2017-02-03] MEDS: LISINOPRIL 10 MG TAB PO SCH (09:00)
[2017-02-03] MEDS: PREGABALIN 100 MG CAP (LYRICA) PO SCH ×2 (09:45→20:39)
[2017-02-03] MEDS: risperiDONE 1 MG TAB PO SCH (09:46)
[2017-02-03] MEDS: amLODIPine 10 MG TAB PO SCH (09:46)
[2017-02-03] MEDS: MORPHINE 15 MG SA TAB PO SCH ×2 (09:46→20:41)
[2017-02-03] MEDS: CLOPIDOGREL 75 MG TAB PO SCH (09:47)
[2017-02-03] MEDS: CARVedilol 3.125 MG TAB PO SCH ×2 (09:47→20:40)
[2017-02-03] MEDS: ENOXAPARIN 40 MG/0.4 ML SYRINGE (J1650) SC SCH (09:53)
[2017-02-03] MEDS: LEVEMIR (INSULIN DETEMIR) 1 UNITS/0.01ML SC SCH ×2 (09:55→20:37)
[2017-02-03] MEDS ORDERED: NS 1,000 ML IV SCH (10:15)
--- NOTE | 2017-02-03 12:22 | IPN ---
DATE OF SERVICE: 02/03/2017 Ms. Morin is feeling better today. She remembers me from previous encounters. Has no complaints of pain, chest pain, shortness of breath. Has been tolerating her diet. Is worried about her kidney function. Temperature 97.8, pulse 54, respiratory rate 16, blood pressure 112/59, 94% on room air. Input and output notable for a positive fluid balance of positive 500. No bowel movements noted since 01/31/2017. She is awake, appropriately interactive. Mucous membrane is moist. Neck is supple, thick. Breathing is symmetrical. I:E ratio is 1:3. No wheezes, rales or rhonchi. Speaking in complete sentences. No accessory muscle use. Heart: Regular rate and rhythm. Abdomen: Soft doughy, nontender. Right foot cleanly dressed. White cell count 7.9, hemoglobin 9.6, platelets 339. BUN 42, creatinine 1.76 up from 1.42. ASSESSMENT: This is a 46-year-old with metabolic encephalopathy felt to be multifactorial. PLAN: 1. Metabolic encephalopathy. This seems to have resolved. EEG was negative for seizures. At this point, can discontinue her Risperdal. 2. Hypertension. This is probably better controlled at home and while it may be contributing to her acute renal failure, we will hold parameters on her Norvasc and continue to decrease the dose. There is no role for hydralazine any longer. She is currently off quirino inhibitor. 3. Patient has type 2 diabetes. She is on insulin. She did have some low finger sticks during her stay. Evening Levemir was decreased. Likely her Levemir can be greatly decreased. I think at this point, she is requiring less insulin as her diet is more controlled than it is at home. 4. Patient has coronary artery disease status post coronary artery bypass graft (CABG) complicated with congestive heart failure . 5. Patient has chronic pain with a dorsal column stimulator. 6. Patient is on appropriate deep venous thrombosis (DVT) prophylaxis.
[2017-02-03 14:00] VITALS: BP 135/71
--- NOTE | 2017-02-03 16:59 | REP ---
RENAL AND BLADDER ULTRASOUND: Real-time sonographic evaluation of the kidneys are performed and demonstrates both kidneys to be normal in size and echotexture, right kidney measuring 14.5 x 5.6 x 4.8 cm and left kidney 12.1 x 5.1 x 5.7 cm. There is no hydronephrosis bilaterally. Calcified blood vessels are seen in each kidney. Urinary bladder is mildly distended with no definite mass or calculus. IMPRESSION: Essentially negative renal ultrasound. Signed by Peewee Fernandez MD 02/04/2017 05:17 P
[2017-02-03 22:00] VITALS: BP 147/65
[2017-02-04 06:00] VITALS: BP 140/75
[2017-02-04] MEDS: HumaLOG INSULIN (NovoLOG) PER UNIT SC SCH ×4 (08:15→20:36)
[2017-02-04 08:51] VITALS: BP 156/74
[2017-02-04] MEDS: MORPHINE 15 MG SA TAB PO SCH ×2 (09:04→20:40)
[2017-02-04] MEDS: CARVedilol 3.125 MG TAB PO SCH ×2 (09:40→20:39)
[2017-02-04] MEDS: DULoxetine 30 MG CAP (CYMBALTA) PO SCH ×2 (09:41→20:38)
[2017-02-04] MEDS: amLODIPine 5 MG TAB PO SCH (09:41)
[2017-02-04] MEDS: SANTYL OINT 30GM TOP SCH (09:41)
[2017-02-04] MEDS: CLOPIDOGREL 75 MG TAB PO SCH (09:41)
[2017-02-04] MEDS: LEVEMIR (INSULIN DETEMIR) 1 UNITS/0.01ML SC SCH ×2 (09:43→20:40)
[2017-02-04] MEDS: ENOXAPARIN 40 MG/0.4 ML SYRINGE (J1650) SC SCH (10:03)
[2017-02-04] MEDS: PREGABALIN 100 MG CAP (LYRICA) PO SCH ×2 (10:26→20:38)
[2017-02-04 11:09] LABS: MEAN CORPUSCULAR HEMOGLOBIN 23.6 pg (27.0-33.0); MEAN CORPUSCULAR HGB CONC 30.6 g/dl (32.0-36.5); MEAN CORPUSCULAR VOLUME 76.9 fl (80.0-96.0); RED CELL DISTRIBUTION WIDTH 17.2 % (11.5-14.5); WHITE BLOOD COUNT 8.2 10^3/uL (4.0-10.0)
[2017-02-04 11:37] LABS: CALCIUM LEVEL 9.9 MG/DL (8.5-10.1); CREATININE FOR GFR 1.56 MG/DL (0.55-1.02); GLOMERULAR FILTRATION RATE 37.7 (>58); POTASSIUM SERUM 4.8 MEQ/L (3.5-5.1)
[2017-02-04] MEDS: MIRALAX *UNIT DOSE* 17GM PACKET PO PRN (12:19)
[2017-02-04 14:13] VITALS: BP 122/78
[2017-02-04] MEDS: oxyCODONE 5MG TAB PO PRN (14:27)
--- NOTE | 2017-02-04 16:49 | IPN ---
DATE: 02/04/2017 Ms. Morin is feeling well today. She is tolerating a diet. She has no complaints of pain. No chest pain. No shortness of breath. She has been up and moving around. Temperature is 97, pulse 63, respiratory rate 18, blood pressure 156/74, 97% on room air. Input and output are notable for a positive fluid balance of 180. No bowel movements. She is awake, appropriately interactive, pleasantly conversant. Breathing is symmetrical and rested. Heart is distant sounding, normal S1, S2. Abdomen is soft, doughy, nontender. LABORATORY DATA: BUN is 45, creatinine 1.56 trending downward. Her baseline creatine would appear to be probably around 1. White cell count 8.2, hemoglobin 10.6, platelets of 402. ASSESSMENT: This is a 46-year-old with metabolic encephalopathy, felt to be multifactorial. PLAN: 1. Metabolic encephalopathy. This has resolved. EEG was negative. Risperdal has been discontinued. The patient's mental status appears to be stable. 2. The patient has hypertension which is reasonably well-controlled for the current setting. I believe that when her blood pressure is below systolic of 120 it affected her renal function. Also, the angiotensin-converting enzyme (MARYANNE) inhibitor itself could have also affected renal function. Renal function is improving. Blood pressure again is reasonably well-controlled. We will monitor her creatinine again tomorrow. 3. The patient has type 2 diabetes, on insulin. Fingersticks are reasonably well-controlled for the current setting. I have downwardly adjusted her insulin as her diet is more constricted here than at home. 4. The patient has coronary artery disease, status post coronary artery bypass graft (CABG), complicated with congestive heart failure. 5. The patient has chronic pain with a dorsal column stimulator. 6. The patient has appropriate deep venous thrombosis (DVT) prophylaxis.
[2017-02-04 22:00] VITALS: BP 141/67
[2017-02-05 06:00] VITALS: BP 135/80
[2017-02-05 06:11] LABS: MEAN CORPUSCULAR HEMOGLOBIN 23.9 pg (27.0-33.0); MEAN CORPUSCULAR HGB CONC 31.5 g/dl (32.0-36.5); MEAN CORPUSCULAR VOLUME 76.1 fl (80.0-96.0); RED CELL DISTRIBUTION WIDTH 16.9 % (11.5-14.5); WHITE BLOOD COUNT 8.9 10^3/uL (4.0-10.0)
[2017-02-05 06:27] LABS: CREATININE FOR GFR 1.37 MG/DL (0.55-1.02); GLOMERULAR FILTRATION RATE 43.8 (>58); POTASSIUM SERUM 4.3 MEQ/L (3.5-5.1)
[2017-02-05] MEDS: HumaLOG INSULIN (NovoLOG) PER UNIT SC SCH ×2 (07:30→12:21)
[2017-02-05] MEDS: DULoxetine 30 MG CAP (CYMBALTA) PO SCH (09:40)
[2017-02-05] MEDS: CLOPIDOGREL 75 MG TAB PO SCH (09:40)
[2017-02-05] MEDS: MORPHINE 15 MG SA TAB PO SCH (09:40)
[2017-02-05] MEDS: PREGABALIN 100 MG CAP (LYRICA) PO SCH (09:40)
[2017-02-05 09:41] VITALS: BP 131/51
[2017-02-05] MEDS: amLODIPine 5 MG TAB PO SCH (09:41)
[2017-02-05] MEDS: CARVedilol 3.125 MG TAB PO SCH (09:41)
[2017-02-05] MEDS: ENOXAPARIN 40 MG/0.4 ML SYRINGE (J1650) SC SCH (09:42)
[2017-02-05] MEDS: SANTYL OINT 30GM TOP SCH (09:42)
[2017-02-05] MEDS ORDERED: INSUDET SC (10:23)
[2017-02-05] MEDS ORDERED: MORP15TASA PO ×2 (10:33→10:38)
[2017-02-05] MEDS ORDERED: OXYCO5TA PO ×2 (10:33→10:38)
[2017-02-05] MEDS: LEVEMIR (INSULIN DETEMIR) 1 UNITS/0.01ML SC SCH (11:50)
[2017-02-05] MEDS ORDERED: NOVOINJ3 SC (13:18)
[2017-02-05 14:00] VITALS: BP 139/87
--- NOTE | 2017-02-06 01:10 | DSES ---
DATE OF ADMISSION: 01/28/2017 DATE OF DISCHARGE: 02/05/2017 There were no specialists involved with her care. There were no complications of her stay. DISCHARGE DIAGNOSES: 1. Metabolic encephalopathy. 2. Hypertension. 3. Type 2 diabetes on insulin. 4. Hypoglycemia. 5. Congestive heart failure. 6. Coronary artery disease status post coronary artery bypass graft (CABG). 7. Anemia of chronic disease. 8. Chronic pain. 9. Urinary retention. 10. Neurogenic bladder. 11. Asthma. 12. Chronic constipation. 13. Depression. 14. Peripheral neuropathy. 15. Chronic foot, left ankle wounds. The following is a summary of her hospitalization: This is a 46-year-old who presented with metabolic encephalopathy. She was lethargic at times and hallucinating. She had possible urinary tract infection. She was admitted to the hospitalist service. She had no evidence of acute kidney injury, was started on broad-spectrum antibiotics and a brief course of atypical antipsychotics. She improved markedly. She improved quickly from a mental standpoint and required some physical therapy to become stronger, developed some acute renal failure and had intermittent low blood sugars with adherence, also complicating her presentation with antispasmodics and chronic pain medications, which could have complicated her mental status at the beginning. On the day of discharge, she is feeling well. She is awake, alert , oriented, pleasantly conversant. No acute distress. Temperature 97.1, pulse 67, respiratory rate 16, blood pressure 139/80, 95% on room air. Awake, appropriately interactive, pleasantly conversant. Breathing is symmetrical. Heart is distant sounding. Abdomen is soft, doughy, nontender. White cell count 8.9, hemoglobin 10.6, platelets of 393. BUN 38, creatinine 1.37. DISCHARGE INSTRUCTIONS: Include the following: Followup with Missael Barkley within [address] Munoz within 1 week. Diet and activity as tolerated. We have discussed the importance of maintaining a consistent carbohydrate diet. I have reduced her Levemir to 65 units subcutaneously twice daily. That will likely need to be readjusted upon followup with Dr. Barkley. Continue: - albuterol two puffs every 4 hours as needed for shortness of breath - Norvasc 10 mg by mouth daily - Coreg 3.125 mg by mouth twice daily - Plavix 75 mg by mouth daily - Santyl to her foot wounds - Cymbalta 30 mg by mouth twice daily - continue sliding-scale insulin - long-acting morphine 30 mg by mouth every 12 hours - sublingual nitroglycerin 0.4 mg as needed - MiraLAX 17 grams by mouth daily as needed for constipation - Lyrica 300 mg by mouth twice daily I recommended discontinuing Advil, discontinuing Baclofen, discontinuing Lasix, but restarting it on 02/08, discontinuing her lisinopril 20 mg by mouth daily, but restarting it on 02/08, discontinuing Robaxin, discontinuing her previous dose of oxycodone, which was 10 mg four times daily.
== END 2017-02-05 15:45 | disposition home or self-care (01) | DRG 71 ==
LOC: M ED 14:34 → M ED INP 21:00 → M MSPAV 23:01 → OBSVTOIN 01-28 10:33
PROVIDERS: ADMIT Internal Medicine; ATTEND Internal Medicine
DX: G93.41 Metabolic encephalopathy (principal); N39.0 Urinary tract infection, site not specified; M62.82 Rhabdomyolysis; I11.0 Hypertensive heart disease with heart failure; J45.909 Unspecified asthma, uncomplicated; I25.10 Atherosclerotic heart disease of native coronary artery without angina pectoris; E66.9 Obesity, unspecified; I50.9 Heart failure, unspecified; L97.529 Non-pressure chronic ulcer of other part of left foot with unspecified severity; L97.519 Non-pressure chronic ulcer of other part of right foot with unspecified severity; E11.40 Type 2 diabetes mellitus with diabetic neuropathy, unspecified; M54.5 Low back pain; F32.9 Major depressive disorder, single episode, unspecified; E11.621 Type 2 diabetes mellitus with foot ulcer; Z79.4 Long term (current) use of insulin; Z88.6 Allergy status to analgesic agent; Z88.8 Allergy status to other drugs, medicaments and biological substances; Z95.1 Presence of aortocoronary bypass graft; Z79.891 Long term (current) use of opiate analgesic; Z79.02 Long term (current) use of antithrombotics/antiplatelets; Z79.899 Other long term (current) drug therapy

== ENCOUNTER → 2017-01-27 | Outpatient (CLI) | payer MEDICARE, MEDICAID ==
[~2017-01-27] MED LIST changes: +LASI40TA PO
--- NOTE | 2017-02-10 00:30 | ECWPNPC ---
PATIENT NAME: ANDI HORVATH : 1970 GENDER: FEMALE VISIT DATE: 01/27/2017 DISCHARGE DATE: 01/27/17 1423 VISIT LOCKED DATE TIME: PHYSICIAN: COLE CHEN RESOURCE: COLE CHEN REASON FOR APPOINTMENT 1. MEDS HISTORY OF PRESENT ILLNESS HISTORY OF PRESENT ILLNESS: HERE FOR F/U AND MANAGEMENT OF CHRONIC LOW BACK PAIN AND BILATERAL LEG PAIN.RATING PAIN VAS 9/10.AOMPANIED WITH FAMILY MEMBER WHO REPORTS THAT SHE HAD DIFFICULTY AWAKENING.SHE IS ALERT AND SEEMS WELL.DISCUSSED MEDICINE AND TREATMENT OPTIONS.STATES PAIN IS AGGREVATED BY COLD WEATHER.PAIN RELIEVED SOMEWHAT WITH REST.CURRENTLY TAKING MS CONTIN 30MG AT HS AND LYRICA 300MG BID AND PERCOCET 10/325 UP TO FOUR TABLETS PER DAY NEEDED. PAIN THE PATIENT DESCRIBES THE PAIN... THE PATIENT DESCRIBES THE PAIN... THE PATIENT DESCRIBES THE PAIN... FALL RISK SCREENING: SCREENING :NO FALLS IN THE PAST YEAR CURRENT MEDICATIONS TAKING ROBAXIN-750 750 MG TABLET 1 TABLET ORALLY Q8H TID TAKING ADVIL PM 200-38 MG TABLET 2 TABLETS AT BEDTIME NEEDED ORALLY ONCE A DAY TAKING PROVENTIL HFA 6.7 AEROSOL SOLUTION 2 PUFFS NEEDED INHALATION EVERY 2HR PRN TAKING NITROSTAT 0.4 MG TABLET SUBLINGUAL 1-3 TABLETS SUBLINGUAL PRN TAKING GLUCOMETER 1 ELECTRONIC DIRECTED _ TID (E11.65) TAKING OVERLAY MATTRESS WITH PUMP DIRECTED. ICD10 L89.153, L 89.154 DAILY TAKING COMPRESSION STOCKINGS 15-20 MMHG _ DIRECTED FOR BLE EDEMA AND VARICOSE VEINS (DX. R60.0, I83.893) DIRECTED ON DURING THE DAY OFF AT NIGHT TAKING ATORVASTATIN CALCIUM 40 MG TABLET 1 TABLET ORALLY ONCE A DAY TAKING NOVOLOG 100 UNIT/ML SOLUTION PER SCLIDING SCALE SUBCUTANEOUS IF ITS BETWEN 150- 200 2 UNITS THREE TIMES DAILY BEFORE MEALS TAKING LEVEMIR 100 UNIT/ML SOLUTION 65 UNITS IN THE AM 95 IN THE PM SUBCUTANEOUS TWICE A DAY TAKING DULCOLAX 10 MG SUPPOSITORY 1 SUPPOSITORY NEEDED RECTAL ONCE DAILY NEEDED TAKING PLAVIX 75 MG TABLET 1 TABLET ORALLY ONCE A DAY TAKING LYRICA 300 MG CAPSULE 1 CAPSULE ORALLY TWICE A DAY MDD2 TAKING OXYCODONE HCL 10 MG TABLET 1 ORALLY Q 4-6 HOURS PRN PAIN MDD=4EEDED TAKING MS CONTIN 30 MG TABLET EXTENDED RELEASE 1 TABLET ORALLY BID MDD2 TAKING CYMBALTA 30 MG CAPSULE DELAYED RELEASE PARTICLES 1 CAPSULE ORALLY TWICE A DAY TAKING NORVASC 10 MG TABLET 1 TABLET ORALLY ONCE A DAY TAKING BACLOFEN 10 MG TABLET 1 TABLET WITH FOOD OR MILK ORALLY THREE TIMES A DAY TAKING BD INSULIN SYRINGE 31G X 516 MISCELLANEOUS DIRECTED SUBCUTANEOUSLY FOUR TIMES DAILY TAKING BLOOD GLUCOSE TEST STRIP 200 STRIP DIRECTED IN VITRO TID (E11.65) TAKING LASIX 40 MG TABLET 1 TABLET ORALLY ONCE A DAY TAKING LISINOPRIL 20 MG TABLET 1 TABLET ORALLY ONCE A DAY TAKING CARVEDILOL 6.25MG TABLET 1/2 ORAL BID TAKING GLIPIZIDE ER 10 MG TABLET EXTENDED RELEASE 24 HOUR 1 TABLET ORALLY BID PRIOR TO BREAKFAST AND DINNER NOT-TAKING LEVAQUIN 750 MG TABLET 1 TABLET ORALLY ONCE A DAY MEDICATION LIST REVIEWED AND RECONCILED WITH THE PATIENT PAST MEDICAL HISTORY FX BACK CAD CABG 2008 STENTS 2014 IN [place] PNEUMONIA HTN DM TYPE 2 ASTHMA SLEEP [address]A ANGINA CHF [address] BOWEL PROBLEMS THYROID D/O (LOW TSH ON PRIOR LABS) ANXIETY STAGE III PRESSURE ULCER OF SACRAL REGION URINARY RETENTION NEUROGENIC BLADDER SEPTIC ARTHRITIS RIGHT HIP MRSA STATUS POST 6 WEEKS OF IV VANCOMYCIN NOVEMBER 2016 ALLERGIES ASPIRIN: HIVES: ALLERGY NUCLEAR MED DYE: LOWER EXTREMITY SWELLING: CONTRAINDICATION SOCIAL HISTORY GENERAL: TOBACCO USE ARE YOU A:NONSMOKER NEVER SMOKER BMI CARE GOAL FOLLOW-UP ABOVE NORMAL BMI FOLLOW-UPLIFESTYLE EDUCATION REGARDING DIET ALCOHOL SCREENING DID YOU HAVE A DRINK CONTAINING ALCOHOL IN THE PAST YEAR?NO POINTS0 INTERPRETATIONNEGATIVE RECREATIONAL DRUG USE DRUG USE?NO CAFFEINE CAFFEINE USE? NO SEXUAL HX HAD SEX IN THE LAST 12 MONTHS (VAGINAL, ORAL, OR ANAL)?NO OCCUPATION: UNEMPLOYED. DIET: REGULAR. EXERCISE: NO REGULAR EXERCISE. MARITAL STATUS: .. OTHERS AT HOME: MOTHER. PETS: DOG. ANABAPTISM ANABAPTISM NO ORIENTAL ORTHODOX BELIEFS THAT WOULD IMPACT HEALTH CARE. LANGUAGE LANGUAGES SPOKEN:IRISH EDUCATION LEVEL OF EDUCATION:FINISHED HIGH SCHOOL LEARNING BARRIERS / SPECIAL NEEDS CHANGE FROM LAST VISIT?YES BARRIERS TO LEARNING?NO HEARING IMPAIRED?NO VISION IMPAIRED?YES PT STATES SHE NEEDS GLASSES. COGNITIVELY IMPAIRED?NO READINESS TO LEARN?YES LEARNING PREFERENCES?NO LEARNING CAPABILITIES PRESENT?YES EMOTIONAL BARRIERS?NO SPECIAL DEVICES?YES :[facility] N[facility]SE NEEDED?NO PAIN CLINIC PFS, CLERGY, PUBLIC HEALTH REFERRALS PFS REFERRAL NEEDED?NO CLERGY REFERRAL NEEDED?NO PUBLIC HEALTH REFERRAL NEEDED?NO WAS THE PROVIDER NOTIFIED OF ANY PERTINENT INFO?NO HAS THE PATIENT BEEN EDUCATED REGARDING HIS/HER PLAN OF CARE?YES HAS THE PATIENT BEEN EDUCATED REGARDING PAIN, THE RISK FOR PAIN, THE IMPORTANCE OF EFFECTIVE PAIN MANAGEMENT, AND THE PAIN ASSESSMENT PROCESS?YES PATIENT: ____. TRAVEL OUTSIDE US: DENIES TRAVEL OUTSIDE THE US IN THE LAST 21 DAYS.. HOUSING: OWNS HOME. : 2013. DOMESTIC VIOLENCE DO YOU FEEL SAFE IN YOUR ENVIRONMENT?YES REVIEW OF SYSTEMS REVIEWED BY: PROVIDER: COLE MOFFETT . CONSTITUTIONAL: ANY CHANGE IN YOUR MEDICAL CONDITION? NO . CHILLS NO . FEVER NO . INFECTION: DO YOU HAVE NEW INFECTIONS? NO . DO YOU HAVE HISTORY OF MRSA? NO . MUSCULOSKELETAL: ANY NEW PATTERNS OF PAIN OR NUMBNESS? NO . GASTROENTEROLOGY: ANY NEW CHANGE IN BOWEL CONTROL? NO . GENITOURINARY: ANY NEW CHANGE IN BLADDER CONTROL? NO . IS THERE A CHANCE YOU COULD BE ? NO . HEMATOLOGY/LYMPH: DO YOU TAKE ANY BLOOD THINNERS? (FOR EXAMPLE- COUMADIN, PLAVIX, AGGRENOX, PLATEL, PRADAXA, OR XARELTO) YES PLAVIX . WHEN WAS YOUR LAST DOSE? DATE: TIME: . NEUROLOGY: HAVE YOU FALLEN IN THE PAST 6 MONTHS? NO . ANY NEW EXTREMITY NUMBNESS OR WEAKNESS? NO . CARDIOLOGY: DO YOU HAVE A PACEMAKER OR DEFIBRILLATOR? NO . RESPIRATORY: HAVE YOU BEEN SICK IN THE PAST WEEK? NO . FEVER NO . FLU LIKE SYMPTOMS? NO . COUGH NO . INTEGUMENTARY: DO YOU HAVE ANY RASHES OR OPEN SORES? YES SORES ON BOTH FEET, SEES DR. SCHULER FOR THESE . ALLERGIC/IMMUNO: ARE YOU ALLERGIC TO SHELLFISH OR IV DYE? NO, YES . ANY NEW ALLERGIES? NO . PSYCHIATRIC: DO YOU HAVE THOUGHTS OF HURTING YOURSELF OR SOMEONE ELSE? NO . ARE YOU ABUSED, NEGLECTED, OR IN AN UNSAFE ENVIRONMENT? NO . ENDOCRINOLOGY: ARE YOU DIABETIC? NO . OTHER: DO YOU NEED ANY PRESCRIPTIONS? YES . IF YES, PLEASE LIST: ____MORPHINE, OXYCODONE, BACLOFEN, LYRICA . ANY NEW PROBLEMS WITH YOUR MEDICATIONS? NO . WHEN DID YOU LAST EAT? ____ . WHEN DID YOU LAST DRINK? ____ . WHAT DID YOU LAST DRINK? ____ . NAME OF PERSON DRIVING YOU HOME? ____ . DO YOU HAVE ANY OTHER QUESTIONS OR CONCERNS NO . VITAL SIGNS WT 218 LBS, HT 65 IN, BMI 36.27 INDEX, BP 150/70 MM HG, HR 72 /MIN, RR 18 /MIN, TEMP 98.3 F, BLOOD GLUCOSE LEVEL 222 NOW, SAFE IN ENV? (Y/N) YES, REVIEWED BY: LALIT. EXAMINATION GENERAL EXAMINATION: HEENT:HEAD:, NORMOCEPHALIC, EYES:, EYES NORMAL, NOSE:, NOSE CLEAR, THROAT: NORMAL. LUNGS:LUNG SOUNDS ARE CLEAR. HEART:HEART RATE REGULAR. MUSCULOSKELETAL:*. LUMBAR SACRAL SPINEMUSCLE STRENGTH TESTING 1/5 RIGHT 2/5 LEFT. PALPATION: + FOR PAIN OVER L/S SPINE. + FOR PAIN OVER L/S PARSPINALS. SKIN:NORMAL, NO RASH. NEUROLOGIC EXAM:ALERT AND ORIENTED X 3, DTRS 1-2+ IN ALL 4 EXTREMITIES, DENIES UPPER EXTREMETIES SENSORY LOSS, DENIES LOWER EXTREMETIES SENSORY LOSS. ASSESSMENTS POST LAMINECTOMY SYNDROME - M96.1 (PRIMARY) CHRONIC PRESCRIPTION OPIATE USE - Z79.891 TREATMENT POST LAMINECTOMY SYNDROME CONTINUE ROBAXIN-750 TABLET, 750 MG, 1 TABLET, ORALLY, Q8H TID REFILL LYRICA CAPSULE, 300 MG, 1 CAPSULE, ORALLY, TWICE A DAY MDD2, 30 DAY(S), 60, REFILLS 2 REFILL OXYCODONE HCL TABLET, 10 MG, 1, ORALLY, Q 4-6 HOURS PRN PAIN MDD=4EEDED, 30 DAY(S), 120, REFILLS 0 REFILL MS CONTIN TABLET EXTENDED RELEASE, 30 MG, 1 TABLET, ORALLY, BID MDD2, 30 DAY(S), 60, REFILLS 0 PROCEDURE CODES G8938 BMI CALC BUT PT NOT ELIG F/U PLAN G8783 BP SCR PRFRM RCMDD DEFIND SCR INTVL G8730 PAIN ASSESS POS TOOL F/U PLAN DOC 3016F PT SCRND [place]HL[place]Y [place] USE 1123F ACP DISCUSS/DSCN MKR DOCD 1036F TOBACCO NON-USER 0518F FALL PLAN OF CARE DOCD G8427 DOC MEDS VERIFIED W/[place] [address]288F FALL RISK ASSESSMENT DOCD FA211 ESTABILISHED PATIENT [facility] CHARGE DISPOSITION & COMMUNICATION FOLLOW UP 2 MONTHS ELECTRONICALLY SIGNED BY BETINA ALEXIS ON 02/09/2017 AT 10:04 PM EDT DISCLAIMER : THIS IS A VISIT SUMMARY EXTRACTED FROM THE [employer] CHART. IT IS NOT A COPY OF THE [employer] PROGRESS NOTE. MAGDALENA
== END ==
LOC: M PAIN 13:45
PROVIDERS: ATTEND Nurse Practitioner Family
DX: M96.1 Postlaminectomy syndrome, not elsewhere classified (principal); G89.29 Other chronic pain; M54.5 Low back pain; Z79.891 Long term (current) use of opiate analgesic; Z79.899 Other long term (current) drug therapy; Z79.4 Long term (current) use of insulin; Z88.6 Allergy status to analgesic agent; Z91.041 Radiographic dye allergy status

== ENCOUNTER → 2017-03-24 | Outpatient (CLI) | payer MEDICARE, MEDICAID ==
[~2017-03-24] MED LIST changes: +ADVI200T26 PO; +FURO40TA2 PO; +GLIP1TAB51 PO; +LASI40TA PO; +MIRA33504 PO; +NOVOINJ3 SC; +OXYCO5TA PO
--- NOTE | 2017-04-11 01:47 | ECWPNPC ---
PATIENT NAME: ANDI HORVATH : 1970 GENDER: FEMALE VISIT DATE: 03/24/2017 DISCHARGE DATE: 03/24/17 1552 VISIT LOCKED DATE TIME: PHYSICIAN: COLE CHEN RESOURCE: COLE CHEN REASON FOR APPOINTMENT 1. BILLING ISSUE HISTORY OF PRESENT ILLNESS HISTORY OF PRESENT ILLNESS: HERE FOR F/U AND MANAGEMENT OF CHRONIC LOW BACK PAIN AND BILATERAL LEG PAIN.RATING PAIN VAS 8/10.SHE IS ALERT AND SEEMS WELL.DISCUSSED MEDICINE AND TREATMENT OPTIONS.STATES PAIN IS AGGREVATED BY COLD WEATHER.PAIN RELIEVED SOMEWHAT WITH REST.CURRENTLY TAKING MS CONTIN 30MG BID AND LYRICA 300MG BID AND OXYCODONE 10MG 2-3 TAB. PER DAY. PATIENT HAS KIDNEY FAILURE,STAGE 3.WE ARE IN PROCESS OF WEANING DOWN PAIN MEDICATION.SHE HAS A NEW DIAGNOSIS OF SLEEP APNEA.REPORTING SHORTNESS OF BREATH WITH WALKING.USES WALKER IN HOME AND WHEELCHAIR FOR ANY DISTANCE.DR. WYATT HAD RECOMMENDED DURING HER LAST HOSPITAL STAY THAT SHE WEAN DOWN ON NARCOTIC MEDICINE AND HE STARTED THE PROCESS. PAIN THE PATIENT DESCRIBES THE PAIN... THE PATIENT DESCRIBES THE PAIN... THE PATIENT DESCRIBES THE PAIN... THE PATIENT DESCRIBES THE PAIN... FALL RISK SCREENING: SCREENING :NO FALLS IN THE PAST YEAR CURRENT MEDICATIONS TAKING LYRICA 300 MG CAPSULE 1 CAPSULE ORALLY TWICE A DAY MDD2 TAKING MS CONTIN 30 MG TABLET EXTENDED RELEASE 1 TABLET ORALLY BID MDD2 TAKING NITROSTAT 0.4 MG TABLET SUBLINGUAL 1-3 TABLETS SUBLINGUAL PRN TAKING GLUCOMETER 1 ELECTRONIC DIRECTED _ TID (E11.65) TAKING OVERLAY MATTRESS WITH PUMP DIRECTED. ICD10 L89.153, L 89.154 DAILY TAKING COMPRESSION STOCKINGS 15-20 MM[facility] _ DIRECTED FOR BLE EDEMA AND VARICOSE VEINS (DX. R60.0, I83.893) DIRECTED ON DURING THE DAY OFF AT NIGHT TAKING DULCOLAX 10 MG SUPPOSITORY 1 SUPPOSITORY NEEDED RECTAL ONCE DAILY NEEDED TAKING CYMBALTA 30 MG CAPSULE DELAYED RELEASE PARTICLES 1 CAPSULE ORALLY BID TAKING MIRALAX - PACKET 1 PACKET MIXED WITH 8 OUNCES OF FLUID ORALLY ONCE A DAY TAKING PROVENTIL HFA 108 (90 BASE) MCG/ACT AEROSOL SOLUTION 2 PUFFS NEEDED INHALATION EVERY 2HR PRN TAKING LISINOPRIL 20 MG TABLET 1 TABLET ORALLY ONCE A DAY TAKING COREG 6.25 MG TABLET 1 TAB ORALLY TWICE DAILY TAKING PLAVIX 75 MG TABLET 1 TABLET ORALLY ONCE A DAY TAKING ATORVASTATIN CALCIUM 40 MG TABLET 1 TABLET ORALLY ONCE A DAY TAKING OXYCODONE HCL 10 MG TABLET 1 ORALLY Q 4-6 HOURS PRN PAIN MDD=4EEDED TAKING ALBUTEROL SULFATE (2.5 MG/3ML) 0.083% NEBULIZATION SOLUTION 3 ML INHALATION THREE TIMES A DAY TAKING URETHRAL CATHETER - MISCELLANEOUS DIRECTED 14 [place] FEMALE SELF CATHETER TWICE DAILY, NOTES: MEDICAID SUBSCRIBER NUMER: [id number] TAKING BD INSULIN SYRINGE 31G X 09/24 MISCELLANEOUS DIRECTED SUBCUTANEOUSLY FOUR TIMES DAILY TAKING BLOOD GLUCOSE TEST STRIP 200 STRIP DIRECTED IN VITRO TID (E11.65) TAKING LASIX 40 MG TABLET 1 TABLET ORALLY ONCE A DAY TAKING NOVOLOG 100 UNIT/ML SOLUTION PER SCLIDING SCALE SUBCUTANEOUS IF ITS BETWEN 150- 200 2 UNITS THREE TIMES DAILY BEFORE MEALS TAKING LEVEMIR 100 UNIT/ML SOLUTION 65 UNITS SUBCUTANEOUS TWICE A DAY NOT-TAKING CEFDINIR 300 MG CAPSULE 1 CAPSULE ORALLY EVERY 12 HRS UNKNOWN SANTYL 250 UNIT/GM OINTMENT 1 APPLICATION TO AFFECTED AREA EXTERNALLY ONCE A DAY TO MADDY FEET MEDICATION LIST REVIEWED AND RECONCILED WITH THE PATIENT PAST MEDICAL HISTORY FX BACK AND BACK PAIN - COLE CHEN CAD - CABG 2008 ([place]), [place] 2013 ([place]) - REFERRED TO DR. 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 SCHULER CKD STAGE III RIGHT HIP DEBRIDMENT ALLERGIES ASPIRIN: HIVES: ALLERGY NUCLEAR MED DYE: LOWER EXTREMITY SWELLING: CONTRAINDICATION SURGICAL HISTORY C SECTION X3 CABG X 4 VESSELS 2009 CARDIAC CATH WITH STENTS 2013 APPENDECTOMY BACK SURGERY DORSAL COLUMN STIMULATOR- NOT WORKING NOW 2010 TONSILLECTOMY R HIP SURGERY 2016 SOCIAL HISTORY GENERAL: TOBACCO USE ARE YOU A:NONSMOKER NEVER SMOKER BMI CARE GOAL FOLLOW-UP ABOVE NORMAL BMI FOLLOW-UPLIFESTYLE EDUCATION REGARDING DIET ALCOHOL SCREENING DID YOU HAVE A DRINK CONTAINING ALCOHOL IN THE PAST YEAR?NO POINTS0 INTERPRETATIONNEGATIVE RECREATIONAL DRUG USE DRUG USE?NO CAFFEINE CAFFEINE USE? NO SEXUAL HX HAD SEX IN THE LAST 12 MONTHS (VAGINAL, ORAL, OR ANAL)?NO HAVE YOU EVER HAD AN STD?NO HIV / HEP-C SCREENING HIV TEST OFFERED TO PATIENT:YES DATE OFFERED:02/17/2017 TEST ACCEPTED:NO HEP-C TEST OFFERED TO PATIENT:NO REASON:PATIENT DECLINED OCCUPATION: UNEMPLOYED. DIET: REGULAR. EXERCISE: NO REGULAR EXERCISE. MARITAL STATUS: .. OTHERS AT HOME: MOTHER. PETS: DOG. JEW [id number] VOODOO NO LATTER DAY BELIEFS THAT WOULD IMPACT HEALTH CARE. LANGUAGE LANGUAGES SPOKEN:RUSSIAN EDUCATION LEVEL OF EDUCATION:FINISHED HIGH SCHOOL LEARNING BARRIERS / SPECIAL NEEDS CHANGE FROM LAST VISIT?NO BARRIERS TO LEARNING?NO HEARING IMPAIRED?NO VISION IMPAIRED?YES PT STATES SHE NEEDS GLASSES. 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 HOUSING: OWNS HOME. : 2013. DOMESTIC VIOLENCE DO YOU FEEL SAFE IN YOUR ENVIRONMENT?YES HOSPITALIZATION/MAJOR DIAGNOSTIC PROCEDURE BRONCHITIS/PHAN/URINARY RETENTION 12/15/2015 PNEUMONIA 07/2015 UNINTENTIONAL FENTANYL OVERDOSE FROM MULTIPLE PATCH USAGE 2014 REACTION TO NUCLEAR MED DYE 05/2015 PNEUMONIA 09/16/16-09/20/16 R HIP SURGERY "FOR INFECTION" 11/09/16-11/26/16 METABOLIC ENCEPHALOPATHY 01/28/2017 REVIEW OF SYSTEMS REVIEWED BY: PROVIDER: COLE MOFFETT . CONSTITUTIONAL: ANY CHANGE IN YOUR MEDICAL CONDITION? YES . CHILLS NO . FEVER NO . INFECTION: DO YOU HAVE NEW INFECTIONS? NO . DO YOU HAVE HISTORY OF MRSA? NO . MUSCULOSKELETAL: ANY NEW PATTERNS OF PAIN OR NUMBNESS? YES . GASTROENTEROLOGY: ANY NEW CHANGE IN BOWEL CONTROL? NO . GENITOURINARY: ANY NEW CHANGE IN BLADDER CONTROL? NO . IS THERE A CHANCE YOU COULD BE ? NO . HEMATOLOGY/LYMPH: DO YOU TAKE ANY BLOOD THINNERS? (FOR EXAMPLE- COUMADIN, PLAVIX, AGGRENOX, PLATEL, PRADAXA, OR XARELTO) YES, PLAVIX . WHEN WAS YOUR LAST DOSE? DATE: TIME: . NEUROLOGY: HAVE YOU FALLEN IN THE PAST 6 MONTHS? NO . ANY NEW EXTREMITY NUMBNESS OR WEAKNESS? NO . CARDIOLOGY: DO YOU HAVE A PACEMAKER OR DEFIBRILLATOR? NO . RESPIRATORY: HAVE YOU BEEN SICK IN THE PAST WEEK? NO . FEVER NO . FLU LIKE SYMPTOMS? NO . COUGH NO . INTEGUMENTARY: DO YOU HAVE ANY RASHES OR OPEN SORES? YES, RIGHT FOOT DIABETIC ULCER . ALLERGIC/IMMUNO: ARE YOU ALLERGIC TO SHELLFISH OR IV DYE? YES . ANY NEW ALLERGIES? NO . PSYCHIATRIC: DO YOU HAVE THOUGHTS OF HURTING YOURSELF OR SOMEONE ELSE? NO . ARE YOU ABUSED, NEGLECTED, OR IN AN UNSAFE ENVIRONMENT? NO . ENDOCRINOLOGY: ARE YOU DIABETIC? YES . OTHER: DO YOU NEED ANY PRESCRIPTIONS? YES . IF YES, PLEASE LIST: MORPHINE, OXYCODONE, MUSCLE RELAXER, LYRICA . ANY NEW PROBLEMS WITH YOUR MEDICATIONS? NO . WHEN DID YOU LAST EAT? ____ . WHEN DID YOU LAST DRINK? ____ . WHAT DID YOU LAST DRINK? ____ . NAME OF PERSON DRIVING YOU HOME? ____ . DO YOU HAVE ANY OTHER QUESTIONS OR CONCERNS NO . VITAL SIGNS WT 225.0 LBS, HT 65 IN, BMI 37.44 INDEX, BP 126/65 MM HG, HR 61 /MIN, RR 18 /MIN, TEMP 97.3 F, OXYGEN SAT % 93%, NA INITIALS TL 1432, REVIEWED BY: CAROL. EXAMINATION GENERAL EXAMINATION: HEENT:HEAD:, NORMOCEPHALIC, EYES:, EYES NORMAL, NOSE:, NOSE CLEAR, THROAT: NORMAL. LUNGS:LUNG SOUNDS ARE CLEAR. HEART:HEART RATE REGULAR. MUSCULOSKELETAL:*. LUMBAR SACRAL SPINEMUSCLE STRENGTH TESTING 1/5 RIGHT 2/5 LEFT. PALPATION: + FOR PAIN OVER L/S SPINE. + FOR PAIN OVER L/S PARSPINALS. SKIN:NORMAL, NO RASH. NEUROLOGIC EXAM:ALERT AND ORIENTED X 3, DTRS 1-2+ IN ALL 4 EXTREMITIES, DENIES UPPER EXTREMETIES SENSORY LOSS, DENIES LOWER EXTREMETIES SENSORY LOSS. ASSESSMENTS POST LAMINECTOMY SYNDROME - M96.1 (PRIMARY) CHRONIC PRESCRIPTION OPIATE USE - Z79.891 TREATMENT POST LAMINECTOMY SYNDROME REFILL MS CONTIN TABLET EXTENDED RELEASE 12 HOUR, 15 MG, 1 TABLET, ORALLY, BID MDD2, 30 DAY(S), 60, REFILLS 0 REFILL LYRICA CAPSULE, 300 MG, 1 CAPSULE, ORALLY, TWICE A DAY MDD2, 30 DAY(S), 60, REFILLS 2 REFILL OXYCODONE HCL TABLET, 5 MG, 1, ORALLY, Q8H PRN MDD3, 30 DAY(S), 90, REFILLS 0 NOTES: FALLS CARE PLAN: 1. RECOMMEND REMOVING ALL THROW RUGS. 2. RECOMMEND NIGHT LIGHTS 3. RECOMMEND WEARING RUBBER SOLED SHOES AND TO NOT GO BAREFOOT. 4.. ADVISED TO CHANGE POSITION SLOWLY FROM SUPINE TO STANDING TO AVOID DIZZINESS. 5. ADVISED TO USE ASSISTIVE DEVICE SUCH CANE OR WALKER 6. USE [employer]IF[employer] SERVICES OR KEEP PORTABLE PHONE READILY AVAILABLE, [employer] REGISTRY REVIEWED [id number] AND DEMNOSTRATES COMPLLIANCE. BRINGS IN MEDICATIONS WHICH IS APPROPRIATE FOR WHAT WAS DISPENSED. RECENT URINE TOXICOLOGY REVIEWED. NO UNAUTHORIZED MEDICATIONS. NO ILLICIT SUBSTANCES AND PRESCRIBED MEDICATIONS WERE PRESENT. , RISKS AND BENEFITS OF NARCOTIC/OPIOD MEDICATIONS WERE REVIEWED WITH PATIENT - THIS INCLUDES BUT IS NOT LIMITED TO RISK OF DEPENDANCE/DEVELOPMENT OF ADDICTION, MOOD DISTURBANCE AND DEPRESSION, OSTEOPOROSIS, HORMONAL AND LABIDAL CHANGES, RESPIRATORY DEPRESSION AND . PATIENT IS ADVISED NOT TO DRIVE WHILE ON THESE MEDICATIONS. PROCEDURE CODES FA211 ESTABILISHED PATIENT [facility] CHARGE [id number] PAIN ASSESS POS TOOL F/U PLAN DOC G8427 DOC MEDS VERIFIED W/PT OR RE DISPOSITION & COMMUNICATION FOLLOW UP WE WILL CONTACT PATIENT ELECTRONICALLY SIGNED BY BETINA ALEXIS ON 04/08/2017 AT 07:58 AM EST DISCLAIMER : THIS IS A VISIT SUMMARY EXTRACTED FROM THE [employer] CHART. IT IS NOT A COPY OF THE [employer] PROGRESS NOTE. MTDD
== END ==
LOC: M PAIN 14:00
PROVIDERS: ATTEND Anesthesiology
DX: M96.1 Postlaminectomy syndrome, not elsewhere classified (principal); I25.10 Atherosclerotic heart disease of native coronary artery without angina pectoris; I10 Essential (primary) hypertension; E11.9 Type 2 diabetes mellitus without complications; J45.909 Unspecified asthma, uncomplicated; I25.2 Old myocardial infarction; Z88.6 Allergy status to analgesic agent; Z91.041 Radiographic dye allergy status; Z79.01 Long term (current) use of anticoagulants; Z79.891 Long term (current) use of opiate analgesic; Z79.4 Long term (current) use of insulin; Z79.899 Other long term (current) drug therapy

== ENCOUNTER 2017-03-25 04:13 | Emergency (ER) | payer MEDICARE, MEDICAID ==
[~2017-03-25] VITALS: Ht 162.6 cm; Wt 104.5 kg
[~2017-03-25 04:13] MED LIST changes: -LASI40TA PO
[2017-03-25 04:17] VITALS: BP 0/0
[2017-03-25] MEDS ORDERED: ATOR40TA75 PO (04:24)
[2017-03-25] MEDS ORDERED: LASI40TA PO (04:24)
[2017-03-25] MEDS ORDERED: LISI-538 PO (04:24)
[2017-03-25] MEDS ORDERED: SODIUM BICARBONATE 8.4% INJ 50 ML SYRINGE ONE (05:07)
[2017-03-25] MEDS ORDERED: EPINEPHrine 1MG/10ML SYRINGE 1.5IN ONE (05:07)
== END 2017-03-25 07:03 | disposition expired ==
LOC: M ED 04:13 → EDBD 04:13 → M ED 07:03
DX: I46.9 Cardiac arrest, cause unspecified (principal)

== ENCOUNTER → 2017-03-26 | Outpatient (REF) ==
[~2017-03-26] MED LIST changes: +LASI40TA PO
== END ==
LOC: M LAB 11:58